=== PATIENT | female | born 1985 | race Caucasian/White ===

== ENCOUNTER 2020-05-22 12:26 | Emergency (ER) | payer OTHER, SELFPAY ==
--- NOTE | 2020-05-22 12:38 | ED.URI ---
HPI - URI/Sore Throat General Chief Complaint: Upper Respiratory Infection Stated Complaint: cough Time Seen by Provider: 05/22/20 12:38 Source: patient Mode of arrival: ambulatory Limitations: no limitations History of Present Illness HPI Narrative: Rose Jara is a 34 yo female with a PMH of GERD, to express care with a cough and pain in ribs. Cough been present for the last 2-week and is getting worse. Tested yesterday for covid and it was negative. Patient states is having hard time eating and feelings fatigued Related Data Home Medications Medication Instructions Recorded Confirmed buspirone 10 mg PO BID 05/22/20 05/22/20 gabapentin [Neurontin] 400 mg PO BID 05/22/20 05/22/20 norethindrone-e.estradiol-iron [Lo 1 tablet PO DAILY 05/22/20 05/22/20 Loestrin Fe] Allergies Allergy/AdvReac Type Severity Reaction Status Date / Time codeine Allergy Unknown Hives Verified 05/22/20 12:46 Review of Systems Review of Systems: Narrative: CONSTITUTIONAL: Denies fever, chills, sweats. EYES: Denies visual changes, redness, discharge. ENT: Denies rhinorrhea, congestion, sore throat, otalgia. CARDIOVASCULAR: Has chest wall pain, palpitations, edema. RESPIRATORY: Denies dyspnea, mild wheezing, has dry cough GASTROINTESTINAL: Denies abdominal pain, nausea, vomiting, diarrhea. GENITOURINARY: Denies dysuria, hematuria, abnormal discharge SKIN: Denies rash or itching. NEUROLOGIC: Denies numbness, or focal weakness. PSYCHIATRIC: Denies anxiety or depression. [facility] Past Medical History Medical History GERD (gastroesophageal reflux disease) Pancreatitis Surgical History Surgical History History of oral surgery Family History Family History Other Diabetes mellitus Family history of lung cancer Family history of malignant neoplasm of cervix Social History Social History Smoking packs per day: 0.75 Smoking cigarettes per day: 15.0 Smoking status: Current every day smoker Tobacco type: cigarettes Second hand tobacco smoke exposure: Yes Alcohol intake: current Substance use: current Substance use type: heroin and painkillers Other substance usage details: former heroin user, current non-prescription fentanyl user Gender identity (if verbalized by the patient): Female Spiritual care concerns: No Agree to blood products: Yes Comments At time of signature, I agree with nursing past medical, surgical, social and family history. There is no relevant family history pertinent to the presenting complaint. Exam Narrative: Exam Narrative: GENERAL: This is a well-nourished, well-developed patient, in mild distress. HEAD: normocephalic, atraumatic. EYES Sclera clear/white. Vision is grossly intact. EARS: External ears normal, Hearing grossly intact. NOSE: External nose normal without nasal discharge, nares without redness, no rhinorrhea. THROAT: Mucous membranes moist, posterior pharynx NECK: Neck supple, CARDIOVASCULAR: Regular rate and rhythm without murmurs, gallops, or rubs. RESPIRATORY: Clear to auscultation. Breath sounds equal bilaterally. Left lower lobe diminished breath sounds mild wheezing GASTROINTESTINAL: Abdomen soft, , SKIN: warm, intact with no suspicious lesions or rash, good texture and turgor. NEURO: awake, alert, and oriented to person, place and time. There were no obvious focal neurologic abnormalities. Steady gait EXTREMITIES: Normal range of motion. BACK: Nontender without deformity Course Course Emergency Course: Chest x-ray was unable to be done because machine is down Discussed treatment with patient and decided to start on Zithromax as well as cough medicine and prednisone Patient will hydrate and take medications as prescribed if worsens shirley
[2020-05-22 12:39] VITALS: BP 134/84; PULSE 108; RESP 20; TEMP 36.5; O2SAT 97
--- NOTE | 2020-06-01 12:21 | ED.URI ---
HPI - URI/Sore Throat General Chief Complaint: Upper Respiratory Infection Stated Complaint: cough Time Seen by Provider: 05/22/20 12:38 Source: patient Mode of arrival: ambulatory Limitations: no limitations History of Present Illness HPI Narrative: Rose Jara is a 34 yo female with a PMH of heroin abuse, depression, who comes back to [facility] care with similar complaints as last time. Patient has a cough does not feel well presents has tachycardic I saw her last time 10 days ago, discussed whether she improved on Zithromax and prednisone initially and she did but when she completed the prescription she said she went back to feeling as she does now. She was culture tested prior to the last visit; we will give patient order for cover testing this week. Discussed reasons that she will go to the emergency room as directed; states that she is here for treatment and does not want to go to the emergency room Hands are swollen appears to have recent track lisa on her hands patient has long sleeves so I was on able to visualize arms but patient does have history of heroin abuse Related Data Home Medications Medication Instructions Recorded Confirmed buspirone 10 mg PO BID 05/22/20 05/22/20 gabapentin [Neurontin] 400 mg PO BID 05/22/20 05/22/20 norethindrone-e.estradiol-iron [Lo 1 tablet PO DAILY 05/22/20 05/22/20 Loestrin Fe] Allergies Allergy/AdvReac Type Severity Reaction Status Date / Time codeine Allergy Unknown Hives Verified 05/22/20 12:46 Review of Systems Review of Systems: Narrative: CONSTITUTIONAL: Denies fever, chills, sweats. EYES: Denies visual changes, redness, discharge. ENT: Denies rhinorrhea, congestion, sore throat, otalgia. CARDIOVASCULAR: Denies chest pain, palpitations, edema. Tachycardia RESPIRATORY: Denies dyspnea, wheezing, dry cough GASTROINTESTINAL: Denies abdominal pain, nausea, vomiting, diarrhea. GENITOURINARY: Denies dysuria, hematuria, abnormal discharge SKIN: Denies rash or itching. track lisa on both hands, edema fingers NEUROLOGIC: Denies numbness, or focal weakness. PSYCHIATRIC: Denies anxiety or depression. COUNT INCLUDES THE [facility] Family History Family History Other Diabetes mellitus Family history of lung cancer Family history of malignant neoplasm of cervix Social History Social History Smoking packs per day: 0.75 Smoking cigarettes per day: 15.0 Smoking status: Current every day smoker Tobacco type: cigarettes Second hand tobacco smoke exposure: Yes Alcohol intake: current Substance use: current Substance use type: heroin and painkillers Other substance usage details: former heroin user, current non-prescription fentanyl user Gender identity (if verbalized by the patient): Female Spiritual care concerns: No Agree to blood products: Yes Comments At time of signature, I agree with nursing past medical, surgical, social and family history. There is no relevant family history pertinent to the presenting complaint. Exam Narrative: Exam Narrative: GENERAL: This is a well-nourished, well-developed patient, in mild distress. HEAD: normocephalic, atraumatic. EYES: Sclera clear/white. Vision is grossly intact. EARS: External ears normal, Hearing grossly intact. NOSE: External nose normal without nasal discharge, nares without redness, no rhinorrhea. THROAT: Mucous membranes moist, posterior pharynx NECK: Neck supple, non-tender CARDIOVASCULAR: Tachycardic rate and rhythm without murmurs, gallops, or rubs. RESPIRATORY: Clear to auscultation. Breath sounds equal bilaterally. No wheezes, rales, or rhonchi. GASTROINTESTINAL: Abdomen soft, non-tender, SKIN: warm, intact with old and what appears to be new track lisa on hands, fingers are swollen, patient is diaphoretic NEURO: awake, alert, and oriented to person, place and time. There were no obvious focal
== END 2020-05-22 13:25 | disposition home or self-care (01) ==
PROVIDERS: Emergency Provider Nurse Practitioner
DX: R05 Cough (principal); J06.9 Acute upper respiratory infection, unspecified; R53.83 Other fatigue; F17.210 Nicotine dependence, cigarettes, uncomplicated; K21.9 Gastro-esophageal reflux disease without esophagitis
CPT/HCPCS: 99213; G0463

== ENCOUNTER 2020-06-01 11:59 | Emergency (ER) | payer OTHER, SELFPAY ==
[2020-06-01 12:08] VITALS: BP 141/68; PULSE 83; RESP 18; TEMP 36.2; O2SAT 97
--- NOTE | 2020-06-01 12:38 | PC.NURSE ---
1220-- arrangements made with [facility] and r[facility] and provider there in agreement with us to continue care, and complete cxr and discharge pt from there with our provider and their provider collaborating discharge plan.
== END 2020-06-01 12:49 | disposition left against medical advice (07) ==
LOC: EXPCOLL 12:02
PROVIDERS: Emergency Provider Nurse Practitioner
DX: Z53.21 Procedure and treatment not carried out due to patient leaving prior to being seen by health care provider (principal)
CPT/HCPCS: 99199

== ENCOUNTER 2020-06-01 13:26 | Emergency (ER) | payer OTHER, SELFPAY ==
--- NOTE | ~2020-06-01 | XR_ITS ---
EXAMINATION: XR chest 2V EXAM DATE: 06/01/2020 13:41 INDICATION: Cough for 3 weeks. TECHNIQUE: Frontal and lateral projections of the chest obtained and reviewed. Comparison is made to prior examination from 06/15/2015. FINDINGS: There is a large left-sided pleural-based opacity or loculated pleural effusion. No evidenc e of underlying rib erosion. Appearance most consistent with a loculated pleural effusion with adjace nt multisegmental atelectasis/infiltrate. Underlying pneumonia or other chronic process not excludabl e. Findings are new compared to 2015. Please clinically correlate, could consider treating for pneumonia if patient has pneumonia clinicall y and obtaining a 2 week follow-up x-ray with additional recommendation based on that exam. If patien t does not have pneumonia clinically then recommend chest CT with contrast at this time. Right lung is clear. Cardiomediastinal silhouette is normal. There is no pneumothorax suspected. Ther e are no osseous abnormalities identified. IMPRESSION: Large left pleural-based opacity most likely loculated effusion with adjacent atelectasis /infiltrate. Clinical correlation, additional evaluation with follow-up chest x-ray or chest CT with contrast is indicated. Reviewed, dictated and finalized at location A. IMPRESSION: Large left pleural-based opacity most likely loculated effusion wit h adjacent atelectasis/infiltrate. Clinical correlation, additional evaluation with follow-up chest x-ray or chest CT with contrast is indicated.
[2020-06-01 13:36] VITALS: BP 138/73; PULSE 87; RESP 20; TEMP 36.6; O2SAT 98
--- NOTE | 2020-06-01 13:36 | ED.URI ---
HPI - URI/Sore Throat General Chief Complaint: Upper Respiratory Infection Stated Complaint: upper respiratory infection Time Seen by Provider: 06/01/20 13:36 Source: patient Mode of arrival: ambulatory Limitations: no limitations History of Present Illness HPI Narrative: Patient is a 34-year-old female who was just seen at [facility] and sent here for x-rays. She has a history of heroin abuse and depression. She was seen in [facility] previously on 05/22 with complaints of cough and general malaise. She returned to [facility] today with same complaints. Patient was treated with Zithromax and prednisone initially and reported symptoms returned after finishing prescription. Patient is a current everyday smoker. Patient has current order for COVID testing that has not been completed at this time, patient has previously been tested for Covid x 2 with negative results. Swelling the hands noted, appears to be recent track lisa, patient reports she has not been using heroin x1 year. MD elicited complaint: cough Related Data Home Medications Medication Instructions Recorded Confirmed buspirone 10 mg PO BID 05/22/20 05/22/20 gabapentin [Neurontin] 400 mg PO BID 05/22/20 05/22/20 norethindrone-e.estradiol-iron [Lo 1 tablet PO DAILY 05/22/20 05/22/20 Loestrin Fe] Allergies Allergy/AdvReac Type Severity Reaction Status Date / Time codeine Allergy Unknown Hives Verified 05/22/20 12:46 Review of Systems Review of Systems: Narrative: CONSTITUTIONAL: Denies fever, chills, or sweats. EYES: Denies visual changes, redness, or discharge. ENT: Denies rhinorrhea, congestion, sore throat, or otalgia. CARDIOVASCULAR: Denies chest pain, palpitations, or edema. RESPIRATORY: Reports cough, denies dyspnea. GASTROINTESTINAL: Denies abdominal pain, nausea, vomiting, or diarrhea. GENITOURINARY: Denies dysuria or hematuria. SKIN: Denies rash or itching. MUSCULOSKELETAL: Denies back pain, joint pain, or myalgia. NEUROLOGIC: Denies headache, numbness, dizziness, or weakness. PSYCHIATRIC: Denies anxiety or depression. [facility] Past Medical History Medical History GERD (gastroesophageal reflux disease) Heroin abuse Pancreatitis Surgical History Surgical History History of oral surgery Family History Family History Other Diabetes mellitus Family history of lung cancer Family history of malignant neoplasm of cervix Social History Social History Smoking packs per day: 0.75 Smoking cigarettes per day: 15.0 Smoking status: Current every day smoker Tobacco type: cigarettes Second hand tobacco smoke exposure: Yes Alcohol intake: current Substance use: current Substance use type: heroin and painkillers Other substance usage details: former heroin user, current non-prescription fentanyl user Gender identity (if verbalized by the patient): Female Spiritual care concerns: No Agree to blood products: Yes Exam Narrative: Exam Narrative: GENERAL: well-nourished, and in no acute distress. HEAD: Normocephalic, atraumatic. EYES: No redness or drainage. Conjunctiva are normal. ENT: Mucous membranes pink and moist. Nares clear. No rhinorrhea. TMs normal bilaterally. Throat normal. Uvula midline. NECK: AROM. Supple. No lymphadenopathy. CHEST: No respiratory distress. Clear to auscultation. HEART: Regular rate and rhythm. No murmur appreciated. Normal peripheral pulses. EXTREMITIES: Normal range of motion. No edema. SKIN: Warm, dry, no rash. Needle lisa to bilateral hands. NEURO: No focal deficits. Alert and oriented x3. Gait steady. PSYCH: Normal affect. No signs of depression or anxiety. Course Vital Signs Vital signs: Vital Signs Temperature 36.6 C
--- NOTE | 2020-06-01 13:57 | PC.NURSE ---
Issac POLANCO speaking with patient in regards to needing to go the ER for additional testing
--- NOTE | 2020-06-01 14:03 | PC.NURSE ---
Issac POLANCO called report to Dr Funez
--- NOTE | 2020-06-01 14:06 | PC.NURSE ---
Report to Dulce OVALLES
--- NOTE | 2020-06-01 14:08 | PC.NURSE ---
Issac POLANCO talking with patient about potential transfer to [facility]
--- NOTE | 2020-06-01 14:18 | PC.NURSE ---
Patient stated she wants to go home and it will be a few days before she goes to any hospital. States that she last used heroin yesterday and cannot go to the hospital when she is going to be sick from not using. Spoke with patients mother and she agreed to take her to [place] after they accept. Patient refuses to go for a few days Explained the improtance of going and potential for worsening of condition up to and including
--- NOTE | 2020-06-01 14:23 | PC.NURSE ---
signed AMA paperwork and lef the facility
== END 2020-06-01 14:25 | disposition left against medical advice (07) ==
LOC: EXPTROY 13:29
PROVIDERS: Emergency Provider Nurse Practitioner
DX: R91.8 Other nonspecific abnormal finding of lung field (principal); F17.210 Nicotine dependence, cigarettes, uncomplicated; K21.9 Gastro-esophageal reflux disease without esophagitis
CPT/HCPCS: 71046; 99213; G0463

== ENCOUNTER 2021-04-28 19:19 | Emergency (ER) | payer OTHER, SELFPAY ==
--- NOTE | ~2021-04-28 | XR_ITS ---
EXAMINATION: XR knee LT 3V DATE: 04/28/2021 20:16 INDICATION: Left knee pain. TECHNIQUE: 3 views of left knee were obtained. COMPARISON: Left knee radiographs 03/07/2018 FINDINGS: Bone alignment is normal. No fracture. There is mild osteoarthritis of medial and lateral c ompartments characterized by tiny marginal osteophytes. No joint space narrowing. No knee joint effus ion. There is subcutaneous gas in distal medial thigh with soft tissue swelling. IMPRESSION: 1. Subcutaneous gas in distal medial thigh with soft tissue swelling suspicious for infection or pene trating injury. Correlate clinically for necrotizing fasciitis. 2. Mild left knee osteoarthritis. Reviewed, dictated and finalized at location A. IMPRESSION: 1. Subcutaneous gas in distal medial thigh with soft tissue swelling suspicious for infection or penetrating injury. Correlate clinically for necrotizing fasc iitis. 2. Mild left knee osteoarthritis.
[2021-04-28 19:41] VITALS: BP 90/70; PULSE 135; RESP 20; TEMP 38.6; O2SAT 97
[2021-04-28 20:19] LABS: Basophils Percent Auto 0.3 % (0.2-1.2); Eosinophils Percent Auto 0.1 % (0-4.4); Hematocrit 36.2 % (37.0-47.0); Hemoglobin 10.9 g/dL (12.0-15.0); Immature Granulocyte Absolute 0.09 K/mm3 (0.00-0.031); Immature Granulocyte Percent A 0.7 % (0-0.5); Lymphocytes Absolute Auto 0.68 K/mm3 (0.9-3.2); Mean Corpuscular HGB Conc 30.1 g/dl (32-36); Mean Corpuscular Hemoglobin 24.1 pg (26-34); Mean Corpuscular Volume 79.9 fl (80-100); Mean Platelet Volume 10.4 fl (7.4-10.4); Monocytes Absolute Auto 0.7 K/mm3 (0.1-0.6); Monocytes Percent Auto 5.1 % (2.6-8.5); Neutrophils Absolute Auto 12.1 K/mm3 (1.3-6.7); Neutrophils Percent Auto 88.8 % (45.5-73.1); Platelet Count Result 391 k/mm3 (150-375); Red Blood Count 4.53 M/mm3 (4.2-5.4); White Blood Count 13.6 K/mm3 (4.5-10.0)
[2021-04-28 20:46] LABS: Alanine Aminotransferase 12 U/L (4-35); Albumin Level 4.5 g/dL (3.5-5.1); Alkaline Phosphatase 108 U/L (38-126); Anion Gap 12 mmol/L (8-16); Aspartate Amino Transferase 19 U/L (14-36); Bilirubin,Total 0.3 mg/dL (0.2-1.3); Blood Urea Nitrogen 14 mg/dL (7-17); CRP 19.5 mg/dL (<1.0); Calcium 9.5 mg/dL (8.4-10.2); Carbon Dioxide 27 mmol/L (22-30); Chloride 97 mmol/L (98-107); Estimated CRCL calculation 64 ml/min; Estimated Glomerular Filt Rate > 60; Glucose 114 mg/dL (65-110); Potassium 3.5 mmol/L (3.4-5.0); Sodium 136 mmol/L (137-145)
--- NOTE | 2021-04-28 21:13 | PC.NURSE ---
Pt ambulated to intake nurse to say her ride is leaving and she cannot stay, she will come back in the morning. This RN discussed labs and treatment and need to stay for eval by doctor. Discussed ways of getting home at a later time. Pt states No, Im leaving, I didnt think it would be this busy on a Tuesday. I will come back another time. Pt ambulated out w/ steady gait.
== END 2021-04-28 21:13 | disposition left against medical advice (07) ==
PROVIDERS: Emergency Provider Emergency Medicine
DX: L02.415 Cutaneous abscess of right lower limb (principal); Z53.21 Procedure and treatment not carried out due to patient leaving prior to being seen by health care provider
CPT/HCPCS: 36415; 73562; 80053; 85025; 86140; 99199

== ENCOUNTER 2021-04-29 10:15 | Emergency (ER) | payer OTHER, SELFPAY ==
--- NOTE | ~2021-04-29 | CT_ITS ---
EXAMINATION: CT LE LT w con DATE: 04/29/2021 14:17 INDICATION: Abscess to the left knee. TECHNIQUE: High resolution computed tomography (CT) of the left lower limb above the hip through the foot was performed with 100 mL Omnipaque-350 intravenous contrast. Additional sagittal and coronal re constructions were performed. The dose-length product was 917.97 mGy-cm. COMPARISON: None FINDINGS: There is an approximately 2.8 x 2.0 x 2.7 cm nonorganized fluid collection centered in the subcutaneo us fat at the anteromedial aspect of the distal left thigh located approximately 8 cm cephalad to the tibiotalar joint line. No evident peripherally enhancing wall. There is surrounding subcutaneous jeovanny ma with skin thickening and a few foci of gas in the subcutaneous fat consistent with cellulitis. Of more concern there is extensive gas deep to the superficial fascia of the anterior compartment of the thigh which extends anteriorly to the medial side of the vastus medialis and its complex with the di stal quadriceps tendon and extends posteriorly and proximally along the posterior medial margin of th e vastus medialis 30 cm proximal to the tibiotalar joint line and 13 cm inferior to the apex of the f emoral head. Findings are concerning for necrotizing fasciitis. The gas extends to within a couple mi llimeter of the superficial femoral neurovascular bundle but does not appear to cross the medial inte rmuscular septum into the fat of the adductor canal. There is however some stranding in the abductor canal and extending around the sartorius muscle which along with the inflammatory stranding in the fa t of the anterior compartment extends cephalad to the level of the hip joint. No intramuscular gas wi thin the vastus medialis however there is subtle decreased attenuation/enhancement in the superficial aspect of the vastus medialis and could not exclude underlying myositis/necrosis. There is a small f ocus of gas along side the left greater saphenous vein at the level of the tibial plateau. The greate r saphenous vein at this level appears relatively thickened compared with the more proximal distal ve in and with lower attenuation which suggests possibility of thrombosis/thrombophlebitis. Bones are un remarkable in normal alignment with no fracture. No cortical erosions or periosteal reaction to sugge st osteomyelitis. Joint spaces are unremarkable with no left hip, knee or ankle joint effusions. Like ly reactive mildly prominent left inguinal lymph node. No gas inflammatory stranding within the visua lized base of the pelvis. IMPRESSION: 1. Extensive gas peripheral to the vastus medialis but deep to the superficial fascia of the anterior compartment which extends along the distal to mid thigh concerning for necrotizing fasciitis. 2. Subtle decreased attenuation/enhancement along the superficial aspect of the vastus medialis which raises concern for myositis and/or myonecrosis. 3. Cellulitis with 2-3 cm nonorganized fluid collection in the subcutaneous fat at the anteromedial d istal thigh consistent with phlegmonous change without organized peripheral wall to suggest abscess. 4. Dr. Rowe discussed these findings with Dr. Stewart at 2:27 PM. 5. Small focus of gas along the left greater saphenous vein at the level of the tibial plateau where it appears mildly dilated with decreased intraluminal attenuation suspicious for thrombosis/thromboph lebitis. Reviewed, dictated and finalized at location A.
[2021-04-29 10:30] VITALS: BP 104/63; PULSE 120; RESP 16; TEMP 36.8; O2SAT 100
--- NOTE | 2021-04-29 10:46 | ED.GENADULT ---
HPI - General Adult General Chief complaint: Skin/Abscess/Foreign Body <ISHA Lutz Last Filed: 04/29/21 15:54> Stated complaint: Abscess L knee <ISHA Lutz Last Filed: 04/29/21 15:54> Time Seen by Provider: 04/29/21 10:45 <ISHA Lutz Last Filed: 04/29/21 15:54> History of Present Illness HPI narrative: Patient is a 35-year-old female with history of IV drug use who comes to the ED today with concerns for a skin infection to her left leg. Patient reports that about 4 days ago she noticed some redness and tenderness just to the medial aspect of her left knee. Over the last 4 days this area is gotten larger and more painful. Over the last 2 days she has developed fevers and nausea. Reports a fever of 102 at home. Denies any possibility of . She did inject into the areas just prior to onset of symptoms. Came here for the symptoms last night but had to leave prior to receiving treatment. <ISHA Lutz Last Filed: 04/29/21 15:54> Related Data Home medications: Home Medications Medication Instructions Recorded Confirmed buspirone mg 04/29/21 clonidine HCl 04/29/21 gabapentin 04/29/21 <ISHA Lutz Last Filed: 04/29/21 15:54> Allergies/adverse reactions: Allergies Allergy/AdvReac Type Severity Reaction Status Date / Time codeine Allergy Unknown Hives Verified 05/22/20 12:46 <ISHA Lutz Last Filed: 04/29/21 15:54> Review of Systems Constitutional: Constitutional: Reports as per HPI, Denies fever(s), Denies night sweats and Denies weakness <ISHA Lutz Last Filed: 04/29/21 15:54> Cardiovascular: Cardiovascular: Denies chest pain, Denies edema, Denies leg edema, Denies dyspnea and Denies orthopnea <ISHA Lutz Last Filed: 04/29/21 15:54> Respiratory: Respiratory: Denies cough and Denies dyspnea <Chidi Kelly PA-C - Last Filed: 04/29/21 15:54> Gastrointestinal: Gastrointestinal: Denies abdominal pain, Denies constipation, Denies diarrhea, Reports nausea and Denies vomiting <Chidi Kelly PA-C - Last Filed: 04/29/21 15:54> Musculoskeletal: Musculoskeletal: Denies abnormal gait, Denies back pain, Denies numbness and Denies tingling <Chidi Kelly PA-C - Last Filed: 04/29/21 15:54> Integumentary/Breasts: Comments: See HPI <Chidi Kelly PA-C - Last Filed: 04/29/21 15:54> Neurologic: Denies Abnormal speech present, Denies abnormal gait, Denies numbness, Denies tingling and Denies weakness <Chidi Kelly PA-C - Last Filed: 04/29/21 15:54> Psychiatric: Psychiatric: Denies homicidal ideation and Denies suicidal ideation <Chidi Kelly PA-C - Last Filed: 04/29/21 15:54> [facility] Past Medical History Medical History: Medical History (Updated 04/29/21 @ 15:52 by Chidi Kelly PA-C) GERD (gastroesophageal reflux disease) Heroin abuse Pancreatitis <Chidi Kelly PA-C - Last Filed: 04/29/21 15:54> Surgical History Surgical History: Surgical History History of oral surgery <Chidi Kelly PA-C - Last Filed: 04/29/21 15:54> Family History Family History: Family History Other Diabetes mellitus Family history of lung cancer Family history of malignant neoplasm of cervix <Chidi Kelly PA-C - Last Filed: 04/29/21 15:54> Social History Social History: Social History Smoking packs per day: 0.75 Smoking cigarettes per day: 15.0 Smoking status: Current every day smoker Tobacco type: cigarettes Second hand tobacco smoke exposure: Yes Alcohol intake: current Substance use: current Substance use type: heroin and painkillers Other substance usage details: former heroin us
[2021-04-29] MEDS: ONDANSETRON INJ 4 MG/2 ML VIAL IV PUSH ×2 (12:32→15:15)
[2021-04-29 12:46] LABS: Hematocrit 34.2 % (37.0-47.0); Hemoglobin 10.5 g/dL (12.0-15.0); Mean Corpuscular HGB Conc 30.7 g/dl (32-36); Mean Corpuscular Hemoglobin 23.8 pg (26-34); Mean Corpuscular Volume 77.6 fl (80-100); Mean Platelet Volume 10.8 fl (7.4-10.4); Platelet Count Result 372 k/mm3 (150-375); Red Blood Count 4.41 M/mm3 (4.2-5.4); White Blood Count 20.2 K/mm3 (4.5-10.0)
[2021-04-29] MEDS: LACTATED RINGERS 1,000 ML 999 ML IV CONT ×2 (12:56)
[2021-04-29] MEDS: KETOROLAC 15 MG/ML VIAL (*BKC) IV PUSH (13:03)
[2021-04-29 13:07] LABS: Lactic Acid Reflex 2.4 mmol/L (0.7-2.1)
[2021-04-29 13:11] LABS: INR 1.2; Prothrombin Time 15.2 Seconds (11.1-14.7)
[2021-04-29 13:12] LABS: Partial Thromboplastin Time 36.7 SECONDS (22.3-36.8)
[2021-04-29] MEDS: CLINDAMYCIN 600 MG/D5W 50 ML 600 MG/50 ML PIGGYBACK 100 MG IVPB (13:22)
[2021-04-29 13:42] LABS: Alanine Aminotransferase 10 U/L (4-35); Alkaline Phosphatase 109 U/L (38-126); Anion Gap 12 mmol/L (8-16); Aspartate Amino Transferase 19 U/L (14-36); Bilirubin,Total 0.4 mg/dL (0.2-1.3); Blood Urea Nitrogen 18 mg/dL (7-17); Calcium 9.3 mg/dL (8.4-10.2); Carbon Dioxide 21 mmol/L (22-30); Chloride 99 mmol/L (98-107); Estimated CRCL calculation 58 ml/min; Estimated Glomerular Filt Rate 46; Glucose 122 mg/dL (65-110); Sodium 132 mmol/L (137-145)
[2021-04-29 13:49] LABS: Add Urine Microscopic? YES; Appearance Urine Cloudy (Clear); Bacteria Urine Trace /hpf; Bilirubin Urine 1+ (Negative); Blood Urine Negative (Negative); Color Urine Amber (Yellow); Glucose Urine UA Negative (Negative); Ketones Urine Negative (Negative); Leukocyte Esterase Ur Negative LEU/UL (Negative); Mucus Urine Rare /lpf; Nitrate Urine Negative (Negative); Protein Urine 2+ mg/dL (Negative); Squamous Epithelial Cell Urine Occasional /hpf (Few); WBC Urine 51-75 /hpf
[2021-04-29 14:04] LABS: Specific Grav Ur 1.032 (1.001-1.035)
[2021-04-29 14:04] LABS: CRP 28.4 mg/dL (<1.0)
[2021-04-29 14:30] VITALS: BP 125/64; PULSE 100; RESP 20; TEMP 37.2; O2SAT 100
[2021-04-29 14:31] LABS: Band Neutrophils Percent 17 % (0-6); Lymphocytes Absolute Manual 1.01 K/mm3 (1.1-4.5); Monocytes Percent Manual 2 % (3-9); Neutrophils Absolute Manual 18.78 K/mm3 (1.7-7.2); Neutrophils Percent Manual 76 % (46-73); Platelet Estimate Adequate (Adequate); Total Cells Counted 100
[2021-04-29 15:12] LABS: Creatine Kinase 122 U/L (30-135)
[2021-04-29] MEDS: MORPHINE SULFATE (*CRX) 4 MG/ML INJ IV PUSH (15:18)
[2021-04-29] MEDS: SODIUM CHLORIDE 0.9% IV 1,000 ML 100 ML (15:29)
[2021-04-29 15:35] VITALS: BP 111/61; PULSE 110; RESP 20; O2SAT 100
[2021-04-29 15:44] LABS: Reflex Lactic Acid Yes or No Add Lactic
[2021-04-29] MEDS: METOCLOPRAMIDE HCL INJ 10 MG/2 ML VIAL IV PUSH (16:24)
== END 2021-04-29 17:15 | disposition short-term general hospital (02) ==
PROVIDERS: Physician Assistant Medical; Emergency Provider Emergency Medicine; PCP Family Medicine Adolescent Medicine
DX: M72.6 Necrotizing fasciitis (principal); M60.062 Infective myositis, left lower leg; A41.9 Sepsis, unspecified organism; F17.210 Nicotine dependence, cigarettes, uncomplicated; K21.9 Gastro-esophageal reflux disease without esophagitis
CPT/HCPCS: 36415; 73701; 80053; 81001; 81025; 82550; 83605; 85025; 85610; 85730; 86140; 87040; 87086; 96361; 96365; 96366; 96367; 96375; 96376; 99285; J1885; J2270; J2405; J2543; J2765; J3370; J3480; J7030; J7120; Q9967

== ENCOUNTER 2023-09-05 00:23 | Emergency (ER) | payer OTHER, SELFPAY ==
[2023-09-05 00:27] VITALS: BP 146/105; PULSE 77; RESP 16; TEMP 36.5; O2SAT 100
--- NOTE | 2023-09-05 05:54 | ED.GENADULT ---
HPI - General Adult General Chief complaint: Skin/Abscess/Foreign Body Stated complaint: multiple c/o, teeth issue, skin issues Time Seen by Provider: 09/05/23 04:59 History of Present Illness HPI narrative: Patient is a 38-year-old female who presents emerged from with chief complaint of multiple lesions on her skin the patient states that time she feels as though there has parasites crawling in the wounds reports that she did use use meth but now just occasionally insufflate Rikki fentanyl. 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 Nursing and ancillary documentation was reviewed. [facility] Past Medical History Medical History GERD (gastroesophageal reflux disease) Heroin abuse Hx of drug overdose Ativan, Gabepentin, Fentanyl, Heroin Necrotizing fasciitis (04/2021) Pancreatitis Surgical History Surgical History History of cholecystectomy (2019) History of oral surgery Hx of tonsillectomy Family History Family History Other Diabetes mellitus Family history of lung cancer Family history of malignant neoplasm of cervix Social History Social History Smoking packs per day: 0.75 Smoking cigarettes per day: 15.0 Smoking status: Current every day smoker Tobacco type: cigarettes Second hand tobacco smoke exposure: Yes Alcohol intake: current Substance use: current Substance use type: heroin and painkillers Other substance usage details: former heroin user, current non-prescription fentanyl user Gender identity (if verbalized by the patient): Female Spiritual care concerns: No Agree to blood products: Yes Exam Narrative: GENERAL: Well-appearing, well-nourished, and in no acute distress. HEAD: Normocephalic, atraumatic. EYES: PERRLA and EOMI. ENT: Nares clear, no rhinorrhea or epistaxis. Mucous membranes moist. NECK: Supple. CHEST: Clear to auscultation. No respiratory distress. HEART: Regular rate and rhythm. No murmur heard. Normal peripheral pulses. ABDOMEN: Soft, nontender, nondistended, normal active bowel sounds. EXTREMITIES: Normal range of motion. No edema. SKIN: Warm, dry, no rash. Multiple circular lesions on the hand with ulcerations. No necrotic tissue no crepitance NEURO: No focal deficits. Alert and oriented x3. PSYCH: Normal mood and affect. Course Vital Signs Vital signs: Vital Signs Temperature 36.5 C 09/05/23 00:27 Pulse Rate 77 09/05/23 00:27 Respiratory Rate 16 09/05/23 00:27 Blood Pressure 146/105 H 09/05/23 00:27 Pulse Oximetry 100 09/05/23 00:27 Oxygen Delivery Room Air 09/05/23 00:27 Temperature 36.5 C 09/05/23 00:27 Pulse Rate 77 09/05/23 00:27 Respiratory Rate 16 09/05/23 00:27 Blood Pressure 146/105 H 09/05/23 00:27 Pulse Oximetry 100 09/05/23 00:27 Oxygen Delivery Room Air 09/05/23 00:27 Medical Decision Making Vital Signs Vital Signs: Vital Signs Temperature 36.5 C 09/05/23 00:27 Pulse Rate 77 09/05/23 00:27 Respiratory Rate 16 09/05/23 00:27 Blood Pressure 146/105 H 09/05/23 00:27 Pulse Oximetry 100 09/05/23 00:27 Oxygen Delivery Room Air 09/05/23 00:27 Temperature 36.5 C 09/05/23 00:27 Pulse Rate 77 09/05/23 00:27 Respiratory Rate 16 09/05/23 00:27 Blood Pressure 146/105 H 09/05/23 00:27 Pulse Oximetry 100 09/05/23 00:27 Oxygen [place]
[2023-09-05 06:12] VITALS: BP 138/89; PULSE 70; RESP 17; O2SAT 100
== END 2023-09-05 06:12 | disposition home or self-care (01) ==
PROVIDERS: Emergency Provider Emergency Medicine; PCP Family Medicine Adolescent Medicine
DX: L73.9 Follicular disorder, unspecified (principal); K21.9 Gastro-esophageal reflux disease without esophagitis; Z90.49 Acquired absence of other specified parts of digestive tract; F17.210 Nicotine dependence, cigarettes, uncomplicated
CPT/HCPCS: 99283

== ENCOUNTER 2023-11-15 11:01 | Outpatient (CLI) | payer OTHER, SELFPAY ==
--- NOTE | ~2023-11-15 | XR_ITS ---
XR finger 2nd RT min 2V DATE: 11/15/2023 11:19 INDICATION: Deformity TECHNIQUE: 4 views COMPARISON: None FINDINGS: There is joint space narrowing at the proximal interphalangeal joint and flexion at the PIP joint, presumably chronic; clinical correlation advised. There is soft tissue swelling centered at the PIP joint. No fracture or dislocation, periosteal reaction or bone destruction. IMPRESSION: Joint space narrowing and flexion deformity, soft tissue swelling at proximal interphalan geal joint Reviewed, dictated and finalized at location L. IMPRESSION: Joint space narrowing and flexion deformity, soft tissue swelling a t proximal interphalangeal joint
== END 2023-11-15 11:02 | disposition home or self-care (01) ==
PROVIDERS: PCP Family Medicine Adolescent Medicine; Visit Provider Nurse Practitioner Family
DX: M21.241 Flexion deformity, right finger joints (principal)
CPT/HCPCS: 73140

== ENCOUNTER 2024-12-28 10:40 | Outpatient (CLI) | payer OTHER, SELFPAY ==
[2024-12-28 13:09] LABS: Basophils Percent Auto 0.5 % (0.2-1.2); Eosinophils Absolute Auto 0.1 K/mm3 (0-0.3); Hematocrit 36.6 % (37.0-47.0); Hemoglobin 11.2 g/dL (12.0-15.0); Immature Granulocyte Absolute 0.01 K/mm3 (0.00-0.031); Immature Granulocyte Percent A 0.2 % (0-0.5); Lymphocytes Absolute Auto 2.12 K/mm3 (0.9-3.2); Lymphocytes Percent Auto 35.6 % (18.3-44.2); Mean Corpuscular HGB Conc 30.6 g/dl (32-36); Mean Corpuscular Hemoglobin 25.7 pg (26-34); Mean Corpuscular Volume 83.9 fl (80-100); Mean Platelet Volume 9.9 fl (7.4-10.4); Monocytes Absolute Auto 0.3 K/mm3 (0.1-0.6); Monocytes Percent Auto 4.9 % (2.6-8.5); Neutrophils Absolute Auto 3.4 K/mm3 (1.3-6.7); Neutrophils Percent Auto 56.8 % (45.5-73.1); Platelet Count Result 271 k/mm3 (150-375); Red Blood Count 4.36 M/mm3 (4.2-5.4); Red Cell Distribution Width 14.6 % (11.5-14.5)
[2024-12-28 13:32] LABS: Alanine Aminotransferase 17 U/L (6-35); Albumin Level 4.7 g/dL (3.5-5.1); Alkaline Phosphatase 61 U/L (38-126); Anion Gap 13 mmol/L (4-12); Aspartate Amino Transferase 19 U/L (14-36); Bilirubin,Total 0.2 mg/dL (0.2-1.3); Blood Urea Nitrogen 23 mg/dL (7-17); Calcium 9.3 mg/dL (8.4-10.2); Carbon Dioxide 23 mmol/L (22-30); Chloride 100 mmol/L (98-107); Cholesterol 183 mg/dL (0-200); Estimated Glomerular Filt Rate > 60; Glucose 113 mg/dL (65-110); HDL Direct 46 mg/dL; Potassium 4.3 mmol/L (3.4-5.0); Sodium 136 mmol/L (137-145); Triglycerides 316 mg/dL (<150)
[2024-12-28 13:42] LABS: Iron 60 ug/dL (37-170)
[2024-12-28 13:43] LABS: LDL Cholesterol Direct 74 mg/dL
[2024-12-28 13:46] LABS: Beta HCG Quantitative < 2.39 mIU/ML
[2024-12-28 13:51] LABS: Hemoglobin A1C 5.3 % (<5.7); Percent Iron Saturation 19 % (20-50)
[2024-12-28 14:09] LABS: HIV 1/2 Ab P24 Ag Result Negative (Negative); Syphilis IgG/IgM Antibody Negative (Negative)
[2024-12-28 14:14] LABS: Hepatitis B Surface Antigen Negative (Negative)
[2024-12-28 14:19] LABS: Hepatitis B Core IgM Result Negative (Negative)
[2024-12-28 14:32] LABS: Hepatitis C Virus Antibody Negative (Negative)
--- OUTSIDE RECORDS SUMMARY | 2024-12-29 12:01 | XMS_ITS | Clinical Summary ---
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 Role Phone Unavailable Primary Care Provider Unavailabl e Social History Tobacco Use Types Packs/Day Years Used Date Smoking Tobacco: Never Assessed Comments Unknown Sex and Gender Information Value Date Recorded Sex Assigned at Not on file Legal Sex Female 4:38 PM CDT Gender Identity Not on file Sexual Orientation Not on file Plan of Treatment Health Maintenance Due Date Last Done Comments Cervical Cancer Screening Pa p Smear (Age 30 to 64) Every 3 Years 1984 Annual Physical 1987 Hepatitis C 2002 DTaP, Tdap and Td Vaccines ( 1 - Tdap) 2003 Hepatitis B Vaccines (1 of 3 - 19+ 3-dose series) 2003 Cervical Cancer Screening Pa p with HPV Testing (Age 30 to 64) Every 5 Years 2014 Cervical Cancer Screening with HPV 2014 COVID-19 Vaccine (2023-2 5 season) 2024 Mammogram Screening 2024 HPV Vaccines Aged Out No longer eligi ble based on patient's age to complete this topic Meningococcal B Vaccine Aged Out No l onger eligible based on patient's age to complete this topic Meningococcal Vaccine Aged Out No janes elisa eligible based on patient's age to complete this topic Pneumococcal Vaccine: Pediat rics (0 to 5 Years) and At-Risk Patients (6 to 49 Years) Aged Out No longer eligible b ased on patient's age to complete this topic RSV Immunizations Under 20 Months Aged Out No longer eligible based on patient's age to complete this topic Advance Directives Documents on File Type Date Recorded Patient Digital Retoucher Expl anation Advance Directives and Living Will 05/22/2018 12:00 AM ADVANCED DIRECTIVES
--- OUTSIDE RECORDS SUMMARY | 2024-12-29 12:02 | XMS_ITS | Clinical Summary ---
Author Organization [facility] Address [address] [place] [address] Care Team Providers Care Supervisor M[employer] [facility] Name Role Phone Anand Richard MD Primary Care Provider + Source Comments [facility],non-owned Affiliates and Associated Physician Practices is amultiple site organization consisting of ambulatory clinics and hospital sitesin [place], [place], [place] and [place]. This disclosure is being madepursuant to the Care Everywhere program and may not contain all information available regarding this patient. Last updated 18.[facility] Allergies Active Allergy Reactions Criticality Noted Date Comments Codeine Urticaria Medium 04/29/2021 Medications * Be aware that medications may not be up to date on this document. Alwaysverify current medications with the patient. gabapentin (NEURONTIN) 400 MG capsule Take 400 mg by mouth 2 times daily 1 Active busPIRone (BUSPAR) 10 MG tablet Take 10 mg by mouth 2 times daily 1 Active cloNIDine (CATAPRES) 0.1 MG tablet Take 0.1 mg by mouth 2 times daily 1 Active albuterol HFA (PROVENTIL;THIAGO TOLIN;PROAIR) 108 (90 Base) MCG/ACT inhaler Inhale 2 puffs by mouth every 4 hours as needed 0 Active acetaminophen (TYLENOL) 500 MG tablet Take 2 (two) tablets by mouth every 8 hours Maximum allowable Acetaminophen amount = 4 Grams (4000 mg) / 24 hours. 60 tablet 1 Active ferrous sulfate 325 (65 FE) MG tablet Take 1 (one) tablet by mouth daily with breakfast 30 tablet 1 Active docusate sodium (COLACE) 100 MG capsule Take 1 (one) capsule by mouth once daily 30 capsule 1 Active Additional Information Patient not taking.Reported on 06/10/2021 senna (SENOKOT) 8.6 MG tablet Take 1 (one) tablet by mouth once daily 30 tablet 1 Active nicotine (NICODERM CQ) 7 MG/24HR patch Apply 1 (one) patch to skin once daily 14 patch 1 Active Additional Information Patient not taking.Reported on 06/10/2021 oxyCODONE, immediate release, (ROXICODONE) 5 MG tablet Take 1 (one) tablet by mouth every 4 hours as needed for Pain (for breakthrough pain and dressing changes) 40 tablet 1 Active Additional Information Patient not taking.Reported on 06/10/2021 prochlorperazi ne (COMPAZINE) 10 MG tablet Take 1 (one) tablet by mouth every 8 hours as needed for Nausea/Vomiting 25 tablet 1 Active Active Problems Problem Noted Date Diagnosed Date Encounter for management of vacuum-assisted closure (VAC) of wound 05/06/2021 Wound of left leg, initial encounter 05/06/2021 Resolved Problems Problem Noted Date Diagnosed Date Resolved Date Necrotizing fasciitis 04/29/20212020 Difficult intravenous access 04/29/2021 05/06/2021 Sepsis 05/06/2021 Acute respiratory failure Immunizations Immunization Administration Dates Next Due TDAP (7yrs+) 04/29/2021 Social History Tobacco Use Types Packs/Day Years Used Date Smoking Tobacco: Every Day Cigarettes Smokeless Tobacco: Never Tobacco Cessation:Ready to Q uit: No; Counseling Given: Yes Alcohol Use Standard Drinks/Week Comments Not Currently 0 (1 standard drink = 0.6 oz pur e alcohol) AUDIT-C Answer Date Recorded Q1: How often do you have a drink containing alc ohol? Monthly or less 05/01/2021 Q2: How many drinks containi ng alcohol do you have on a typical day when you are drinking? 1 or 2 05/01/2021 Q3: How often do you have si x or more drinks on one occasion? Less than monthly 05/01/2021 Comments No Sex and Gender Information Value Date Recorded Sex Assigned at Not on file Legal Sex Female 10:28 AM CDT Gender Identity Not on file Sexual Orientation Not on file Last Filed Vital Signs Vital Sign Reading Time Taken Comments Blood Pressure 138/87 06/10/2021 1:40 PM CDT Pulse 91 06/10/2021 1:40 PM CDT Temperature 35 C (95 F) 06/10/2021 1:40 PM CDT Respiratory Rate 18 05/07/2021 7:55 AM CDT Oxygen Saturation 98% 05/20/2021 1:34 PM CDT Inhaled Oxygen Concentration 32% 05/01/2021 2 :45 PM CDT Weight 86.2 kg (190 lb) 06/10/2021 1:40 PM CDT Height 167.6 cm (5' 6 ) 06/10/2021 1:40 PM CDT Body Mass Index 30.67 06/10/2021 1:40 PM CDT Plan of Treatment Health Maintenance Due Date Last Done Comments LIPID TESTING 1984 MAMMOGRAM 1984 HIV SCREENING 1999 HEPATITIS C SCREENING 07/13/2002 HEPATITIS B VACCINE (1 of 3 - 19+ 3-dose series) 2003 PNEUMOCOCCAL VACCINE (1 of 2 - PCV) 2003 COVID-19 VACCINE (1 - 2023-2 5 season) 2024 DEPRESSION SCREENING 08/29/2024 INFLUENZA VACCINE (Season Ended) 2025 DTAP/TDAP/TD VACCINES (2 - T d or Tdap) 04/29/2031 04/29/2021 ZOSTER VACCINE (1 of 2) 2034 HIB VACCINE Aged Out No longer eligi ble based on patient's age to complete this topic HPV VACCINE Aged Out No longer eligi ble based on patient's age to complete this topic MENINGOCOCCAL (Group B) VACC INE SHARED DECISION-MAKING Aged Out No longer eligibl e based on patient's age to complete this topic MENINGOCOCCAL GROUPS A/C/Y/W VACCINE Aged Out No longer eligible b ased on patient's age to complete this topic Insurance [facility] [place] [address] [place] [address] Advance Directives * Full Code (Latest Code Status on File) Date Activated Date Inactivated Comments 04/29/2021 10:41 PM 05/07/2021 1:00 PM Care Teams Supervisor [facility] [facility] Relationship Specialty Start Date End Date Anand Richard MD [address] [facility] [address] [place] [address] PCP - General 04/03/19
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
--- OUTSIDE RECORDS SUMMARY | 2024-12-29 12:02 | XMS_ITS | Referral Summary ---
Author Organization [facility] Address [address] [place] [id number] Care Team Providers [employer] Principal Name Role Phone Anand Richard MD Primary Care Prov ider Encounters Date Type Department Care Team Description 11/08/2024 Results Follow-Up Radiology 1 [place] [address] Brenden Valencia MD 11/07/2024 Telephone [facility] [address] [place] [address] Medicine 8th [place] [address] [place] [address] Brenden Valencia MD 11/06/2024 Telephone [facility] [address] [place] [address] 8th [place] [address] [place] [address] Brenden Valencia MD 10/31/2024 12:11 PM [employer] - 10/31/2024 11:59 PM [employer] Hospital Encounter [facility] [address] [place] [phone] Mitral valve insufficiency, unspecified etiology; Hypervolemia, unspecified hypervolemia type Discharge Disposition: Discharge to home or self care 10/24/2024 11:30 AM [employer] Office Visit [facility] [place] [address] [place] [address] Brenden Valencia MD Hypervolemia, unspecified hypervolemia type (Primary Dx); Mitral valve insufficiency, unspecified etiology 10/16/2024 [facility] 1 [place], [place] [phone] Ingrid Arce 10/12/2024 Telephone [facility] [address] [facility] 8th [place] [address] [place] [address] Lilibeth Thapa 10/03/2024 11:17 PM [employer] - 10/10/2024 2:18 PM [employer] Hospital Encounter [facility] 1 [place] [address] Nunu Black MD Heath, MD Pete Garcia Bryce Edward, MD Anemia, unspecified type (Primary Dx); Opioid withdrawal (HCC); IVDU (intravenous drug user); Chronic wound; DVT (deep venous thrombosis) (HCC); Mitral valve insufficiency, unspecified etiology Discharge Disposition: Discharge to not defined facility 10/08/2024 9:50 AM [employer] Ancillary Procedure [facility] IP [address] [facility] [address] [place] [address] 10/08/2024 9:45 AM [employer] Ancillary Procedure [facility] [address] [facility] [address] [place] [address] from Last 3 Months Allergies Active Allergy Reactions Criticality Noted Date Comments Codeine Other (See comments) Medium Reaction: EXTREMITY SWELLING Medications cloNIDine (CATAPRES) 0.2 mg tablet Take 1 tablet (0.2 mg total) by mouth 3 (three) times a day 90 tablet 5 Active buprenorphine-n aloxone (SUBOXONE) 8-2 mg per SL tablet Place 1 tablet under the tongue 2 (two) times a day 60 tablet [address] (CYMBALTA) 30 mg capsule Take 1 capsule (30 mg total) by mouth daily 30 capsule [address] (PROTONIX) 40 mg EC tabletIndicatio ns:Treatment of Non-Bleeding Gastric Disorder Take 1 tablet (40 mg total) by mouth daily 30 tablet 5 Active naloxone (NARCAN) 4 mg/actuation spray,non-aeros ol Administer 1 spray into affected nostril(s) as needed for opioid reversal Call 911. Administer a single spray in one nostril. Repeat every 3 minutes as needed if no or minimal response. 2 each 1 5 10/10/19 Active Additional Information Patient not taking.Reported on 10/24/2024 celecoxib (CeleBREX) 200 mg capsule Take 1 capsule (200 mg total) by mouth daily as needed for pain 30 capsule 5 Active apixaban (ELIQUIS) 5 mg tabletIndicatio ns:Venous Thrombosis Take 1 tablet (5 mg total) by mouth 2 (two) times a day 60 tablet 3 5 Active hydrOXYzine (ATARAX) 25 mg tablet Take 1 tablet (25 mg total) by mouth 4 (four) times a day 60 tablet 3 5 Active busPIRone (BUSPAR) 10 mg tablet Take 1 tablet (10 mg total) by mouth 2 (two) times a day 60 tablet 3 5 Active gabapentin (NEURONTIN) 400 mg capsule Take 1 capsule (400 mg total) by mouth 2 (two) times a day 60 capsule 3 5 Active ramelteon (ROZEREM) 8 mg tabletIndicatio ns:Sleep-Onset Insomnia Take 1 tablet (8 mg total) by mouth nightly 30 tablet 3 5 Active prochlorperazin e (COMPAZINE) 5 mg tablet Take 1 tablet (5 mg total) by mouth every 8 (eight) hours as needed Active furosemide (LASIX) 20 mg tablet Take 1 tablet (20 mg total) by mouth daily 90 tablet 1 5 Active Active Problems Problem Noted Date Diagnosed Date Anemia, unspecified type 10/04/2024 Social History Tobacco Use Types Packs/Day Years Used Date Smoking Tobacco: Every Day Cigarettes 1 15 Smokeless Tobacco: Never Personal Safety Answer Date Recorded Have you ever been in or are you currently in a harmful physical or emotional relationship or is someone making you feel afraid or unsafe? Denies 10/04/2024 Comments No Sex and Gender Information Value Date Recorded Sex Assigned at Not on file Legal Sex Female 8:49 PM [employer] Gender Identity Not on file Sexual Orientation Not on file Last Filed Vital Signs Vital Sign Reading Time Taken Comments Blood Pressure 110/75 10/24/2024 12:02 PM [employer] Pulse 110 10/24/2024 12:02 PM [employer] Temperature 36.8 C (98.2 F) 10/10/2024 7:20 AM [employer] Respiratory Rate 18 10/10/2024 7:20 AM [employer] Oxygen Saturation 98% 10/24/2024 12:02 PM [employer] Inhaled Oxygen Concentration - - Weight 69.4 kg (153 lb) 10/24/2024 12:02 PM [employer] Height 170.2 cm (5' 7 ) 10/24/2024 12:02 PM [employer] Body Mass Index 23.96 10/24/2024 12:02 PM [employer] Plan of Treatment Not on file Procedures Procedure Name Priority Date/Time Associated Diagnosis Comments TRANSTHORACIC ECHO (TTE) COMPLETE W DOPPLER/CF WO CONTRAST Routine 10/31/2024 1:30 PM [employer] Mitral valve insufficiency, unspecified etiology Hypervolemia, unspecified hypervolemia type EGFR Routine 10/09/2024 8:33 PM [employer] DIFFERENTIAL AUTO Routine 10/09/2024 8:3 3 PM [employer] MAGNESIUM Routine 10/09/2024 8:33 PM [employer] CBC WITH AUTO DIFFERENTIAL Routine 10/09/2024 8:33 PM [employer] BASIC METABOLIC PANEL Routine 10/09/2024 8:33 PM [employer] EGFR Routine 10/09/2024 1:41 PM [employer]GER APTT STAT 10/09/2024 1:41 PM [employer] PROTIME-INR STAT 10/09/2024 1:41 PM [employer] MANA[employer] MAGNESIUM Routine 10/09/2024 1:41 PM [employer]GER BASIC METABOLIC PANEL Routine 10/09/2024 1:41 PM [employer] EGFR Routine 10/08/2024 9:58 PM [employer]GER DIFFERENTIAL AUTO Routine 10/08/2024 9:5 8 PM [employer] MAGNESIUM Routine 10/08/2024 9:58 PM [employer] CBC WITH AUTO DIFFERENTIAL Routine 10/08/2024 9:58 PM [employer] BASIC METABOLIC PANEL Routine 10/08/2024 9:58 PM [employer] US VEIN DUPLEX UPPER EXTREMITY BILATERAL COMPLETE IP Routine 10/08/2024 11:19 AM [employer] US VEIN DUPLEX LOWER EXTREMITY BILATERAL COMPLETE IP Routine 10/08/2024 11:14 AM [employer] CREATININE, URINE, RANDOM Routine 10/08/2024 5:51 AM [employer] OSMOLALITY, URINE Routine 10/08/2024 5:5 1 AM [employer] MA[employer] SODIUM, URINE, RANDOM Routine 10/08/2024 5:51 AM [employer] MANAGER OSMOLALITY, BLOOD Timed 10/08/2024 4:2 6 AM [employer] EGFR Timed 10/08/2024 4:26 AM [employer] BASIC METABOLIC PANEL Timed 10/08/2024 4:26 AM [employer] MANA[employer] EGFR Routine 10/07/2024 9:44 PM [employer]NAGER DIFFERENTIAL AUTO Routine 10/07/2024 9:4 4 PM [employer]NA[employer] MAGNESIUM Routine 10/07/2024 9:44 PM [employer] MANAGER CBC WITH AUTO DIFFERENTIAL Routine 10/07/2024 9:44 PM [employer] MANAGER TYPE AND SCREEN Timed 10/07/2024 9:44 PM [employer]NAGER BASIC METABOLIC PANEL Routine 10/07/2024 9:44 PM [employer] MANAGER BLOOD CULTURE Routine 10/07/2024 4:53 PM [employer]GER BLOOD CULTURE Routine 10/07/2024 4:53 PM [employer] EGFR Routine 10/06/2024 12:29 AM [employer] MANAGER DIFFERENTIAL AUTO Timed 10/06/2024 12:29 AM [employer]GER VITAMIN D 25 HYDROXY Timed 10/06/2024 12:29 AM [employer] APTT Timed 10/06/2024 12:29 AM [employer] MANAGER PROTIME-INR Timed 10/06/2024 12:29 AM [employer] MANAGER BASIC METABOLIC PANEL Routine 10/06/2024 12:29 AM [employer] MANAGER MAGNESIUM Timed 10/06/2024 12:29 AM [employer] MANAGER CBC WITH AUTO DIFFERENTIAL Timed 10/06/2024 12:29 AM [employer] MANAGER HEPATITIS A ANTIBODY, IGM Routine 10/06/2024 12:29 AM [employer]GER HEPATITIS A ANTIBODY, TOTAL Routine 10/06/2024 12:29 AM [employer] MANAGER HEPATIC FUNCTION PANEL Timed 10/05/2024 4:44 AM [employer]NA[employer] EGFR Routine 10/05/2024 4:44 AM [employer] MANAGER DIFFERENTIAL AUTO Timed 10/05/2024 4:4 4 AM [employer] MANAGER TYPE AND SCREEN Timed 10/05/2024 4:44 AM [employer] MANAGER CBC WITH AUTO DIFFERENTIAL Timed 10/05/2024 4:44 AM [employer] MANAGER BASIC METABOLIC PANEL Routine 10/05/2024 4:44 AM [employer] MANAGER MAGNESIUM Timed 10/05/2024 4:44 AM [employer] MANAGER TRANSTHORACIC ECHO (TTE) COMPLETE W DOPPLER/CF W CONTRAST Pending Discharge 10/04/2024 4:52 PM [employer] TRANSFUSE RED BLOOD CELLS Timed 10/04/2024 10:22 AM [employer]GER PROTEIN / CREATININE RATIO, URINE, RANDOM Routine 10/04/2024 9:34 AM [employer] MANAGER N. GONORRHOEAE/C. TRACHOMATIS AMPLIFICATION Routine 10/04/2024 9:34 AM [employer] MANAGER TRANSFUSE RED BLOOD CELLS Timed 10/04/2024 5:54 AM [employer] MANAGER B CHECK SAMPLE STAT 10/04/2024 3:44 AM [employer] MANAGER URINALYSIS AND REFLEX TO MICROSCOPIC AND CULTURE STAT 10/04/2024 3:44 AM [employer] CT CHEST PE ABDOMEN PELVIS W CONTRAST ED 10/04/2024 3:34 AM [employer] MANAGER THYROID FUNCTION CASCADE Routine 10/04/2024 2:25 AM [employer]NAGER LACTATE DEHYDROGENASE Routine 10/04/2024 2:25 AM [employer] MANAGER HCG, BLOOD, QUANTITATIVE Routine 10/04/2024 2:25 AM [employer]GER FERRITIN Routine 10/04/2024 2:25 AM [employer]GER HAPTOGLOBIN Routine 10/04/2024 2:25 AM [employer] MANAGER IRON PROFILE W/ IBC Routine 10/04/2024 2 :25 AM [employer] MANAGER TYPE AND SCREEN STAT 10/04/2024 2:25 AM [employer] MANAGER TROPONIN I HIGH-SENSITIVITY 2-HOUR Timed 10/04/2024 2:25 AM [employer] MANAGER PREPARE RBC Timed 10/04/2024 2:22 AM [employer] MANAGER AR CRITICAL CARE ILL/INJURED PATIENT INIT 30-74 MIN Routine 10/04/2024 2:17 AM [employer] MANAGER ECG 12-LEAD STAT 10/04/2024 1:57 AM [employer] MANAGER RETICULOCYTES STAT 10/04/2024 12:41 AM [employer] MANAGER COMPREHENSIVE METABOLIC PANEL STAT 10/04/2024 12:41 AM [employer] MANAGER EGFR STAT 10/04/2024 12:41 AM [employer] MANAGER DIFFERENTIAL AUTO STAT 10/04/2024 12:41 AM [employer] MANAGER SEPSIS LACTATE WITH REFLEX STAT 10/04/2024 12:41 AM [employer] MANAGER LIPASE STAT 10/04/2024 12:41 AM [employer] MANAGER PRO B-TYPE NATRIURETIC PEPTIDE STAT 10/04/2024 12:41 AM [employer] MANAGER TROPONIN I HIGH-SENSITIVITY SERIES (BASELINE, 2HR, 4HR, 6HR) STAT 10/04/2024 12:41 AM [employer] MANAGER CBC WITH AUTO DIFFERENTIAL STAT 10/04/2024 12:41 AM [employer] MANAGER HEPATITIS B CORE ANTIBODY, TOTAL Routine 10/04/2024 12:41 AM [employer] MANAGER RPR Routine 10/04/2024 12:41 AM [employer] MANAGER RESPIRATORY PATHOGEN PANEL STAT 10/04/2024 12:41 AM [employer] MANAGER BLOOD CULTURE Routine 10/04/2024 12:41 AM [employer] MANAGER BLOOD CULTURE Routine 10/04/2024 12:41 AM [employer] MANAGER HEPATITIS PANEL, ACUTE Routine 10/04/2024 12:41 AM [employer] MANAGER HIV 1/2 ANTIBODY PLUS P24 ANTIGEN Routine 10/04/2024 12:41 AM [employer] MANAGER from Last 3 Months Results * TRANSTHORACIC ECHO (TTE) COMPLETE W DOPPLER/CF WO CONTRAST (10/31/2024 1:30 PM [employer]NA[employer]) Anatomical Region Laterality Modality Ultrasound 10/31/2024 12:2 2 PM [employer] Narrative 10/31/2024 3:58 PM [employer] MANAGER [facility] [place] [address] Transthoracic Echocardiographic Report Patient Name: MADONNA JARA N : 1985 (39y 3m) Gender: F Study Date: 10/31/2024 12:22:35 PM Ht(Inch): 67 Wt(Lb): 153 BSA: 1.81 Pressure Supervisor: Mariah Burden RDCS Location: [facility] Order Provider: BRENDEN VALENCIA Heart Rate: 89 BMI: 23.96 BP: 110 / 75 Quality: The study images were of technically good quality. Ref Provider: BRENDEN VALENCIA PROCEDURES: Echocardiographic Report: ([id number], [id number]) Transthoracic complete echo with strain imaging, 2D, spectral and tissue Doppler, color flow Doppler, M-mode. INDICATIONS: I34.0 Nonrheumatic mitral (valve) insufficiency and E87.70 Fluid overload, unspecified. FINDINGS: Left Ventricle: Normal left ventricular size based on volume index. Normal LV wall thickness. Normal left ventricular systolic function. The Ejection Fraction (Rasmussen's) is measured at 58 %. The LV global strain is: -18.3 %. Right Ventricle: Normal right ventricular size. Normal right ventricular systolic function. Left Atrium: The left atrium is normal in size. Right Atrium: The right atrium is normal in size. Mitral Valve: Normal mitral valve leaflet structure. There is mild mitral valve regurgitation. The mitral regurgitation jet is eccentric and directed posteriorly. No stenosis present. The mitral valve area by pressure half-time is 3.7 cm2. The mean transmitral gradient is: 1.6 mmHg. Aortic Valve: Trileaflet aortic valve. No aortic regurgitation seen. No aortic valve stenosis. The mean transaortic gradient is 3.97 mmHg. The aortic valve area by the continuity equation (using VTI) is 2.51 cm2. Aortic valve dimensionless index 0.78. Tricuspid Valve: The tricuspid valve demonstrates normal leaflet structure. No tricuspid regurgitation seen. PASP cannot be evaluated due to lack of adequate TR jet. No tricuspid valve stenosis. Pulmonic Valve: The pulmonic valve demonstrates normal leaflet structure. No evidence of pulmonic regurgitation. No pulmonic valve stenosis present. Pericardium: Normal pericardium without evidence of pericardial effusion. Aorta: The aortic root is normal in size. The aortic root is normal in size when indexed. IVC: IVC is normal in size. The IVC (inferior vena cava) was <2.1 cm and collapsibility >50%. The estimated RA pressure is 3 mmHg. Rhythm: The rhythm during the study was normal sinus rhythm. CONCLUSIONS: 1. Normal LV wall thickness. Normal left ventricular systolic function. The Ejection Fraction (Rasmussen's) is measured at 58 %. 2. Normal right ventricular size. Normal right ventricular systolic function. 3. There is no significant valvular heart disease. 4. No vegetations seen. MEASUREMENTS: 2D/MM Value Range Doppler Value Range LVIDd 2D 4.84 cm [ 3.80 - 5.20 ] AV Peak Matthew 1.33 m/s [ 1.00 - 1.70 ] LVIDs 2D 3.26 cm [ 2.20 - 3.50 ] AV Peak PG 7.08 IVSd 2D 0.83 cm [ 0.60 - 0.90 ] AV Mean PG 3.97 mmHg LVPWd 2D 0.92 cm [ 0.60 - 0.90 ] AV VTI 25.30 cm LV Thickness Ratio 0.90 LVOT Peak Matthew 1.11 m/s [ 0.70 - 1.10 ] LV FS 2D 32.61 % [ 27.00 - 45.00 ] LVOT Peak PG 4.93 LV Mass 2D 148.01 g LVOT Mean PG 3.23 mmHg LV Mass Index 2D 81.77 g/m2 LVOT VTI 19.82 cm RWT 0.38 LVOT Diam 2.02 cm EDV Mod BP 100.01 ml [ 46.00 - 106.00 ] BOLIVAR VTI 2.51 cm2 LV EDV Index 55.25 ml/m2 LVOT/AV VTI 0.78 - Dimensionless index (DVI) ESV Mod BP 42.44 ml [ 14.00 - 42.00 ] MV E Peak Matthew 0.76 m/s [ 0.60 - 1.30 ] EF Mod BP 58 % [ 54 - 74 ] MV A Peak Matthew 0.41 m/s [ 1.00 - 1.20 ] LV GLS -18.3 % [ -18.0 - -16.0 ] MV E/A 1.85 ratio [ 0.80 - 1.50 ] LA Length 2C 4.69 cm MV Peak Matthew 0.94 m/s LA Length 4C 5.09 cm MV Peak PG 3.53 LA Volume BP 44.99 ml MV Mean PG 1.60 mmHg LA Volume Index 24.86 ml/m2 [ 16.00 - 34.00 ] MV VTI 21.47 cm RV Base Dimen 2D 3.3 cm [ 2.5 - 4.2 ] MV PHT 59.06 msec [ 20.00 - 100.00 ] TAPSE 2.14 cm [ 1.71 - 5.00 ] MVA PHT 3.73 cm2 RA Volume 23.35 ml MV Decel Time 115.39 msec [ 104.00 - 258.00 ] RA Volume Index 12.90 ml/m2 Med E` Matthew 12.85 cm/sec [ 8.00 - 15.00 ] AoR Diam 2D 3.15 cm [ 2.70 - 3.70 ] Lat E` Matthew 18.48 cm/sec [ 10.00 - 15.00 ] Ao Root Index 1.74 cm/m2 [ 1.00 - 2.00 ] Average E/E` 4.85 RV S` 17.55 cm/sec RA Pressure 3.00 mmHg PV Peak Matthew 1.03 m/s [ 0.40 - 0.80 ] PV Peak PG 4.24 - COMPARISONS: Compared to prior study completed on 10/04/2024. As compared with prior study, the following changes are now seen The left ventricle is now normal size and function. LA is normal, MR is trivial and no significant TR jet is detectable. ATTESTATION: I have reviewed and interpreted the pertinent images and measurements of this study. I attest to the conclusions in the final report that is provided above. DISCLAIMER: The study images and the final report will be retained in the patient chart by the Echo Laboratory for the legally required time period. This chart constitutes the legal record of any testing performed. Electronically Signed By: Brenden Valencia MD 10/31/2024 3:58:18 PM [employer] Electronically Signed By: Brenden Valencia MD 10/31/2024 3:58:18 PM [employer] Procedure Note Brenden Valencia MD - 10/31/2024 [facility] Card[facility] [place] [address] Transthoracic Echocardiographic Report Patient Name: MADONNA JARA N : 1985 (39y 3m) Gender: F Study Date: 10/31/2024 12:22:35 PM Ht(Inch): 67 Wt(Lb): 153 BSA: 1.81 Pressure Supervisor: Mariah Burden RDCS Location: [facility] Order Provider:BRENDEN VALENCIA Heart Rate: 89 BMI: 23.96 BP: 110 / 75 Quality: The study images were oftechnically good quality. Ref Provider: BRENDEN VALENCIA PROCEDURES: Echocardiographic Report: ([id number], [id number]) Transthoracic complete echo withstrain imaging, 2D, spectral and tissue Doppler, color flow Doppler, M-mode. INDICATIONS: I34.0 Nonrheumatic mitral (valve) insufficiency and E87.70 Fluid overload,unspecified. FINDINGS: Left Ventricle: Normal left ventricular size based on volume index. NormalLV wall thickness. Normal left ventricular systolic function. The EjectionFraction (Rasmussen's) is measured at 58 %. The LV global strain is: -18.3 %. Right Ventricle: Normal right ventricular size. Normal right ventricularsystolic function. Left Atrium: The left atrium is normal in size. Right Atrium: The right atrium is normal in size. Mitral Valve: Normal mitral valve leaflet structure. There is mild mitralvalve regurgitation. The mitral regurgitation jet is eccentric and directedposteriorly. No stenosis present. The mitral valve area by pressure half-time is 3.7 cm2.The mean transmitral gradient is: 1.6 mmHg. Aortic Valve: Trileaflet aortic valve. No aortic regurgitation seen. Noaortic valve stenosis. The mean transaortic gradient is 3.97 mmHg. The aortic valvearea by the continuity equation (using VTI) is 2.51 cm2. Aortic valve dimensionlessindex 0.78. Tricuspid Valve: The tricuspid valve demonstrates normal leafletstructure. No tricuspid regurgitation seen. PASP cannot be evaluated due to lack of adequate TRjet. No tricuspid valve stenosis. Pulmonic Valve: The pulmonic valve demonstrates normal leaflet structure.No evidence of pulmonic regurgitation. No pulmonic valve stenosis present. Pericardium: Normal pericardium without evidence of pericardialeffusion. Aorta: The aortic root is normal in size. The aortic root is normal insize when indexed. IVC: IVC is normal in size. The IVC (inferior vena cava) was <2.1 cm andcollapsibility >50%. The estimated RA pressure is 3 mmHg. Rhythm: The rhythm during the study was normal sinus rhythm. CONCLUSIONS: 1. Normal LV wall thickness. Normal left ventricular systolic function.The Ejection Fraction (Rasmussen's) is measured at 58 %. 2. Normal right ventricular size. Normal right ventricular systolicfunction. 3. There is no significant valvular heart disease. 4. No vegetations seen. MEASUREMENTS: 2D/MM Value Range DopplerValue Range LVIDd 2D 4.84 cm [ 3.80 - 5.20 ] AV Peak Vel1.33 m/s [ 1.00 - 1.70 ] LVIDs 2D 3.26 cm [ 2.20 - 3.50 ] AV Peak PG7.08 IVSd 2D 0.83 cm [ 0.60 - 0.90 ] AV Mean PG3.97 mmHg LVPWd 2D 0.92 cm [ 0.60 - 0.90 ] AV VTI25.30 cm LV Thickness Ratio 0.90 LVOT Peak Vel1.11 m/s [ 0.70 - 1.10 ] LV FS 2D 32.61 % [ 27.00 - 45.00 ] LVOT Peak PG4.93 LV Mass 2D 148.01 g LVOT Mean PG3.23 mmHg LV Mass Index 2D 81.77 g/m2 LVOT VTI19.82 cm RWT 0.38 LVOT Diam2.02 cm EDV Mod BP 100.01 ml [ 46.00 - 106.00 ] BOLIVAR VTI2.51 cm2 LV EDV Index 55.25 ml/m2 LVOT/AV VTI0.78 - Dimensionless index (DVI) ESV Mod BP 42.44 ml [ 14.00 - 42.00 ] MV E Peak Vel0.76 m/s [ 0.60 - 1.30 ] EF Mod BP 58 % [ 54 - 74 ] MV A Peak Vel0.41 m/s [ 1.00 - 1.20 ] LV GLS -18.3 % [ -18.0 - -16.0 ] MV E/A1.85 ratio [ 0.80 - 1.50 ] LA Length 2C 4.69 cm MV Peak Vel0.94 m/s LA Length 4C 5.09 cm MV Peak PG3.53 LA Volume BP 44.99 ml MV Mean PG1.60 mmHg LA Volume Index 24.86 ml/m2 [ 16.00 - 34.00 ] MV VTI21.47 cm RV Base Dimen 2D 3.3 cm [ 2.5 - 4.2 ] MV PHT59.06 msec [ 20.00 - 100.00 ] TAPSE 2.14 cm [ 1.71 - 5.00 ] MVA PHT3.73 cm2 RA Volume 23.35 ml MV Decel Ighi466.39 msec [ 104.00 - 258.00 ] RA Volume Index 12.90 ml/m2 Med E` Vel12.85 cm/sec [ 8.00 - 15.00 ] AoR Diam 2D 3.15 cm [ 2.70 - 3.70 ] Lat E` Vel18.48 cm/sec [ 10.00 - 15.00 ] Ao Root Index 1.74 cm/m2 [ 1.00 - 2.00 ] Average E/E`4.85 RV S` 17.55 cm/sec RA Pressure 3.00 mmHg PV Peak Matthew 1.03 m/s [ 0.40 - 0.80 ] PV Peak PG 4.24 - COMPARISONS: Compared to prior study completed on 10/04/2024. As compared with priorstudy, the following changes are now seen The left ventricle is now normal size andfunction. LA is normal, MR is trivial and no significant TR jet is detectable. ATTESTATION: I have reviewed and interpreted the pertinent images and measurements ofthis study. I attest to the conclusions in the final report that is provided above. DISCLAIMER: The study images and the final report will be retained in the patientchart by the Echo Laboratory for the legally required time period. This chart constitutesthe legal record of any testing performed. Electronically Signed By: Brenden Valencia MD 10/31/2024 3:58:18 PM [employer] Electronically Signed By: Brenden Valencia MD 10/31/2024 3:58:18 PM [employer] us Brenden Valencia MD CV ECHO PROCEDURES Final Res ult * eGFR (10/09/2024 8:33 PM [employer]GER) eGFR >90 >=60 mL/min/1. 73 m2 Comment: Interpretive Data Reference Interval Normal >/= 90 mL/min/1.73m2 Mildly decreased* 60 - 89 mL/min/1.73m2 Mildly to moderately decreased 45 - 59 mL/min/1.73m2 Moderately to severely decreased 30 - 44 mL/min/1.73m2 Severely decreased 15 - 29 mL/min/1.73m2 Kidney Failure < 15 mL/min/1.73m2 *Relative to young adult level Estimated glomerular filtration rate is determined by the 2020 CKD-EPI equation recommended by the National Kid[employer] (A Unifying Approach to GFR Estimation: Recommendations of the NKF-ASK Task Force on Reassessing the Inclusion of Race in Diagnosing Kidney Disease, JASN 2020). The CKD-EPI equation should not be used for patients with unstable renal function and has not been validated in children and those over 70. Current interpretive data was last reviewed 2021. Blood 10/09/2024 8:33 PM [employer] 10/09/2024 8:50 PM [employer] us Kris Mckeon MD LAB BLOOD ORDERABLES Final Result [facility] Department [place] [address] * Differential, auto (10/09/2024 8:33 PM [employer]) Neutrophil abs 4.0 1.5 - 6.5 K/cumm Imm gran abs 0.0 0.0 - 0.1 K/cumm [facility] Lymphocyte abs 2.0 0.8 - 3.3 K/cumm [facility] Monocyte abs 0.4 0.2 - 0.8 K/cumm [facility] Eosinophil abs 0.1 0.0 - 0.5 K/cumm [facility] Basophil abs 0.0 0.0 - 0.1 K/cumm [facility] Neutrophil pct 60.1 % [facility] Comment: Interpretive Data Percent cell count reference ranges are not reported, since discordance with absolute values may lead to misinterpretation of CBC data. Current Interpretive Data was last revised on 2017. Imm gran pct 0.5 % [facility] Comment: Interpretive Data Percent cell count reference ranges are not reported, since discordance with absolute values may lead to misinterpretation of CBC data. Current Interpretive Data was last revised on 2017. Lymphocyte pct 31.0 % [facility] Comment: Interpretive Data Percent cell count reference ranges are not reported, since discordance with absolute values may lead to misinterpretation of CBC data. Current Interpretive Data was last revised on 2017. Monocyte pct 6.7 % [facility] Comment: Interpretive Data Percent cell count reference ranges are not reported, since discordance with absolute values may lead to misinterpretation of CBC data. Current Interpretive Data was last revised on 2017. Eosinophil pct 1.1 % [facility] Comment: Interpretive Data Percent cell count reference ranges are not reported, since discordance with absolute values may lead to misinterpretation of CBC data. Current Interpretive Data was last revised on 2017. Basophil pct 0.6 % [facility] Comment: Interpretive Data Percent cell count reference ranges are not reported, since discordance with absolute values may lead to misinterpretation of CBC data. Current Interpretive Data was last revised on 2017. Blood 10/09/2024 8:33 PM [employer] 10/09/2024 8:51 PM [employer] Ganesh Freeman MD LAB BLOOD ORDERABLES Fin al Result [facility] Department [place] [address] * (ABNORMAL) CBC with auto differential (10/09/2024 8:33 PM [employer]) WBC 6.6 3.8 - 9.9 K/cumm Hgb 8.7(L) 11.9 - 15.5 g/dL [facility] Hct 28.8(L) 35.6 - 45.5 % [facility] Plt 482(H) 150 - 400 K/cumm [facility] MPV 10.8 9.1 - 12.3 fL [facility] RBC 3.59(L) 3.90 - 5.20 M/cumm [facility] MCV 80.2(L) 81.3 - 96.4 fL [facility] MCH 24.2(L) 27.1 - 33.3 pg [facility] MCHC 30.2(L) 32.3 - 35.7 g/dL [facility] RDW CV 16.5(H) 11.1 - 14.9 % [facility] RDW SD 48.7(H) 35.7 - 48.1 fL [facility] NRBC abs 0.00 0.00 - 0.01 K/cumm [facility] Blood 10/09/2024 8:33 PM [employer] 10/09/2024 8:51 PM [employer] Ganesh Freeman MD LAB BLOOD ORDERABLES Fin al Result Performing Organization Address City/[facility]/ZIP Co de Phone Number [facility] Department [place] [address] * Magnesium (10/09/2024 8:33 PM [employer]GER) [facility] Magnesium 2.1 1.4 - 2.5 mg/dL Blood 10/09/2024 8:33 PM [employer] 10/09/2024 8:50 PM [employer] Ganesh Freeman MD LAB BLOOD ORDERABLES Fin al Result Performing Organization Address [facility] de Phone Number [facility] Department [place] [address] * (ABNORMAL) Basic metabolic panel (10/09/2024 8:33 PM [employer]GER) [facility] Sodium 134(L) 135 - 145 mmol/L Potassium, pl 4.9 3.3 - 4.9 mmol/L [facility] Chloride 100 97 - 110 mmol/L [facility] CO2 26 22 - 32 mmol/L [facility] Anion gap 8 2 - 15 mmol/L [facility] BUN 24 6 - 25 mg/dL [facility] Creatinine 0.75 0.60 - 1.10 mg/dL [facility] Glucose 109 70 - 199 mg/dL [facility] Comment: Interpretive Data Fasting glucose >/= 126 mg/dl is diagnostic for diabetes. Fasting is defined as no caloric intake for at least 8 hours. Fasting glucose between 100 mg/dl to 125 mg/dl is diagnostic of prediabetes. In a patient with classic symptoms of hyperglycemia or hyperglycemic crisis, a random glucose >/= 200 mg/dl is diagnostic for diabetes. In the absence of unequivocal hyperglycemia, results should be confirmed by repeat testing. The classification and Diagnosis of Diabetes Diabetes Care 202; 46: S19-S40. Current interpretive data was last revised 2022. Calcium 8.3(L) 8.5 - 10.3 mg/dL RONNI CORRIGAN Blood 10/09/2024 8:33 PM [employer] 10/09/2024 8:50 PM [employer] Kris Mckeon MD LAB BLOOD ORDERABLES Final Result RONNI WRIGHT [facility] Department [place] [address] * eGFR (10/09/2024 1:41 PM [employer]) eGFR >90 >=60 mL/min/1. 73 m2 Comment: Interpretive Data Reference Interval Normal >/= 90 mL/min/1.73m2 Mildly decreased* 60 - 89 mL/min/1.73m2 Mildly to moderately decreased 45 - 59 mL/min/1.73m2 Moderately to severely decreased 30 - 44 mL/min/1.73m2 Severely decreased 15 - 29 mL/min/1.73m2 Kidney Failure < 15 mL/min/1.73m2 *Relative to young adult level Estimated glomerular filtration rate is determined by the 2020 CKD-EPI equation recommended by the National Kidney Foundation (A Unifying Approach to GFR Estimation: Recommendations of the NKF-ASK Task Force on Reassessing the Inclusion of Race in Diagnosing Kidney Disease, JASN 2020). The CKD-EPI equation should not be used for patients with unstable renal function and has not been validated in children and those over 70. Current interpretive data was last reviewed 2021. Blood 10/09/2024 1:41 PM [employer] 10/09/2024 3:15 PM [employer] MANAGER us Kris Mckeon MD LAB BLOOD ORDERABLES Final Result Performing Organization Address City/[facility] [place] [address] * aPTT (10/09/2024 1:41 PM [employer] MANAGER) aPTT 36 28 - 38 sec Comment: Interpretive Data Heparin therapeutic range: 66.0 - 100.0 seconds. Range based on correlation with therapeutic heparin activity range of 0.3 - 0.7 Units/mL. Current interpretive data was last revised on 2023. Blood 10/09/2024 1:41 PM [employer] 10/09/2024 2:27 PM [employer] MANAGER Narrative [facility] - 10/09/2024 2:53 PM [employer] Baseline prior to enoxaparin initiation. Ganesh Fereman MD LAB BLOOD ORDERABLES Fin al Result Performing Organization Address [facility] [place] [address] * Protime-INR (10/09/2024 1:41 PM [employer] MANAGER) PT 11.9 9.7 - 13.0 sec INR 1.10 0.90 - 1.20 [facility] Comment: Interpretive data Oral anticoagulant therapeutic ranges: Venous thromboembolism prophylaxis or treatment: 2.0-3.0 CARDIOLOGY Standard range: 2.0-3.0 High-intensity range: 2.5-3.5 Refer to indication-specific guidelines for appropriate target ranges for prosthetic heart valve replacement. Current interpretive data was last revised on 2019. Blood 10/09/2024 1:41 PM [employer] MANAGER 10/09/2024 2:27 PM [employer] MANAGER Narrative [facility] - 10/09/2024 2:53 PM [employer] Baseline prior to enoxaparin initiation. Ganesh Freeman MD LAB BLOOD ORDERABLES Fin al Result Performing Organization Address [facility] de Phone Number [facility] [place] [address] * Magnesium (10/09/2024 1:41 PM [employer]NAGER) Pathologist [facility] Magnesium 2.1 1.4 - 2.5 mg/dL Blood 10/09/2024 1:41 PM [employer] 10/09/2024 3:15 PM [employer] MANAGER us Ganesh Freeman MD LAB BLOOD ORDERABLES Fin al Result [facility] Department [place] [address] * (ABNORMAL) Basic metabolic panel (10/09/2024 1:41 PM [employer]GER) [facility] Sodium 132(L) 135 - 145 mmol/L Potassium, pl 5.0(H) 3.3 - 4.9 mmol/L [facility] Chloride 95(L) 97 - 110 mmol/L [facility] CO2 26 22 - 32 mmol/L [facility] Anion gap 11 2 - 15 mmol/L [facility] BUN 15 6 - 25 mg/dL [facility] Creatinine 0.77 0.60 - 1.10 mg/dL [facility] Glucose 102 70 - 199 mg/dL [facility] Comment: Interpretive Data Fasting glucose >/= 126 mg/dl is diagnostic for diabetes. Fasting is defined as no caloric intake for at least 8 hours. Fasting glucose between 100 mg/dl to 125 mg/dl is diagnostic of prediabetes. In a patient with classic symptoms of hyperglycemia or hyperglycemic crisis, a random glucose >/= 200 mg/dl is diagnostic for diabetes. In the absence of unequivocal hyperglycemia, results should be confirmed by repeat testing. The classification and Diagnosis of Diabetes Diabetes Care 202; 46: S19-S40. Current interpretive data was last revised 2022. Calcium 8.5 8.5 - 10.3 mg/dL [facility] Blood 10/09/2024 1:41 PM [employer] 10/09/2024 3:15 PM [employer] MANAGER us Kris Mckeon MD LAB BLOOD ORDERABLES Final Result [facility] [place] [address] * eGFR (10/08/2024 9:58 PM [employer]) eGFR >90 >=60 mL/min/1. 73 m2 Comment: Interpretive Data Reference Interval Normal >/= 90 mL/min/1.73m2 Mildly decreased* 60 - 89 mL/min/1.73m2 Mildly to moderately decreased 45 - 59 mL/min/1.73m2 Moderately to severely decreased 30 - 44 mL/min/1.73m2 Severely decreased 15 - 29 mL/min/1.73m2 Kidney Failure < 15 mL/min/1.73m2 *Relative to young adult level Estimated glomerular filtration rate is determined by the 2020 CKD-EPI equation recommended by the National Kidney Foundation (A Unifying Approach to GFR Estimation: Recommendations of the NKF-ASK Task Force on Reassessing the Inclusion of Race in Diagnosing Kidney Disease, JASN 2020). The CKD-EPI equation should not be used for patients with unstable renal function and has not been validated in children and those over 70. Current interpretive data was last reviewed 2021. Blood 10/08/2024 9:58 PM [employer] 10/08/2024 10:15 PM [employer] MANAGER Kris Mckeon MD LAB BLOOD ORDERABLES Final Result [facility] [place] [address] * Differential, auto (10/08/2024 9:58 PM [employer]) Neutrophil abs 3.7 1.5 - 6.5 K/cumm Imm gran abs 0.1 0.0 - 0.1 K/cumm [facility] Lymphocyte abs 1.8 0.8 - 3.3 K/cumm [facility] Monocyte abs 0.5 0.2 - 0.8 K/cumm [facility] Eosinophil abs 0.1 0.0 - 0.5 K/cumm [facility] Basophil abs 0.0 0.0 - 0.1 K/cumm [facility] Neutrophil pct 60.1 % [facility] Comment: Interpretive Data Percent cell count reference ranges are not reported, since discordance with absolute values may lead to misinterpretation of CBC data. Current Interpretive Data was last revised on 2017. Imm gran pct 0.8 % [facility] Comment: Interpretive Data Percent cell count reference ranges are not reported, since discordance with absolute values may lead to misinterpretation of CBC data. Current Interpretive Data was last revised on 2017. Lymphocyte pct 29.3 % [facility] Comment: Interpretive Data Percent cell count reference ranges are not reported, since discordance with absolute values may lead to misinterpretation of CBC data. Current Interpretive Data was last revised on 2017. Monocyte pct 8.2 % [facility] Comment: Interpretive Data Percent cell count reference ranges are not reported, since discordance with absolute values may lead to misinterpretation of CBC data. Current Interpretive Data was last revised on 2017. Eosinophil pct 1.1 % [facility] Comment: Interpretive Data Percent cell count reference ranges are not reported, since discordance with absolute values may lead to misinterpretation of CBC data. Current Interpretive Data was last revised on 2017. Basophil pct 0.5 % [facility] Comment: Interpretive Data Percent cell count reference ranges are not reported, since discordance with absolute values may lead to misinterpretation of CBC data. Current Interpretive Data was last revised on 2017. Blood 10/08/2024 9:58 PM [employer]NA[employer] 10/08/2024 10:13 PM [employer] MANAGER us Ganesh Freeman MD LAB BLOOD ORDERABLES Fin al Result [facility] Department [place] [address] * (ABNORMAL) CBC with auto differential (10/08/2024 9:58 PM [employer]NAGER) WBC 6.1 3.8 - 9.9 K/cumm Hgb 9.0(L) 11.9 - 15.5 g/dL [facility] Hct 30.0(L) 35.6 - 45.5 % [facility] Plt 429(H) 150 - 400 K/cumm [facility] MPV 10.9 9.1 - 12.3 fL [facility] RBC 3.68(L) 3.90 - 5.20 M/cumm [facility] MCV 81.5 81.3 - 96.4 fL [facility] MCH 24.5(L) 27.1 - 33.3 pg [facility] MCHC 30.0(L) 32.3 - 35.7 g/dL [facility] RDW CV 17.0(H) 11.1 - 14.9 % [facility] RDW SD 50.6(H) 35.7 - 48.1 fL [facility] NRBC abs 0.00 0.00 - 0.01 K/cumm [facility] Blood 10/08/2024 9:58 PM [employer]NAGER 10/08/2024 10:13 PM [employer] MANAGER Ganesh Freeman MD LAB BLOOD ORDERABLES Fin al Result [facility] Department [place] [address] * Magnesium (10/08/2024 9:58 PM [employer] MANAGER) [facility] Magnesium 2.0 1.4 - 2.5 mg/dL Blood 10/08/2024 9:58 PM [employer] MANAGER 10/08/2024 10:10 PM [employer] MANAGER Ganesh Freeman MD LAB BLOOD ORDERABLES Fin al Result Performing Organization Address City/[facility] Co de Phone Number [facility] Department [place] [address] * (ABNORMAL) Basic metabolic panel (10/08/2024 9:58 PM [employer] MANAGER) [facility] Sodium 131(L) 135 - 145 mmol/L Potassium, pl 5.0(H) 3.3 - 4.9 mmol/L [facility] Chloride 97 97 - 110 mmol/L [facility] CO2 25 22 - 32 mmol/L [facility] Anion gap 9 2 - 15 mmol/L [facility] BUN 18 6 - 25 mg/dL [facility] Creatinine 0.56(L) 0.60 - 1.10 mg/dL [facility] Glucose 110 70 - 199 mg/dL [facility] Comment: Interpretive Data Fasting glucose >/= 126 mg/dl is diagnostic for diabetes. Fasting is defined as no caloric intake for at least 8 hours. Fasting glucose between 100 mg/dl to 125 mg/dl is diagnostic of prediabetes. In a patient with classic symptoms of hyperglycemia or hyperglycemic crisis, a random glucose >/= 200 mg/dl is diagnostic for diabetes. In the absence of unequivocal hyperglycemia, results should be confirmed by repeat testing. The classification and Diagnosis of Diabetes Diabetes Care 202; 46: S19-S40. Current interpretive data was last revised 2022. Calcium 8.1(L) 8.5 - 10.3 mg/dL [facility] Blood 10/08/2024 9:58 PM [employer] MANAGER 10/08/2024 10:10 PM [employer] MANAGER us Kris Mckeon MD LAB BLOOD ORDERABLES Final Result [facility] Department [place] [address] * US Vein Duplex Upper Extremity Bilateral Complete (10/08/2024 11:19 AM [employer] MANAGER) Anatomical Region Laterality Modality Vascular Bilateral Ultrasound 10/08/2024 10:0 0 AM [employer] MANAGER Narrative 10/08/2024 2:46 PM [employer]EL [employer] MANAGER [facility] - Department of Vascular Surgery, Vascular Laboratory [address] [place] [id number] Upper Extremity Venous Ultrasound Report Patient Name: MADONNA JARA N : 1985 (39y 2m) Study Date: 10/08/2024 10:00:38 AM Gender: F Tech: Location: [id number] Ref Provider: GANESH FREEMAN Quality: Adequate Order Provider: GANESH FREEMAN PROCEDURES: Vascular Report: Venous Duplex imaging was performed bilaterally in the upper extremities. The internal jugular, subclavian and axillary veins were evaluated for patency, spontaneity and phasicity with Doppler, compression and augmentation maneuvers. The brachial, basilic and cephalic veins were also evaluated with compression maneuvers. INDICATIONS: Localized edema. FINDINGS: Performing Pressure Supervisor: Stella Moe RVT. Right: Venous Doppler signals in the right upper extremity are within normal limits for spontaneity and phasicity; normal response to compression maneuvers. No evidence of superficial vein thrombus in the right upper extremity. Thickened parmar noted in the cephalic vein at the mid arm level. Left: Duplex scan reveals dilated vein with echogenic, intraluminal, non-compressible material consistent with acute deep vein thrombosis on the left. Deep veins involved include the 1 of the 2 radial veins at the mid to distal arm. The brachial artery and vein bifurcation is at the mid arm level. All other evaluated veins are patent. Comments: Unable to assess the distal arm veins on the right due to dressing. Provider Notification: Results called on the above date to Jourdan Trevino MD, at 1115. CONCLUSIONS: 1. No evidence of acute deep vein thrombosis in the right upper extremity. 2. Acute deep vein thrombosis in the left upper extremity, one of two radial veins in the mid to distal arm. HISTORY: 39 y.o. female w/ a PMH of IVDU () and L leg necrotizing fasciitis (2020), presenting with bilateral arm wounds and leg swelling Right PICC line placement. PREVIOUS STUDIES: No previous studies for comparison. DISCLAIMER: The study images and the final report will be retained in the patient chart by the Vascular Laboratory for the legally required time period. This chart constitutes the legal record of any testing performed. ATTESTATION: I have reviewed and interpreted the pertinent images and measurements of this study. I attest to the conclusions in the final report that is provided above. Electronically Signed By: Lee David MD FACS 10/08/2024 2:42:15 PM [employer] MANAGER Procedure Note Lee David MD - 10/08/2024 [facility] - Department of Vascular Surgery,Vascular Laboratory [address] [place] [address] Upper Extremity Venous Ultrasound Report Patient Name: MADONNA JARA N : 1985 (39y 2m) Study Date: 10/08/2024 10:00:38 AM Gender: F Tech: Location: [id number] Ref Provider: GANESH FREEMAN Quality: Adequate Order Provider: GANESH FREEMAN PROCEDURES: Vascular Report: Venous Duplex imaging was performed bilaterally in the upper extremities.The internal jugular, subclavian and axillary veins were evaluated for patency,spontaneity and phasicity with Doppler, compression and augmentation maneuvers. Thebrachial, basilic and cephalic veins were also evaluated with compression maneuvers. INDICATIONS: Localized edema. FINDINGS: Performing Pressure Supervisor: Stella Loechl, RVT. Right: Venous Doppler signals in the right upper extremity are within normallimits for spontaneity and phasicity; normal response to compression maneuvers. Noevidence of superficial vein thrombus in the right upper extremity. Thickened wallsnoted in the cephalic vein at the mid arm level. Left: Duplex scan reveals dilated vein with echogenic, intraluminal,non-compressible material consistent with acute deep vein thrombosis on the left. Deep veinsinvolved include the 1 of the 2 radial veins at the mid to distal arm. The brachial artery andvein bifurcation is at the mid arm level. All other evaluated veins are patent. Comments: Unable to assess the distal arm veins on the right due to dressing. Provider Notification: Results called on the above date to Jourdan Trevino MD, at 1115. CONCLUSIONS: 1. No evidence of acute deep vein thrombosis in the right upperextremity. 2. Acute deep vein thrombosis in the left upper extremity, one of tworadial veins in the mid to distal arm. HISTORY: 39 y.o. female w/ a PMH of IVDU (opioids) and L leg necrotizing fasciitis(2020), presenting with bilateral arm wounds and leg swelling Right PICC line placement. PREVIOUS STUDIES: No previous studies for comparison. DISCLAIMER: The study images and the final report will be retained in the patientchart by the Vascular Laboratory for the legally required time period. This chartconstitutes the legal record of any testing performed. ATTESTATION: I have reviewed and interpreted the pertinent images and measurements ofthis study. I attest to the conclusions in the final report that is provided above. Electronically Signed By: Lee David MD, FACS 10/08/2024 2:42:15 PM [employer] MANAGER Ganesh Freeman MD IM US PROCEDURES Final Result * US Vein Duplex Lower Extremity Bilateral Complete (10/08/2024 11:14 AM [employer] MANAGER) Anatomical Region Laterality Modality Vascular Bilateral Ultrasound 10/08/2024 10:2 8 AM [employer] MANAGER Narrative 10/08/2024 2:46 PM BI[employer]EL PLANT MANAGER [facility] - Department of Vascular Surgery, Vascular Laboratory [address] [place] [address] Lower Extremity Venous Ultrasound Report Patient Name: MADONNA JARA N : 1985 (39y 2m) Study Date: 10/08/2024 10:28:39 AM Gender: F Tech: Location: [id number] Ref Provider: GANESH FREEMAN Quality: Adequate Order Provider: GANESH FREEMAN PROCEDURES: Vascular Report: Venous Duplex imaging was performed bilaterally in the lower extremities. The common femoral, femoral, popliteal, posterior tibial, peroneal veins were evaluated for patency, spontaneity and phasicity with Doppler, compression and augmentation maneuvers. Great saphenous vein proximal at the junction was evaluated with compression maneuvers. INDICATIONS: Localized edema. FINDINGS: Performing Pressure Supervisor: Stella Moe RVT. Bilateral: Venous Doppler signals in the bilateral lower extremity are within normal limits for spontaneity and phasicity and respond normally to augmentation maneuvers. No evidence of deep vein thrombus by duplex, proximal to the calf. Comments: Limited visualization of the deep calf veins due to edema and multiple superficial scars. CONCLUSIONS: 1. There is no evidence of acute deep vein thrombosis in the lower extremities bilaterally. Noninvasive venous studies cannot rule out isolated calf vein obstruction. 2. Limited visualization of the deep calf veins due to edema and multiple superficial scars. HISTORY: 39 y.o. female w/ a PMH of IVDU () and L leg necrotizing fasciitis (2020), presenting with bilateral arm wounds and leg swelling - PREVIOUS STUDIES: No previous studies for comparison. DISCLAIMER: The study images and the final report will be retained in the patient chart by the Vascular Laboratory for the legally required time period. This chart constitutes the legal record of any testing performed. ATTESTATION: I have reviewed and interpreted the pertinent images and measurements of this study. I attest to the conclusions in the final report that is provided above. Electronically Signed By: Lee David MD FACS 10/08/2024 2:42:37 PM [employer] MANAGER Procedure Note Lee David MD - 10/08/2024 [facility] - Department of Vascular Surgery,Vascular Laboratory [address] [place] [address] Lower Extremity Venous Ultrasound Report Patient Name: MADONNA JARA N : 1985 (39y 2m) Study Date: 10/08/2024 10:28:39 AM Gender: F Tech: Location: [id number] Ref Provider: GANESH FREEMAN Quality: Adequate Order Provider: GANESH FREEMAN PROCEDURES: Vascular Report: Venous Duplex imaging was performed bilaterally in the lower extremities.The common femoral, femoral, popliteal, posterior tibial, peroneal veins wereevaluated for patency, spontaneity and phasicity with Doppler, compression and augmentationmaneuvers. Great saphenous vein proximal at the junction was evaluated with compressionmaneuvers. INDICATIONS: Localized edema. FINDINGS: Performing Pressure Supervisor: Stella Moe RVT. Bilateral: Venous Doppler signals in the bilateral lower extremity are within normallimits for spontaneity and phasicity and respond normally to augmentation maneuvers.No evidence of deep vein thrombus by duplex, proximal to the calf. Comments: Limited visualization of the deep calf veins due to edema and multiplesuperficial scars. CONCLUSIONS: 1. There is no evidence of acute deep vein thrombosis in the lowerextremities bilaterally. Noninvasive venous studies cannot rule out isolated calf veinobstruction. 2. Limited visualization of the deep calf veins due to edema and multiplesuperficial scars. HISTORY: 39 y.o. female w/ a PMH of IVDU () and L leg necrotizing fasciitis(2020), presenting with bilateral arm wounds and leg swelling - PREVIOUS STUDIES: No previous studies for comparison. DISCLAIMER: The study images and the final report will be retained in the patientchart by the Vascular Laboratory for the legally required time period. This chartconstitutes the legal record of any testing performed. ATTESTATION: I have reviewed and interpreted the pertinent images and measurements ofthis study. I attest to the conclusions in the final report that is provided above. Electronically Signed By: Lee David MD [facility] 10/08/2024 2:42:37 PM [employer] Ganesh Freeman MD [facility] US PROCEDURES Final Result * Sodium, urine, random (10/08/2024 5:51 AM [employer] MANAGER) Sodium, ur 197 mmol/L Comment: Interpretive Data No reference range established. Current interpretive data was last revised 2019. Urine 10/08/2024 5:51 AM [employer] MANAGER 10/08/2024 7:15 AM [employer] MANAGER Ganesh Freeman MD LAB URINE ORDERABLES Fin al Result Performing Organization Address [facility] de Phone Number [facility] [place] [address] * Osmolality, urine (10/08/2024 5:51 AM [employer] MANAGER) Osmo, ur 578 mOsm/kg Urine 10/08/2024 5:51 AM [employer] 10/08/2024 7:15 AM [employer] MANAGER Ganesh Freeman MD LAB URINE ORDERABLES Fin al Result Performing Organization Address [facility] Phone Number [facility] [place] [address] * Creatinine, urine, random (10/08/2024 5:51 AM [employer] MANAGER) Creatinine Ur 36.8 mg/dL Comment: Interpretive Data No reference range established. Current interpretive data was last revised 2019. Urine 10/08/2024 5:51 AM [employer] MANAGER 10/08/2024 7:15 AM [employer] MANAGER Ganesh Freeman MD LAB URINE ORDERABLES Fin al Result Performing Organization Address [facility] de Phone Number [facility] [place] [employer] [address] * eGFR (10/08/2024 4:26 AM [employer] MANAGER) eGFR >90 >=60 mL/min/1. 73 m2 Comment: Interpretive Data Reference Interval Normal >/= 90 mL/min/1.73m2 Mildly decreased* 60 - 89 mL/min/1.73m2 Mildly to moderately decreased 45 - 59 mL/min/1.73m2 Moderately to severely decreased 30 - 44 mL/min/1.73m2 Severely decreased 15 - 29 mL/min/1.73m2 Kidney Failure < 15 mL/min/1.73m2 *Relative to young adult level Estimated glomerular filtration rate is determined by the 2020 CKD-EPI equation recommended by the National Kidney Foundation (A Unifying Approach to GFR Estimation: Recommendations of the NKF-ASK Task Force on Reassessing the Inclusion of Race in Diagnosing Kidney Disease, JASN 2020). The CKD-EPI equation should not be used for patients with unstable renal function and has not been validated in children and those over 70. Current interpretive data was last reviewed 2021. Blood 10/08/2024 4:26 AM [employer] MANAGER 10/08/2024 5:19 AM [employer] MANAGER Devyn Worrell MD LAB BLOOD ORDERABLES Viv l Result Performing Organization Address City/[facility]/ZIP Co de Phone Number [facility] Department [place] [address] * (ABNORMAL) Osmolality, blood (10/08/2024 4:26 AM [employer] MANAGER) Pathologist [facility] Osmo 274(L) 275 - 300 mOsm/kg Blood 10/08/2024 4:26 AM [employer] MANAGER 10/08/2024 5:10 AM [employer] MANAGER Ganesh Freeman MD LAB BLOOD ORDERABLES Fin al Result Performing Organization Address City/[facility]/ZIP Co de Phone Number [facility] Department [place] [address] * (ABNORMAL) Basic metabolic panel (10/08/2024 4:26 AM [employer] MANAGER) Sodium 135 135 - 145 mmol/L Potassium, pl 4.6 3.3 - 4.9 mmol/L [facility] Chloride 102 97 - 110 mmol/L [facility] CO2 26 22 - 32 mmol/L [facility] Anion gap 7 2 - 15 mmol/L [facility] BUN 12 6 - 25 mg/dL [facility] Creatinine 0.52(L) 0.60 - 1.10 mg/dL [facility] Glucose 88 70 - 199 mg/dL [facility] Comment: Interpretive Data Fasting glucose >/= 126 mg/dl is diagnostic for diabetes. Fasting is defined as no caloric intake for at least 8 hours. Fasting glucose between 100 mg/dl to 125 mg/dl is diagnostic of prediabetes. In a patient with classic symptoms of hyperglycemia or hyperglycemic crisis, a random glucose >/= 200 mg/dl is diagnostic for diabetes. In the absence of unequivocal hyperglycemia, results should be confirmed by repeat testing. The classification and Diagnosis of Diabetes Diabetes Care 2021; 46: S19-S40. Current interpretive data was last revised 2022. Calcium 8.1(L) 8.5 - 10.3 mg/dL [facility] Blood 10/08/2024 4:26 AM [employer] MANAGER 10/08/2024 5:10 AM [employer] MANAGER Devyn Worrell MD LAB BLOOD ORDERABLES Viv l Result [facility] Department [place] [address] * eGFR (10/07/2024 9:44 PM [employer] MANAGER) eGFR >90 >=60 mL/min/1. 73 m2 Comment: Interpretive Data Reference Interval Normal >/= 90 mL/min/1.73m2 Mildly decreased* 60 - 89 mL/min/1.73m2 Mildly to moderately decreased 45 - 59 mL/min/1.73m2 Moderately to severely decreased 30 - 44 mL/min/1.73m2 Severely decreased 15 - 29 mL/min/1.73m2 Kidney Failure < 15 mL/min/1.73m2 *Relative to young adult level Estimated glomerular filtration rate is determined by the 2020 CKD-EPI equation recommended by the National Kidney Foundation (A Unifying Approach to GFR Estimation: Recommendations of the NKF-ASK Task Force on Reassessing the Inclusion of Race in Diagnosing Kidney Disease, JASN 2021). The CKD-EPI equation should not be used for patients with unstable renal function and has not been validated in children and those over 70. Current interpretive data was last reviewed 2021. Blood 10/07/2024 9:44 PM [employer] MANAGER 10/07/2024 10:03 PM [employer] MANAGER us Kris Mckeon MD LAB BLOOD ORDERABLES Final Result [facility] Department [place] [address] * Differential, auto (10/07/2024 9:44 PM [employer] MANAGER) Neutrophil abs 2.3 1.5 - 6.5 K/cumm Imm gran abs 0.1 0.0 - 0.1 K/cumm [facility] Lymphocyte abs 1.8 0.8 - 3.3 K/cumm [facility] Monocyte abs 0.5 0.2 - 0.8 K/cumm [facility] Eosinophil abs 0.1 0.0 - 0.5 K/cumm [facility] Basophil abs 0.0 0.0 - 0.1 K/cumm [facility] Neutrophil pct 47.7 % [facility] Comment: Interpretive Data Percent cell count reference ranges are not reported, since discordance with absolute values may lead to misinterpretation of CBC data. Current Interpretive Data was last revised on 2017. Imm gran pct 1.3 % [facility] Comment: Interpretive Data Percent cell count reference ranges are not reported, since discordance with absolute values may lead to misinterpretation of CBC data. Current Interpretive Data was last revised on 2017. Lymphocyte pct 38.3 % [facility] Comment: Interpretive Data Percent cell count reference ranges are not reported, since discordance with absolute values may lead to misinterpretation of CBC data. Current Interpretive Data was last revised on 2017. Monocyte pct 10.8 % [facility] Comment: Interpretive Data Percent cell count reference ranges are not reported, since discordance with absolute values may lead to misinterpretation of CBC data. Current Interpretive Data was last revised on 2017. Eosinophil pct 1.5 % [facility] Comment: Interpretive Data Percent cell count reference ranges are not reported, since discordance with absolute values may lead to misinterpretation of CBC data. Current Interpretive Data was last revised on 2017. Basophil pct 0.4 % [facility] Comment: Interpretive Data Percent cell count reference ranges are not reported, since discordance with absolute values may lead to misinterpretation of CBC data. Current Interpretive Data was last revised on 2017. Blood 10/07/2024 9:44 PM [employer] MANAGER 10/07/2024 10:03 PM [employer] MANAGER us Ganesh Freeman MD LAB BLOOD ORDERABLES Fin al Result [facility] Department [place] [address] * (ABNORMAL) CBC with auto differential (10/07/2024 9:44 PM [employer] MANAGER) Pathologist [facility] WBC 4.7 3.8 - 9.9 K/cumm Hgb 8.6(L) 11.9 - 15.5 g/dL [facility] Hct 28.9(L) 35.6 - 45.5 % [facility] Plt 367 150 - 400 K/cumm [facility] MPV 11.6 9.1 - 12.3 fL [facility] RBC 3.55(L) 3.90 - 5.20 M/cumm [facility] MCV 81.4 81.3 - 96.4 fL [facility] MCH 24.2(L) 27.1 - 33.3 pg [facility] MCHC 29.8(L) 32.3 - 35.7 g/dL [facility] RDW CV 17.0(H) 11.1 - 14.9 % [facility] RDW SD 50.3(H) 35.7 - 48.1 fL [facility] NRBC abs 0.00 0.00 - 0.01 K/cumm [facility] Blood 10/07/2024 9:44 PM [employer] MANAGER 10/07/2024 10:03 PM [employer] MANAGER Ganesh Freeman MD LAB BLOOD ORDERABLES Fin al Result Performing Organization Address [facility] de Phone Number [facility] [place] [address] * Type and screen (10/07/2024 9:44 PM [employer] MANAGER) [facility] ABO Rh O Positive King, indirect Negative [facility] Blood 10/07/2024 9:44 PM [employer] MANAGER 10/07/2024 9:59 PM [employer]EL PL[employer] MANAGER Narrative [facility] - 10/08/2024 1:00 AM [employer]EL PLANT MANAGER Has the patient had Daratumumab or Isatuximab in the past 6 months?->Unknown Kris Mckeon MD LAB BLOOD BANK TEST ORDERAB LES Final Result Performing Organization Address [facility] de Phone Number [facility] Department [place] [address] * Magnesium (10/07/2024 9:44 PM [employer] MANAGER) [facility] Magnesium 2.0 1.4 - 2.5 mg/dL Blood 10/07/2024 9:44 PM [employer] MANAGER 10/07/2024 10:03 PM [employer] MANAGER Ganesh Freeman MD LAB BLOOD ORDERABLES Fin al Result Performing Organization Address [facility] de Phone Number [facility] [place] [address] * (ABNORMAL) Basic metabolic panel (10/07/2024 9:44 PM [employer] MANAGER) [facility] Sodium 129(L) 135 - 145 mmol/L Potassium, pl 4.8 3.3 - 4.9 mmol/L [facility] Chloride 99 97 - 110 mmol/L [facility] CO2 24 22 - 32 mmol/L [facility] Anion gap 6 2 - 15 mmol/L [facility] BUN 13 6 - 25 mg/dL [facility] Creatinine 0.58(L) 0.60 - 1.10 mg/dL [facility] Glucose 99 70 - 199 mg/dL [facility] Comment: Interpretive Data Fasting glucose >/= 126 mg/dl is diagnostic for diabetes. Fasting is defined as no caloric intake for at least 8 hours. Fasting glucose between 100 mg/dl to 125 mg/dl is diagnostic of prediabetes. In a patient with classic symptoms of hyperglycemia or hyperglycemic crisis, a random glucose >/= 200 mg/dl is diagnostic for diabetes. In the absence of unequivocal hyperglycemia, results should be confirmed by repeat testing. The classification and Diagnosis of Diabetes Diabetes Care 2021; 46: S19-S40. Current interpretive data was last revised 2022. Calcium 8.1(L) 8.5 - 10.3 mg/dL [facility] Blood 10/07/2024 9:44 PM [employer] MANAGER 10/07/2024 10:03 PM [employer] MANAGER Kris Mckeon MD LAB BLOOD ORDERABLES Final Result [facility] Department [place] [address] * Blood culture Blood (10/07/2024 4:53 PM [employer] MANAGER) Report Final Report: No growth Blood 10/07/2024 4:53 PM [employer] MANAGER 10/07/2024 5:04 PM [employer]EL PLANT MANAGER Narrative [facility] - 10/12/2024 7:00 AM BI[employer]EL PLANT MANAGER From a different site than #1. Collection->Peripheral 1. Blood cultures are incubated for 4 days on a continuously monitored blood culture system. The first report of a negative culture is issued within 24 hours of receipt of the specimen in the laboratory. 2. Positive culture results are reported as soon as they are detected. 3. The most important factor for detection of microbes in the setting of bloodstream infection is the volume of blood submitted for culture. Failure to collect an optimal blood volume can result in false negative blood cultures. 4. For pediatric patients, the recommended blood volume to collect follows a weight based strategy. See the electronic test catalog for collection instructions. 5. For positive blood cultures, a rapid molecular test may be performed for organism identification using the allen ePlex blood culture identification panel for gram positive (BCID-GP) and gram negative (BCID-GN) organisms. This nucleic acid amplification test detects microbial DNA in positive blood culture broth. This assay has been cleared by the [place] Food and Drug Administration and its performance characteristics have been verified by the [facility] Microbiology Laboratory. For questions about this culture, contact the Microbiology Laboratory at [phone]. Interpretive data was last revised on 24. us Ganesh Freeman MD LAB MICROBIOLOGY - GENER AL ORDERABLES Final Result [facility]IG[facility] Department [place] [address] * Blood culture Blood (10/07/2024 4:53 PM BI[employer] MANAGER) Report Final Report: No growth Blood 10/07/2024 4:53 PM [employer]EL PL[employer] MANAGER 10/07/2024 5:04 PM BI[employer]EL PLANT MANAGER Narrative [facility] - 10/12/2024 7:00 AM [employer]EL PLANT MANAGER Collection->Peripheral 1. Blood cultures are incubated for 4 days on a continuously monitored blood culture system. The first report of a negative culture is issued within 24 hours of receipt of the specimen in the laboratory. 2. Positive culture results are reported as soon as they are detected. 3. The most important factor for detection of microbes in the setting of bloodstream infection is the volume of blood submitted for culture. Failure to collect an optimal blood volume can result in false negative blood cultures. 4. For pediatric patients, the recommended blood volume to collect follows a weight based strategy. See the electronic test catalog for collection instructions. 5. For positive blood cultures, a rapid molecular test may be performed for organism identification using the allen ePlex blood culture identification panel for gram positive (BCID-GP) and gram negative (BCID-GN) organisms. This nucleic acid amplification test detects microbial DNA in positive blood culture broth. This assay has been cleared by the [place] Food and Drug Administration and its performance characteristics have been verified by the [facility] Microbiology Laboratory. For questions about this culture, contact the Microbiology Laboratory at [phone]. Interpretive data was last revised on 24. us Ganesh Freeman MD LAB MICROBIOLOGY - GENER AL ORDERABLES Final Result Performing Organization Address City/[facility]/ZIP Co de Phone Number R[facility] Department [place] [address] * eGFR (10/06/2024 12:29 AM [employer] MANAGER) eGFR >90 >=60 mL/min/1. 73 m2 Comment: Interpretive Data Reference Interval Normal >/= 90 mL/min/1.73m2 Mildly decreased* 60 - 89 mL/min/1.73m2 Mildly to moderately decreased 45 - 59 mL/min/1.73m2 Moderately to severely decreased 30 - 44 mL/min/1.73m2 Severely decreased 15 - 29 mL/min/1.73m2 Kidney Failure < 15 mL/min/1.73m2 *Relative to young adult level Estimated glomerular filtration rate is determined by the 2020 CKD-EPI equation recommended by the National Kidney Foundation (A Unifying Approach to GFR Estimation: Recommendations of the NKF-ASK Task Force on Reassessing the Inclusion of Race in Diagnosing Kidney Disease, JASN 2020). The CKD-EPI equation should not be used for patients with unstable renal function and has not been validated in children and those over 70. Current interpretive data was last reviewed 2021. Blood 10/06/2024 12:2 9 AM [employer] PLANT MANAGER 10/06/2024 12:42 AM [employer]EL PLANT MANAGER us Kris Mckeon MD LAB BLOOD ORDERABLES Final Result Performing Organization Address City/[facility]/ZIP Co de Phone Number [facility] Department [place] [address] * (ABNORMAL) Differential, auto (10/06/2024 12:29 AM [employer] MANAGER) Neutrophil abs 4.1 1.5 - 6.5 K/cumm Imm gran abs 0.1 0.0 - 0.1 K/cumm [facility] Lymphocyte abs 0.7(L) 0.8 - 3.3 K/cumm [facility] Monocyte abs 0.4 0.2 - 0.8 K/cumm [facility] Eosinophil abs 0.0 0.0 - 0.5 K/cumm [facility] Basophil abs 0.0 0.0 - 0.1 K/cumm [facility] Neutrophil pct 77.6 % [facility] Comment: Interpretive Data Percent cell count reference ranges are not reported, since discordance with absolute values may lead to misinterpretation of CBC data. Current Interpretive Data was last revised on 2017. Imm gran pct 1.1 % [facility] Comment: Interpretive Data Percent cell count reference ranges are not reported, since discordance with absolute values may lead to misinterpretation of CBC data. Current Interpretive Data was last revised on 2017. Lymphocyte pct 12.8 % [facility] Comment: Interpretive Data Percent cell count reference ranges are not reported, since discordance with absolute values may lead to misinterpretation of CBC data. Current Interpretive Data was last revised on 2017. Monocyte pct 7.5 % [facility] Comment: Interpretive Data Percent cell count reference ranges are not reported, since discordance with absolute values may lead to misinterpretation of CBC data. Current Interpretive Data was last revised on 2017. Eosinophil pct 0.6 % [facility] Comment: Interpretive Data Percent cell count reference ranges are not reported, since discordance with absolute values may lead to misinterpretation of CBC data. Current Interpretive Data was last revised on 2017. Basophil pct 0.4 % [facility] Comment: Interpretive Data Percent cell count reference ranges are not reported, since discordance with absolute values may lead to misinterpretation of CBC data. Current Interpretive Data was last revised on 2017. Blood 10/06/2024 12:2 9 AM [employer] PLANT MANAGER 10/06/2024 12:43 AM [employer]EL PLANT MANAGER us Kris Mckeon MD LAB BLOOD ORDERABLES Final Result [facility] Department [place] [address] * (ABNORMAL) CBC with auto differential (10/06/2024 12:29 AM [employer] PLANT MANAGER) Pathologist [facility] WBC 5.3 3.8 - 9.9 K/cumm Hgb 8.2(L) 11.9 - 15.5 g/dL [facility] Hct 27.1(L) 35.6 - 45.5 % [facility] Plt 288 150 - 400 K/cumm [facility] MPV 9.8 9.1 - 12.3 fL [facility] RBC 3.34(L) 3.90 - 5.20 M/cumm [facility] MCV 81.1(L) 81.3 - 96.4 fL [facility] MCH 24.6(L) 27.1 - 33.3 pg [facility] MCHC 30.3(L) 32.3 - 35.7 g/dL [facility] RDW CV 17.2(H) 11.1 - 14.9 % [facility] RDW SD 50.7(H) 35.7 - 48.1 fL [facility] NRBC abs 0.00 0.00 - 0.01 K/cumm [facility] Blood 10/06/2024 12:2 9 AM [employer] MANAGER 10/06/2024 12:43 AM [employer] PLANT MANAGER us Kris Mckeon MD LAB BLOOD ORDERABLES Final Result [facility] Department [place] [address] * Hepatitis A antibody, IgM Blood (10/06/2024 12:29 AM [employer] PLANT MANAGER) [facility] Hep A IgM Nonreactive Nonreactive Blood 10/06/2024 12:2 9 AM [employer] MANAGER 10/06/2024 12:42 AM [employer] PLANT MANAGER Ganesh Freeman MD LAB MICROBIOLOGY - GENER AL ORDERABLES Final Result [facility] [place] [address] * (ABNORMAL) Hepatitis A antibody, total Blood (10/06/2024 12:29 AM [employer] PLANT MANAGER) Pathologist [facility] Hep A total Reactive(A ) Nonreactive Blood 10/06/2024 12:2 9 AM [employer] PLANT MANAGER 10/06/2024 12:42 AM BI[employer] PLANT MANAGER Ganesh Freeman MD LAB MICROBIOLOGY - GENER AL ORDERABLES Final Result Performing Organization Address [facility] de Phone Number [facility] Department [place] [address] * (ABNORMAL) Vitamin D 25 hydroxy (10/06/2024 12:29 AM [employer] PL[employer] MANAGER) Pathologist [facility] Vitamin D 25-OH <6(L) 30 - 80 ng/mL Blood 10/06/2024 12:2 9 AM [employer] PL[employer] MANAGER 10/06/2024 12:42 AM [employer] PLANT MANAGER Ganesh Freeman MD LAB BLOOD ORDERABLES Fin al Result Performing Organization Address [facility] de Phone Number [facility] Department [place] [address] * aPTT (10/06/2024 12:29 AM [employer] PLANT MANAGER) Pathologist [facility] aPTT 31 28 - 38 sec Comment: Interpretive Data Heparin therapeutic range: 66.0 - 100.0 seconds. Range based on correlation with therapeutic heparin activity range of 0.3 - 0.7 Units/mL. Current interpretive data was last revised on 2023. Blood 10/06/2024 12:2 9 AM [employer] PL[employer] MANAGER 10/06/2024 12:54 AM [employer]EL PLANT MANAGER Ganesh Freeman MD LAB BLOOD ORDERABLES Fin al Result Performing Organization Address [facility]/ZIP Co de Phone Number [facility] [place] [employer] [place] [address] * (ABNORMAL) Protime-INR (10/06/2024 12:29 AM [employer]EL PLANT MANAGER) [facility] PT 14.1(H) 9.7 - 13.0 sec INR 1.30(H) 0.90 - 1.20 [facility] Comment: Interpretive data Oral anticoagulant therapeutic ranges: Venous thromboembolism prophylaxis or treatment: 2.0-3.0 CARDIOLOGY Standard range: 2.0-3.0 High-intensity range: 2.5-3.5 Refer to indication-specific guidelines for appropriate target ranges for prosthetic heart valve replacement. Current interpretive data was last revised on 2019. Blood 10/06/2024 12:2 9 AM [employer] MA[employer] 10/06/2024 12:54 AM [employer] MANAGER Ganesh Freeman MD LAB BLOOD ORDERABLES Fin al Result Performing Organization Address [facility] [place] [address] * Magnesium (10/06/2024 12:29 AM [employer] MANAGER) [facility] Magnesium 1.9 1.4 - 2.5 mg/dL Blood 10/06/2024 12:2 9 AM [employer] MANAGER 10/06/2024 12:42 AM [employer] MANAGER Kris Mckeon MD LAB BLOOD ORDERABLES Final Result Performing Organization Address [facility] [place] [address] * (ABNORMAL) Basic metabolic panel (10/06/2024 12:29 AM [employer] MANAGER) [facility] Sodium 134(L) 135 - 145 mmol/L Potassium, pl 4.7 3.3 - 4.9 mmol/L [facility] Chloride 105 97 - 110 mmol/L [facility] CO2 25 22 - 32 mmol/L [facility] Anion gap 4 2 - 15 mmol/L [facility] BUN 7 6 - 25 mg/dL [facility] Creatinine 0.55(L) 0.60 - 1.10 mg/dL [facility] Glucose 109 70 - 199 mg/dL [facility] Comment: Interpretive Data Fasting glucose >/= 126 mg/dl is diagnostic for diabetes. Fasting is defined as no caloric intake for at least 8 hours. Fasting glucose between 100 mg/dl to 125 mg/dl is diagnostic of prediabetes. In a patient with classic symptoms of hyperglycemia or hyperglycemic crisis, a random glucose >/= 200 mg/dl is diagnostic for diabetes. In the absence of unequivocal hyperglycemia, results should be confirmed by repeat testing. The classification and Diagnosis of Diabetes Diabetes Care 202; 46: S19-S40. Current interpretive data was last revised 2022. Calcium 7.3(L) 8.5 - 10.3 mg/dL [facility] Blood 10/06/2024 12:2 9 AM [employer] MANAGER 10/06/2024 12:42 AM [employer] MANAGER us Kris Mckeon MD LAB BLOOD ORDERABLES Final Result [facility] Department [place] [address] * eGFR (10/05/2024 4:44 AM [employer] MANAGER) eGFR >90 >=60 mL/min/1. 73 m2 Comment: Interpretive Data Reference Interval Normal >/= 90 mL/min/1.73m2 Mildly decreased* 60 - 89 mL/min/1.73m2 Mildly to moderately decreased 45 - 59 mL/min/1.73m2 Moderately to severely decreased 30 - 44 mL/min/1.73m2 Severely decreased 15 - 29 mL/min/1.73m2 Kidney Failure < 15 mL/min/1.73m2 *Relative to young adult level Estimated glomerular filtration rate is determined by the 2020 CKD-EPI equation recommended by the National Kid[employer] (A Unifying Approach to GFR Estimation: Recommendations of the NKF-ASK Task Force on Reassessing the Inclusion of Race in Diagnosing Kidney Disease, JASN 2020). The CKD-EPI equation should not be used for patients with unstable renal function and has not been validated in children and those over 70. Current interpretive data was last reviewed 2021. Blood 10/05/2024 4:44 AM [employer] MANAGER 10/05/2024 5:04 AM [employer] MANAGER Kris Mckeon MD LAB BLOOD ORDERABLES Final Result [facility] Department [place] [address] * Differential, auto (10/05/2024 4:44 AM [employer] MANAGER) Neutrophil abs 1.6 1.5 - 6.5 K/cumm Imm gran abs 0.0 0.0 - 0.1 K/cumm [facility] Lymphocyte abs 0.8 0.8 - 3.3 K/cumm [facility] Monocyte abs 0.2 0.2 - 0.8 K/cumm [facility] Eosinophil abs 0.0 0.0 - 0.5 K/cumm [facility] Basophil abs 0.0 0.0 - 0.1 K/cumm [facility] Neutrophil pct 62.0 % [facility] Comment: Interpretive Data Percent cell count reference ranges are not reported, since discordance with absolute values may lead to misinterpretation of CBC data. Current Interpretive Data was last revised on 2017. Imm gran pct 0.8 % [facility] Comment: Interpretive Data Percent cell count reference ranges are not reported, since discordance with absolute values may lead to misinterpretation of CBC data. Current Interpretive Data was last revised on 2017. Lymphocyte pct 29.5 % [facility] Comment: Interpretive Data Percent cell count reference ranges are not reported, since discordance with absolute values may lead to misinterpretation of CBC data. Current Interpretive Data was last revised on 2017. Monocyte pct 7.3 % [facility] Comment: Interpretive Data Percent cell count reference ranges are not reported, since discordance with absolute values may lead to misinterpretation of CBC data. Current Interpretive Data was last revised on 2017. Eosinophil pct 0.0 % [facility] Comment: Interpretive Data Percent cell count reference ranges are not reported, since discordance with absolute values may lead to misinterpretation of CBC data. Current Interpretive Data was last revised on 2017. Basophil pct 0.4 % [facility] Comment: Interpretive Data Percent cell count reference ranges are not reported, since discordance with absolute values may lead to misinterpretation of CBC data. Current Interpretive Data was last revised on 2017. Blood 10/05/2024 4:44 AM [employer] MANAGER 10/05/2024 5:04 AM [employer] MANAGER us Kris Mckeon MD LAB BLOOD ORDERABLES Final Result [facility] Department [place] [address] * (ABNORMAL) CBC with auto differential (10/05/2024 4:44 AM [employer] MANAGER) WBC 2.6(L) 3.8 - 9.9 K/cumm Hgb 8.6(L) 11.9 - 15.5 g/dL [facility] Hct 27.8(L) 35.6 - 45.5 % [facility] Plt 274 150 - 400 K/cumm [facility] MPV 11.7 9.1 - 12.3 fL [facility] RBC 3.45(L) 3.90 - 5.20 M/cumm [facility] MCV 80.6(L) 81.3 - 96.4 fL [facility] MCH 24.9(L) 27.1 - 33.3 pg [facility] MCHC 30.9(L) 32.3 - 35.7 g/dL [facility] RDW CV 17.0(H) 11.1 - 14.9 % [facility] RDW SD 49.5(H) 35.7 - 48.1 fL [facility] NRBC abs 0.00 0.00 - 0.01 K/cumm [facility] Blood 10/05/2024 4:44 AM [employer] MANAGER 10/05/2024 5:04 AM [employer] MANAGER Kris Mckeon MD LAB BLOOD ORDERABLES Final Result Performing Organization Address [facility] Co de Phone Number [facility] [place] [employer] [place] [address] * Type and screen (10/05/2024 4:44 AM [employer] MANAGER) ABO Rh O Positive King, indirect Negative [facility] Blood 10/05/2024 4:44 AM [employer] MANAGER 10/05/2024 5:16 AM [employer] PL[employer] MANAGER Narrative [facility] - 10/05/2024 6:04 AM [employer] MANAGER Has the patient had Daratumumab or Isatuximab in the past 6 months?->Unknown Kris Mckeon MD LAB BLOOD BANK TEST ORDERAB LES Final Result Performing Organization Address [facility] Co de Phone Number [facility] [place] [employer] [place] [address] * Magnesium (10/05/2024 4:44 AM [employer] MANAGER) Pathologist [facility] Magnesium 1.9 1.4 - 2.5 mg/dL Blood 10/05/2024 4:44 AM [employer] MANAGER 10/05/2024 5:04 AM [employer] MANAGER Kris Mckeon MD LAB BLOOD ORDERABLES Final Result Performing Organization Address [facility] Co de Phone Number [facility] [place] [address] * (ABNORMAL) Hepatic function panel (10/05/2024 4:44 AM [employer] MANAGER) Bilirubin, total <0.2 0.1 - 1.2 mg/dL Bilirubin, direct See Comment 0.1 - 0.3 mg/dL [facility] Comment:Credited; Hemolyzed Specimen Protein, pl 5.4(L) 6.5 - 8.5 g/dL [facility] Albumin 1.9(L) 3.5 - 5.0 g/dL [facility] Alk phos 110 40 - 130 Units/L [facility] ALT 9 7 - 45 Units/L [facility] AST 26 10 - 45 Units/L [facility] Comment:Hemolyzed; result ma y be falsely elevated Blood 10/05/2024 4:44 AM [employer] MANAGER 10/05/2024 5:04 AM [employer] MANAGER us Ganesh Fereman MD LAB BLOOD ORDERABLES Fin al Result [facility] Department [place] [address] * (ABNORMAL) Basic metabolic panel (10/05/2024 4:44 AM [employer] MANAGER) Sodium 137 135 - 145 mmol/L Potassium, pl 4.3 3.3 - 4.9 mmol/L [facility] Comment:Hemolyzed; Potassium value may be falsely elevated by as much as 0.3-0.5 mmol/L. Suggest redraw and reanalysis. Chloride 107 97 - 110 mmol/L [facility] CO2 25 22 - 32 mmol/L [facility] Anion gap 5 2 - 15 mmol/L [facility] BUN 3(L) 6 - 25 mg/dL [facility] Creatinine 0.48(L) 0.60 - 1.10 mg/dL [facility] Glucose 89 70 - 199 mg/dL [facility] Comment: Interpretive Data Fasting glucose >/= 126 mg/dl is diagnostic for diabetes. Fasting is defined as no caloric intake for at least 8 hours. Fasting glucose between 100 mg/dl to 125 mg/dl is diagnostic of prediabetes. In a patient with classic symptoms of hyperglycemia or hyperglycemic crisis, a random glucose >/= 200 mg/dl is diagnostic for diabetes. In the absence of unequivocal hyperglycemia, results should be confirmed by repeat testing. The classification and Diagnosis of Diabetes Diabetes Care 202; 46: S19-S40. Current interpretive data was last revised 2022. Calcium 7.5(L) 8.5 - 10.3 mg/dL [facility] Blood 10/05/2024 4:44 AM [employer] MANAGER 10/05/2024 5:04 AM [employer] PL[employer] MANAGER us Kris Mckeon MD LAB BLOOD ORDERABLES Final Result [facility] Department [place] [address] * TRANSTHORACIC ECHO (TTE) COMPLETE W DOPPLER/CF W CONTRAST (10/04/2024 4:52 PM [employer] MANAGER) LV EF % CONS SCIMAGE Anatomical Region Laterality Modality Ultrasound 10/04/2024 3:39 PM [employer] MANAGER Narrative 10/04/2024 5:33 PM [employer]EL [employer] MANAGER [facility] [place] [address] Transthoracic Echocardiographic Report Patient Name: MADONNA JARA N : 1985 (39y 2m) Gender: F Study Date: 10/04/2024 03:39:40 PM Ht(Inch): 67 Wt(Lb): 160.05 BSA: 1.85 Pressure Supervisor: Nathan Rosenbaum RDCS Location: [id number] Order Provider: KRIS MCKEON Heart Rate: 102 BMI: 25.06 BP: 149 / 83 Quality: The study images were of technically adequate quality. Ref Provider: KRIS MCKEON PROCEDURES: Echocardiographic Report: ([id number]) Transthoracic complete echo with strain imaging and contrast, 2D, spectral and tissue Doppler, color flow Doppler, M-mode. Contrast: Contrast Enhancement was Employed: After initial imaging due to sub- optimal quality related to co-morbidity defined by patient's body habitus. 1.1 ml Optison Administered, (1.9 ml wasted). INDICATIONS: Dyspnea, Lower Extremity Edema, and Endocarditis. MEASUREMENTS: 2D/MM Value Range Doppler Value Range LVIDd 2D 5.70 cm [ 3.80 - 5.20 ] AV Peak Matthew 1.49 m/s [ 1.00 - 1.70 ] LVIDs 2D 4.63 cm [ 2.20 - 3.50 ] AV Mean PG 4.06 mmHg IVSd 2D 0.90 cm [ 0.60 - 0.90 ] AV VTI 26.89 cm LVPWd 2D 0.86 cm [ 0.60 - 0.90 ] LVOT VTI 25.10 cm LV Thickness Ratio 1.05 [ 1.50 - 3.00 ] LVOT Diam 1.97 cm LV Mass Index 2D 106.95 g/m2 LVOT/AV VTI 0.93 - Dimensionless index (DVI) RWT 0.30 MV E Peak Matthew 1.21 m/s [ 0.60 - 1.30 ] EDV Mod BP 171.13 ml [ 46.00 - 106.00 ] MV A Peak Matthew 1.13 m/s [ 1.00 - 1.20 ] LV EDV Index 92.50 ml/m2 MV E/A 1.07 ratio [ 0.80 - 1.50 ] ESV Mod BP 58.64 ml [ 14.00 - 42.00 ] Med E` Matthew 12.86 cm/sec [ 8.00 - 15.00 ] EF Mod BP 66 % [ 54 - 74 ] Lat E` Matthew 12.50 cm/sec [ 10.00 - 15.00 ] LV GLS -18.0 % [ -18.0 - -16.0 ] Average E/E` 9.54 LA Volume BP 78.43 ml MV Regurgitant Volume 25.5 ml LA Volume Index 42.39 ml/m2 [ 16.00 - 34.00 ] MV Regurgitant Fraction 25 % RV Base Dimen 2D 3.6 cm [ 2.5 - 4.2 ] RV S` 15.37 cm/sec TAPSE 2.20 cm [ 1.71 - 5.00 ] RA Pressure 3.00 mmHg RA Volume 36.56 ml RA Volume Index 19.76 ml/m2 IVC Diam 1.88 cm AoR Diam 2D 3.24 cm [ 2.70 - 3.70 ] Ao Root Index 1.75 cm/m2 [ 1.00 - 2.00 ] Asc Ao Diam 2D 3.17 cm Asc Ao Index 1.71 cm/m2 - FINDINGS: Left Ventricle: Severely dilated left ventricle based on volume index. Eccentric LV hypertrophy. Normal left ventricular systolic function. The Ejection Fraction (Rasmussen's) is measured at 66 %. Left ventricular diastolic parameters are consistent with normal diastolic function. The average global longitudinal strain rate is normal. The LV global strain is: -18.0 %. Right Ventricle: Normal right ventricular size. Normal right ventricular systolic function. The right ventricular strain is more negative than -17%. Left Atrium: Moderately dilated left atrium. Right Atrium: The right atrium is normal in size. Mitral Valve: Normal mitral valve leaflet structure. There is moderate mitral valve regurgitation. Aortic Valve: Trileaflet aortic valve. No aortic regurgitation seen. No aortic valve stenosis. Tricuspid Valve: There is mild tricuspid regurgitation. PASP cannot be evaluated due to lack of adequate TR jet. Pulmonic Valve: The pulmonic valve demonstrates normal leaflet structure. Pericardium: Physiologic pericardial effusion. Aorta: The aortic root is normal in size. IVC: IVC is normal in size. The IVC (inferior vena cava) was <2.1 cm and collapsibility >50%. The estimated RA pressure is 3 mmHg. CONCLUSIONS: 1. Eccentric LV hypertrophy. Normal left ventricular systolic function. The Ejection Fraction (Rasmussen's) is measured at 66 %. Left ventricular diastolic parameters are consistent with normal diastolic function. The average global longitudinal strain rate is normal. 2. Normal right ventricular size. Normal right ventricular systolic function. 3. Moderately dilated left atrium. 4. Normal mitral valve leaflet structure. There is moderate mitral valve regurgitation. 5. There is mild tricuspid regurgitation. PASP cannot be evaluated due to lack of adequate TR jet. 6. IVC is normal in size. The IVC (inferior vena cava) was <2.1 cm and collapsibility >50%. The estimated RA pressure is 3 mmHg. 7. No obvious vegetations seen on TTE. COMPARISONS: There was no previous study available for comparison. ATTESTATION: I have reviewed and interpreted the pertinent images and measurements of this study. I attest to the conclusions in the final report that is provided above. DISCLAIMER: The study images and the final report will be retained in the patient chart by the Echo Laboratory for the legally required time period. This chart constitutes the legal record of any testing performed. Electronically Signed By: César Bhardwaj M.D. 10/04/2024 5:32:08 PM [employer] MANAGER Electronically Signed By: César Bhardwaj M.D. 10/04/2024 5:32:08 PM [employer] MANAGER Procedure Note César Bhardwaj MD - 10/04/2024 [facility] [place] [address] Transthoracic Echocardiographic Report Patient Name: MADONNA JARA N : 1985 (39y 2m) Gender: F Study Date: 10/04/2024 03:39:40 PM Ht(Inch): 67 Wt(Lb): 160.05 BSA: 1.85 Pressure Supervisor: Nathan Rosenbaum RDCS Location: [id number] Order Provider:KRIS MCKEON Heart Rate: 102 BMI: 25.06 BP: 149 / 83 Quality: The study images wereof technically adequate quality. Ref Provider: KRIS MCKEON PROCEDURES: Echocardiographic Report: ([id number]) Transthoracic complete echo withstrain imaging and contrast, 2D, spectral and tissue Doppler, color flow Doppler,M-mode. Contrast: Contrast Enhancement was Employed: After initial imaging due tosub- optimal quality related to co-morbidity defined by patient's body habitus. 1.1 mlOptison Administered, (1.9 ml wasted). INDICATIONS: Dyspnea, Lower Extremity Edema, and Endocarditis. MEASUREMENTS: 2D/MM Value Range DopplerValue Range LVIDd 2D 5.70 cm [ 3.80 - 5.20 ] AV Peak Vel1.49 m/s [ 1.00 - 1.70 ] LVIDs 2D 4.63 cm [ 2.20 - 3.50 ] AV Mean PG4.06 mmHg IVSd 2D 0.90 cm [ 0.60 - 0.90 ] AV VTI26.89 cm LVPWd 2D 0.86 cm [ 0.60 - 0.90 ] LVOT VTI25.10 cm LV Thickness Ratio 1.05 [ 1.50 - 3.00 ] LVOT Diam1.97 cm LV Mass Index 2D 106.95 g/m2 LVOT/AV VTI0.93 - Dimensionless index (DVI) RWT 0.30 MV E Peak Vel1.21 m/s [ 0.60 - 1.30 ] EDV Mod BP 171.13 ml [ 46.00 - 106.00 ] MV A Peak Vel1.13 m/s [ 1.00 - 1.20 ] LV EDV Index 92.50 ml/m2 MV E/A1.07 ratio [ 0.80 - 1.50 ] ESV Mod BP 58.64 ml [ 14.00 - 42.00 ] Med E` Vel12.86 cm/sec [ 8.00 - 15.00 ] EF Mod BP 66 % [ 54 - 74 ] Lat E` Vel12.50 cm/sec [ 10.00 - 15.00 ] LV GLS -18.0 % [ -18.0 - -16.0 ] Average E/E`9.54 LA Volume BP 78.43 ml MV RegurgitantVolume 25.5 ml LA Volume Index 42.39 ml/m2 [ 16.00 - 34.00 ] MV RegurgitantFraction 25 % RV Base Dimen 2D 3.6 cm [ 2.5 - 4.2 ] RV S`15.37 cm/sec TAPSE 2.20 cm [ 1.71 - 5.00 ] RA Pressure3.00 mmHg RA Wyibbl90.56 ml RA Volume Index19.76 ml/m2 IVC Diam1.88 cm AoR Diam 2D 3.24 cm [ 2.70 - 3.70 ] Ao Root Index 1.75 cm/m2 [ 1.00 - 2.00 ] Asc Ao Diam 2D3.17 cm Asc Ao Index1.71 cm/m2 - FINDINGS: Left Ventricle: Severely dilated left ventricle based on volume index.Eccentric LV hypertrophy. Normal left ventricular systolic function. The EjectionFraction (Rasmussen's) is measured at 66 %. Left ventricular diastolic parameters are consistentwith normal diastolic function. The average global longitudinal strain rate is normal.The LV global strain is: -18.0 %. Right Ventricle: Normal right ventricular size. Normal right ventricularsystolic function. The right ventricular strain is more negative than -17%. Left Atrium: Moderately dilated left atrium. Right Atrium: The right atrium is normal in size. Mitral Valve: Normal mitral valve leaflet structure. There is moderatemitral valve regurgitation. Aortic Valve: Trileaflet aortic valve. No aortic regurgitation seen. Noaortic valve stenosis. Tricuspid Valve: There is mild tricuspid regurgitation. PASP cannot beevaluated due to lack of adequate TR jet. Pulmonic Valve: The pulmonic valve demonstrates normal leafletstructure. Pericardium: Physiologic pericardial effusion. Aorta: The aortic root is normal in size. IVC: IVC is normal in size. The IVC (inferior vena cava) was <2.1 cm andcollapsibility >50%. The estimated RA pressure is 3 mmHg. CONCLUSIONS: 1. Eccentric LV hypertrophy. Normal left ventricular systolic function.The Ejection Fraction (Rasmussen's) is measured at 66 %. Left ventricular diastolicparameters are consistent with normal diastolic function. The average global longitudinalstrain rate is normal. 2. Normal right ventricular size. Normal right ventricular systolicfunction. 3. Moderately dilated left atrium. 4. Normal mitral valve leaflet structure. There is moderate mitral valveregurgitation. 5. There is mild tricuspid regurgitation. PASP cannot be evaluated due tolack of adequate TR jet. 6. IVC is normal in size. The IVC (inferior vena cava) was <2.1 cm andcollapsibility >50%. The estimated RA pressure is 3 mmHg. 7. No obvious vegetations seen on TTE. COMPARISONS: There was no previous study available for comparison. ATTESTATION: I have reviewed and interpreted the pertinent images and measurements ofthis study. I attest to the conclusions in the final report that is provided above. DISCLAIMER: The study images and the final report will be retained in the patientchart by the Echo Laboratory for the legally required time period. This chart constitutesthe legal record of any testing performed. Electronically Signed By: César Bhardwaj M.D. 10/04/2024 5:32:08 PM [employer] MANAGER Electronically Signed By: César Bhardwaj M.D. 10/04/2024 5:32:08 PM [employer] MANAGER Kris Mckeon MD CV ECHO PROCEDURES Final Re sult * Transfuse RBC (10/04/2024 1:12 PM [employer] MANAGER) Blood Lisette Arevalo MD BLOOD TRANSFUSION ORDER RUPERTO Final Result Performing Organization Address City/[facility]/ZIP Co de Phone Number [facility] Department [place] [employer] [place] [address] * Transfuse RBC (10/04/2024 1:11 PM [employer] MANAGER) Blood Lisette Arevalo MD BLOOD TRANSFUSION ORDER RUPERTO Final Result Performing Organization Address City/[facility]/ZIP Co de Phone Number [facility] Department [place] [address] * N. gonorrhoeae/C. trachomatis Amplification Urine (10/04/2024 9:34 AM [employer] PLANT MANAGER) [facility] C. trachomatis Not Detected Not Detected [facility] N. gonorrhoeae Not Detected Not Detected [facility] Comment: Interpretive Data This assay detects Chlamydia trachomatis and Neisseria gonorrhoeae by nucleic acid amplification testing (NAAT). This assay has been cleared by the [place] Food and Drug administration. The performance characteristics of this test have been verified by the [facility] Molecular Infectious Disease laboratory. The performance characteristics of this test have not been evaluated in individuals less than 14 years of age. Current Interpretive Data last revised 2023. Urine (None) 10/04/2024 9:34 AM [employer] PLANT MANAGER 10/04/2024 11:25 AM [employer]EL PLANT MANAGER Ganesh Freeman MD LAB MICROBIOLOGY - GENER AL ORDERABLES Final Result Performing Organization Address [facility] Phone Number [facility] Department [place] [address] [facility] * (ABNORMAL) Protein / creatinine ratio, urine, random (10/04/2024 9:34 AM [employer] MANAGER) [facility] Protein, ur, quant 5.8 mg/dL Comment: Interpretive Data No reference range established. Current interpretive data was last revised 2019. Creatinine Ur 24.7 mg/dL [facility] Comment: Interpretive Data No reference range established. Current interpretive data was last revised 2019. Protein/creatinin e ratio 234.8(H) 0.0 - 180.0 mg/g CR [facility] Urine 10/04/2024 9:34 AM [employer] PLANT MANAGER 10/04/2024 12:40 PM [employer] MANAGER Ganesh Freeman MD LAB URINE ORDERABLES Fin al Result Performing Organization Address [facility] de Phone Number [facility] Department [place] [address] * Check Sample (10/04/2024 3:44 AM [employer] PL[employer] MANAGER) Pathologist [facility] ABO Rh O Positive [facility] OTHER 10/04/2024 3:44 AM [employer] MANAGER 10/04/2024 4:05 AM BI[employer]EL PLANT MANAGER us Nunu Black MD LAB BLOOD ORDERABLES Viv l Result Performing Organization Address City/[facility]/ZIP Co de Phone Number [facility] Department [place] [address] [facility] * Urinalysis reflex to microscopic and culture Urine (10/04/2024 3:44 AM [employer] PL[employer] MANAGER) Color, ur Straw Yellow Clarity, ur Clear Clear [facility] Specific gravity, ur 1.008 1.003 - 1.030 [facility] pH, urine 7.5 [facility] Comment: Interpretive Data U rine pH is affected by diet, medications, systemic acid-base disturbances, and renal tubular function. pH may affect urinary stone formation. For example, urine pH below 6.0 may help reduce the tendency for calcium phosphate stones and pH greater than 6.0 may reduce the tendency for uric acid stone formation. Source: [facility] Current Interpretive Data was last revised on 2017 Protein, ur ql Negative Negative [facility] [facility] Glucose, ur ql Negative Negative [facility] Ketones, ur Negative Negative [facility] Bilirubin, ur Negative Negative [facility] Blood, ur Negative Negative [facility] Urobilinogen, ur <2.0 <2.0 mg/dL [facility] Nitrite, ur Negative Negative [facility] Leukocyte esterase, ur Negative Negative [facility] UA reflex comment Reflex conditions for microscopic UA and culture not met. [facility] Urine 10/04/2024 3:44 AM [employer] 10/04/2024 3:58 AM [employer]EL PLANT MANAGER Narrative [facility] - 10/04/2024 4:05 AM [employer] MANAGER If patient unable to urinate, straight cath us Nunu Black MD LAB MICROBIOLOGY - GENERA L ORDERABLES Final Result Performing Organization Address [facility]/ZIP Co de Phone Number [facility] [place] [address] * CT Chest PE (CTA) Abdomen Pelvis W Contrast (10/04/2024 3:34 AM [employer] MANAGER) Anatomical Region Laterality Modality Body N/A Computed Tomogra phy 10/04/2024 5:03 AM [employer]EL PLANT MANAGER Impressions 10/04/2024 8:09 AM [employer]EL PLANT MANAGER 1. No evidence of pulmonary embolism or septic emboli. 2. Mild splenomegaly. 3. Diffuse body wall edema. Dictated by: Nazario Segovia M.D. The radiology attending physician has personally reviewed this study, and had reviewed and/or edited this written report and agrees with it. Electronically signed by: Margarito Killian M.D. Narrative 10/04/2024 8:09 AM [employer]EL PLANT MANAGER EXAMINATION: CT CHEST PE (CTA) ABDOMEN PELVIS W CONTRAST HISTORY: Dyspnea and chest pain in the setting of IV drug use, concern for pulmonary embolism/septic emboli TECHNIQUE: Computed tomographic images were acquired using a chest angiographic protocol optimized for pulmonary embolism. Computed tomographic examination of the abdomen and pelvis with intravenous contrast was performed using a standard protocol. Contrast enhanced transaxial images were obtained following the intravenous administration of 92 ml of nonionic contrast. Multiplanar reformatted images and three-dimensional images were obtained on the 3-D workstation and sent to the PACS archival system. COMPARISON: None FINDINGS: No evidence of pulmonary embolism. Heart size is normal. No pericardial effusion. Thoracic aorta and main pulmonary artery are normal caliber. No pathologically enlarged thoracic lymphadenopathy. Mild bibasilar atelectasis. No focal consolidation, pneumothorax, or pleural effusion. No suspicious pulmonary nodules. Liver, pancreas, adrenal glands appear normal. Focal fat deposition in the right hemiliver adjacent to the falciform ligament. Gallbladder surgically absent. No biliary ductal dilatation. Spleen is mildly enlarged measuring up to 14.4 cm craniocaudally. Kidneys enhance symmetrically without hydronephrosis. Urinary bladder appears normal. Uterus is present. No suspicious adnexal lesions. The colon and small bowel are normal in course and caliber. Appendix appears normal. No free intraperitoneal gas or fluid. No evidence of bowel obstruction. There is mild gastric wall thickening involving the fundus, which can be seen with gastritis. Abdominal aorta is normal in course and caliber. No pathologically enlarged abdominal or pelvic lymph nodes. Prominent inguinal lymph nodes are likely reactive. No suspicious osseous lesions. Procedure Note Margarito Killian MD - 10/04/2024 EXAMINATION: CT CHEST PE (CTA) ABDOMEN PELVIS W CONTRAST HISTORY: Dyspnea and chest pain in the setting of IV drug use, concern for pulmonary embolism/septic emboli TECHNIQUE: Computed tomographic images were acquired using a chest angiographic protocol optimized for pulmonary embolism. Computed tomographic examination of the abdomen and pelvis with intravenous contrast was performed using a standard protocol. Contrast enhanced transaxial images were obtained following the intravenous administration of 92 ml of nonionic contrast. Multiplanar reformatted images and three-dimensional images were obtained on the 3-D workstation and sent to the PACS archival system. COMPARISON: None FINDINGS: No evidence of pulmonary embolism. Heart size is normal. No pericardial effusion. Thoracic aorta and main pulmonary artery are normal caliber. No pathologically enlarged thoracic lymphadenopathy. Mild bibasilar atelectasis. No focal consolidation, pneumothorax, or pleural effusion. No suspicious pulmonary nodules. Liver, pancreas, adrenal glands appear normal. Focal fat deposition in the right hemiliver adjacent to the falciform ligament. Gallbladder surgically absent. No biliary ductal dilatation. Spleen is mildly enlarged measuring up to 14.4 cm craniocaudally. Kidneys enhance symmetrically without hydronephrosis. Urinary bladder appears normal. Uterus is present. No suspicious adnexal lesions. The colon and small bowel are normal in course and caliber. Appendix appears normal. No free intraperitoneal gas or fluid. No evidence of bowel obstruction. There is mild gastric wall thickening involving the fundus, which can be seen with gastritis. Abdominal aorta is normal in course and caliber. No pathologically enlarged abdominal or pelvic lymph nodes. Prominent inguinal lymph nodes are likely reactive. No suspicious osseous lesions. IMPRESSION: 1. No evidence of pulmonary embolism or septic emboli. 2. Mild splenomegaly. 3. Diffuse body wall edema. Dictated by: Nazario Segovia M.D. The radiology attending physician has personally reviewed this study, and had reviewed and/or edited this written report and agrees with it. Electronically signed by: Margarito Killian M.D. Lisette Arevalo MD [facility] CT PROCEDURES Final Result * Troponin I high-sensitivity 2-hour (10/04/2024 2:25 AM [employer] MANAGER) Trop I hs <4 <=17 ng/L Comment: Interpretive Data For further hscTnI resources including the diagnostic algorithm and an aid in interpretation, copy and paste this link: https://bjhlab.testcatalog.org/show/[email or web address] Current Interpretive Data last revised 2020. Trop I hs delta 0 ng/L [facility] Trop I hs interp Insignificant [facility] Blood 10/04/2024 2:25 AM [employer]EL PLANT MANAGER 10/04/2024 3:01 AM [employer] PL[employer] MANAGER Lisette Arevalo MD LAB BLOOD ORDERABLES Fi nal Result Performing Organization Address City/[facility]/ZIP Co de Phone Number [facility] Department [place] [address] * Thyroid Function Mckenzie (10/04/2024 2:25 AM [employer] MANAGER) Pathologist [facility] TSH 1.78 0.30 - 4.20 mcIUnit/mL Blood 10/04/2024 2:25 AM [employer] MANAGER 10/04/2024 3:01 AM [employer] MANAGER Ganesh Freeman MD LAB BLOOD ORDERABLES Fin al Result [facility] Department [place] [address] * (ABNORMAL) Iron profile w/ IBC (10/04/2024 2:25 AM [employer] MANAGER) Pathologist [facility] Iron 12(L) 35 - 145 mcg/dL TIBC 93(L) 250 - 400 mcg/dL [facility] Transferrin saturation 13(L) 20 - 50 % [facility] Blood 10/04/2024 2:25 AM [employer] MANAGER 10/04/2024 3:01 AM [employer] MANAGER Lisette Arevalo MD LAB BLOOD ORDERABLES Fi nal Result Performing Organization Address [facility]/ZIP Co de Phone Number [facility] Department [place] [address] * Type and screen (10/04/2024 2:25 AM [employer] PL[employer] MANAGER) Pathologist [facility] ABO Rh O Positive King, indirect Negative [facility] Blood 10/04/2024 2:25 AM [employer] MANAGER 10/04/2024 3:08 AM BI[employer]EL PLANT MANAGER Narrative [facility] - 10/04/2024 3:58 AM [employer]EL PL[employer] MANAGER Has the patient had Daratumumab or Isatuximab in the past 6 months?->Unknown Lisette Arevalo MD LAB BLOOD BANK TEST ORD ERABLES Final Result Performing Organization Address [facility] [place] [address] * hCG, blood, quantitative (10/04/2024 2:25 AM [employer] PLANT MANAGER) [facility] hCG, quant <5.0 0.0 - 5.0 IUnits/L Comment: Interpretive Data Male: < 5 IU/L Non- premenopausal Female: <5 IU/L The Leia hCG Beta Quant assay procedure was used. Results from different manufacturers or methods may not be comparable. Serial testing should be performed using the same method. Interpretive Data was last revised on 2023 Blood 10/04/2024 2:25 AM [employer] MANAGER 10/04/2024 3:01 AM BIODIESEL PLANT MANAGER us Kris Mckeon MD LAB BLOOD ORDERABLES Final Result Performing Organization Address [facility] Co de Phone Number [facility] Department [place] [address] * Lactate dehydrogenase (LD) (10/04/2024 2:25 AM [employer] MANAGER) [facility] Lactate dehydrogenase (LDH) 159 100 - 250 Units/L Blood 10/04/2024 2:25 AM [employer] MANAGER 10/04/2024 3:01 AM [employer]EL PL[employer] MANAGER us Kris Mckeon MD LAB BLOOD ORDERABLES Final Result Performing Organization Address City/[facility]/ZIP Co de Phone Number [facility] [place] [address] * (ABNORMAL) Haptoglobin (10/04/2024 2:25 AM [employer] MANAGER) Haptoglobin 227.0(H) 30.0 - 200.0 mg/dL Blood 10/04/2024 2:25 AM [employer] MANAGER 10/04/2024 3:01 AM [employer] MANAGER Kris Mckeon MD LAB BLOOD ORDERABLES Final Result Performing Organization Address [facility] Co de Phone Number [facility] [place] [address] * Ferritin (10/04/2024 2:25 AM BI[employer] PL[employer] MANAGER) Pathologist [facility] Ferritin 80 13 - 150 ng/mL Blood 10/04/2024 2:25 AM [employer] PL[employer] MANAGER 10/04/2024 3:01 AM [employer] PL[employer] MANAGER Kris Mckeon MD LAB BLOOD ORDERABLES Final Result Performing Organization Address [facility] [place] [address] * Prepare RBC: 2 Units (10/04/2024 2:22 AM [employer]EL [employer] MANAGER) Product code [id number] [facility] Unit Number [id number] [facility] Product Blood Type ONEG [facility] Dispense Status PRESUMED TRANSFUSED [facility] Product code [id number] Unit Number [id number] [facility] Product Blood Type OPOS [facility] Dispense Status PRESUMED TRANSFUSED [facility] Blood 10/04/2024 2:22 AM [employer]EL PLANT MANAGER 10/04/2024 2:21 AM BI[employer]EL PLANT MANAGER Narrative [facility] - 10/05/2024 12:56 AM [employer]EL PLANT MANAGER Are special requirements needed? (All products are leukoreduced and CMV- safe)- >No Date required:-[id number] LRRBC # of [id number] Reasons:-Hgb <7 g/dL} us Lisette Arevalo MD BLOOD BANK PRODUCT ORDE RABLES Final Result [facility] Department [place] [address] * AR CRITICAL CARE ILL/INJURED PATIENT INIT 30-74 MIN (10/04/2024 2:17 AM [employer]EL PLANT MANAGER) Narrative Nunu Black MD - 10/04/2024 2:17 AM [employer] MANAGER Nunu Black MD 10/04/2024 2:18 AM Critical Care Performed by: Nunu Black MD Authorized by: Nunu Black MD Critical care provider statement: As reflected in the history, physical exam, orders, notes, and/or MDM, I was personally present while the patient was critically ill and provided critical care services for 40 minutes, excluding time involved in separately billable procedures. Critical care was necessary to treat or prevent imminent or life-threatening deterioration of the following condition(s): acute congestive heart failure excerbation (CHF) Concern for endocarditis severe undifferentiated anemia bacteremia Critical care was time spent by me providing the following: continuous telemetry, continuous pulse oximetry, interpretation of bedside monitors, imaging, and arterial/venous lab draws and serial bedside patient exams acute diuresis transfusion of blood products review prior cultures/records and obtain appropriate cultures us Nunu Black MD IN CLINIC/BEDSIDE ORDERAB LES Final Result * ECG 12-LEAD (10/04/2024 1:57 AM [employer]EL PLANT MANAGER) Narrative [facility] - 10/04/2024 1:57 AM [employer]EL PLANT MANAGER Nunu Black MD 10/04/2024 1:57 AM ECG 12 lead Date/Time: 10/04/2024 1:57 AM Performed by: Nunu Black MD Authorized by: Lisette Arevalo MD Rate: ECG rate: 95 ECG rate assessment: normal Rhythm: Rhythm: sinus rhythm Ectopy: Ectopy: none QRS: QRS axis: Normal QRS intervals: Normal Conduction: Conduction: normal ST segments: ST segments: Normal T waves: T waves: normal Other findings: Other findings: low voltage Previous ECG: Previous ECG: Unavailable Interpretation: Interpretation: non-specific Recommended Follow-up: Recommended follow up: further workup in the ED Procedure Note Nunu Black MD - 10/04/2024 1:57 AM CST Procedure ECG 12 lead Date/Time: 10/04/2024 1:57 AM Performed by: Nunu Black MD Authorized by: Lisette Arevalo MD Rate: ECG rate: 95 ECG rate assessment: normal Rhythm: Rhythm: sinus rhythm Ectopy: Ectopy: none QRS: QRS axis: Normal QRS intervals: Normal Conduction: Conduction: normal ST segments: ST segments: Normal T waves: T waves: normal Other findings: Other findings: low voltage Previous ECG: Previous ECG: Unavailable Interpretation: Interpretation: non-specific Recommended Follow-up: Recommended follow up: further workup in the ED Nunu Black MD 10/04/24 0157 Lisette Arevalo MD ECG ORDERABLES Final R esult [facility] * Troponin I high-sensitivity series (baseline, 2hr, 4hr, 6hr) (10/04/2024 12:41 AM [employer]EL PLANT MANAGER) Trop I hs <4 <=17 ng/L Comment: Interpretive Data For further hscTnI resources including the diagnostic algorithm and an aid in interpretation, copy and paste this link: [email or web address].[email or web address]/[email or web address] Current Interpretive Data last revised 2020. Blood 10/04/2024 12:4 1 AM [employer]EL PLANT MANAGER 10/04/2024 1:01 AM [employer]EL PLANT MANAGER Lisette Arevalo MD LAB BLOOD ORDERABLES Fi nal Result [facility] [place] [address] * Sepsis Lactate w/ Reflex (10/04/2024 12:41 AM BI[employer]EL PLANT MANAGER) Sepsis Lactate 1.3 0.7 - 2.0 mmol/L Blood 10/04/2024 12:4 1 AM [employer]EL PLANT MANAGER 10/04/2024 1:01 AM BIOD[employer]EL PLANT MANAGER Result [facility] Lisette Arevalo MD LAB BLOOD ORDERABLES Fi nal Result Performing Organization Address City/[facility] Co de Phone Number [facility] [place] [address] * eGFR (10/04/2024 12:41 AM [employer]EL PLANT MANAGER) eGFR >90 >=60 mL/min/1. 73 m2 Comment: Interpretive Data Reference Interval Normal >/= 90 mL/min/1.73m2 Mildly decreased* 60 - 89 mL/min/1.73m2 Mildly to moderately decreased 45 - 59 mL/min/1.73m2 Moderately to severely decreased 30 - 44 mL/min/1.73m2 Severely decreased 15 - 29 mL/min/1.73m2 Kidney Failure < 15 mL/min/1.73m2 *Relative to young adult level Estimated glomerular filtration rate is determined by the 2020 CKD-EPI equation recommended by the National Kidney Foundation (A Unifying Approach to GFR Estimation: Recommendations of the NKF-ASK Task Force on Reassessing the Inclusion of Race in Diagnosing Kidney Disease, JASN 202). The CKD-EPI equation should not be used for patients with unstable renal function and has not been validated in children and those over 70. Current interpretive data was last reviewed 2021. Blood 10/04/2024 12:4 1 AM [employer]EL PLANT MANAGER 10/04/2024 1:13 AM BI[employer]IESEL PLANT MANAGER Nunu Black MD LAB BLOOD ORDERABLES Viv arellano Result [facility] Department [place] [address] * Differential, auto (10/04/2024 12:41 AM BI[employer]EL PLANT MANAGER) Neutrophil abs 2.6 1.5 - 6.5 K/cumm Imm gran abs 0.1 0.0 - 0.1 K/cumm [facility] Lymphocyte abs 1.0 0.8 - 3.3 K/cumm [facility] Monocyte abs 0.4 0.2 - 0.8 K/cumm [facility] Eosinophil abs 0.0 0.0 - 0.5 K/cumm [facility] Basophil abs 0.0 0.0 - 0.1 K/cumm [facility] Neutrophil pct 64.2 % [facility] Comment: Interpretive Data Percent cell count reference ranges are not reported, since discordance with absolute values may lead to misinterpretation of CBC data. Current Interpretive Data was last revised on 2017. Imm gran pct 1.2 % [facility] Comment: Interpretive Data Percent cell count reference ranges are not reported, since discordance with absolute values may lead to misinterpretation of CBC data. Current Interpretive Data was last revised on 2017. Lymphocyte pct 23.7 % [facility] Comment: Interpretive Data Percent cell count reference ranges are not reported, since discordance with absolute values may lead to misinterpretation of CBC data. Current Interpretive Data was last revised on 2017. Monocyte pct 10.2 % [facility] Comment: Interpretive Data Percent cell count reference ranges are not reported, since discordance with absolute values may lead to misinterpretation of CBC data. Current Interpretive Data was last revised on 2017. Eosinophil pct 0.5 % [facility] Comment: Interpretive Data Percent cell count reference ranges are not reported, since discordance with absolute values may lead to misinterpretation of CBC data. Current Interpretive Data was last revised on 2017. Basophil pct 0.2 % [facility] Comment: Interpretive Data Percent cell count reference ranges are not reported, since discordance with absolute values may lead to misinterpretation of CBC data. Current Interpretive Data was last revised on 2017. Blood 10/04/2024 12:4 1 AM [employer]EL PLANT MANAGER 10/04/2024 1:01 AM [employer]EL PLANT MANAGER us Khurram Purdy MD LAB BLOOD ORDERABLES F inal Result [facility] Department [place] [address] * (ABNORMAL) Pro B-type natriuretic peptide (10/04/2024 12:41 AM BI[employer]EL PLANT MANAGER) NT-proBNP 1,863(H) <=300 pg/mL Comment: Interpretive Comments: A. Dyspnea in Acute Care Setting All Ages: < 300 pg/ml, acute heart failure unlikely. < 50 yrs: 300 - 450 pg/ml, further investigation warranted. > 450 pg/ml, acute heart failure likely. 50 - 74 yrs: 300 - 900 pg/ml, further investigation warranted. > 900 pg/ml, acute heart failure likely . > or = 75 yrs: 450 - 1800 pg/ml, further investigation warranted. > 1800 pg/ml, acute heart failure likely. B. Non-acute Setting < 75 yrs < 125 pg/ml, rules out heart failure. > or = 125 pg/ml, further investigation warranted. > or = 75 yrs < 450 pg/ml, rules out heart failure. > or = 450 pg/ml, further investigation warranted. - Knowledge of each individual patient's NT-proBNP range may be more useful than using similar cut-points for every patient. Please note that marked elevations in NT-proBNP levels may be observed in state other than Left Ventricular Congestive Failure, including: acute coronary syndromes, right heart strain/failure (including pulmonary embolism and cor pulmonale), critical illness, renal failure, as well as advanced age. - References: 1. Salud MYERS et.al. Eur Heart J. 2006:27:330-337. 2. Anika RW, Crista AM. J. AM Kyle Cardiol: Cardiovasc Imag. 2009;2: 216- 225. Interpretive Data Last Revised Date: 2018. Blood 10/04/2024 12:4 1 AM BI[employer]EL PLANT MANAGER 10/04/2024 1:01 AM BIODIESEL PLANT MANAGER Lisette Arevalo MD LAB BLOOD ORDERABLES Fi nal Result [facility] [place] [address] * HIV 1/2 Antibody plus p24 Antigen Blood (10/04/2024 12:41 AM BI[employer]IESEL PLANT MANAGER) [facility] HIV 1/2 ab + p24 ag Nonreactive Nonreactive Comment:Nonreactive for HIV- 1 antigen and HIV-1/HIV-2 antibodies. No laboratory evidence of HIV infection. If acute HIV infection is suspected, consider testing for HIV-1 RNA. Current interpretive data was last revised on 22. Blood 10/04/2024 12:4 1 AM BI[employer]IESEL PLANT MANAGER 10/04/2024 1:01 AM BIODIESEL PLANT MANAGER Lisette Arevalo MD LAB MICROBIOLOGY - GENE RAL ORDERABLES Final Result Performing Organization Address [facility] Co de Phone Number [facility] [place] [address] * Respiratory pathogen panel Nasopharyngeal (10/04/2024 12:41 AM BIODIESEL PLANT MANAGER) [facility] Influenza A RNA Not Detected Not Detected Influenza B RNA Not Detected Not Detected [facility] RSV RNA Not Detected Not Detected [facility] COVID-19 RNA Not Detected Not Detected [facility] Coronavirus 229E RNA Not Detected Not Detected [facility] Coronavirus HKU1 RNA Not Detected Not Detected [facility] Coronavirus NL63 RNA Not Detected Not Detected [facility] Coronavirus OC43 RNA Not Detected Not Detected [facility] Adenovirus DNA Not Detected Not Detected [facility] Metapneumovirus RNA Not Detected Not Detected [facility] Rhinovirus/Enterov irus RNA Not Detected Not Detected [facility] Parainfluenza 1 RNA Not Detected Not Detected [facility] Parainfluenza 2 RNA Not Detected Not Detected [facility] Parainfluenza 3 RNA Not Detected Not Detected [facility] Parainfluenza 4 RNA Not Detected Not Detected [facility] B. pertussis DNA Not Detected Not Detected [facility] B. parapertussis DNA Not Detected Not Detected [facility] C. pneumoniae DNA Not Detected Not Detected [facility] M. pneumoniae DNA Not Detected Not Detected [facility] Nasopharyngeal 10/04/2024 12 :41 AM BIODIESEL PLANT MANAGER 10/04/2024 1:17 AM BIODIESEL PLANT MANAGER Narrative [facility] - 10/04/2024 2:22 AM BIODIESEL PLANT MANAGER Is the Patient experiencing symptoms consistent with COVID?->Yes Surveillance testing for transplant patient?->No Interpretive Data The [employer] FilmArray Respiratory Panel (RP2.1) assay is a multiplexed real-time PCR based nucleic acid test capable of simultaneous qualitative detection and identification of multiple respiratory viral and bacterial nucleic acids, including SARS Coronavirus 2 (the causative agent of COVID-19). The following bacteria, viruses and virus subtypes can be identified using the FilmArray RP2.1 assay: Bordetella pertussis, Bordetella parapertussis, Chlamydia pneumoniae, Mycoplasma pneumoniae, Adenovirus, SARS Coronavirus 2, seasonal coronaviruses (Coronavirus HKU1, Coronavirus NL63, Coronavirus 229E, and Coronavirus OC43), Influenza A, Influenza A subtype H1, Influenza A subtype H3, Influenza A subtype 2009 H1, Influenza B, Metapneumovirus, Parainfluenza 1, Parainfluenza 2, Parainfluenza 3, Parainfluenza 4, RSV, Rhinovirus/Enterovirus. Due to the genetic similarity between human Rhinovirus and Enterovirus, the FilmArray RP2.1 assay cannot reliably differentiate them. Coronavirus OC43 may cross-react with some isolates of Coronavirus HKU1. A dual positive result may be due to cross-reactivity or may indicate a co- infection. The detection and identification of specific viral and bacterial nucleic acids from individuals exhibiting signs and symptoms of a respiratory infection aids in the diagnosis of respiratory infection if used in conjunction with other clinical and epidemiological information. The results of this test should not be used as the sole basis for diagnosis, treatment, or other management decisions. Negative results in the setting of a respiratory illness may be due to infection with pathogens that are not detected by this test. Positive results do not rule out infection/co-infection with other organisms. The agent(s) detected by the FilmArray RP2.1 may not be the definite cause of disease. Additional testing (lab, imaging, etc.) may be necessary when evaluating a patient with possible respiratory tract infection. The FilmArray RP2.1 assay has FDA clearance for testing of PC ANALYST swabs. The performance of additional specimen types has been assessed by the performing laboratory. The performance characteristics of this assay have been determined by [facility] Molecular Infectious Disease Laboratory. Current interpretive data was last revised on 22. us Lisette Arevalo MD LAB MICROBIOLOGY - GENE [facility] ORDERABLES Final Result [facility] Department [place] [address] * (ABNORMAL) CBC with auto differential (10/04/2024 12:41 AM [employer]) WBC 4.0 3.8 - 9.9 K/cumm Hgb 5.8(C) 11.9 - 15.5 g/dL [facility] Comment:Critical result call ed to and read back by YUMIKO BENJAMIN RN on 10 04 2024 at 0113 to Marlin Morales. Hct 20.7(L) 35.6 - 45.5 % [facility] Plt 248 150 - 400 K/cumm [facility] MPV 10.7 9.1 - 12.3 fL [facility] RBC 2.41(L) 3.90 - 5.20 M/cumm [facility] MCV 85.9 81.3 - 96.4 fL [facility] MCH 24.1(L) 27.1 - 33.3 pg [facility] MCHC 28.0(L) 32.3 - 35.7 g/dL [facility] RDW CV 16.6(H) 11.1 - 14.9 % [facility] RDW SD 52.0(H) 35.7 - 48.1 fL [facility] NRBC abs 0.00 0.00 - 0.01 K/cumm [facility] Blood 10/04/2024 12:4 1 AM [employer] 10/04/2024 1:01 AM [employer] MANAGER us Nunu Black MD LAB BLOOD ORDERABLES Viv l Result Performing Organization Address City/[facility]/ZIP Co de Phone Number [facility] [place] [address] * Hepatitis panel, acute Blood (10/04/2024 12:41 AM [employer] MA[employer]GER) Hep A IgM Nonreactive Nonreactive Hep B core IgM Nonreactive Nonreactive [facility] Hep C Ab Nonreactive Nonreactive [facility] Comment:Antibodies to HCV no t detected. Does NOT exclude the possibility of recent exposure to HCV. Current interpretive data was last revised on 22 HepBsAg Nonreactive Nonreactive [facility] Blood 10/04/2024 12:4 1 AM [employer] MANAGER 10/04/2024 1:01 AM [employer]EL [employer] MANAGER us Lisette Arevalo MD LAB MICROBIOLOGY - GENE RAL ORDERABLES Final Result Performing Organization Address City/[facility]/ZIP Co de Phone Number [facility] [place] [address] * Hepatitis B core antibody, total Blood (10/04/2024 12:41 AM [employer]GER) Hep B core IgG/IgM Nonreactive Nonreactive Blood 10/04/2024 12:4 1 AM [employer] 10/04/2024 1:01 AM [employer] MANAGER us Ganesh Freeman MD LAB MICROBIOLOGY - GENER [place] [address] * RPR Blood (10/04/2024 12:41 AM [employer] MANAGER) RPR Nonreactive Nonreactive Blood 10/04/2024 12:4 1 AM [employer]NAGER 10/04/2024 1:01 AM [employer] MANAGER us Ganesh Freeman MD LAB MICROBIOLOGY - GENER AL ORDERABLES Final Result [facility] Department [place] [address] * Blood culture Blood (10/04/2024 12:41 AM [employer] MANAGER) Report Final Report: No growth Blood 10/04/2024 12:4 1 AM [employer] MANAGER 10/04/2024 1:10 AM [employer]EL PLANT MANAGER Narrative [facility] - 10/08/2024 7:00 AM [employer]EL PLANT MANAGER From a different site than #1. Collection->Peripheral 1. Blood cultures are incubated for 4 days on a continuously monitored blood culture system. The first report of a negative culture is issued within 24 hours of receipt of the specimen in the laboratory. 2. Positive culture results are reported as soon as they are detected. 3. The most important factor for detection of microbes in the setting of bloodstream infection is the volume of blood submitted for culture. Failure to collect an optimal blood volume can result in false negative blood cultures. 4. For pediatric patients, the recommended blood volume to collect follows a weight based strategy. See the electronic test catalog for collection instructions. 5. For positive blood cultures, a rapid molecular test may be performed for organism identification using the allen ePlex blood culture identification panel for gram positive (BCID-GP) and gram negative (BCID-GN) organisms. This nucleic acid amplification test detects microbial DNA in positive blood culture broth. This assay has been cleared by the [place] Food and Drug Administration and its performance characteristics have been verified by the [facility] Microbiology Laboratory. For questions about this culture, contact the Microbiology Laboratory at [phone]. Interpretive data was last revised on 24. us Lisette Arevalo MD LAB MICROBIOLOGY - GENE RAL ORDERABLES Final Result Performing Organization Address City/[facility]/ZIP Co de Phone Number [facility] [place] [address] * (ABNORMAL) Blood culture Blood (10/04/2024 12:41 AM [employer] MANAGER) [facility] Direct Specimen Exam Molecular Analysis: Corynebacterium detected by allen ePlex BCID-GP panel. Single positive culture may represent contamination. This test does not exclude the possibility of a mixed bacterial infection. Notification of: Corynebacterium called to and read back by: Sharron Pham MD [phone] on 10/05/2024 23:49:11 by: Kacy Rm MT Direct Specimen Exam Stain: Gram Positive Coccobacillus Time to culture positivity (anaerobic media): 43.9 hours Notification of: Gram Positive Coccobacillus called to and read back by: Sharron Pham MD [phone] on 10/05/2024 21:59:40 by: Kacy Rm MT [facility] Report Final Report: Corynebacterium striatum Single blood culture positive for this microorganism. Isolate is a possible contaminant. If a similar isolate is recovered from a second blood culture collected within 3 days of this culture, both will be evaluated and, if determined to be the same species, antimicrobial susceptibility testing will be performed. (.) [facility] Organism CORYNEBACTERIUM STRIATUM [facility] Blood 10/04/2024 12:4 1 AM [employer] MANAGER 10/04/2024 1:10 AM BI[employer]IESEL PLANT MANAGER Narrative [facility] - 10/09/2024 2:45 PM [employer]EL [employer] MANAGER Collection->Peripheral 1. Blood cultures are incubated for 4 days on a continuously monitored blood culture system. The first report of a negative culture is issued within 24 hours of receipt of the specimen in the laboratory. 2. Positive culture results are reported as soon as they are detected. 3. The most important factor for detection of microbes in the setting of bloodstream infection is the volume of blood submitted for culture. Failure to collect an optimal blood volume can result in false negative blood cultures. 4. For pediatric patients, the recommended blood volume to collect follows a weight based strategy. See the electronic test catalog for collection instructions. 5. For positive blood cultures, a rapid molecular test may be performed for organism identification using the allen ePlex blood culture identification panel for gram positive (BCID-GP) and gram negative (BCID-GN) organisms. This nucleic acid amplification test detects microbial DNA in positive blood culture broth. This assay has been cleared by the [place] Food and Drug Administration and its performance characteristics have been verified by the [facility] Microbiology Laboratory. For questions about this culture, contact the Microbiology Laboratory at [phone]. Interpretive data was last revised on 24. Lisette Arevalo MD LAB MICROBIOLOGY - GENE RAL ORDERABLES Final Result Performing Organization Address [facility] [place] [address] * (ABNORMAL) Reticulocyte Count (10/04/2024 12:41 AM [employer] MANAGER) Retics, absolute 0.023 0.020 - 0.087 M/cumm Retics 0.9 0.4 - 2.9 % [facility] Reticulocyte Hgb 19.9(L) 30.5 - 38.0 pg [facility] Blood 10/04/2024 12:4 1 AM [employer] MANAGER 10/04/2024 1:05 AM [employer]EL PL[employer] MANAGER Result [facility] Kris Mckeon MD LAB BLOOD ORDERABLES Final Result Performing Organization Address [facility] de Phone Number [facility] [place] [address] * Lipase (10/04/2024 12:41 AM [employer]EL [employer] MANAGER) Lipase 29 10 - 99 Units/L Blood 10/04/2024 12:4 1 AM [employer] MANAGER 10/04/2024 1:04 AM [employer] MANAGER Result [facility] Lisette Arevalo MD LAB BLOOD ORDERABLES Fi nal Result Performing Organization Address [facility] Co de Phone Number [facility] [place] [address] * (ABNORMAL) Comprehensive metabolic panel (10/04/2024 12:41 AM [employer] MANAGER) Sodium 137 135 - 145 mmol/L Potassium, pl 3.3 3.3 - 4.9 mmol/L [facility] Chloride 105 97 - 110 mmol/L [facility] CO2 26 22 - 32 mmol/L [facility] Anion gap 6 2 - 15 mmol/L [facility] BUN 5(L) 6 - 25 mg/dL [facility] Creatinine 0.51(L) 0.60 - 1.10 mg/dL [facility] Glucose 98 70 - 199 mg/dL [facility] Comment: Interpretive Data Fasting glucose >/= 126 mg/dl is diagnostic for diabetes. Fasting is defined as no caloric intake for at least 8 hours. Fasting glucose between 100 mg/dl to 125 mg/dl is diagnostic of prediabetes. In a patient with classic symptoms of hyperglycemia or hyperglycemic crisis, a random glucose >/= 200 mg/dl is diagnostic for diabetes. In the absence of unequivocal hyperglycemia, results should be confirmed by repeat testing. The classification and Diagnosis of Diabetes Diabetes Care 2021; 46: S19-S40. Current interpretive data was last revised 2022. Calcium 7.4(L) 8.5 - 10.3 mg/dL [facility] Bilirubin, total <0.2 0.1 - 1.2 mg/dL [facility] Protein, pl 4.8(L) 6.5 - 8.5 g/dL [facility] Albumin 1.8(L) 3.5 - 5.0 g/dL [facility] Alk phos 111 40 - 130 Units/L [facility] ALT 5(L) 7 - 45 Units/L [facility] AST 15 10 - 45 Units/L [facility] Blood 10/04/2024 12:4 1 AM [employer] MANAGER 10/04/2024 1:04 AM [employer]EL [employer] MANAGER us Nunu Black MD LAB BLOOD ORDERABLES Viv l Result [facility] Department of Laboratories [place], [place] [id number] from Last 3 Months Insurance [facility] Advance Directives For more information, please contact: [phone] * Full Code (Latest Code Status on File) Date Activated Date Inactivated Comments 10/04/2024 4:01 AM 10/10/2024 6:18 PM Care Teams [employer] Principal Relationship Specialty Start Date End Date Anand Richard MD [address] [place] [address] PCP - General Family Medicine 10/10/24
--- OUTSIDE RECORDS SUMMARY | 2024-12-29 12:02 | XMS_ITS | Clinical Summary ---
Author Organization [facility] Address [address] [place] [id number] Care Team Providers Care Warehouse Person Name Role Phone Anand Richard MD Primary Care Prov ider Allergies Active Allergy Reactions Criticality Noted Date [...] Date Diagnosed Date Anemia, unspecified type 10/04/2024 Encounters Date Type Department Care Team Description 11/08/2024 Results Follow-Up Radiology 1 [place] [address] Brenden Valencia MD 11/07/2024 Telephone [facility] Cardiology [address] [place] [address] Medicine 8th [place] [address] [place] [address] Brenden Valencia MD 11/06/2024 Telephone [facility] Cardiology [address] [place] [address] 8th [place] [address] [place] [address] Brenden Valencia MD 10/31/2024 12:11 PM TUTORING ASSISTANT - 10/31/2024 11:59 PM TUTORING ASSISTANT Hospital Encounter [facility] Cardiac Diagnostic Lab [address] [place] [phone] Mitral valve insufficiency, unspecified etiology; Hypervolemia, unspecified hypervolemia type Discharge Disposition: Discharge to home or self care 10/24/2024 11:30 AM TUTORING ASSISTANT Office Visit [facility] Cardiology [address] [facility] 8th [place] [address] [place] [address] Brenden Valencia MD Hypervolemia, unspecified hypervolemia type (Primary Dx); Mitral valve insufficiency, unspecified etiology 10/16/2024 [facility] Hand Off Program 1 [place], [place] [phone] Ingrid Arce 10/12/2024 Telephone [facility] Cardiology [address] [facility] Medicine 8th [place] [address] [place] [address] Lilibeth Thapa 10/08/2024 9:50 AM TUTORING ASSISTANT Ancillary Procedure [facility] Vascular Lab IP [address] [facility] [address] [place] [address] 10/08/2024 9:45 AM TUTORING ASSISTANT Ancillary Procedure [facility] Vascular Lab IP [address] [facility] [address] [place] [address] 10/03/2024 11:17 PM TUTORING ASSISTANT - 10/10/2024 2:18 PM TUTORING ASSISTANT Hospital Encounter [facility] 1 [place] [address] Nunu Black MD Heath, MD Pete Garcia, Ganesh Sapp MD Anemia, unspecified type (Primary Dx); Opioid withdrawal (HCC); IVDU (intravenous drug user); Chronic wound; DVT (deep venous thrombosis) (HCC); Mitral valve insufficiency, unspecified etiology Discharge Disposition: Discharge to not defined facility from Last 3 Months Medical History Medical History Date Comments Anxiety Necrotizing fasciitis (HCC) L asaf garcia Social History Tobacco Use Types Packs/Day Years [...] on file Legal Sex Female 8:49 PM TUTORING ASSISTANT Gender Identity Not on file Sexual Orientation Not on file Obstetrics History Last Filed Vital Signs Vital Sign Reading Time Taken Comments Blood Pressure 110/75 10/24/2024 12:02 PM TUTORING ASSISTANT Pulse 110 10/24/2024 12:02 PM TUTORING ASSISTANT Temperature 36.8 C (98.2 F) 10/10/2024 7:20 AM TUTORING ASSISTANT Respiratory Rate 18 10/10/2024 7:20 AM TUTORING ASSISTANT Oxygen Saturation 98% 10/24/2024 12:02 PM TUTORING ASSISTANT Inhaled Oxygen Concentration - - Weight 69.4 kg (153 lb) 10/24/2024 12:02 PM TUTORING ASSISTANT Height 170.2 cm (5' 7 ) 10/24/2024 12:02 PM TUTORING ASSISTANT Body Mass Index 23.96 10/24/2024 12:02 PM TUTORING ASSISTANT Plan of Treatment Health Maintenance Due Date Last Done Comments Breast Cancer Screening-Mammogram 1984 Cervical Cancer Screening 1984 Depression Screening 1984 Varicella Vaccines (1 of 2 - 13+ 2-dose series) 1997 Hepatitis B Screening 2002 Regular Well Visit/Exam 18-64 2002 Pneumococcal vaccine <65 (1 of 2 - PCV) 2003 Covid-19 Vaccine ( - 2023-2 5 season) 2024 08/18/2021, 01/29/2021, 01/08/2021 Influenza Vaccine (Season Ended) 2025 05/23/2018, 06/19/2013 DTaP/Tdap/Td Vaccine (2 - Td or Tdap) 04/29/2031 04/29/2021 Hepatitis C Screening Completed 10/04/2024 HPV Vaccines Aged Out No longer eligi ble based on patient's age to complete this topic Procedures Procedure Name Priority Date/Time Associated Diagnosis Comments TRANSTHORACIC ECHO (TTE) COMPLETE W DOPPLER/CF WO CONTRAST Routine 10/31/2024 1:30 PM TUTORING ASSISTANT Mitral valve insufficiency, unspecified etiology Hypervolemia, unspecified hypervolemia type EGFR Routine 10/09/2024 8:33 PM TUTORING ASSISTANT DIFFERENTIAL AUTO Routine 10/09/2024 8:3 3 PM TUTORING ASSISTANT MAGNESIUM Routine 10/09/2024 8:33 PM TUTORING ASSISTANT CBC WITH AUTO DIFFERENTIAL Routine 10/09/2024 8:33 PM TUTORING ASSISTANT BASIC METABOLIC PANEL Routine 10/09/2024 8:33 PM TUTORING ASSISTANT EGFR Routine 10/09/2024 1:41 PM TUTORING ASSISTANT APTT STAT 10/09/2024 1:41 PM TUTORING ASSISTANT PROTIME-INR STAT 10/09/2024 1:41 PM TUTORING ASSISTANT MAGNESIUM Routine 10/09/2024 1:41 PM TUTORING ASSISTANT BASIC METABOLIC PANEL Routine 10/09/2024 1:41 PM TUTORING ASSISTANT EGFR Routine 10/08/2024 9:58 PM TUTORING ASSISTANT DIFFERENTIAL AUTO Routine 10/08/2024 9:5 8 PM TUTORING ASSISTANT MAGNESIUM Routine 10/08/2024 9:58 PM TUTORING ASSISTANT CBC WITH AUTO DIFFERENTIAL Routine 10/08/2024 9:58 PM TUTORING ASSISTANT BASIC METABOLIC PANEL Routine 10/08/2024 9:58 PM TUTORING ASSISTANT US VEIN DUPLEX UPPER EXTREMITY BILATERAL COMPLETE IP Routine 10/08/2024 11:19 AM TUTORING ASSISTANT US VEIN DUPLEX LOWER EXTREMITY BILATERAL COMPLETE IP Routine 10/08/2024 11:14 AM TUTORING ASSISTANT CREATININE, URINE, RANDOM Routine 10/08/2024 5:51 AM TUTORING ASSISTANT OSMOLALITY, URINE Routine 10/08/2024 5:5 1 AM TUTORING ASSISTANT SODIUM, URINE, RANDOM Routine 10/08/2024 5:51 AM TUTORING ASSISTANT OSMOLALITY, BLOOD Timed 10/08/2024 4:2 6 AM TUTORING ASSISTANT EGFR Timed 10/08/2024 4:26 AM TUTORING ASSISTANT BASIC METABOLIC PANEL Timed 10/08/2024 4:26 AM TUTORING ASSISTANT EGFR Routine 10/07/2024 9:44 PM TUTORING ASSISTANT DIFFERENTIAL AUTO Routine 10/07/2024 9:4 4 PM TUTORING ASSISTANT MAGNESIUM Routine 10/07/2024 9:44 PM TUTORING ASSISTANT CBC WITH AUTO DIFFERENTIAL Routine 10/07/2024 9:44 PM TUTORING ASSISTANT TYPE AND SCREEN Timed 10/07/2024 9:44 PM TUTORING ASSISTANT BASIC METABOLIC PANEL Routine 10/07/2024 9:44 PM TUTORING ASSISTANT BLOOD CULTURE Routine 10/07/2024 4:53 PM TUTORING ASSISTANT BLOOD CULTURE Routine 10/07/2024 4:53 PM TUTORING ASSISTANT EGFR Routine 10/06/2024 12:29 AM TUTORING ASSISTANT DIFFERENTIAL AUTO Timed 10/06/2024 12:29 AM TUTORING ASSISTANT VITAMIN D 25 HYDROXY Timed 10/06/2024 12:29 AM TUTORING ASSISTANT APTT Timed 10/06/2024 12:29 AM TUTORING ASSISTANT PROTIME-INR Timed 10/06/2024 12:29 AM TUTORING ASSISTANT BASIC METABOLIC PANEL Routine 10/06/2024 12:29 AM TUTORING ASSISTANT MAGNESIUM Timed 10/06/2024 12:29 AM TUTORING ASSISTANT CBC WITH AUTO DIFFERENTIAL Timed 10/06/2024 12:29 AM TUTORING ASSISTANT HEPATITIS A ANTIBODY, IGM Routine 10/06/2024 12:29 AM TUTORING ASSISTANT HEPATITIS A ANTIBODY, TOTAL Routine 10/06/2024 12:29 AM TUTORING ASSISTANT HEPATIC FUNCTION PANEL Timed 10/05/2024 4:44 AM TUTORING ASSISTANT EGFR Routine 10/05/2024 4:44 AM TUTORING ASSISTANT DIFFERENTIAL AUTO Timed 10/05/2024 4:4 4 AM TUTORING ASSISTANT TYPE AND SCREEN Timed 10/05/2024 4:44 AM TUTORING ASSISTANT CBC WITH AUTO DIFFERENTIAL Timed 10/05/2024 4:44 AM TUTORING ASSISTANT BASIC METABOLIC PANEL Routine 10/05/2024 4:44 AM TUTORING ASSISTANT MAGNESIUM Timed 10/05/2024 4:44 AM TUTORING ASSISTANT TRANSTHORACIC ECHO (TTE) COMPLETE W DOPPLER/CF W CONTRAST Pending Discharge 10/04/2024 4:52 PM TUTORING ASSISTANT TRANSFUSE RED BLOOD CELLS Timed 10/04/2024 10:22 AM TUTORING ASSISTANT PROTEIN / CREATININE RATIO, URINE, RANDOM Routine 10/04/2024 9:34 AM TUTORING ASSISTANT N. GONORRHOEAE/C. TRACHOMATIS AMPLIFICATION Routine 10/04/2024 9:34 AM TUTORING ASSISTANT TRANSFUSE RED BLOOD CELLS Timed 10/04/2024 5:54 AM TUTORING ASSISTANT B CHECK SAMPLE STAT 10/04/2024 3:44 AM TUTORING ASSISTANT URINALYSIS AND REFLEX TO MICROSCOPIC AND CULTURE STAT 10/04/2024 3:[address] CHEST PE ABDOMEN PELVIS W CONTRAST ED 10/04/2024 3:34 AM TUTORING ASSISTANT THYROID FUNCTION CASCADE Routine 10/04/2024 2:25 AM TUTORING ASSISTANT LACTATE DEHYDROGENASE Routine 10/04/2024 2:25 AM TUTORING ASSISTANT HCG, BLOOD, QUANTITATIVE Routine 10/04/2024 2:25 AM TUTORING ASSISTANT FERRITIN Routine 10/04/2024 2:25 AM TUTORING ASSISTANT HAPTOGLOBIN Routine 10/04/2024 2:25 AM TUTORING ASSISTANT IRON PROFILE W/ IBC Routine 10/04/2024 2 :25 AM TUTORING ASSISTANT TYPE AND SCREEN STAT 10/04/2024 2:25 AM TUTORING ASSISTANT TROPONIN I HIGH-SENSITIVITY 2-HOUR Timed 10/04/2024 2:25 AM TUTORING ASSISTANT PREPARE RBC Timed 10/04/2024 2:22 AM TUTORING ASSISTANT IA CRITICAL CARE ILL/INJURED PATIENT INIT 30-74 MIN Routine 10/04/2024 2:17 AM TUTORING ASSISTANT ECG 12-LEAD STAT 10/04/2024 1:57 AM TUTORING ASSISTANT RETICULOCYTES STAT 10/04/2024 12:41 AM TUTORING ASSISTANT COMPREHENSIVE METABOLIC PANEL STAT 10/04/2024 12:41 AM TUTORING ASSISTANT EGFR STAT 10/04/2024 12:41 AM TUTORING ASSISTANT DIFFERENTIAL AUTO STAT 10/04/2024 12:41 AM TUTORING ASSISTANT SEPSIS LACTATE WITH REFLEX STAT 10/04/2024 12:41 AM TUTORING ASSISTANT LIPASE STAT 10/04/2024 12:41 AM TUTORING ASSISTANT PRO B-TYPE NATRIURETIC PEPTIDE STAT 10/04/2024 12:41 AM TUTORING ASSISTANT TROPONIN I HIGH-SENSITIVITY SERIES (BASELINE, 2HR, 4HR, 6HR) STAT 10/04/2024 12:41 AM TUTORING ASSISTANT CBC WITH AUTO DIFFERENTIAL STAT 10/04/2024 12:41 AM TUTORING ASSISTANT HEPATITIS B CORE ANTIBODY, TOTAL Routine 10/04/2024 12:41 AM TUTORING ASSISTANT RPR Routine 10/04/2024 12:41 AM TUTORING ASSISTANT RESPIRATORY PATHOGEN PANEL STAT 10/04/2024 12:41 AM TUTORING ASSISTANT BLOOD CULTURE Routine 10/04/2024 12:41 AM TUTORING ASSISTANT BLOOD CULTURE Routine 10/04/2024 12:41 AM TUTORING ASSISTANT HEPATITIS PANEL, ACUTE Routine 10/04/2024 12:41 AM TUTORING ASSISTANT HIV 1/2 ANTIBODY PLUS P24 ANTIGEN Routine 10/04/2024 12:41 AM TUTORING ASSISTANT from Last 3 Months Results * TRANSTHORACIC ECHO (TTE) COMPLETE W DOPPLER/CF WO CONTRAST (10/31/2024 1:30 PM TUTORING ASSISTANT) Anatomical Region Laterality Modality Ultrasound 10/31/2024 12:2 2 PM TUTORING ASSISTANT Narrative 10/31/2024 3:58 PM TUTORING ASSISTANT [facility] [place] [address] Transthoracic Echocardiographic Report Patient Name: MADONNA JARA N : 1985 (39y 3m) Gender: F Study Date: 10/31/2024 12:22:35 PM Ht(Inch): 67 Wt(Lb): 153 BSA: 1.81 Commissary Assistant: Mariah Burden RDCS Location: [facility] Order Provider: BRENDEN VALENCIA Heart Rate: 89 BMI: 23.96 BP: 110 / 75 Quality: The study images were of technically good quality. Ref Provider: BRENDEN VALENCIA PROCEDURES: Echocardiographic Report: [id number]) Transthoracic complete echo with strain imaging, 2D, [...] By: Brenden Valencia MD 10/31/2024 3:58:18 PM TUTORING ASSISTANT Electronically Signed By: Brenden Valencia MD 10/31/2024 3:58:18 PM TUTORING ASSISTANT Procedure Note Brenden Valencia MD - 10/31/2024 [facility] [place] [place] [address] [place] [address] Transthoracic Echocardiographic Report Patient Name: MADONNA JARA N : 1985 (39y 3m) Gender: F Study Date: 10/31/2024 12:22:35 PM Ht(Inch): 67 Wt(Lb): 153 BSA: 1.81 Commissary Assistant: Mariah Burden RDCS Location: [facility] Order Provider:BRENDEN VALENCIA Heart Rate: 89 BMI: 23.96 BP: 110 / 75 Quality: The study images were oftechnically good quality. Ref Provider: BRENDEN VALENCIA PROCEDURES: Echocardiographic Report: [id number]) Transthoracic complete echo withstrain imaging, 2D, spectral [...] cm2 RA Volume 23.35 ml MV Decel [id number] msec [ 104.00 - 258.00 ] RA [...] By: Brenden Valencia MD 10/31/2024 3:58:18 PM TUTORING ASSISTANT Electronically Signed By: Brenden Valencia MD 10/31/2024 3:58:18 PM TUTORING ASSISTANT Brenden Valencia MD CV ECHO PROCEDURES Final Res ult * eGFR (10/09/2024 8:33 PM TUTORING ASSISTANT) eGFR >90 >=60 mL/min/1. 73 m2 Comment: [...] last reviewed 2021. Blood 10/09/2024 8:33 PM TUTORING ASSISTANT 10/09/2024 8:50 PM TUTORING ASSISTANT us Kris Mckeon MD LAB BLOOD ORDERABLES Final Result [facility] Department [place] [address] * Differential, auto (10/09/2024 8:33 PM TUTORING ASSISTANT) Neutrophil abs 4.0 1.5 - 6.5 K/cumm Imm gran abs 0.0 0.0 - 0.1 K/cumm [facility] Lymphocyte abs 2.0 0.8 - 3.3 K/cumm [facility] Monocyte abs 0.4 0.2 - 0.8 K/cumm [facility] Eosinophil abs 0.1 0.0 - 0.5 K/cumm [facility] Basophil abs 0.0 0.0 - 0.1 K/cumm [facility] Neutrophil pct 60.1 % [facility] Comment: Interpretive Data Percent cell count reference ranges are not reported, since discordance with absolute values may lead to misinterpretation of CBC data. Current Interpretive Data was last revised on 2017. Imm gran pct 0.5 % [facility] Comment: Interpretive Data Percent cell count reference ranges are not reported, since discordance with absolute values may lead to misinterpretation of CBC data. Current Interpretive Data was last revised on 2017. Lymphocyte pct 31.0 % [facility] Comment: Interpretive Data Percent cell count reference ranges are not reported, since discordance with absolute values may lead to misinterpretation of CBC data. Current Interpretive Data was last revised on 2017. Monocyte pct 6.7 % [facility] Comment: Interpretive Data Percent cell count reference ranges are not reported, since discordance with absolute values may lead to misinterpretation of CBC data. Current Interpretive Data was last revised on 2017. Eosinophil pct 1.1 % [facility] Comment: Interpretive Data Percent cell count reference ranges are not reported, since discordance with absolute values may lead to misinterpretation of CBC data. Current Interpretive Data was last revised on 2017. Basophil pct 0.6 % [facility] Comment: Interpretive Data Percent cell count reference ranges are not reported, since discordance with absolute values may lead to misinterpretation of CBC data. Current Interpretive Data was last revised on 2017. Blood 10/09/2024 8:33 PM TUTORING ASSISTANT 10/09/2024 8:51 PM TUTORING ASSISTANT us Ganesh Freeman MD LAB BLOOD ORDERABLES Fin al Result [facility] [place] [address] * (ABNORMAL) CBC with auto differential (10/09/2024 8:33 PM TUTORING ASSISTANT) Pathologist [facility] WBC 6.6 3.8 - 9.9 K/cumm Hgb 8.7(L) 11.9 - 15.5 g/dL [facility] Hct 28.8(L) 35.6 - 45.5 % [facility] Plt 482(H) 150 - 400 K/cumm [facility] MPV 10.8 9.1 - 12.3 fL [facility] RBC 3.59(L) 3.90 - 5.20 M/cumm [facility] MCV 80.2(L) 81.3 - 96.4 fL [facility] MCH 24.2(L) 27.1 - 33.3 pg [facility] MCHC 30.2(L) 32.3 - 35.7 g/dL [facility] RDW CV 16.5(H) 11.1 - 14.9 % [facility] RDW SD 48.7(H) 35.7 - 48.1 fL [facility] NRBC abs 0.00 0.00 - 0.01 K/cumm [facility] Blood 10/09/2024 8:33 PM TUTORING ASSISTANT 10/09/2024 8:51 PM TUTORING ASSISTANT Ganesh Freeman MD LAB BLOOD ORDERABLES Fin al Result Performing Organization Address [facility] Co de Phone Number [facility] [place] [address] * Magnesium (10/09/2024 8:33 PM TUTORING ASSISTANT) [facility] Magnesium 2.1 1.4 - 2.5 mg/dL Blood 10/09/2024 8:33 PM TUTORING ASSISTANT 10/09/2024 8:50 PM TUTORING ASSISTANT Ganesh Freeman MD LAB BLOOD ORDERABLES Fin al Result [facility] Department [place] [address] * (ABNORMAL) Basic metabolic panel (10/09/2024 8:33 PM TUTORING ASSISTANT) Pathologist [facility] Sodium 134(L) 135 - 145 mmol/L Potassium, pl 4.9 3.3 - 4.9 mmol/L [facility] Chloride 100 97 - 110 mmol/L [facility] CO2 26 22 - 32 mmol/L [facility] Anion gap 8 2 - 15 mmol/L [facility] BUN 24 6 - 25 mg/dL [facility] Creatinine 0.75 0.60 - 1.10 mg/dL [facility] Glucose 109 70 - 199 mg/dL [facility] Comment: Interpretive Data Fasting glucose >/= [...] 2022. Calcium 8.3(L) 8.5 - 10.3 mg/dL [facility] Blood 10/09/2024 8:33 PM TUTORING ASSISTANT 10/09/2024 8:50 PM TUTORING ASSISTANT us Kris Mckeon MD LAB BLOOD ORDERABLES Final Result Performing Organization Address City/[facility]/ZIP Co de Phone Number [facility] Department [place] [address] * eGFR (10/09/2024 1:41 PM TUTORING ASSISTANT) [facility] eGFR >90 >=60 mL/min/1. 73 m2 Comment: [...] last reviewed 2021. Blood 10/09/2024 1:41 PM TUTORING ASSISTANT 10/09/2024 3:15 PM TUTORING ASSISTANT us Kris Mckeon MD LAB BLOOD ORDERABLES Final Result Performing Organization Address City/[facility]/ZIP Co de Phone Number [facility] [place] [address] * aPTT (10/09/2024 1:41 PM TUTORING ASSISTANT) aPTT 36 28 - 38 sec Comment: Interpretive Data Heparin therapeutic range: 66.0 - 100.0 seconds. Range based on correlation with therapeutic heparin activity range of 0.3 - 0.7 Units/mL. Current interpretive data was last revised on 2023. Blood 10/09/2024 1:41 PM TUTORING ASSISTANT 10/09/2024 2:27 PM TUTORING ASSISTANT Narrative [facility] - 10/09/2024 2:53 PM TUTORING ASSISTANT Baseline prior to enoxaparin initiation. us Ganesh Freeman MD LAB BLOOD ORDERABLES Fin al Result [facility] [place] [address] * Protime-INR (10/09/2024 1:41 PM TUTORING ASSISTANT) [facility] PT 11.9 9.7 - 13.0 sec INR 1.10 0.90 - 1.20 [facility] Comment: Interpretive data Oral anticoagulant therapeutic ranges: Venous thromboembolism prophylaxis or treatment: 2.0-3.0 CARDIOLOGY Standard range: 2.0-3.0 High-intensity range: 2.5-3.5 Refer to indication-specific guidelines for appropriate target ranges for prosthetic heart valve replacement. Current interpretive data was last revised on 2019. Blood 10/09/2024 1:41 PM TUTORING ASSISTANT 10/09/2024 2:27 PM TUTORING ASSISTANT Narrative [facility] - 10/09/2024 2:53 PM TUTORING ASSISTANT Baseline prior to enoxaparin initiation. Ganesh Freeman MD LAB BLOOD ORDERABLES Fin al Result Performing Organization Address [facility] Co de Phone Number [facility] [place] [address] * Magnesium (10/09/2024 1:41 PM TUTORING ASSISTANT) [facility] Magnesium 2.1 1.4 - 2.5 mg/dL Blood 10/09/2024 1:41 PM TUTORING ASSISTANT 10/09/2024 3:15 PM TUTORING ASSISTANT Ganesh Freeman MD LAB BLOOD ORDERABLES Fin al Result Performing Organization Address City/[facility] Co de Phone Number [facility] [place] [address] * (ABNORMAL) Basic metabolic panel (10/09/2024 1:41 PM TUTORING ASSISTANT) [facility] Sodium 132(L) 135 - 145 mmol/L Potassium, pl 5.0(H) 3.3 - 4.9 mmol/L [facility] Chloride 95(L) 97 - 110 mmol/L [facility] CO2 26 22 - 32 mmol/L [facility] Anion gap 11 2 - 15 mmol/L [facility] BUN 15 6 - 25 mg/dL [facility] Creatinine 0.77 0.60 - 1.10 mg/dL [facility] Glucose 102 70 - 199 mg/dL [facility] Comment: Interpretive Data Fasting glucose >/= [...] Calcium 8.5 8.5 - 10.3 mg/dL [facility] Blood 10/09/2024 1:41 PM TUTORING ASSISTANT 10/09/2024 3:15 PM TUTORING ASSISTANT Kris Mckeon MD LAB BLOOD ORDERABLES Final Result [facility] [place] [address] * eGFR (10/08/2024 9:58 PM TUTORING ASSISTANT) eGFR >90 >=60 mL/min/1. 73 m2 Comment: [...] last reviewed 2021. Blood 10/08/2024 9:58 PM TUTORING ASSISTANT 10/08/2024 10:15 PM TUTORING ASSISTANT us Kris Mckeon MD LAB BLOOD ORDERABLES Final Result [facility] [place] [address] * Differential, auto (10/08/2024 9:58 PM TUTORING ASSISTANT) Neutrophil abs 3.7 1.5 - 6.5 K/cumm Imm gran abs 0.1 0.0 - 0.1 K/cumm [facility] Lymphocyte abs 1.8 0.8 - 3.3 K/cumm [facility] Monocyte abs 0.5 0.2 - 0.8 K/cumm [facility] Eosinophil abs 0.1 0.0 - 0.5 K/cumm [facility] Basophil abs 0.0 0.0 - 0.1 K/cumm [facility] Neutrophil pct 60.1 % [facility] Comment: Interpretive Data Percent cell count reference ranges are not reported, since discordance with absolute values may lead to misinterpretation of CBC data. Current Interpretive Data was last revised on 2017. Imm gran pct 0.8 % [facility] Comment: Interpretive Data Percent cell count reference ranges are not reported, since discordance with absolute values may lead to misinterpretation of CBC data. Current Interpretive Data was last revised on 2017. Lymphocyte pct 29.3 % [facility] Comment: Interpretive Data Percent cell count reference ranges are not reported, since discordance with absolute values may lead to misinterpretation of CBC data. Current Interpretive Data was last revised on 2017. Monocyte pct 8.2 % [facility] Comment: Interpretive Data Percent cell count reference ranges are not reported, since discordance with absolute values may lead to misinterpretation of CBC data. Current Interpretive Data was last revised on 2017. Eosinophil pct 1.1 % [facility] Comment: Interpretive Data Percent cell count reference ranges are not reported, since discordance with absolute values may lead to misinterpretation of CBC data. Current Interpretive Data was last revised on 2017. Basophil pct 0.5 % [facility] Comment: Interpretive Data Percent cell count reference ranges are not reported, since discordance with absolute values may lead to misinterpretation of CBC data. Current Interpretive Data was last revised on 2017. Blood 10/08/2024 9:58 PM TUTORING ASSISTANT 10/08/2024 10:13 PM TUTORING ASSISTANT us Ganesh Freeman MD LAB BLOOD ORDERABLES Fin al Result [facility] [place] [address] * (ABNORMAL) CBC with auto differential (10/08/2024 9:58 PM TUTORING ASSISTANT) WBC 6.1 3.8 - 9.9 K/cumm Hgb 9.0(L) 11.9 - 15.5 g/dL [facility] Hct 30.0(L) 35.6 - 45.5 % [facility] Plt 429(H) 150 - 400 K/cumm [facility] MPV 10.9 9.1 - 12.3 fL [facility] RBC 3.68(L) 3.90 - 5.20 M/cumm [facility] MCV 81.5 81.3 - 96.4 fL [facility] MCH 24.5(L) 27.1 - 33.3 pg [facility] MCHC 30.0(L) 32.3 - 35.7 g/dL [facility] RDW CV 17.0(H) 11.1 - 14.9 % [facility] RDW SD 50.6(H) 35.7 - 48.1 fL [facility] NRBC abs 0.00 0.00 - 0.01 K/cumm [facility] Blood 10/08/2024 9:58 PM TUTORING ASSISTANT 10/08/2024 10:13 PM TUTORING ASSISTANT us Ganesh Freeman MD LAB BLOOD ORDERABLES Fin al Result Performing Organization Address City/[facility]/ZIP Co de Phone Number [facility] [address] [facility] [place] [address] * Magnesium (10/08/2024 9:58 PM TUTORING ASSISTANT) [facility] Magnesium 2.0 1.4 - 2.5 mg/dL Blood 10/08/2024 9:58 PM TUTORING ASSISTANT 10/08/2024 10:10 PM TUTORING ASSISTANT Ganesh Freeman MD LAB BLOOD ORDERABLES Fin al Result Performing Organization Address [facility] de Phone Number [facility] [place] [address] * (ABNORMAL) Basic metabolic panel (10/08/2024 9:58 PM TUTORING ASSISTANT) [facility] Sodium 131(L) 135 - 145 mmol/L Potassium, pl 5.0(H) 3.3 - 4.9 mmol/L [facility] Chloride 97 97 - 110 mmol/L [facility] CO2 25 22 - 32 mmol/L [facility] Anion gap 9 2 - 15 mmol/L [facility] BUN 18 6 - 25 mg/dL [facility] Creatinine 0.56(L) 0.60 - 1.10 mg/dL [facility] Glucose 110 70 - 199 mg/dL [facility] Comment: Interpretive Data Fasting glucose >/= [...] Calcium 8.1(L) 8.5 - 10.3 mg/dL [facility] Blood 10/08/2024 9:58 PM TUTORING ASSISTANT 10/08/2024 10:10 PM TUTORING ASSISTANT us Kris Mckeon MD LAB BLOOD ORDERABLES Final Result [facility] [place] [address] * US Vein Duplex Upper Extremity Bilateral Complete (10/08/2024 11:19 AM TUTORING ASSISTANT) Anatomical Region Laterality Modality Vascular Bilateral Ultrasound 10/08/2024 10:0 0 AM TUTORING ASSISTANT Narrative 10/08/2024 2:46 PM TUTORING ASSISTANT [facility] - Department of Vascular Surgery, Vascular Laboratory [address] [place] [id number] Upper Extremity Venous Ultrasound Report Patient Name: MADONNA JARA N : 1985 (39y 2m) Study Date: 10/08/2024 10:00:38 AM Gender: F Tech: Location: [id number] Ref Provider: GANESH FREEMAN Quality: Adequate Order Provider: GANESH FREEMAN PROCEDURES: Vascular Report: Venous Duplex imaging was performed bilaterally in the upper extremities. The internal jugular, subclavian and axillary veins were evaluated for patency, spontaneity and phasicity with Doppler, compression and augmentation maneuvers. The brachial, basilic and cephalic veins were also evaluated with compression maneuvers. INDICATIONS: Localized edema. FINDINGS: Performing Commissary Assistant: Stella Moe RVT. Right: Venous Doppler signals [...] Lee David MD FACS 10/08/2024 2:42:15 PM TUTORING ASSISTANT Procedure Note Lee David MD - 10/08/2024 [employer] [facility] [employer] - Department of Vascular Surgery,Vascular Laboratory [address] [place] [id number] Upper Extremity Venous Ultrasound Report Patient Name: MADONNA JARAPaula : 1985 (39y 2m) Study Date: 10/08/2024 10:00:38 AM Gender: F Tech: Location: [id number] Ref Provider: GANESH FREEMAN Quality: Adequate Order Provider: GANESH FREEMAN PROCEDURES: Vascular Report: Venous Duplex imaging was performed bilaterally in the upper extremities.The internal jugular, subclavian and axillary veins were evaluated for patency,spontaneity and phasicity with Doppler, compression and augmentation maneuvers. Thebrachial, basilic and cephalic veins were also evaluated with compression maneuvers. INDICATIONS: Localized edema. FINDINGS: Performing Commissary Assistant: Stella Moe RVT. Right: Venous Doppler signals [...] above. Electronically Signed By: Lee David MD [facility] 10/08/2024 2:42:15 PM TUTORING ASSISTANT Ganesh Freeman MD [facility] US PROCEDURES Final Result * US Vein Duplex Lower Extremity Bilateral Complete (10/08/2024 11:14 AM TUTORING ASSISTANT) Anatomical Region Laterality Modality Vascular Bilateral Ultrasound 10/08/2024 10:2 8 AM TUTORING ASSISTANT Narrative 10/08/2024 2:46 PM TUTORING ASSISTANT [facility] - Department of Vascular Surgery, Vascular Laboratory [address] [place] [address] Lower Extremity Venous Ultrasound Report Patient Name: MADONNA JARA N : 1985 (39y 2m) Study Date: 10/08/2024 10:28:39 AM Gender: F Tech: Location: [id number] Ref Provider: GANESH FREEMAN Quality: Adequate Order Provider: GANESH FREEMAN PROCEDURES: Vascular Report: Venous Duplex imaging was performed bilaterally in the lower extremities. The common femoral, femoral, popliteal, posterior tibial, peroneal veins were evaluated for patency, spontaneity and phasicity with Doppler, compression and augmentation maneuvers. Great saphenous vein proximal at the junction was evaluated with compression maneuvers. INDICATIONS: Localized edema. FINDINGS: Performing Commissary Assistant: Stella Moe RVT. Bilateral: Venous Doppler signals [...] Lee David MD FACS 10/08/2024 2:42:37 PM TUTORING ASSISTANT Procedure Note Lee David MD - 10/08/2024 [facility] - Department of Vascular Surgery,Vascular Laboratory [address] [place] [id number] Lower Extremity Venous Ultrasound Report Patient Name: MADONNA JARA N : 1985 (39y 2m) Study Date: 10/08/2024 10:28:39 AM Gender: F Tech: Location: [id number] Ref Provider: GANESH FREEMAN Quality: Adequate Order Provider: GANESH FREEMAN PROCEDURES: Vascular Report: Venous Duplex imaging was performed bilaterally in the lower extremities.The common femoral, femoral, popliteal, posterior tibial, peroneal veins wereevaluated for patency, spontaneity and phasicity with Doppler, compression and augmentationmaneuvers. Great saphenous vein proximal at the junction was evaluated with compressionmaneuvers. INDICATIONS: Localized edema. FINDINGS: Performing Commissary Assistant: Stella Moe RVT. Bilateral: Venous Doppler signals [...] Lee David MD FACS 10/08/2024 2:42:37 PM TUTORING ASSISTANT Ganesh Freeman MD IM US PROCEDURES Final Result * Sodium, urine, random (10/08/2024 5:51 AM TUTORING ASSISTANT) Sodium, ur 197 mmol/L Comment: Interpretive Data No reference range established. Current interpretive data was last revised 2019. Urine 10/08/2024 5:51 AM TUTORING ASSISTANT 10/08/2024 7:15 AM TUTORING ASSISTANT Ganesh Freeman MD LAB URINE ORDERABLES Fin al Result Performing Organization Address [facility] Phone Number [facility] [place] [address] * Osmolality, urine (10/08/2024 5:51 AM TUTORING ASSISTANT) Osmo, ur 578 mOsm/kg Urine 10/08/2024 5:51 AM TUTORING ASSISTANT 10/08/2024 7:15 AM TUTORING ASSISTANT Ganesh Freeman MD LAB URINE ORDERABLES Fin al Result Performing Organization Address [facility] de Phone Number [facility] [place] [address] * Creatinine, urine, random (10/08/2024 5:51 AM TUTORING ASSISTANT) Creatinine Ur 36.8 mg/dL Comment: Interpretive Data No reference range established. Current interpretive data was last revised 2019. Urine 10/08/2024 5:51 AM TUTORING ASSISTANT 10/08/2024 7:15 AM TUTORING ASSISTANT us Ganesh Freeman MD LAB URINE ORDERABLES Fin al Result Performing Organization Address [facility] Co de Phone Number [facility] [place] [address] * eGFR (10/08/2024 4:26 AM TUTORING ASSISTANT) eGFR >90 >=60 mL/min/1. 73 m2 Comment: [...] last reviewed 2021. Blood 10/08/2024 4:26 AM TUTORING ASSISTANT 10/08/2024 5:19 AM TUTORING ASSISTANT us Devyn Worrell MD LAB BLOOD ORDERABLES Viv l Result Performing Organization Address [facility] Co de Phone Number [facility] [place] [address] * (ABNORMAL) Osmolality, blood (10/08/2024 4:26 AM TUTORING ASSISTANT) Osmo 274(L) 275 - 300 mOsm/kg Blood 10/08/2024 4:26 AM TUTORING ASSISTANT 10/08/2024 5:10 AM TUTORING ASSISTANT us Ganesh Freeman MD LAB BLOOD ORDERABLES Fin al Result Performing Organization Address [facility]/ZIP Co de Phone Number [facility] Department [place] [address] * (ABNORMAL) Basic metabolic panel (10/08/2024 4:26 AM TUTORING ASSISTANT) Pathologist [facility] Sodium 135 135 - 145 mmol/L Potassium, pl 4.6 3.3 - 4.9 mmol/L [facility] Chloride 102 97 - 110 mmol/L [facility] CO2 26 22 - 32 mmol/L [facility] Anion gap 7 2 - 15 mmol/L [facility] BUN 12 6 - 25 mg/dL [facility] Creatinine 0.52(L) 0.60 - 1.10 mg/dL [facility] Glucose 88 70 - 199 mg/dL [facility] Comment: Interpretive Data Fasting glucose >/= [...] Calcium 8.1(L) 8.5 - 10.3 mg/dL [facility] Blood 10/08/2024 4:26 AM TUTORING ASSISTANT 10/08/2024 5:10 AM TUTORING ASSISTANT us Devyn Worrell MD LAB BLOOD ORDERABLES Viv l Result Performing Organization Address [facility] Co de Phone Number [facility] Department [place] [address] * eGFR (10/07/2024 9:44 PM TUTORING ASSISTANT) Pathologist [facility] eGFR >90 >=60 mL/min/1. 73 m2 Comment: [...] last reviewed 2021. Blood 10/07/2024 9:44 PM TUTORING ASSISTANT 10/07/2024 10:03 PM TUTORING ASSISTANT us Kris Mckeon MD LAB BLOOD ORDERABLES Final Result [facility] Department [place] [address] * Differential, auto (10/07/2024 9:44 PM TUTORING ASSISTANT) Pathologist [facility] Neutrophil abs 2.3 1.5 - 6.5 K/cumm Imm gran abs 0.1 0.0 - 0.1 K/cumm [facility] Lymphocyte abs 1.8 0.8 - 3.3 K/cumm [facility] Monocyte abs 0.5 0.2 - 0.8 K/cumm [facility] Eosinophil abs 0.1 0.0 - 0.5 K/cumm [facility] Basophil abs 0.0 0.0 - 0.1 K/cumm [facility] Neutrophil pct 47.7 % [facility] Comment: Interpretive Data Percent cell count reference ranges are not reported, since discordance with absolute values may lead to misinterpretation of CBC data. Current Interpretive Data was last revised on 2017. Imm gran pct 1.3 % [facility] Comment: Interpretive Data Percent cell count reference ranges are not reported, since discordance with absolute values may lead to misinterpretation of CBC data. Current Interpretive Data was last revised on 2017. Lymphocyte pct 38.3 % [facility] Comment: Interpretive Data Percent cell count reference ranges are not reported, since discordance with absolute values may lead to misinterpretation of CBC data. Current Interpretive Data was last revised on 2017. Monocyte pct 10.8 % [facility] Comment: Interpretive Data Percent cell count reference ranges are not reported, since discordance with absolute values may lead to misinterpretation of CBC data. Current Interpretive Data was last revised on 2017. Eosinophil pct 1.5 % [facility] Comment: Interpretive Data Percent cell count reference ranges are not reported, since discordance with absolute values may lead to misinterpretation of CBC data. Current Interpretive Data was last revised on 2017. Basophil pct 0.4 % [facility] Comment: Interpretive Data Percent cell count reference ranges are not reported, since discordance with absolute values may lead to misinterpretation of CBC data. Current Interpretive Data was last revised on 2017. Blood 10/07/2024 9:44 PM TUTORING ASSISTANT 10/07/2024 10:03 PM TUTORING ASSISTANT us Ganesh Freeman MD LAB BLOOD ORDERABLES Fin al Result [facility] [place] [address] * (ABNORMAL) CBC with auto differential (10/07/2024 9:44 PM TUTORING ASSISTANT) WBC 4.7 3.8 - 9.9 K/cumm Hgb 8.6(L) 11.9 - 15.5 g/dL [facility] Hct 28.9(L) 35.6 - 45.5 % [facility] Plt 367 150 - 400 K/cumm [facility] MPV 11.6 9.1 - 12.3 fL [facility] RBC 3.55(L) 3.90 - 5.20 M/cumm [facility] MCV 81.4 81.3 - 96.4 fL [facility] MCH 24.2(L) 27.1 - 33.3 pg [facility] MCHC 29.8(L) 32.3 - 35.7 g/dL [facility] RDW CV 17.0(H) 11.1 - 14.9 % [facility] RDW SD 50.3(H) 35.7 - 48.1 fL [facility] NRBC abs 0.00 0.00 - 0.01 K/cumm [facility] Blood 10/07/2024 9:44 PM TUTORING ASSISTANT 10/07/2024 10:03 PM TUTORING ASSISTANT Ganesh Freeman MD LAB BLOOD ORDERABLES Fin al Result Performing Organization Address City/[facility] Co de Phone Number [facility] [place] [employer] [place] [address] * Type and screen (10/07/2024 9:44 PM TUTORING ASSISTANT) ABO Rh O Positive King, indirect Negative [facility] Blood 10/07/2024 9:44 PM TUTORING ASSISTANT 10/07/2024 9:59 PM TUTORING ASSISTANT Narrative [facility] - 10/08/2024 1:00 AM TUTORING ASSISTANT Has the patient had Daratumumab or Isatuximab in the past 6 months?->Unknown Kris Mckeon MD LAB BLOOD BANK TEST ORDERAB LES Final Result [facility] [place] [address] * Magnesium (10/07/2024 9:44 PM TUTORING ASSISTANT) Pathologist [facility] Magnesium 2.0 1.4 - 2.5 mg/dL Blood 10/07/2024 9:44 PM TUTORING ASSISTANT 10/07/2024 10:03 PM TUTORING ASSISTANT us Ganesh Freeman MD LAB BLOOD ORDERABLES Fin al Result Performing Organization Address City/[facility]/ZIP Co de Phone Number [facility] [place] [address] * (ABNORMAL) Basic metabolic panel (10/07/2024 9:44 PM TUTORING ASSISTANT) [facility] Sodium 129(L) 135 - 145 mmol/L Potassium, pl 4.8 3.3 - 4.9 mmol/L [facility] Chloride 99 97 - 110 mmol/L [facility] CO2 24 22 - 32 mmol/L [facility] Anion gap 6 2 - 15 mmol/L [facility] BUN 13 6 - 25 mg/dL [facility] Creatinine 0.58(L) 0.60 - 1.10 mg/dL [facility] Glucose 99 70 - 199 mg/dL [facility] Comment: Interpretive Data Fasting glucose >/= [...] Calcium 8.1(L) 8.5 - 10.3 mg/dL [facility] Blood 10/07/2024 9:44 PM TUTORING ASSISTANT 10/07/2024 10:03 PM TUTORING ASSISTANT Kris Mckeon MD LAB BLOOD ORDERABLES Final Result Performing Organization Address City/[facility]/ZIP Co de Phone Number [facility] [place] [address] * Blood culture Blood (10/07/2024 4:53 PM TUTORING ASSISTANT) Report Final Report: No growth Blood 10/07/2024 4:53 PM TUTORING ASSISTANT 10/07/2024 5:04 PM TUTORING ASSISTANT Narrative [facility] - 10/12/2024 7:00 AM TUTORING ASSISTANT From a different site than #1. Collection->Peripheral [...] performance characteristics have been verified by the [facility] Microbiology Laboratory. For questions about this culture, contact the Microbiology Laboratory at [phone]. Interpretive data was last revised on 24. us Ganesh Freeman MD LAB MICROBIOLOGY - [facility] AL ORDERABLES Final Result [facility] [place] [address] * Blood culture Blood (10/07/2024 4:53 PM TUTORING ASSISTANT) Report Final Report: No growth Blood 10/07/2024 4:53 PM TUTORING ASSISTANT 10/07/2024 5:04 PM TUTORING ASSISTANT Narrative [facility] - 10/12/2024 7:00 AM TUTORING ASSISTANT Collection->Peripheral 1. Blood cultures are incubated for [...] performance characteristics have been verified by the [facility] Microbiology Laboratory. For questions about this culture, contact the Microbiology Laboratory at [phone]. Interpretive data was last revised on 24. us Ganesh Freeman MD LAB MICROBIOLOGY - GENER AL ORDERABLES Final Result [facility] [place] [address] * eGFR (10/06/2024 12:29 AM TUTORING ASSISTANT) eGFR >90 >=60 mL/min/1. 73 m2 Comment: [...] reviewed 2021. Blood 10/06/2024 12:2 9 AM TUTORING ASSISTANT 10/06/2024 12:42 AM TUTORING ASSISTANT us Kris Mckeon MD LAB BLOOD ORDERABLES Final Result [facility] [place] [address] * (ABNORMAL) Differential, auto (10/06/2024 12:29 AM TUTORING ASSISTANT) Neutrophil abs 4.1 1.5 - 6.5 K/cumm Imm gran abs 0.1 0.0 - 0.1 K/cumm [facility] Lymphocyte abs 0.7(L) 0.8 - 3.3 K/cumm [facility] Monocyte abs 0.4 0.2 - 0.8 K/cumm [facility] Eosinophil abs 0.0 0.0 - 0.5 K/cumm [facility] Basophil abs 0.0 0.0 - 0.1 K/cumm [facility] Neutrophil pct 77.6 % [facility] Comment: Interpretive Data Percent cell count reference ranges are not reported, since discordance with absolute values may lead to misinterpretation of CBC data. Current Interpretive Data was last revised on 2017. Imm gran pct 1.1 % [facility] Comment: Interpretive Data Percent cell count reference ranges are not reported, since discordance with absolute values may lead to misinterpretation of CBC data. Current Interpretive Data was last revised on 2017. Lymphocyte pct 12.8 % [facility] Comment: Interpretive Data Percent cell count reference ranges are not reported, since discordance with absolute values may lead to misinterpretation of CBC data. Current Interpretive Data was last revised on 2017. Monocyte pct 7.5 % [facility] Comment: Interpretive Data Percent cell count reference ranges are not reported, since discordance with absolute values may lead to misinterpretation of CBC data. Current Interpretive Data was last revised on 2017. Eosinophil pct 0.6 % [facility] Comment: Interpretive Data Percent cell count reference ranges are not reported, since discordance with absolute values may lead to misinterpretation of CBC data. Current Interpretive Data was last revised on 2017. Basophil pct 0.4 % [facility] Comment: Interpretive Data Percent cell count reference ranges are not reported, since discordance with absolute values may lead to misinterpretation of CBC data. Current Interpretive Data was last revised on 2017. Blood 10/06/2024 12:2 9 AM TUTORING ASSISTANT 10/06/2024 12:43 AM TUTORING ASSISTANT us Kris Mckeon MD LAB BLOOD ORDERABLES Final Result [facility] [place] [address] * (ABNORMAL) CBC with auto differential (10/06/2024 12:29 AM TUTORING ASSISTANT) WBC 5.3 3.8 - 9.9 K/cumm Hgb 8.2(L) 11.9 - 15.5 g/dL [facility] Hct 27.1(L) 35.6 - 45.5 % [facility] Plt 288 150 - 400 K/cumm [facility] MPV 9.8 9.1 - 12.3 fL [facility] RBC 3.34(L) 3.90 - 5.20 M/cumm [facility] MCV 81.1(L) 81.3 - 96.4 fL [facility] MCH 24.6(L) 27.1 - 33.3 pg [facility] MCHC 30.3(L) 32.3 - 35.7 g/dL [facility] RDW CV 17.2(H) 11.1 - 14.9 % [facility] RDW SD 50.7(H) 35.7 - 48.1 fL [facility] NRBC abs 0.00 0.00 - 0.01 K/cumm [facility] Blood 10/06/2024 12:2 9 AM TUTORING ASSISTANT 10/06/2024 12:43 AM TUTORING ASSISTANT Kris Mckeon MD LAB BLOOD ORDERABLES Final Result Performing Organization Address [facility] de Phone Number [facility] [place] [address] * Hepatitis A antibody, IgM Blood (10/06/2024 12:29 AM TUTORING ASSISTANT) Hep A IgM Nonreactive Nonreactive Blood 10/06/2024 12:2 9 AM TUTORING ASSISTANT 10/06/2024 12:42 AM TUTORING ASSISTANT Ganesh Freeman MD LAB MICROBIOLOGY - GENER AL ORDERABLES Final Result Performing Organization Address [facility] de Phone Number [facility] [place] [address] * (ABNORMAL) Hepatitis A antibody, total Blood (10/06/2024 12:29 AM TUTORING ASSISTANT) Pathologist [facility] Hep A total Reactive(A ) Nonreactive Blood 10/06/2024 12:2 9 AM TUTORING ASSISTANT 10/06/2024 12:42 AM TUTORING ASSISTANT Ganesh Freeman MD LAB MICROBIOLOGY - GENER AL ORDERABLES Final Result Performing Organization Address [facility] de Phone Number [facility] [place] [address] * (ABNORMAL) Vitamin D 25 hydroxy (10/06/2024 12:29 AM TUTORING ASSISTANT) Vitamin D 25-OH <6(L) 30 - 80 ng/mL Blood 10/06/2024 12:2 9 AM TUTORING ASSISTANT 10/06/2024 12:42 AM TUTORING ASSISTANT Ganesh Freeman MD LAB BLOOD ORDERABLES Fin al Result Performing Organization Address [facility] de Phone Number [facility] [place] [address] * aPTT (10/06/2024 12:29 AM TUTORING ASSISTANT) aPTT 31 28 - 38 sec Comment: Interpretive Data Heparin therapeutic range: 66.0 - 100.0 seconds. Range based on correlation with therapeutic heparin activity range of 0.3 - 0.7 Units/mL. Current interpretive data was last revised on 2023. Blood 10/06/2024 12:2 9 AM TUTORING ASSISTANT 10/06/2024 12:54 AM TUTORING ASSISTANT Ganesh Freeman MD LAB BLOOD ORDERABLES Fin al Result Performing Organization Address [facility] de Phone Number [facility] [place] [address] * (ABNORMAL) Protime-INR (10/06/2024 12:29 AM TUTORING ASSISTANT) PT 14.1(H) 9.7 - 13.0 sec INR 1.30(H) 0.90 - 1.20 [facility] Comment: Interpretive data Oral anticoagulant therapeutic ranges: Venous thromboembolism prophylaxis or treatment: 2.0-3.0 CARDIOLOGY Standard range: 2.0-3.0 High-intensity range: 2.5-3.5 Refer to indication-specific guidelines for appropriate target ranges for prosthetic heart valve replacement. Current interpretive data was last revised on 2019. Blood 10/06/2024 12:2 9 AM TUTORING ASSISTANT 10/06/2024 12:54 AM TUTORING ASSISTANT Ganesh Freeman MD LAB BLOOD ORDERABLES Fin al Result Performing Organization Address [facility] de Phone Number [facility] [place] [address] * Magnesium (10/06/2024 12:29 AM TUTORING ASSISTANT) Pathologist [facility] Magnesium 1.9 1.4 - 2.5 mg/dL Blood 10/06/2024 12:2 9 AM TUTORING ASSISTANT 10/06/2024 12:42 AM TUTORING ASSISTANT Kris Mckeon MD LAB BLOOD ORDERABLES Final Result [facility] Department of [place] [address] * (ABNORMAL) Basic metabolic panel (10/06/2024 12:29 AM TUTORING ASSISTANT) Pathologist [facility] Sodium 134(L) 135 - 145 mmol/L Potassium, pl 4.7 3.3 - 4.9 mmol/L [facility] Chloride 105 97 - 110 mmol/L [facility] CO2 25 22 - 32 mmol/L [facility] Anion gap 4 2 - 15 mmol/L [facility] BUN 7 6 - 25 mg/dL [facility] Creatinine 0.55(L) 0.60 - 1.10 mg/dL [facility] Glucose 109 70 - 199 mg/dL [facility] Comment: Interpretive Data Fasting glucose >/= [...] Calcium 7.3(L) 8.5 - 10.3 mg/dL [facility] Blood 10/06/2024 12:2 9 AM TUTORING ASSISTANT 10/06/2024 12:42 AM TUTORING ASSISTANT Kris Mckeon MD LAB BLOOD ORDERABLES Final Result Performing Organization Address City/[facility] Co de Phone Number [facility] [place] [address] * eGFR (10/05/2024 4:44 AM TUTORING ASSISTANT) eGFR >90 >=60 mL/min/1. 73 m2 Comment: [...] last reviewed 2021. Blood 10/05/2024 4:44 AM TUTORING ASSISTANT 10/05/2024 5:04 AM TUTORING ASSISTANT Kris Mckeon MD LAB BLOOD ORDERABLES Final Result Performing Organization Address [facility] Co de Phone Number [facility] [place] [address] * Differential, auto (10/05/2024 4:44 AM TUTORING ASSISTANT) Neutrophil abs 1.6 1.5 - 6.5 K/cumm Imm gran abs 0.0 0.0 - 0.1 K/cumm [facility] Lymphocyte abs 0.8 0.8 - 3.3 K/cumm [facility] Monocyte abs 0.2 0.2 - 0.8 K/cumm [facility] Eosinophil abs 0.0 0.0 - 0.5 K/cumm [facility] Basophil abs 0.0 0.0 - 0.1 K/cumm [facility] Neutrophil pct 62.0 % [facility] Comment: Interpretive Data Percent cell count reference ranges are not reported, since discordance with absolute values may lead to misinterpretation of CBC data. Current Interpretive Data was last revised on 2017. Imm gran pct 0.8 % RONNI [facility] Comment: Interpretive Data Percent cell count reference ranges are not reported, since discordance with absolute values may lead to misinterpretation of CBC data. Current Interpretive Data was last revised on 2017. Lymphocyte pct 29.5 % RONNI [facility] Comment: Interpretive Data Percent cell count reference ranges are not reported, since discordance with absolute values may lead to misinterpretation of CBC data. Current Interpretive Data was last revised on 2017. Monocyte pct 7.3 % [facility] Comment: Interpretive Data Percent cell count reference ranges are not reported, since discordance with absolute values may lead to misinterpretation of CBC data. Current Interpretive Data was last revised on 2017. Eosinophil pct 0.0 % [facility] Comment: Interpretive Data Percent cell count reference ranges are not reported, since discordance with absolute values may lead to misinterpretation of CBC data. Current Interpretive Data was last revised on 2017. Basophil pct 0.4 % [facility] Comment: Interpretive Data Percent cell count reference ranges are not reported, since discordance with absolute values may lead to misinterpretation of CBC data. Current Interpretive Data was last revised on 2017. Blood 10/05/2024 4:44 AM TUTORING ASSISTANT 10/05/2024 5:04 AM TUTORING ASSISTANT us Kris Mckeon MD LAB BLOOD ORDERABLES Final Result RONNI WRIGHT [facility] [place] [address] * (ABNORMAL) CBC with auto differential (10/05/2024 4:44 AM TUTORING ASSISTANT) WBC 2.6(L) 3.8 - 9.9 K/cumm Hgb 8.6(L) 11.9 - 15.5 g/dL [facility] Hct 27.8(L) 35.6 - 45.5 % [facility] Plt 274 150 - 400 K/cumm [facility] MPV 11.7 9.1 - 12.3 fL [facility] RBC 3.45(L) 3.90 - 5.20 M/cumm [facility] MCV 80.6(L) 81.3 - 96.4 fL [facility] MCH 24.9(L) 27.1 - 33.3 pg [facility] MCHC 30.9(L) 32.3 - 35.7 g/dL [facility] RDW CV 17.0(H) 11.1 - 14.9 % [facility] RDW SD 49.5(H) 35.7 - 48.1 fL [facility] NRBC abs 0.00 0.00 - 0.01 K/cumm [facility] Blood 10/05/2024 4:44 AM TUTORING ASSISTANT 10/05/2024 5:04 AM TUTORING ASSISTANT Kris Mckeon MD LAB BLOOD ORDERABLES Final Result Performing Organization Address City/[facility]/ZIP Co de Phone Number [facility] [place] [employer] [place] [address] * Type and screen (10/05/2024 4:44 AM TUTORING ASSISTANT) ABO Rh O Positive King, indirect Negative [facility] Blood 10/05/2024 4:44 AM TUTORING ASSISTANT 10/05/2024 5:16 AM TUTORING ASSISTANT Narrative [facility] - 10/05/2024 6:04 AM TUTORING ASSISTANT Has the patient had Daratumumab or Isatuximab in the past 6 months?->Unknown Kris Mckeon MD LAB BLOOD BANK TEST ORDERAB LES Final Result [facility] [place] [address] * Magnesium (10/05/2024 4:44 AM TUTORING ASSISTANT) [facility] Magnesium 1.9 1.4 - 2.5 mg/dL Blood 10/05/2024 4:44 AM TUTORING ASSISTANT 10/05/2024 5:04 AM TUTORING ASSISTANT Kris Mckeon MD LAB BLOOD ORDERABLES Final Result Performing Organization Address [facility] Co de Phone Number [facility] [place] [address] * (ABNORMAL) Hepatic function panel (10/05/2024 4:44 AM TUTORING ASSISTANT) [facility] Bilirubin, total <0.2 0.1 - 1.2 mg/dL Bilirubin, direct See Comment 0.1 - 0.3 mg/dL [facility] Comment:Credited; Hemolyzed Specimen Protein, pl 5.4(L) 6.5 - 8.5 g/dL [facility] Albumin 1.9(L) 3.5 - 5.0 g/dL [facility] Alk phos 110 40 - 130 Units/L [facility] ALT 9 7 - 45 Units/L [facility] AST 26 10 - 45 Units/L [facility] Comment:Hemolyzed; result ma y be falsely elevated Blood 10/05/2024 4:44 AM TUTORING ASSISTANT 10/05/2024 5:04 AM TUTORING ASSISTANT Ganesh Freeman MD LAB BLOOD ORDERABLES Fin al Result Performing Organization Address [facility] Co de Phone Number [facility] [place] [address] * (ABNORMAL) Basic metabolic panel (10/05/2024 4:44 AM TUTORING ASSISTANT) [facility] Sodium 137 135 - 145 mmol/L Potassium, pl 4.3 3.3 - 4.9 mmol/L [facility] Comment:Hemolyzed; Potassium value may be falsely elevated by as much as 0.3-0.5 mmol/L. Suggest redraw and reanalysis. Chloride 107 97 - 110 mmol/L [facility] CO2 25 22 - 32 mmol/L [facility] Anion gap 5 2 - 15 mmol/L [facility] BUN 3(L) 6 - 25 mg/dL [facility] Creatinine 0.48(L) 0.60 - 1.10 mg/dL [facility] Glucose 89 70 - 199 mg/dL [facility] Comment: Interpretive Data Fasting glucose >/= [...] 2022. Calcium 7.5(L) 8.5 - 10.3 mg/dL [facility] Blood 10/05/2024 4:44 AM TUTORING ASSISTANT 10/05/2024 5:04 AM TUTORING ASSISTANT us Kris Mckeon MD LAB BLOOD ORDERABLES Final Result [facility] [place] [address] * TRANSTHORACIC ECHO (TTE) COMPLETE W DOPPLER/CF W CONTRAST (10/04/2024 4:52 PM TUTORING ASSISTANT) LV EF % CONS SCIMAGE Anatomical Region Laterality Modality Ultrasound 10/04/2024 3:39 PM TUTORING ASSISTANT Narrative 10/04/2024 5:33 PM TUTORING ASSISTANT [facility] [place] [address] Transthoracic Echocardiographic Report Patient Name: MADONNA JARAPaula : 1985 (39y 2m) Gender: F Study Date: 10/04/2024 03:39:40 PM Ht(Inch): 67 Wt(Lb): 160.05 BSA: 1.85 Commissary Assistant: Nathan Rosenbaum SAUD Location: [id number] Order Provider: KRIS MCKEON Heart Rate: 102 BMI: 25.06 BP: 149 / 83 Quality: The study images were of technically adequate quality. Ref Provider: KRIS MCKEON PROCEDURES: Echocardiographic Report: ([id number], [id number]) Transthoracic complete echo with strain imaging and [...] By: César Bhardwaj M.D. 10/04/2024 5:32:08 PM TUTORING ASSISTANT Electronically Signed By: César Bhardwaj M.D. 10/04/2024 5:32:08 PM TUTORING ASSISTANT Procedure Note César Bhardwaj MD - 10/04/2024 [facility] [place] [address] Transthoracic Echocardiographic Report Patient Name: MADONNA JARA N : 1985 (39y 2m) Gender: F Study Date: 10/04/2024 03:39:40 PM Ht(Inch): 67 Wt(Lb): 160.05 BSA: 1.85 Commissary Assistant: Nathan Rosenbaum RDCS Location: [id number] Order Provider:KRIS MCKEON Heart Rate: 102 BMI: 25.06 BP: 149 / 83 Quality: The study images wereof technically adequate quality. Ref Provider: KRIS MCKEON PROCEDURES: Echocardiographic Report: ([id number], [id number]) Transthoracic complete echo withstrain imaging and contrast, [...] - 5.00 ] RA Pressure3.00 mmHg RA Hvcoji77.56 ml RA Volume Index19.76 ml/m2 IVC Diam1.88 [...] By: César Bhardwaj M.D. 10/04/2024 5:32:08 PM TUTORING ASSISTANT Electronically Signed By: César Bhardwaj M.D. 10/04/2024 5:32:08 PM TUTORING ASSISTANT Kris Mckeon MD CV ECHO PROCEDURES Final Re sult * Transfuse RBC (10/04/2024 1:12 PM TUTORING ASSISTANT) Blood Result [facility] Lisette Arevalo MD BLOOD TRANSFUSION ORDER RUPERTO Final Result Performing Organization Address City/[facility] Co de Phone Number [facility] [place] [address] * Transfuse RBC (10/04/2024 1:11 PM TUTORING ASSISTANT) Blood Lisette Arevalo MD BLOOD TRANSFUSION ORDER RUPERTO Final Result Performing Organization Address [facility] [place] [address] * N. gonorrhoeae/C. trachomatis Amplification Urine (10/04/2024 9:34 AM TUTORING ASSISTANT) [facility] C. trachomatis Not Detected Not Detected [facility] N. gonorrhoeae Not Detected Not Detected [facility] Comment: Interpretive Data This assay detects Chlamydia trachomatis and Neisseria gonorrhoeae by nucleic acid amplification testing (NAAT). This assay has been cleared by the [place] Food and Drug administration. The performance characteristics of this test have been verified by the [facility] Molecular Infectious Disease laboratory. The performance characteristics of this test have not been evaluated in individuals less than 14 years of age. Current Interpretive Data last revised 2023. Urine (None) 10/04/2024 9:34 AM TUTORING ASSISTANT 10/04/2024 11:25 AM TUTORING ASSISTANT Ganesh Freeman MD LAB MICROBIOLOGY - GENER AL ORDERABLES Final Result Performing Organization Address [facility] [place] [place] [address] [facility] * (ABNORMAL) Protein / creatinine ratio, urine, random (10/04/2024 9:34 AM TUTORING ASSISTANT) Protein, ur, quant 5.8 mg/dL Comment: Interpretive Data No reference range established. Current interpretive data was last revised 2019. Creatinine Ur 24.7 mg/dL [facility] Comment: Interpretive Data No reference range established. Current interpretive data was last revised 2019. Protein/creatinin e ratio 234.8(H) 0.0 - 180.0 mg/g CR [facility] Urine 10/04/2024 9:34 AM TUTORING ASSISTANT 10/04/2024 12:40 PM TUTORING ASSISTANT Ganesh Freeman MD LAB URINE ORDERABLES Fin al Result Performing Organization Address [facility] Co de Phone Number [facility] [place] [address] * Check Sample (10/04/2024 3:44 AM TUTORING ASSISTANT) Pathologist [facility] ABO Rh O Positive [facility] HCLL OTHER 10/04/2024 3:44 AM TUTORING ASSISTANT 10/04/2024 4:05 AM TUTORING ASSISTANT Nunu Black MD LAB BLOOD ORDERABLES Viv l Result Performing Organization Address [facility] de Phone Number [facility] [place] [address] [facility] * Urinalysis reflex to microscopic and culture Urine (10/04/2024 3:44 AM TUTORING ASSISTANT) Color, ur Straw Yellow Clarity, ur Clear Clear [facility] Specific gravity, ur 1.008 1.003 - 1.030 [facility] pH, urine 7.5 [facility] Comment: Interpretive Data U rine pH is affected by diet, medications, systemic acid-base disturbances, and renal tubular function. pH may affect urinary stone formation. For example, urine pH below 6.0 may help reduce the tendency for calcium phosphate stones and pH greater than 6.0 may reduce the tendency for uric acid stone formation. Source: [facility] [employer] Current Interpretive Data was last revised on 2017 Protein, ur ql Negative Negative [facility] Glucose, ur ql Negative Negative [facility] Ketones, ur Negative Negative [facility] Bilirubin, ur Negative Negative [facility] Blood, ur Negative Negative [facility] Urobilinogen, ur <2.0 <2.0 mg/dL [facility] Nitrite, ur Negative Negative [facility] Leukocyte esterase, ur Negative Negative [facility] UA reflex comment Reflex conditions for microscopic UA and culture not met. [facility] Urine 10/04/2024 3:44 AM TUTORING ASSISTANT 10/04/2024 3:58 AM TUTORING ASSISTANT Narrative [facility] - 10/04/2024 4:05 AM TUTORING ASSISTANT If patient unable to urinate, straight cath us Nunu Black MD LAB MICROBIOLOGY - GENERA L ORDERABLES Final Result [facility] [place] [address] * CT Chest PE (CTA) Abdomen Pelvis W Contrast (10/04/2024 3:34 AM TUTORING ASSISTANT) Anatomical Region Laterality Modality Body N/A Computed Tomogra phy 10/04/2024 5:03 AM TUTORING ASSISTANT Impressions 10/04/2024 8:09 AM TUTORING ASSISTANT 1. No evidence of pulmonary embolism or septic emboli. 2. Mild splenomegaly. 3. Diffuse body wall edema. Dictated by: Nazario Segovia M.D. The radiology attending physician has personally reviewed this study, and had reviewed and/or edited this written report and agrees with it. Electronically signed by: Margarito Killian M.D. Narrative 10/04/2024 8:09 AM TUTORING ASSISTANT EXAMINATION: CT CHEST PE (CTA) ABDOMEN PELVIS [...] by: Margarito Killian M.D. Lisette Arevalo MD IMG CT PROCEDURES Final Result * Troponin I high-sensitivity 2-hour (10/04/2024 2:25 AM TUTORING ASSISTANT) Pathologist [facility] Trop I hs <4 <=17 ng/L Comment: Interpretive Data For further hscTnI resources including the diagnostic algorithm and an aid in interpretation, copy and paste this link: https://bjhlab.testcatalog.org/show/[email or web address] Current Interpretive Data last revised 2020. Trop I hs delta 0 ng/L RONNI WRIGHT Trop I hs interp Insignificant RONNI [facility] Blood 10/04/2024 2:25 AM TUTORING ASSISTANT 10/04/2024 3:01 AM TUTORING ASSISTANT Lisette Arevalo MD LAB BLOOD ORDERABLES Fi nal Result RONNI WRIGHT [facility] [place] [address] * Thyroid Function Rupert (10/04/2024 2:25 AM TUTORING ASSISTANT) Pathologist [facility] TSH 1.78 0.30 - 4.20 mcIUnit/mL Blood 10/04/2024 2:25 AM TUTORING ASSISTANT 10/04/2024 3:01 AM TUTORING ASSISTANT Ganesh Freeman MD LAB BLOOD ORDERABLES Fin al Result Performing Organization Address [facility] Co de Phone Number [facility] [place] [address] * (ABNORMAL) Iron profile w/ IBC (10/04/2024 2:25 AM TUTORING ASSISTANT) Pathologist [facility] Iron 12(L) 35 - 145 mcg/dL TIBC 93(L) 250 - 400 mcg/dL [facility] Transferrin saturation 13(L) 20 - 50 % [facility] Blood 10/04/2024 2:25 AM TUTORING ASSISTANT 10/04/2024 3:01 AM TUTORING ASSISTANT Lisette Arevalo MD LAB BLOOD ORDERABLES Fi nal Result Performing Organization Address [facility] Co de Phone Number [facility] [place] [address] * Type and screen (10/04/2024 2:25 AM TUTORING ASSISTANT) Pathologist [facility] ABO Rh O Positive King, indirect Negative [facility] Blood 10/04/2024 2:25 AM TUTORING ASSISTANT 10/04/2024 3:08 AM TUTORING ASSISTANT Narrative [facility] - 10/04/2024 3:58 AM TUTORING ASSISTANT Has the patient had Daratumumab or Isatuximab in the past 6 months?->Unknown Lisette Arevalo MD LAB BLOOD BANK TEST ORD ERABLES Final Result Performing Organization Address [facility] Co de Phone Number [facility] [place] [address] * hCG, blood, quantitative (10/04/2024 2:25 AM TUTORING ASSISTANT) Pathologist [facility] hCG, quant <5.0 0.0 - 5.0 IUnits/L Comment: Interpretive Data Male: < 5 IU/L Non- premenopausal Female: <5 IU/L The Leia hCG Beta Quant assay procedure was used. Results from different manufacturers or methods may not be comparable. Serial testing should be performed using the same method. Interpretive Data was last revised on 2023 Blood 10/04/2024 2:25 AM TUTORING ASSISTANT 10/04/2024 3:01 AM TUTORING ASSISTANT Kris Mckeon MD LAB BLOOD ORDERABLES Final Result Performing Organization Address City/[facility] [place] [address] * Lactate dehydrogenase (LD) (10/04/2024 2:25 AM TUTORING ASSISTANT) Lactate dehydrogenase (LDH) 159 100 - 250 Units/L Blood 10/04/2024 2:25 AM TUTORING ASSISTANT 10/04/2024 3:01 AM TUTORING ASSISTANT Kris Mckeon MD LAB BLOOD ORDERABLES Final Result Performing Organization Address [facility] de Phone Number [facility] [place] [address] * (ABNORMAL) Haptoglobin (10/04/2024 2:25 AM TUTORING ASSISTANT) Haptoglobin 227.0(H) 30.0 - 200.0 mg/dL Blood 10/04/2024 2:25 AM TUTORING ASSISTANT 10/04/2024 3:01 AM TUTORING ASSISTANT Kris Mckeon MD LAB BLOOD ORDERABLES Final Result Performing Organization Address [facility] Co de Phone Number [facility] [place] [address] * Ferritin (10/04/2024 2:25 AM TUTORING ASSISTANT) Ferritin 80 13 - 150 ng/mL Blood 10/04/2024 2:25 AM TUTORING ASSISTANT 10/04/2024 3:01 AM TUTORING ASSISTANT us Kris Mckeon MD LAB BLOOD ORDERABLES Final Result Performing Organization Address [facility] [place] [address] * Prepare RBC: 2 Units (10/04/2024 2:22 AM TUTORING ASSISTANT) Product code [id number] [facility] Unit Number [id number] [facility] Product Blood Type ONEG [facility] Dispense Status PRESUMED TRANSFUSED [facility] Product code [id number] Unit Number [id number] [facility] Product Blood Type OPOS [facility] Dispense Status PRESUMED TRANSFUSED [facility] Blood 10/04/2024 2:22 AM TUTORING ASSISTANT 10/04/2024 2:21 AM TUTORING ASSISTANT Narrative [facility] - 10/05/2024 12:56 AM TUTORING ASSISTANT Are special requirements needed? (All products are leukoreduced and CMV- safe)- >No Date required:-[id number] LRRBC # of [id number] Reasons:-Hgb <7 g/dL} us Lisette Arevalo MD BLOOD BANK PRODUCT ORDE RABLES Final Result Performing Organization Address [facility] de Phone Number [facility] [place] [address] * IA CRITICAL CARE ILL/INJURED PATIENT INIT 30-74 MIN (10/04/2024 2:17 AM TUTORING ASSISTANT) Narrative Nunu Black MD - 10/04/2024 2:17 AM TUTORING ASSISTANT Nunu Black MD 10/04/2024 2:18 AM Critical [...] review prior cultures/records and obtain appropriate cultures Nunu Black MD IN CLINIC/BEDSIDE ORDERAB LES Final Result * ECG 12-LEAD (10/04/2024 1:57 AM TUTORING ASSISTANT) Narrative [facility] - 10/04/2024 1:57 AM TUTORING ASSISTANT Nunu Black MD 10/04/2024 1:57 AM ECG [...] Arevalo MD ECG ORDERABLES Final R esult [facility] * Troponin I high-sensitivity series (baseline, 2hr, 4hr, 6hr) (10/04/2024 12:41 AM TUTORING ASSISTANT) Pathologist [facility] Trop I hs <4 <=17 ng/L Comment: Interpretive Data For further hscTnI resources including the diagnostic algorithm and an aid in interpretation, copy and paste this link: https://bjhlab.testcatalog.org/show/[email or web address] Current Interpretive Data last revised 2020. Blood 10/04/2024 12:4 1 AM TUTORING ASSISTANT 10/04/2024 1:01 AM TUTORING ASSISTANT Lisette Arevalo MD LAB BLOOD ORDERABLES Fi nal Result Performing Organization Address [facility] Co de Phone Number RONNI [facility] [place] [address] * Sepsis Lactate w/ Reflex (10/04/2024 12:41 AM TUTORING ASSISTANT) [facility] Sepsis Lactate 1.3 0.7 - 2.0 mmol/L Blood 10/04/2024 12:4 1 AM TUTORING ASSISTANT 10/04/2024 1:01 AM TUTORING ASSISTANT Lisette Arevalo MD LAB BLOOD ORDERABLES Fi nal Result Performing Organization Address [facility] de Phone Number RONNI [facility] [place] [address] * eGFR (10/04/2024 12:41 AM TUTORING ASSISTANT) Pathologist [facility] eGFR >90 >=60 mL/min/1. 73 m2 Comment: [...] reviewed 2021. Blood 10/04/2024 12:4 1 AM TUTORING ASSISTANT 10/04/2024 1:13 AM TUTORING ASSISTANT us Nunu Black MD LAB BLOOD ORDERABLES Viv arelalno Result [facility] [place] [address] * Differential, auto (10/04/2024 12:41 AM TUTORING ASSISTANT) Neutrophil abs 2.6 1.5 - 6.5 K/cumm Imm gran abs 0.1 0.0 - 0.1 K/cumm [facility] Lymphocyte abs 1.0 0.8 - 3.3 K/cumm [facility] Monocyte abs 0.4 0.2 - 0.8 K/cumm [facility] Eosinophil abs 0.0 0.0 - 0.5 K/cumm [facility] Basophil abs 0.0 0.0 - 0.1 K/cumm [facility] Neutrophil pct 64.2 % [facility] Comment: Interpretive Data Percent cell count reference ranges are not reported, since discordance with absolute values may lead to misinterpretation of CBC data. Current Interpretive Data was last revised on 2017. Imm gran pct 1.2 % [facility] Comment: Interpretive Data Percent cell count reference ranges are not reported, since discordance with absolute values may lead to misinterpretation of CBC data. Current Interpretive Data was last revised on 2017. Lymphocyte pct 23.7 % [facility] Comment: Interpretive Data Percent cell count reference ranges are not reported, since discordance with absolute values may lead to misinterpretation of CBC data. Current Interpretive Data was last revised on 2017. Monocyte pct 10.2 % [facility] Comment: Interpretive Data Percent cell count reference ranges are not reported, since discordance with absolute values may lead to misinterpretation of CBC data. Current Interpretive Data was last revised on 2017. Eosinophil pct 0.5 % [facility] Comment: Interpretive Data Percent cell count reference ranges are not reported, since discordance with absolute values may lead to misinterpretation of CBC data. Current Interpretive Data was last revised on 2017. Basophil pct 0.2 % [facility] Comment: Interpretive Data Percent cell count reference ranges are not reported, since discordance with absolute values may lead to misinterpretation of CBC data. Current Interpretive Data was last revised on 2017. Blood 10/04/2024 12:4 1 AM TUTORING ASSISTANT 10/04/2024 1:01 AM TUTORING ASSISTANT us Khurram Purdy MD LAB BLOOD ORDERABLES F inal Result [facility] [place] [address] * (ABNORMAL) Pro B-type natriuretic peptide (10/04/2024 12:41 AM TUTORING ASSISTANT) NT-proBNP 1,863(H) <=300 pg/mL Comment: Interpretive Comments: [...] Heart J. 2006:27:330-337. 2. Anika RW, Crista HUANG. J. AM Kyle Cardiol: Cardiovasc Imag. 2009;2: 216- 225. Interpretive Data Last Revised Date: 2018. Blood 10/04/2024 12:4 1 AM TUTORING ASSISTANT 10/04/2024 1:01 AM TUTORING ASSISTANT Lisette Arevalo MD LAB BLOOD ORDERABLES Fi nal Result Performing Organization Address City/[facility]/ZIP Co de Phone Number [facility] [place] [address] * HIV 1/2 Antibody plus p24 Antigen Blood (10/04/2024 12:41 AM TUTORING ASSISTANT) HIV 1/2 ab + p24 ag Nonreactive Nonreactive Comment:Nonreactive for HIV- 1 antigen and HIV-1/HIV-2 antibodies. No laboratory evidence of HIV infection. If acute HIV infection is suspected, consider testing for HIV-1 RNA. Current interpretive data was last revised on 22. Blood 10/04/2024 12:4 1 AM TUTORING ASSISTANT 10/04/2024 1:01 AM TUTORING ASSISTANT Lisette Arevalo MD LAB MICROBIOLOGY - GENE RAL ORDERABLES Final Result [facility] [place] [address] * Respiratory pathogen panel Nasopharyngeal (10/04/2024 12:41 AM TUTORING ASSISTANT) Pathologist [facility] Influenza A RNA Not Detected Not Detected Influenza B RNA Not Detected Not Detected [facility] RSV RNA Not Detected Not Detected [facility] COVID-19 RNA Not Detected Not Detected [facility] Coronavirus 229E RNA Not Detected Not Detected [facility] Coronavirus HKU1 RNA Not Detected Not Detected [facility] Coronavirus NL63 RNA Not Detected Not Detected [facility] Coronavirus OC43 RNA Not Detected Not Detected [facility] Adenovirus DNA Not Detected Not Detected [facility] Metapneumovirus RNA Not Detected Not Detected [facility] Rhinovirus/Enterov irus RNA Not Detected Not Detected [facility] Parainfluenza 1 RNA Not Detected Not Detected [facility] Parainfluenza 2 RNA Not Detected Not Detected [facility] Parainfluenza 3 RNA Not Detected Not Detected [facility] Parainfluenza 4 RNA Not Detected Not Detected [facility] B. pertussis DNA Not Detected Not Detected [facility] B. parapertussis DNA Not Detected Not Detected [facility] C. pneumoniae DNA Not Detected Not Detected [facility] M. pneumoniae DNA Not Detected Not Detected [facility] Nasopharyngeal 10/04/2024 12 :41 AM TUTORING ASSISTANT 10/04/2024 1:17 AM TUTORING ASSISTANT Narrative [facility] - 10/04/2024 2:22 AM TUTORING ASSISTANT Is the Patient experiencing symptoms consistent with COVID?->Yes Surveillance testing for transplant patient?->No Interpretive Data The [employer] FilmArray Respiratory Panel (RP2.1) assay is a [...] assay has FDA clearance for testing of VACATION GUIDE swabs. The performance of additional specimen types has been assessed by the performing laboratory. The performance characteristics of this assay have been determined by [facility] Molecular Infectious Disease Laboratory. Current interpretive data was last revised on 22. Lisette Arevalo MD LAB MICROBIOLOGY - [facility] ORDERABLES Final Result [facility] [place] [address] * (ABNORMAL) CBC with auto differential (10/04/2024 12:41 AM TUTORING ASSISTANT) WBC 4.0 3.8 - 9.9 K/cumm Hgb 5.8(C) 11.9 - 15.5 g/dL RONNI WRIGHT Comment:Critical result call ed to and read back by YUMIKO BENJAMIN RN on 10 04 2024 at 0113 to Marlin Morales. Hct 20.7(L) 35.6 - 45.5 % [facility] Plt 248 150 - 400 K/cumm [facility] MPV 10.7 9.1 - 12.3 fL [facility] RBC 2.41(L) 3.90 - 5.20 M/cumm [facility] MCV 85.9 81.3 - 96.4 fL [facility] MCH 24.1(L) 27.1 - 33.3 pg [facility] MCHC 28.0(L) 32.3 - 35.7 g/dL [facility] RDW CV 16.6(H) 11.1 - 14.9 % [facility] RDW SD 52.0(H) 35.7 - 48.1 fL [facility] NRBC abs 0.00 0.00 - 0.01 K/cumm [facility] Blood 10/04/2024 12:4 1 AM TUTORING ASSISTANT 10/04/2024 1:01 AM TUTORING ASSISTANT us Nunu Black MD LAB BLOOD ORDERABLES Viv l Result [facility] [place] [address] * Hepatitis panel, acute Blood (10/04/2024 12:41 AM TUTORING ASSISTANT) Hep A IgM Nonreactive Nonreactive Hep B core IgM Nonreactive Nonreactive [facility] Hep C Ab Nonreactive Nonreactive [facility] Comment:Antibodies to HCV no t detected. Does NOT exclude the possibility of recent exposure to HCV. Current interpretive data was last revised on 22 HepBsAg Nonreactive Nonreactive [facility] Blood 10/04/2024 12:4 1 AM TUTORING ASSISTANT 10/04/2024 1:01 AM TUTORING ASSISTANT us Lisette Arevalo MD LAB MICROBIOLOGY - GENE RAL ORDERABLES Final Result [facility] [place] [address] * Hepatitis B core antibody, total Blood (10/04/2024 12:41 AM TUTORING ASSISTANT) Pathologist [facility] Hep B core IgG/IgM Nonreactive Nonreactive Blood 10/04/2024 12:4 1 AM TUTORING ASSISTANT 10/04/2024 1:01 AM TUTORING ASSISTANT Ganesh Freeman MD LAB MICROBIOLOGY - GENER AL ORDERABLES Final Result Performing Organization Address [facility] [place] [address] * RPR Blood (10/04/2024 12:41 AM TUTORING ASSISTANT) Pathologist [facility] RPR Nonreactive Nonreactive Blood 10/04/2024 12:4 1 AM TUTORING ASSISTANT 10/04/2024 1:01 AM TUTORING ASSISTANT Ganesh Freeman MD LAB MICROBIOLOGY - GENER AL ORDERABLES Final Result Performing Organization Address [facility] de Phone Number [facility] [place] [address] * Blood culture Blood (10/04/2024 12:41 AM TUTORING ASSISTANT) Pathologist [facility] Report Final Report: No growth Blood 10/04/2024 12:4 1 AM TUTORING ASSISTANT 10/04/2024 1:10 AM TUTORING ASSISTANT Narrative [facility] - 10/08/2024 7:00 AM TUTORING ASSISTANT From a different site than #1. Collection->Peripheral [...] performance characteristics have been verified by the [facility] Microbiology Laboratory. For questions about this culture, contact the Microbiology Laboratory at [phone]. Interpretive data was last revised on 24. us Lisette Arevalo MD LAB MICROBIOLOGY - GENE RAL ORDERABLES Final Result [facility] [place] [address] * (ABNORMAL) Blood culture Blood (10/04/2024 12:41 AM TUTORING ASSISTANT) Pathologist [facility] Direct Specimen Exam Molecular Analysis: Corynebacterium detected by [facility] BCID-GP panel. Single positive culture may represent contamination. This test does not exclude the possibility of a mixed bacterial infection. Notification of: Corynebacterium called to and read back by: Sharron Pham MD [phone] on 10/05/2024 23:49:11 by: Kacy Rm MT Direct Specimen Exam Stain: Gram Positive Coccobacillus Time to culture positivity (anaerobic media): 43.9 hours Notification of: Gram Positive Coccobacillus called to and read back by: Sharron Pham MD [phone] on 10/05/2024 21:59:40 by: Kacy Rm MT [facility] Report Final Report: Corynebacterium striatum Single blood culture positive for this microorganism. Isolate is a possible contaminant. If a similar isolate is recovered from a second blood culture collected within 3 days of this culture, both will be evaluated and, if determined to be the same species, antimicrobial susceptibility testing will be performed. (.) [facility] Organism CORYNEBACTERIUM STRIATUM [facility] Blood 10/04/2024 12:4 1 AM TUTORING ASSISTANT 10/04/2024 1:10 AM TUTORING ASSISTANT Narrative RONNI CORRIGAN - 10/09/2024 2:45 PM TUTORING ASSISTANT Collection->Peripheral 1. Blood cultures are incubated for [...] performance characteristics have been verified by the [facility] Microbiology Laboratory. For questions about this culture, contact the Microbiology Laboratory at [phone]. Interpretive data was last revised on 24. Lisette Arevalo MD LAB MICROBIOLOGY - [facility] ORDERABLES Final Result [facility] [place] [address] * (ABNORMAL) Reticulocyte Count (10/04/2024 12:41 AM TUTORING ASSISTANT) Retics, absolute 0.023 0.020 - 0.087 M/cumm Retics 0.9 0.4 - 2.9 % [facility] Reticulocyte Hgb 19.9(L) 30.5 - 38.0 pg [facility] Blood 10/04/2024 12:4 1 AM TUTORING ASSISTANT 10/04/2024 1:05 AM TUTORING ASSISTANT Kris Mckeon MD LAB BLOOD ORDERABLES Final Result Performing Organization Address City/[facility]/ZIP Co de Phone Number [facility] [place] [address] * Lipase (10/04/2024 12:41 AM TUTORING ASSISTANT) [facility] Lipase 29 10 - 99 Units/L Blood 10/04/2024 12:4 1 AM TUTORING ASSISTANT 10/04/2024 1:04 AM TUTORING ASSISTANT Lisette Arevalo MD LAB BLOOD ORDERABLES Fi nal Result Performing Organization Address [facility] Co de Phone Number [facility] [place] [address] * (ABNORMAL) Comprehensive metabolic panel (10/04/2024 12:41 AM TUTORING ASSISTANT) [facility] Sodium 137 135 - 145 mmol/L Potassium, pl 3.3 3.3 - 4.9 mmol/L [facility] Chloride 105 97 - 110 mmol/L [facility] CO2 26 22 - 32 mmol/L [facility] Anion gap 6 2 - 15 mmol/L [facility] BUN 5(L) 6 - 25 mg/dL [facility] Creatinine 0.51(L) 0.60 - 1.10 mg/dL [facility] Glucose 98 70 - 199 mg/dL [facility] Comment: Interpretive Data Fasting glucose >/= [...] 2022. Calcium 7.4(L) 8.5 - 10.3 mg/dL [facility] Bilirubin, total <0.2 0.1 - 1.2 mg/dL [facility] Protein, pl 4.8(L) 6.5 - 8.5 g/dL [facility] Albumin 1.8(L) 3.5 - 5.0 g/dL [facility] Alk phos 111 40 - 130 Units/L [facility] ALT 5(L) 7 - 45 Units/L [facility] AST 15 10 - 45 Units/L [facility] Blood 10/04/2024 12:4 1 AM TUTORING ASSISTANT 10/04/2024 1:04 AM TUTORING ASSISTANT us Nunu Black MD LAB BLOOD ORDERABLES Viv arellano Result [facility] [place] [address] from Last 3 Months Insurance [facility] Advance Directives For more information, please contact: [phone] * Full Code (Latest Code Status on File) Date Activated Date Inactivated Comments 10/04/2024 4:01 AM 10/10/2024 6:18 PM Care Teams Warehouse Person Relationship Specialty Start Date End Date Anand Richard MD [address] [place] [address] PCP - General Family Medicine 10/10/24
--- OUTSIDE RECORDS SUMMARY | 2024-12-29 12:02 | XMS_ITS | Patient Health Record ---
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 Sawyer Name Role Phone Joseluanne Lizaheidi Primary Care Provider Kay VILLATORO Unavailable Unavailable Dominga Mercedes Unavailable [phone] Felicita Jansen Unavailable [phone] Allergies Allergen (clinical drug ingredient) Drug/Non Drug Allergy documented on EMR Reaction Allergy Type Onset Date Status codeine Codeine Unknown Drug Allergy Active Results Component Value Reference Range Notes Test, Urine Reviewed date:10/16/2024 03:06:20 PM Interpretation:Negative Performing Lab: Notes/Report: Negative Test, Urine negative Negative - Negative 12 Panel Urine Drug Screen Reviewed date:10/16/2024 03:05:24 PM Interpretation: Performing Lab: Notes/Report: THC neg AMADOR neg MOP (OPI) neg AMP neg MET neg BAR neg BZO neg MDMA neg MTD neg OXY neg PCP neg BUP POS 12 Panel Urine Drug Screen Reviewed date:10/31/2024 02:51:48 PM Interpretation: Performing Lab: Notes/Report: THC neg AMADOR neg MOP (OPI) neg AMP neg MET neg BAR neg BZO neg MDMA neg MTD neg OXY neg PCP neg BUP POS 12 Panel Urine Drug Screen Reviewed date:12/18/2024 01:40:26 PM Interpretation: Performing Lab: Notes/Report: THC neg AMADOR neg MOP (OPI) neg AMP neg MET neg BAR neg BZO neg MDMA neg MTD neg OXY neg PCP neg BUP POS 12 Panel Urine Drug Screen Reviewed date:11/14/2024 02:00:14 PM Interpretation: Performing Lab: Notes/Report: THC neg AMADOR neg MOP (OPI) neg AMP neg MET neg BAR neg BZO neg MDMA neg MTD neg OXY neg PCP neg BUP POS Medication Assisted Treatmen t (MAT) Buprenorphine, Norbuprenorphine, and Naloxone MS Confirmation, Urine Reviewed date:11/19/2024 08:15:36 AM Interpretation: Performing Lab:[employer] [facility] [employer], [address] [facility], Phone - [phone], Director - Renzo Notes/Report: Creatinine 66 REFERENCE RANGE : Ref Range>=20 BUPRENORPHINE ++POSITIVE++ Buprenorphine 159 Norbuprenorphine >1515 N/B Ratio >9.52 >=0.3 OPIATE ANTAGONIST ++POSITIVE++ Naloxone 395 Testing Threshold: buprenorphine, 1.0 ng/mL norbuprenorphine, 5.0 ng/mL naloxone, 10 ng/mL This test was developed and its performance characteristics determined by [employer]. It has not been cleared or approved by the Food and Drug Administration. Reason For Referral No Information Medications Medication SIG (Take, Route, Frequency, Duration) Notes Start Date End Date Status Lasix 20 MG 1 tablet Orally Once a day Active Iron 325 (65 Fe) MG 1 tablet Orally ever y other day Active Buprenorphine HCl-Naloxone HCl 8-2 MG 1 tablet under the tongue and allow to dissolve Sublingual three times day for 30 days 12/18/2024 Active Cymbalta 30 MG 1 capsule Orally Onc e a day Active Eliquis 5 MG as directed Orally T wice a day Active CeleBREX 200 MG 1 capsule with food Orally Once a day Active Pantoprazole Sodium 40 MG 1 tablet 1/2 t o 1 hour before morning meal Orally Once a day Active busPIRone HCl 10 MG 1 tablet Orally Twic e a day Active Gabapentin 400 MG as directed Orally t wice a day Active cloNIDine HCl 0.2 MG 1 tablet Orally thr ee times a day Active hydrOXYzine HCl 25 MG 1 tablet as needed Orally four times a day Active Social History Tobacco Use: Social History Observation Description Date Details (start date - stop date) Never Smoker NA - NA Sex Assigned At : Social History Observation Description Sex Assigned At Female Tobacco Control (Standard) Question Answer Notes Tobacco use: Nonsmoker Problems Problem Type SNOMED Code ICD Code Onset Dates Problem Status W/U Status Risk Notes Problem Opioid use disorder (7694681582) Opioid use disorder (F11.99) Active confirmed Vital Signs Heart Rate 90 /min 12/18/2024 Temperature 98.6 degrees Fahrenheit 12/18/2024 Respiratory Rate 16 /min 12/18/2024 Oximetry 97 % 12/18/2024 Blood pressure diastolic 70 mm Hg 12/18/2024 Height 67 in 12/18/2024 Blood pressure systolic 118 mm Hg 12/18/2024 Weight 175.6 lbs 12/18/2024 BMI 27.5 kg/m2 12/18/2024 Encounters Encounter Location Date Provider Diagnosis [address] [place] [address] 10/16/2024 Felicita Mofikay Opioid use disorder F11.[address] [place] [address] 10/31/2024 Felicita Chepefik Opioid use disorder F11.[address] [place] [address] 11/14/2024 Felicita Mofikay Opioid use disorder F11.99 and Nutritional counseling Z71.[address] [address] 12/18/2024 Dominga Santiagotiburcio Opioid use disorder F11.99 Assessments Encounter Date Diagnosis (ICD Code) Assessment Notes Treatment Notes Treatment Clinical Notes Section Notes 10/16/2024 Opioid use disorder (ICD-10 - F11.99) Still has films available. Will return for follow-up when due for refill. 10/31/2024 Opioid use disorder (ICD-10 - F11.99) 12/18/2024 Opioid use disorder (ICD-10 - F11.99) 11/14/2024 Nutritional counseling (ICD-10 - Z71.3) 11/14/2024 Opioid use disorder (ICD-10 - F11.99) 10/16/2024 Other Patient agrees to take medication as prescribed. Discussed medication side effects, adverse effects, risks, benefits, as well as interactions. Encouraged non-use of opioids and other illicit substances. Has naloxone. Discontinuing buprenorphine increases the risk of overdose upon return to illicit opioid use. Use of alcohol or benzodiazepines with buprenorphine increases the risk of overdose and . Education provided about safe storage of medications. Encouraged participation in recovery groups/counseling services. Contact office with questions or concerns. Patient may self-administe r their own medications or may self-administe r their own oral medications per Reva Protocol. 10/31/2024 Other Patient agrees to take medication as prescribed. Discussed medication side effects, adverse effects, risks, benefits, as well as interactions. Encouraged non-use of opioids and other illicit substances. Has naloxone. Discontinuing buprenorphine increases the risk of overdose upon return to illicit opioid use. Use of alcohol or benzodiazepines with buprenorphine increases the risk of overdose and . Education provided about safe storage of medications. Encouraged participation in recovery groups/counseling services. Contact office with questions or concerns. Patient may self-administe r their own medications or may self-administe r their own oral medications per [facility] Protocol. 11/14/2024 Other Patient agrees to take medication as prescribed. Discussed medication side effects, adverse effects, risks, benefits, as well as interactions. Encouraged non-use of opioids and other illicit substances. Has naloxone. Discontinuing buprenorphine increases the risk of overdose upon return to illicit opioid use. Use of alcohol or benzodiazepines with buprenorphine increases the risk of overdose and . Education provided about safe storage of medications. Encouraged participation in recovery groups/counseling services. Contact office with questions or concerns. Patient may self-administe r their own medications or may self-administe r their own oral medications per [facility] Protocol. 12/18/2024 Other Patient agrees to take medication as prescribed. Discussed medication side effects, adverse effects, risks, benefits, as well as interactions. Encouraged non-use of opioids. Encouraged participation in recovery groups. Patient may contact office with questions or concerns. 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
[2024-12-29 12:09] LABS: Progesterone <0.5 ng/mL
[2024-12-30 02:14] LABS: DHEA-Sulfate 100 mcg/dL (19-237); LH 2.1 mIU/mL; Prolactin 12.1 ng/mL; Sex Hormone Binding Globulin 23 nmol/L (17-124)
[2025-01-02 09:47] LABS: Testosterone Free 0.8 pg/mL (0.1-6.4); Testosterone Total 5 ng/dL (2-45)
== END 2024-12-28 10:41 | disposition home or self-care (01) ==
PROVIDERS: PCP Family Medicine Adolescent Medicine; Referring Provider Nurse Practitioner; Visit Provider Nurse Practitioner Family
DX: F41.1 Generalized anxiety disorder (principal); K21.9 Gastro-esophageal reflux disease without esophagitis; R11.0 Nausea; R10.11 Right upper quadrant pain; G47.00 Insomnia, unspecified; Z13.220 Encounter for screening for lipoid disorders; G25.81 Restless legs syndrome; D64.9 Anemia, unspecified; Z68.26 Body mass index [BMI] 26.0-26.9, adult; N91.2 Amenorrhea, unspecified
CPT/HCPCS: 36415; 80053; 80061; 82607; 82627; 82670; 83001; 83002; 83036; 83498; 83540; 83550; 84144; 84146; 84270; 84402; 84403; 84443; 84702; 85025; 86593; 86703; 86705; 86803; 87340; 99202; G0432; G0463

== ENCOUNTER 2025-01-04 08:14 | Outpatient (CLI) | payer OTHER, SELFPAY ==
--- NOTE | ~2025-01-04 | US_ITS ---
US abdomen limited INDICATION: Right upper quadrant pain PROCEDURE: Realtime right upper abdominal ultrasound. COMPARISON: No prior studies for comparison. FINDINGS: There is a small 1 cm hypoechoic mass of the pancreatic body. Liver echotexture is normal without focal mass or intrahepatic biliary dilatation. There is normal directional flow in the juaquin l vein. Gallbladder is surgically absent. Common bile duct measures 2.5 mm. No sonographic Sanderson's sign. IMPRESSION: 1: Hypoechoic 1 cm pancreatic mass. The differential diagnosis includes complex pseudocyst, intraduct al papillary mucinous neoplasm (IPMN), mucinous cystic neoplasm (MCN), and the less common serous cys tadenoma and neuroendocrine tumor. Recommend further evaluation with MRI of the abdomen without and w ith contrast. Reviewed, dictated and finalized at location A. IMPRESSION: 1: Hypoechoic 1 cm pancreatic mass. The differential diagnosis includes complex pseudocyst, intraductal papillary mucinous neoplasm (IPMN), mucinous cystic ne oplasm (MCN), and the less common serous cystadenoma and neuroendocrine tumor. Recommend further evaluation with MRI of the abdomen without and with contrast.
--- OUTSIDE RECORDS SUMMARY | 2025-01-04 08:18 | XMS_ITS | Clinical Summary ---
Author Organization [facility] Address [address] [place] [address] Care Team Providers Care Swimming Pool Maintenance Supervisor Name Role Phone Unavailable Primary Care Provider [...] Documents on File Type Date Recorded Patient [employer] Expl anation Advance Directives and Living Will 05/22/2018 12:00 AM [employer] DIRECTIVES
--- OUTSIDE RECORDS SUMMARY | 2025-01-04 08:19 | XMS_ITS | Clinical Summary ---
Author Organization [facility] Address [address] [place] [id number] Care Team Providers Care Senior Civil Engineer Name Role Phone Anand Richard MD Primary [...] Team Description 11/08/2024 Results Follow-Up Radiology 1 [place] [address] Brenden Valencia MD 11/07/2024 Telephone [facility] Cardiology [address] [place] [address] Medicine 8th [place] [address] [place] [address] Brenden Valencia MD 11/06/2024 Telephone [facility] Cardiology [address] [place] [address] 8th [place] [address] [place] [address] Brenden Valencia MD 10/31/2024 12:11 PM LUGGAGE LINER - 10/31/2024 11:59 PM LUGGAGE LINER Hospital Encounter [facility] Cardiac Diagnostic Lab [address] [place] [phone] Mitral valve insufficiency, unspecified etiology; Hypervolemia, unspecified hypervolemia type Discharge Disposition: Discharge to home or self care 10/24/2024 11:30 AM LUGGAGE LINER Office Visit [facility] Cardiology [address] [facility] Advanced Medicine 8th [place] [address] [place] [address] Brenden Valencia MD Hypervolemia, unspecified hypervolemia type (Primary Dx); Mitral valve insufficiency, unspecified etiology 10/16/2024 [facility] 1 [place], [place] [phone] Ingrid Arce 10/12/2024 Telephone [facility] Cardiology [address] [facility] Medicine 8th [place] [address] [place] [address] Lilibeth Thapa 10/08/2024 9:50 AM LUGGAGE LINER Ancillary Procedure [facility] Vascular Lab IP [address] [facility] [address] [place] [address] 10/08/2024 9:45 AM LUGGAGE LINER Ancillary Procedure [facility] Vascular Lab IP [address] [facility] [address] [place] [address] 10/03/2024 11:17 PM LUGGAGE LINER - 10/10/2024 2:18 PM LUGGAGE LINER Hospital Encounter [facility] 1 [place] [address] Nunu Black MD Heath, MD Pete Garcia, [...] on file Legal Sex Female 8:49 PM LUGGAGE LINER Gender Identity Not on file Sexual Orientation Not on file Obstetrics History Last Filed Vital Signs Vital Sign Reading Time Taken Comments Blood Pressure 110/75 10/24/2024 12:02 PM LUGGAGE LINER Pulse 110 10/24/2024 12:02 PM LUGGAGE LINER Temperature 36.8 C (98.2 F) 10/10/2024 7:20 AM LUGGAGE LINER Respiratory Rate 18 10/10/2024 7:20 AM LUGGAGE LINER Oxygen Saturation 98% 10/24/2024 12:02 PM LUGGAGE LINER Inhaled Oxygen Concentration - - Weight 69.4 kg (153 lb) 10/24/2024 12:02 PM LUGGAGE LINER Height 170.2 cm (5' 7 ) 10/24/2024 12:02 PM LUGGAGE LINER Body Mass Index 23.96 10/24/2024 12:02 PM LUGGAGE LINER Plan of Treatment Health Maintenance Due Date [...] DOPPLER/CF WO CONTRAST Routine 10/31/2024 1:30 PM LUGGAGE LINER Mitral valve insufficiency, unspecified etiology Hypervolemia, unspecified hypervolemia type EGFR Routine 10/09/2024 8:33 PM LUGGAGE LINER DIFFERENTIAL AUTO Routine 10/09/2024 8:3 3 PM LUGGAGE LINER MAGNESIUM Routine 10/09/2024 8:33 PM LUGGAGE LINER CBC WITH AUTO DIFFERENTIAL Routine 10/09/2024 8:33 PM LUGGAGE LINER BASIC METABOLIC PANEL Routine 10/09/2024 8:33 PM LUGGAGE LINER EGFR Routine 10/09/2024 1:41 PM LUGGAGE LINER APTT STAT 10/09/2024 1:41 PM LUGGAGE LINER PROTIME-INR STAT 10/09/2024 1:41 PM LUGGAGE LINER MAGNESIUM Routine 10/09/2024 1:41 PM LUGGAGE LINER BASIC METABOLIC PANEL Routine 10/09/2024 1:41 PM LUGGAGE LINER EGFR Routine 10/08/2024 9:58 PM LUGGAGE LINER DIFFERENTIAL AUTO Routine 10/08/2024 9:5 8 PM LUGGAGE LINER MAGNESIUM Routine 10/08/2024 9:58 PM LUGGAGE LINER CBC WITH AUTO DIFFERENTIAL Routine 10/08/2024 9:58 PM LUGGAGE LINER BASIC METABOLIC PANEL Routine 10/08/2024 9:58 PM LUGGAGE LINER US VEIN DUPLEX UPPER EXTREMITY BILATERAL COMPLETE IP Routine 10/08/2024 11:19 AM LUGGAGE LINER US VEIN DUPLEX LOWER EXTREMITY BILATERAL COMPLETE IP Routine 10/08/2024 11:14 AM LUGGAGE LINER CREATININE, URINE, RANDOM Routine 10/08/2024 5:51 AM LUGGAGE LINER OSMOLALITY, URINE Routine 10/08/2024 5:5 1 AM LUGGAGE LINER SODIUM, URINE, RANDOM Routine 10/08/2024 5:51 AM LUGGAGE LINER OSMOLALITY, BLOOD Timed 10/08/2024 4:2 6 AM LUGGAGE LINER EGFR Timed 10/08/2024 4:26 AM LUGGAGE LINER BASIC METABOLIC PANEL Timed 10/08/2024 4:26 AM LUGGAGE LINER EGFR Routine 10/07/2024 9:44 PM LUGGAGE LINER DIFFERENTIAL AUTO Routine 10/07/2024 9:4 4 PM LUGGAGE LINER MAGNESIUM Routine 10/07/2024 9:44 PM LUGGAGE LINER CBC WITH AUTO DIFFERENTIAL Routine 10/07/2024 9:44 PM LUGGAGE LINER TYPE AND SCREEN Timed 10/07/2024 9:44 PM LUGGAGE LINER BASIC METABOLIC PANEL Routine 10/07/2024 9:44 PM LUGGAGE LINER BLOOD CULTURE Routine 10/07/2024 4:53 PM LUGGAGE LINER BLOOD CULTURE Routine 10/07/2024 4:53 PM LUGGAGE LINER HEPATITIS PANEL, ACUTE Routine 10/04/2024 12:41 AM LUGGAGE LINER from Last 3 Months or Most Recently Relevant to Health Maintenance Results * TRANSTHORACIC ECHO (TTE) COMPLETE W DOPPLER/CF WO CONTRAST (10/31/2024 1:30 PM LUGGAGE LINER) Anatomical Region Laterality Modality Ultrasound 10/31/2024 12:2 2 PM LUGGAGE LINER Narrative 10/31/2024 3:58 PM LUGGAGE LINER [facility] [place] [address] Transthoracic Echocardiographic Report Patient Name: MADONNA JARA N : 1985 (39y 3m) Gender: F Study Date: 10/31/2024 12:22:35 PM Ht(Inch): 67 Wt(Lb): 153 BSA: 1.81 Plastics Fabricator: Mariah Burden RDCS Location: [facility] Order Provider: BRENDEN VALENCIA Heart Rate: 89 BMI: 23.96 BP: 110 / 75 Quality: The study images were of technically good quality. Ref Provider: BRENDEN VALENCIA PROCEDURES: Echocardiographic Report: [id number], [id number]) Transthoracic complete echo with strain imaging, 2D, [...] By: Brenden Valencia MD 10/31/2024 3:58:18 PM LUGGAGE LINER Electronically Signed By: Brenden Valencia MD 10/31/2024 3:58:18 PM LUGGAGE LINER Procedure Note Brenden Valencia MD - 10/31/2024 [facility] [place] [address] Transthoracic Echocardiographic Report Patient Name: MADONNA JARA N : 1985 (39y 3m) Gender: F Study Date: 10/31/2024 12:22:35 PM Ht(Inch): 67 Wt(Lb): 153 BSA: 1.81 Plastics Fabricator: Mariah Burden RDCS Location: [facility] Order Provider:BRENDEN VALENCIA Heart Rate: 89 BMI: 23.96 BP: 110 / 75 Quality: The study images were oftechnically good quality. Ref Provider: BRENDEN VALENCIA PROCEDURES: Echocardiographic Report: ([id number], [id number]) Transthoracic complete echo withstrain imaging, 2D, spectral [...] cm2 RA Volume 23.35 ml MV Decel Ftze956.39 msec [ 104.00 - 258.00 ] RA [...] By: Brenden Valencia MD 10/31/2024 3:58:18 PM LUGGAGE LINER Electronically Signed By: Brenden Valencia MD 10/31/2024 3:58:18 PM LUGGAGE LINER us Brenden Valencia MD CV ECHO PROCEDURES Final Res ult * eGFR (10/09/2024 8:33 PM LUGGAGE LINER) eGFR >90 >=60 mL/min/1. 73 m2 Comment: [...] last reviewed 2021. Blood 10/09/2024 8:33 PM LUGGAGE LINER 10/09/2024 8:50 PM LUGGAGE LINER us Fay Mckeon MD LAB BLOOD ORDERABLES Final Result [facility] One [facility] [place] [address] * Differential, auto (10/09/2024 8:33 PM LUGGAGE LINER) Neutrophil abs 4.0 1.5 - 6.5 K/cumm Imm gran abs 0.0 0.0 - 0.1 K/cumm [facility] Lymphocyte abs 2.0 0.8 - 3.3 K/cumm [facility] Monocyte abs 0.4 0.2 - 0.8 K/cumm [facility] Eosinophil abs 0.1 0.0 - 0.5 K/cumm [facility] Basophil abs 0.0 0.0 - 0.1 K/cumm [facility] Neutrophil pct 60.1 % [facility] Comment: Interpretive Data Percent cell count reference ranges are not reported, since discordance with absolute values may lead to misinterpretation of CBC data. Current Interpretive Data was last revised on 2017. Imm gran pct 0.5 % [facility] Comment: Interpretive Data Percent cell count reference ranges are not reported, since discordance with absolute values may lead to misinterpretation of CBC data. Current Interpretive Data was last revised on 2017. Lymphocyte pct 31.0 % [facility] Comment: Interpretive Data Percent cell count reference ranges are not reported, since discordance with absolute values may lead to misinterpretation of CBC data. Current Interpretive Data was last revised on 2017. Monocyte pct 6.7 % [facility] Comment: Interpretive Data Percent cell count reference ranges are not reported, since discordance with absolute values may lead to misinterpretation of CBC data. Current Interpretive Data was last revised on 2017. Eosinophil pct 1.1 % [facility] Comment: Interpretive Data Percent cell count reference ranges are not reported, since discordance with absolute values may lead to misinterpretation of CBC data. Current Interpretive Data was last revised on 2017. Basophil pct 0.6 % [facility] Comment: Interpretive Data Percent cell count reference ranges are not reported, since discordance with absolute values may lead to misinterpretation of CBC data. Current Interpretive Data was last revised on 2017. Blood 10/09/2024 8:33 PM LUGGAGE LINER 10/09/2024 8:51 PM LUGGAGE LINER Ganesh Freeman MD LAB BLOOD ORDERABLES Fin al Result Performing Organization Address [facility] Co de Phone Number [facility] [place] [address] * (ABNORMAL) CBC with auto differential (10/09/2024 8:33 PM LUGGAGE LINER) Pathologist [facility] WBC 6.6 3.8 - 9.9 K/cumm Hgb 8.7(L) 11.9 - 15.5 g/dL [facility] Hct 28.8(L) 35.6 - 45.5 % [facility] Plt 482(H) 150 - 400 K/cumm [facility] MPV 10.8 9.1 - 12.3 fL [facility] RBC 3.59(L) 3.90 - 5.20 M/cumm [facility] MCV 80.2(L) 81.3 - 96.4 fL [facility] MCH 24.2(L) 27.1 - 33.3 pg [facility] MCHC 30.2(L) 32.3 - 35.7 g/dL [facility] RDW CV 16.5(H) 11.1 - 14.9 % [facility] RDW SD 48.7(H) 35.7 - 48.1 fL [facility] NRBC abs 0.00 0.00 - 0.01 K/cumm [facility] Blood 10/09/2024 8:33 PM LUGGAGE LINER 10/09/2024 8:51 PM LUGGAGE LINER Ganesh Freeman MD LAB BLOOD ORDERABLES Fin al Result Performing Organization Address [facility] Co de Phone Number [facility] [place] [address] * Magnesium (10/09/2024 8:33 PM LUGGAGE LINER) Pathologist [facility] Magnesium 2.1 1.4 - 2.5 mg/dL Blood 10/09/2024 8:33 PM LUGGAGE LINER 10/09/2024 8:50 PM LUGGAGE LINER Ganesh Freeman MD LAB BLOOD ORDERABLES Fin al Result Performing Organization Address City/[facility]/ZIP Co de Phone Number [facility] [place] [address] * (ABNORMAL) Basic metabolic panel (10/09/2024 8:33 PM LUGGAGE LINER) [facility] Sodium 134(L) 135 - 145 mmol/L Potassium, pl 4.9 3.3 - 4.9 mmol/L [facility] Chloride 100 97 - 110 mmol/L [facility] CO2 26 22 - 32 mmol/L [facility] Anion gap 8 2 - 15 mmol/L [facility] BUN 24 6 - 25 mg/dL [facility] Creatinine 0.75 0.60 - 1.10 mg/dL [facility] Glucose 109 70 - 199 mg/dL [facility] Comment: Interpretive Data Fasting glucose [...] 2022. Calcium 8.3(L) 8.5 - 10.3 mg/dL [facility] Blood 10/09/2024 8:33 PM LUGGAGE LINER 10/09/2024 8:50 PM LUGGAGE LINER Fay Mckeon MD LAB BLOOD ORDERABLES Final Result Performing Organization Address City/[facility]/ZIP Co de Phone Number [facility] [place] [address] * eGFR (10/09/2024 1:41 PM LUGGAGE LINER) eGFR >90 >=60 mL/min/1. 73 m2 Comment: [...] last reviewed 2021. Blood 10/09/2024 1:41 PM LUGGAGE LINER 10/09/2024 3:15 PM LUGGAGE LINER Fay Mckeon MD LAB BLOOD ORDERABLES Final Result [facility] WRIGHT One [facility] [place] [address] * aPTT (10/09/2024 1:41 PM LUGGAGE LINER) aPTT 36 28 - 38 sec Comment: Interpretive Data Heparin therapeutic range: 66.0 - 100.0 seconds. Range based on correlation with therapeutic heparin activity range of 0.3 - 0.7 Units/mL. Current interpretive data was last revised on 2023. Blood 10/09/2024 1:41 PM LUGGAGE LINER 10/09/2024 2:27 PM LUGGAGE LINER Narrative RONNI WRIGHT - 10/09/2024 2:53 PM LUGGAGE LINER Baseline prior to enoxaparin initiation. Ganesh Freeman MD LAB BLOOD ORDERABLES Fin al Result Performing Organization Address City/[facility] Co de Phone Number [facility] [place] [address] * Protime-INR (10/09/2024 1:41 PM LUGGAGE LINER) PT 11.9 9.7 - 13.0 sec INR 1.10 0.90 - 1.20 [facility] Comment: Interpretive data Oral anticoagulant therapeutic ranges: Venous thromboembolism prophylaxis or treatment: 2.0-3.0 CARDIOLOGY Standard range: 2.0-3.0 High-intensity range: 2.5-3.5 Refer to indication-specific guidelines for appropriate target ranges for prosthetic heart valve replacement. Current interpretive data was last revised on 2019. Blood 10/09/2024 1:41 PM LUGGAGE LINER 10/09/2024 2:27 PM LUGGAGE LINER Narrative [facility] - 10/09/2024 2:53 PM LUGGAGE LINER Baseline prior to enoxaparin initiation. Ganesh Freeman MD LAB BLOOD ORDERABLES Fin al Result Performing Organization Address [facility] Co de Phone Number [facility] [place] [address] * Magnesium (10/09/2024 1:41 PM LUGGAGE LINER) Pathologist [facility] Magnesium 2.1 1.4 - 2.5 mg/dL Blood 10/09/2024 1:41 PM LUGGAGE LINER 10/09/2024 3:15 PM LUGGAGE LINER Ganesh Freeman MD LAB BLOOD ORDERABLES Fin al Result Performing Organization Address [facility] Co de Phone Number [facility] [place] [address] * (ABNORMAL) Basic metabolic panel (10/09/2024 1:41 PM LUGGAGE LINER) Pathologist [facility] Sodium 132(L) 135 - 145 mmol/L Potassium, pl 5.0(H) 3.3 - 4.9 mmol/L [facility] Chloride 95(L) 97 - 110 mmol/L [facility] CO2 26 22 - 32 mmol/L [facility] Anion gap 11 2 - 15 mmol/L [facility] BUN 15 6 - 25 mg/dL [facility] Creatinine 0.77 0.60 - 1.10 mg/dL [facility] Glucose 102 70 - 199 mg/dL [facility] Comment: Interpretive Data Fasting glucose [...] 2022. Calcium 8.5 8.5 - 10.3 mg/dL [facility] Blood 10/09/2024 1:41 PM LUGGAGE LINER 10/09/2024 3:15 PM LUGGAGE LINER us Fay Mckeon MD LAB BLOOD ORDERABLES Final Result [facility] One [facility] [place] [address] * eGFR (10/08/2024 9:58 PM LUGGAGE LINER) [facility] eGFR >90 >=60 mL/min/1. 73 m2 [...] last reviewed 2021. Blood 10/08/2024 9:58 PM LUGGAGE LINER 10/08/2024 10:15 PM LUGGAGE LINER us Fay Mckeon MD LAB BLOOD ORDERABLES Final Result [facility] One [facility] [place] [address] * Differential, auto (10/08/2024 9:58 PM LUGGAGE LINER) Neutrophil abs 3.7 1.5 - 6.5 K/cumm Imm gran abs 0.1 0.0 - 0.1 K/cumm [facility] Lymphocyte abs 1.8 0.8 - 3.3 K/cumm [facility] Monocyte abs 0.5 0.2 - 0.8 K/cumm [facility] Eosinophil abs 0.1 0.0 - 0.5 K/cumm [facility] Basophil abs 0.0 0.0 - 0.1 K/cumm [facility] Neutrophil pct 60.1 % [facility] Comment: Interpretive Data Percent cell count reference ranges are not reported, since discordance with absolute values may lead to misinterpretation of CBC data. Current Interpretive Data was last revised on 2017. Imm gran pct 0.8 % [facility] Comment: Interpretive Data Percent cell count reference ranges are not reported, since discordance with absolute values may lead to misinterpretation of CBC data. Current Interpretive Data was last revised on 2017. Lymphocyte pct 29.3 % [facility] Comment: Interpretive Data Percent cell count reference ranges are not reported, since discordance with absolute values may lead to misinterpretation of CBC data. Current Interpretive Data was last revised on 2017. Monocyte pct 8.2 % [facility] Comment: Interpretive Data Percent cell count reference ranges are not reported, since discordance with absolute values may lead to misinterpretation of CBC data. Current Interpretive Data was last revised on 2017. Eosinophil pct 1.1 % [facility] Comment: Interpretive Data Percent cell count reference ranges are not reported, since discordance with absolute values may lead to misinterpretation of CBC data. Current Interpretive Data was last revised on 2017. Basophil pct 0.5 % [facility] Comment: Interpretive Data Percent cell count reference ranges are not reported, since discordance with absolute values may lead to misinterpretation of CBC data. Current Interpretive Data was last revised on 2017. Blood 10/08/2024 9:58 PM LUGGAGE LINER 10/08/2024 10:13 PM LUGGAGE LINER us Ganesh Freeman MD LAB BLOOD ORDERABLES Fin al Result [facility] One [facility] [place] [address] * (ABNORMAL) CBC with auto differential (10/08/2024 9:58 PM LUGGAGE LINER) WBC 6.1 3.8 - 9.9 K/cumm Hgb 9.0(L) 11.9 - 15.5 g/dL [facility] Hct 30.0(L) 35.6 - 45.5 % [facility] Plt 429(H) 150 - 400 K/cumm [facility] MPV 10.9 9.1 - 12.3 fL [facility] RBC 3.68(L) 3.90 - 5.20 M/cumm [facility] MCV 81.5 81.3 - 96.4 fL [facility] MCH 24.5(L) 27.1 - 33.3 pg [facility] MCHC 30.0(L) 32.3 - 35.7 g/dL [facility] RDW CV 17.0(H) 11.1 - 14.9 % [facility] RDW SD 50.6(H) 35.7 - 48.1 fL [facility] NRBC abs 0.00 0.00 - 0.01 K/cumm [facility] Blood 10/08/2024 9:58 PM LUGGAGE LINER 10/08/2024 10:13 PM LUGGAGE LINER Ganesh Freeman MD LAB BLOOD ORDERABLES Fin al Result Performing Organization Address City/[facility]/ZIP Co de Phone Number [facility] [place] [address] * Magnesium (10/08/2024 9:58 PM LUGGAGE LINER) [facility] Magnesium 2.0 1.4 - 2.5 mg/dL Blood 10/08/2024 9:58 PM LUGGAGE LINER 10/08/2024 10:10 PM LUGGAGE LINER Ganesh Freeman MD LAB BLOOD ORDERABLES Fin al Result Performing Organization Address [facility] de Phone Number [facility] [place] [address] * (ABNORMAL) Basic metabolic panel (10/08/2024 9:58 PM LUGGAGE LINER) Pathologist [facility] Sodium 131(L) 135 - 145 mmol/L Potassium, pl 5.0(H) 3.3 - 4.9 mmol/L [facility] Chloride 97 97 - 110 mmol/L [facility] CO2 25 22 - 32 mmol/L [facility] Anion gap 9 2 - 15 mmol/L [facility] BUN 18 6 - 25 mg/dL [facility] Creatinine 0.56(L) 0.60 - 1.10 mg/dL [facility] Glucose 110 70 - 199 mg/dL [facility] Comment: Interpretive Data Fasting glucose [...] 2022. Calcium 8.1(L) 8.5 - 10.3 mg/dL [facility]ONNI WRIGHT Blood 10/08/2024 9:58 PM LUGGAGE LINER 10/08/2024 10:10 PM LUGGAGE LINER us Fay Mckeon MD LAB BLOOD ORDERABLES Final Result [facility] One [facility] [place] [address] * US Vein Duplex Upper Extremity Bilateral Complete (10/08/2024 11:19 AM LUGGAGE LINER) Anatomical Region Laterality Modality Vascular Bilateral Ultrasound 10/08/2024 10:0 0 AM LUGGAGE LINER Narrative 10/08/2024 2:46 PM LUGGAGE LINER [facility] - Department of Vascular Surgery, Vascular Laboratory [address] [place] [address] Upper Extremity Venous Ultrasound Report Patient Name: MADONNA JARA N : 1985 (39y 2m) Study Date: 10/08/2024 10:00:38 AM Gender: F Tech: Location: [id number] Ref Provider: GANESH FREEMAN Quality: Adequate Order Provider: GANESH FREEMAN PROCEDURES: Vascular Report: Venous Duplex imaging was performed bilaterally in the upper extremities. The internal jugular, subclavian and axillary veins were evaluated for patency, spontaneity and phasicity with Doppler, compression and augmentation maneuvers. The brachial, basilic and cephalic veins were also evaluated with compression maneuvers. INDICATIONS: Localized edema. FINDINGS: Performing Plastics Fabricator: Stella Moe RVT. Right: Venous Doppler signals [...] Lee David MD FACS 10/08/2024 2:42:15 PM LUGGAGE LINER Procedure Note Lee David MD - 10/08/2024 [facility] - Department of Vascular Surgery,Vascular Laboratory [address] [place] [address] Upper Extremity Venous Ultrasound Report Patient Name: MADONNA JARA N : 1985 (39y 2m) Study Date: 10/08/2024 10:00:38 AM Gender: F Tech: Location: [id number] Ref Provider: GANESH FREEMAN Quality: Adequate Order Provider: GANESH FREEMAN PROCEDURES: Vascular Report: Venous Duplex imaging was performed bilaterally in the upper extremities.The internal jugular, subclavian and axillary veins were evaluated for patency,spontaneity and phasicity with Doppler, compression and augmentation maneuvers. Thebrachial, basilic and cephalic veins were also evaluated with compression maneuvers. INDICATIONS: Localized edema. FINDINGS: Performing Plastics Fabricator: Stella Moe RVT. Right: Venous Doppler signals [...] above. Electronically Signed By: Lee David MD [facility] 10/08/2024 2:42:15 PM LUGGAGE LINER Ganesh Freeman MD IMG US PROCEDURES Final Result * US Vein Duplex Lower Extremity Bilateral Complete (10/08/2024 11:14 AM LUGGAGE LINER) Anatomical Region Laterality Modality Vascular Bilateral Ultrasound 10/08/2024 10:2 8 AM LUGGAGE LINER Narrative 10/08/2024 2:46 PM LUGGAGE LINER [employer] [facility] [employer] - Department of Vascular Surgery, Vascular Laboratory [address] [place] [id number] Lower Extremity Venous Ultrasound Report Patient Name: MADONNA JARA N : 1985 (39y 2m) Study Date: 10/08/2024 10:28:39 AM Gender: F Tech: Location: [id number] Ref Provider: GANESH FREEMAN Quality: Adequate Order Provider: PETE, GANESH PROCEDURES: Vascular Report: Venous Duplex imaging was performed bilaterally in the lower extremities. The common femoral, femoral, popliteal, posterior tibial, peroneal veins were evaluated for patency, spontaneity and phasicity with Doppler, compression and augmentation maneuvers. Great saphenous vein proximal at the junction was evaluated with compression maneuvers. INDICATIONS: Localized edema. FINDINGS: Performing Plastics Fabricator: Stella Moe RVT. Bilateral: Venous Doppler signals [...] of IVDU (opioids) and L leg necrotizing fasciitis (2020), presenting [...] Lee David MD FACS 10/08/2024 2:42:37 PM LUGGAGE LINER Procedure Note Lee David MD - 10/08/2024 [facility] - Department of Vascular Surgery,Vascular Laboratory [address] [place] [id number] Lower Extremity Venous Ultrasound Report Patient Name: MADONNA JARA N : 1985 (39y 2m) Study Date: 10/08/2024 10:28:39 AM Gender: F Tech: Location: [id number] Ref Provider: GANESH FREEMAN Quality: Adequate Order Provider: GANESH FREEMAN PROCEDURES: Vascular Report: Venous Duplex imaging was performed bilaterally in the lower extremities.The common femoral, femoral, popliteal, posterior tibial, peroneal veins wereevaluated for patency, spontaneity and phasicity with Doppler, compression and augmentationmaneuvers. Great saphenous vein proximal at the junction was evaluated with compressionmaneuvers. INDICATIONS: Localized edema. FINDINGS: Performing Plastics Fabricator: Stella Moe RVT. Bilateral: Venous Doppler signals [...] above. Electronically Signed By: Lee David MD [facility] 10/08/2024 2:42:37 PM LUGGAGE [employer]ER us Ganesh Freeman MD IM US PROCEDURES Final Result * Sodium, urine, random (10/08/2024 5:51 AM LUGGAGE LINER) Sodium, ur 197 mmol/L Comment: Interpretive Data No reference range established. Current interpretive data was last revised 2019. Urine 10/08/2024 5:51 AM [employer]ER 10/08/2024 7:15 AM [employer]AGE LINER us Ganesh Freeman MD LAB URINE ORDERABLES Fin al Result [facility]NI MERGED WITH [facility] One [facility] [place] [address] * Osmolality, urine (10/08/2024 5:51 AM LUGGAGE LINER) Osmo, ur 578 mOsm/kg Urine 10/08/2024 5:51 AM [employer]AGE [employer]ER 10/08/2024 7:15 AM [employer]AGE [employer]ER Ganesh Freeman MD LAB URINE ORDERABLES Fin al Result Performing Organization Address City/[facility] Co de Phone Number RONNI [facility] [place] [address] * Creatinine, urine, random (10/08/2024 5:51 AM LUGGAGE LINER) Creatinine Ur 36.8 mg/dL Comment: Interpretive Data No reference range established. Current interpretive data was last revised 2019. Urine 10/08/2024 5:51 AM [employer]ER 10/08/2024 7:15 AM [employer]AGE [employer]ER Ganesh Freeman MD LAB URINE ORDERABLES Fin al Result Performing Organization Address [facility] de Phone Number [facility] [place] [address] * eGFR (10/08/2024 4:26 AM LUGGAGE LINER) eGFR >90 >=60 mL/min/1. 73 m2 Comment: [...] last reviewed 2021. Blood 10/08/2024 4:26 AM [employer]AGE [employer]ER 10/08/2024 5:19 AM [employer]ER Devyn Worrell MD LAB BLOOD ORDERABLES Viv l Result Performing Organization Address City/[facility]/ZIP Co de Phone Number [facility] [place] [address] * (ABNORMAL) Osmolality, blood (10/08/2024 4:26 AM LUGGAGE LINER) Pathologist [facility] Osmo 274(L) 275 - 300 mOsm/kg Blood 10/08/2024 4:26 AM [employer]AGE [employer]ER 10/08/2024 5:10 AM [employer]ER Ganesh Freeman MD LAB BLOOD ORDERABLES Fin al Result Performing Organization Address [facility] de Phone Number [facility] [place] [address] * (ABNORMAL) Basic metabolic panel (10/08/2024 4:26 AM LUGGAGE LINER) [facility] Sodium 135 135 - 145 mmol/L Potassium, pl 4.6 3.3 - 4.9 mmol/L [facility] Chloride 102 97 - 110 mmol/L [facility] CO2 26 22 - 32 mmol/L [facility] Anion gap 7 2 - 15 mmol/L [facility] BUN 12 6 - 25 mg/dL [facility] Creatinine 0.52(L) 0.60 - 1.10 mg/dL [facility] Glucose 88 70 - 199 mg/dL [facility] Comment: Interpretive Data Fasting glucose [...] 2022. Calcium 8.1(L) 8.5 - 10.3 mg/dL [facility] Blood 10/08/2024 4:26 AM [employer]ER 10/08/2024 5:10 AM [employer]ER Devyn Worrell MD LAB BLOOD ORDERABLES Viv l Result Performing Organization Address [facility] Co de Phone Number [facility] [place] [address] * eGFR (10/07/2024 9:44 PM [employer]GGAGE LINER) eGFR >90 >=60 mL/min/1. 73 m2 Comment: [...] last reviewed 2021. Blood 10/07/2024 9:44 PM [employer]AGE [employer]ER 10/07/2024 10:03 PM [employer]AGE [employer]ER Fay Mckeon MD LAB BLOOD ORDERABLES Final Result Performing Organization Address [facility]/ZIP Co de Phone Number [facility] [place] [address] * Differential, auto (10/07/2024 9:44 PM LUGGAGE LINER) Neutrophil abs 2.3 1.5 - 6.5 K/cumm Imm gran abs 0.1 0.0 - 0.1 K/cumm [facility] Lymphocyte abs 1.8 0.8 - 3.3 K/cumm [facility] Monocyte abs 0.5 0.2 - 0.8 K/cumm [facility] Eosinophil abs 0.1 0.0 - 0.5 K/cumm [facility] Basophil abs 0.0 0.0 - 0.1 K/cumm [facility] Neutrophil pct 47.7 % [facility] Comment: Interpretive Data Percent cell count reference ranges are not reported, since discordance with absolute values may lead to misinterpretation of CBC data. Current Interpretive Data was last revised on 2017. Imm gran pct 1.3 % [facility] Comment: Interpretive Data Percent cell count reference ranges are not reported, since discordance with absolute values may lead to misinterpretation of CBC data. Current Interpretive Data was last revised on 2017. Lymphocyte pct 38.3 % [facility] Comment: Interpretive Data Percent cell count reference ranges are not reported, since discordance with absolute values may lead to misinterpretation of CBC data. Current Interpretive Data was last revised on 2017. Monocyte pct 10.8 % [facility] Comment: Interpretive Data Percent cell count reference ranges are not reported, since discordance with absolute values may lead to misinterpretation of CBC data. Current Interpretive Data was last revised on 2017. Eosinophil pct 1.5 % [facility] Comment: Interpretive Data Percent cell count reference ranges are not reported, since discordance with absolute values may lead to misinterpretation of CBC data. Current Interpretive Data was last revised on 2017. Basophil pct 0.4 % [facility] Comment: Interpretive Data Percent cell count reference ranges are not reported, since discordance with absolute values may lead to misinterpretation of CBC data. Current Interpretive Data was last revised on 2017. Blood 10/07/2024 9:44 PM [employer]ER 10/07/2024 10:03 PM [employer]ER us Ganesh Freeman MD LAB BLOOD ORDERABLES Fin al Result [facility] One [facility] [place] [address] * (ABNORMAL) CBC with auto differential (10/07/2024 9:44 PM LUGGAGE LINER) Pathologist [facility] WBC 4.7 3.8 - 9.9 K/cumm Hgb 8.6(L) 11.9 - 15.5 g/dL [facility] Hct 28.9(L) 35.6 - 45.5 % [facility] Plt 367 150 - 400 K/cumm [facility] MPV 11.6 9.1 - 12.3 fL [facility] RBC 3.55(L) 3.90 - 5.20 M/cumm [facility] MCV 81.4 81.3 - 96.4 fL [facility] MCH 24.2(L) 27.1 - 33.3 pg [facility] MCHC 29.8(L) 32.3 - 35.7 g/dL [facility] RDW CV 17.0(H) 11.1 - 14.9 % [facility] RDW SD 50.3(H) 35.7 - 48.1 fL [facility] NRBC abs 0.00 0.00 - 0.01 K/cumm [facility] Blood 10/07/2024 9:44 PM [employer]ER 10/07/2024 10:03 PM [employer]ER Ganesh Freeman MD LAB BLOOD ORDERABLES Fin al Result [facility] One [facility] [place] [address] * Type and screen (10/07/2024 9:44 PM LUGGAGE LINER) Pathologist [facility] ABO Rh O Positive King, indirect Negative [facility] Blood 10/07/2024 9:44 PM [employer]ER 10/07/2024 9:59 PM [employer]AGE [employer]ER Narrative [facility] - 10/08/2024 1:00 AM [employer]ER Has the patient had Daratumumab or Isatuximab in the past 6 months?->Unknown us Fay Mckeon MD LAB BLOOD BANK TEST ORDERAB LES Final Result [facility] [place] [address] * Magnesium (10/07/2024 9:44 PM LUGGAGE LINER) [facility] Magnesium 2.0 1.4 - 2.5 mg/dL Blood 10/07/2024 9:44 PM [employer]ER 10/07/2024 10:03 PM [employer]ER Ganesh Freeman MD LAB BLOOD ORDERABLES Fin al Result Performing Organization Address [facility] Co de Phone Number [facility] [place] [address] * (ABNORMAL) Basic metabolic panel (10/07/2024 9:44 PM [employer]GGAGE LINER) [facility] Sodium 129(L) 135 - 145 mmol/L Potassium, pl 4.8 3.3 - 4.9 mmol/L [facility] Chloride 99 97 - 110 mmol/L [facility] CO2 24 22 - 32 mmol/L [facility] Anion gap 6 2 - 15 mmol/L [facility] BUN 13 6 - 25 mg/dL [facility] Creatinine 0.58(L) 0.60 - 1.10 mg/dL [facility] Glucose 99 70 - 199 mg/dL [facility] Comment: Interpretive Data Fasting glucose [...] 2022. Calcium 8.1(L) 8.5 - 10.3 mg/dL [facility] Blood 10/07/2024 9:44 PM [employer]AGE [employer]ER 10/07/2024 10:03 PM [employer]AGE [employer]ER us Fay Mckeon MD LAB BLOOD ORDERABLES Final Result Performing Organization Address City/[facility]/ZIP Co de Phone Number [facility] [place] [address] * Blood culture Blood (10/07/2024 4:53 PM LUGGAGE LINER) Report Final Report: No growth Blood 10/07/2024 4:53 PM [employer]AGE [employer]ER 10/07/2024 5:04 PM [employer]AGE LINER Narrative [facility] - 10/12/2024 7:00 AM [employer]GGAGE LINER From a different site than #1. Collection->Peripheral [...] performance characteristics have been verified by the [facility] Microbiology Laboratory. For questions about this culture, contact the Microbiology Laboratory at [phone]. Interpretive data was last revised on 24. us Ganesh Freeman MD LAB MICROBIOLOGY - GENER AL ORDERABLES Final Result Performing Organization Address City/[facility]/ZIP Co de Phone Number [facility] [place] [address] * Blood culture Blood (10/07/2024 4:53 PM LUGGAGE LINER) Report Final Report: No growth Blood 10/07/2024 4:53 PM [employer]AGE LINER 10/07/2024 5:04 PM [employer]AGE LINER Narrative RONNI MERGED WITH [facility] - 10/12/2024 7:00 AM [employer]AGE [employer]ER Collection->Peripheral 1. Blood cultures are incubated for [...] performance characteristics have been verified by the [facility] Microbiology Laboratory. For questions about this culture, contact the Microbiology Laboratory at [phone]. Interpretive data was last revised on 24. Gnaesh Freeman MD LAB MICROBIOLOGY - [facility] ORDERABLES Final Result RONNI WRIGHT [facility] [place] [address] * Hepatitis panel, acute Blood (10/04/2024 12:41 AM [employer]GGAGE LINER) Hep A IgM Nonreactive Nonreactive Hep B core IgM Nonreactive Nonreactive [facility] Hep C Ab Nonreactive Nonreactive [facility] Comment:Antibodies to HCV no t detected. Does NOT exclude the possibility of recent exposure to HCV. Current interpretive data was last revised on 22 HepBsAg Nonreactive Nonreactive [facility] Blood 10/04/2024 12:4 1 AM [employer]ER 10/04/2024 1:01 AM [employer]AGE LINER Lisette Arevalo MD LAB MICROBIOLOGY - [facility] ORDERABLES Final Result RONNI WRIGHT [facility] [place] [address] from Last 3 Months or Most Recently Relevant to Health Maintenance Insurance [facility] Advance Directives For more information, please contact: [phone] * Full Code (Latest Code Status on File) Date Activated Date Inactivated Comments 10/04/2024 4:01 AM 10/10/2024 6:18 PM Care Teams Senior Civil Engineer Relationship Specialty Start Date End Date Anand Richard MD [address] [place] [address] PCP - General Family Medicine 10/10/24
--- OUTSIDE RECORDS SUMMARY | 2025-01-04 08:19 | XMS_ITS | Referral Summary ---
Author Organization [facility] Address [address] [place] [id number] Care Team Providers Care Director Personal Name Role Phone Anand Richard MD Primary Care Prov ider Encounters Date Type Department Care Team Description 11/08/2024 Results Follow-Up Radiology 1 [place] [address] Brenden Valencia MD 11/07/2024 Telephone [facility] Cardiology [address] [place] [address] Medicine 8th [place] [address] [place] [address] Brenden Valencia MD 11/06/2024 Telephone [facility] Cardiology [address] [place] [address] 8th [place] [address] [place] [address] Brenden Valencia MD 10/31/2024 12:11 PM [employer] - 10/31/2024 11:59 PM [employer] Hospital Encounter [facility] Cardiac Diagnostic Lab [address] [place] [phone] Mitral valve insufficiency, unspecified etiology; Hypervolemia, unspecified hypervolemia type Discharge Disposition: Discharge to home or self care 10/24/2024 11:30 AM [employer] Office Visit [facility] Cardiology Critical access hospital1 [facility] [place] [address] [place] [address] Brenden Valencia MD Hypervolemia, unspecified hypervolemia type (Primary Dx); Mitral valve insufficiency, unspecified etiology 10/16/2024 [facility] Warm Hand Off Program 1 [place], [place] [phone] Ingrid Arce 10/12/2024 Telephone [facility] Cardiology [address] [facility] 8th [place] [address] [place] [address] Lilibeth Thapa 10/03/2024 11:17 PM [employer] - 10/10/2024 2:18 PM [employer] Hospital Encounter [facility] 1 [place] [address] Nunu Black MD Heath, MD Pete Garcia Bryce Edward, MD Anemia, unspecified type (Primary Dx); Opioid withdrawal (HCC); IVDU (intravenous drug user); Chronic wound; DVT (deep venous thrombosis) (HCC); Mitral valve insufficiency, unspecified etiology Discharge Disposition: Discharge to not defined facility 10/08/2024 9:50 AM [employer] Ancillary Procedure [facility] Vascular Lab IP [address] [facility] [address] [place] [address] 10/08/2024 9:45 AM [employer] Ancillary Procedure [facility] Vascular Lab IP [address] [facility] [address] [place] [address] from Last 3 Months Allergies Active Allergy [...] on file Legal Sex Female 8:49 PM [employer] Gender Identity Not on file Sexual Orientation Not on file Last Filed Vital Signs Vital Sign Reading Time Taken Comments Blood Pressure 110/75 10/24/2024 12:02 PM [employer] Pulse 110 10/24/2024 12:02 PM [employer] Temperature 36.8 C (98.2 F) 10/10/2024 7:20 AM [employer] Respiratory Rate 18 10/10/2024 7:20 AM [employer] Oxygen Saturation 98% 10/24/2024 12:02 PM [employer] Inhaled Oxygen Concentration - - Weight 69.4 kg (153 lb) 10/24/2024 12:02 PM [employer] Height 170.2 cm (5' 7 ) 10/24/2024 12:02 PM [employer] Body Mass Index 23.96 10/24/2024 12:02 PM [employer] Plan of Treatment Not on file Procedures Procedure Name Priority Date/Time Associated Diagnosis Comments TRANSTHORACIC ECHO (TTE) COMPLETE W DOPPLER/CF WO CONTRAST Routine 10/31/2024 1:30 PM [employer] Mitral valve insufficiency, unspecified etiology Hypervolemia, unspecified hypervolemia type EGFR Routine 10/09/2024 8:33 PM [employer] DIFFERENTIAL AUTO Routine 10/09/2024 8:3 3 PM [employer] MAGNESIUM Routine 10/09/2024 8:33 PM [employer] CBC WITH AUTO DIFFERENTIAL Routine 10/09/2024 8:33 PM [employer] BASIC METABOLIC PANEL Routine 10/09/2024 8:33 PM [employer] EGFR Routine 10/09/2024 1:41 PM [employer] APTT STAT 10/09/2024 1:41 PM [employer] PROTIME-INR STAT 10/09/2024 1:41 PM [employer] MAGNESIUM Routine 10/09/2024 1:41 PM [employer] BASIC METABOLIC PANEL Routine 10/09/2024 1:41 PM [employer] EGFR Routine 10/08/2024 9:58 PM [employer] DIFFERENTIAL AUTO Routine 10/08/2024 9: 58 PM [employer] MAGNESIUM Routine 10/08/2024 9:58 PM [employer] CBC WITH AUTO DIFFERENTIAL Routine 10/08/2024 9:58 PM [employer] BASIC METABOLIC PANEL Routine 10/08/2024 9:58 PM [employer] US VEIN DUPLEX UPPER EXTREMITY BILATERAL COMPLETE IP Routine 10/08/2024 11:19 AM [employer] US VEIN DUPLEX LOWER EXTREMITY BILATERAL COMPLETE IP Routine 10/08/2024 11:14 AM [employer] CREATININE, URINE, RANDOM Routine 10/08/2024 5:51 AM [employer] OSMOLALITY, URINE Routine 10/08/2024 5:5 1 AM [employer] SODIUM, URINE, RANDOM Routine 10/08/2024 5:51 AM [employer] OSMOLALITY, BLOOD Timed 10/08/2024 4:2 6 AM [employer] EGFR Timed 10/08/2024 4:26 AM [employer] BASIC METABOLIC PANEL Timed 10/08/2024 4:26 AM [employer] EGFR Routine 10/07/2024 9:44 PM [employer] DIFFERENTIAL AUTO Routine 10/07/2024 9:4 4 PM [employer] MAGNESIUM Routine 10/07/2024 9:44 PM [employer] CBC WITH AUTO DIFFERENTIAL Routine 10/07/2024 9:44 PM [employer] TYPE AND SCREEN Timed 10/07/2024 9:44 PM [employer] BASIC METABOLIC PANEL Routine 10/07/2024 9:44 PM [employer] BLOOD CULTURE Routine 10/07/2024 4:53 PM [employer] BLOOD CULTURE Routine 10/07/2024 4:53 PM [employer] HEPATITIS PANEL, ACUTE Routine 10/04/2024 12:41 AM [employer] from Last 3 Months or Most Recently Relevant to Health Maintenance Results * TRANSTHORACIC ECHO (TTE) COMPLETE W DOPPLER/CF WO CONTRAST (10/31/2024 1:30 PM [employer]) Anatomical Region Laterality Modality Ultrasound 10/31/2024 12:2 2 PM [employer] Narrative 10/31/2024 3:58 PM [employer] [facility] [place] [address] Transthoracic Echocardiographic Report Patient Name: MADONNA JARA N : 1985 (39y 3m) Gender: F Study Date: 10/31/2024 12:22:35 PM Ht(Inch): 67 Wt(Lb): 153 BSA: 1.81 Supervisor [employer]: Mariah Burden RDCS Location: [facility] Order Provider: BRENDEN VALENCIA Heart Rate: 89 BMI: 23.96 BP: 110 / 75 Quality: The study images were of technically good quality. Ref Provider: BRENDEN VALENCIA PROCEDURES: Echocardiographic Report: ([id number], [id number]) Transthoracic complete echo with strain imaging, 2D, [...] By: Brenden Valencia MD 10/31/2024 3:58:18 PM [employer] Electronically Signed By: Brenden Valencia MD 10/31/2024 3:58:18 PM [employer] Procedure Note Brenden Valencia MD - 10/31/2024 [facility] [place] [address] Transthoracic Echocardiographic Report Patient Name: MADONNA JARA N : 1985 (39y 3m) Gender: F Study Date: 10/31/2024 12:22:35 PM Ht(Inch): 67 Wt(Lb): 153 BSA: 1.81 Supervisor [employer]: Mariah Burden RDCS Location: [facility] Order Provider:BRENDEN VALENCIA Heart Rate: 89 BMI: 23.96 BP: 110 / 75 Quality: The study images were oftechnically good quality. Ref Provider: BRENDEN VALENCIA PROCEDURES: Echocardiographic Report: ([id number], [id number]) Transthoracic complete echo withstrain imaging, 2D, spectral [...] cm2 RA Volume 23.35 ml MV Decel Ipfx574.39 msec [ 104.00 - 258.00 ] RA [...] By: Brenden Valencia MD 10/31/2024 3:58:18 PM [employer] Electronically Signed By: Brenden Valencia MD 10/31/2024 3:58:18 PM [employer] us Brenden Valencia MD CV ECHO PROCEDURES Final Res ult * eGFR (10/09/2024 8:33 PM [employer]) eGFR >90 >=60 mL/min/1. 73 m2 Comment: [...] last reviewed 2021. Blood 10/09/2024 8:33 PM [employer] 10/09/2024 8:50 PM [employer] us Fay Mckeon MD LAB BLOOD ORDERABLES Final Result [facility] One [facility] Department [place] [address] * Differential, auto (10/09/2024 8:33 PM [employer]) Pathologist [facility] Neutrophil abs 4.0 1.5 - 6.5 K/cumm Imm gran abs 0.0 0.0 - 0.1 K/cumm [facility] Lymphocyte abs 2.0 0.8 - 3.3 K/cumm [facility] Monocyte abs 0.4 0.2 - 0.8 K/cumm [facility] Eosinophil abs 0.1 0.0 - 0.5 K/cumm [facility] Basophil abs 0.0 0.0 - 0.1 K/cumm [facility] Neutrophil pct 60.1 % [facility] Comment: Interpretive Data Percent cell count reference ranges are not reported, since discordance with absolute values may lead to misinterpretation of CBC data. Current Interpretive Data was last revised on 2017. Imm gran pct 0.5 % [facility] Comment: Interpretive Data Percent cell count reference ranges are not reported, since discordance with absolute values may lead to misinterpretation of CBC data. Current Interpretive Data was last revised on 2017. Lymphocyte pct 31.0 % [facility] Comment: Interpretive Data Percent cell count reference ranges are not reported, since discordance with absolute values may lead to misinterpretation of CBC data. Current Interpretive Data was last revised on 2017. Monocyte pct 6.7 % [facility] Comment: Interpretive Data Percent cell count reference ranges are not reported, since discordance with absolute values may lead to misinterpretation of CBC data. Current Interpretive Data was last revised on 2017. Eosinophil pct 1.1 % [facility] Comment: Interpretive Data Percent cell count reference ranges are not reported, since discordance with absolute values may lead to misinterpretation of CBC data. Current Interpretive Data was last revised on 2017. Basophil pct 0.6 % [facility] Comment: Interpretive Data Percent cell count reference ranges are not reported, since discordance with absolute values may lead to misinterpretation of CBC data. Current Interpretive Data was last revised on 2017. Blood 10/09/2024 8:33 PM [employer] 10/09/2024 8:51 PM [employer] us Ganesh Freeman MD LAB BLOOD ORDERABLES Fin al Result [facility] One [facility] Department [place] [address] * (ABNORMAL) CBC with auto differential (10/09/2024 8:33 PM [employer]) WBC 6.6 3.8 - 9.9 K/cumm Hgb 8.7(L) 11.9 - 15.5 g/dL [facility] Hct 28.8(L) 35.6 - 45.5 % [facility] Plt 482(H) 150 - 400 K/cumm [facility] MPV 10.8 9.1 - 12.3 fL [facility] RBC 3.59(L) 3.90 - 5.20 M/cumm [facility] MCV 80.2(L) 81.3 - 96.4 fL [facility] MCH 24.2(L) 27.1 - 33.3 pg [facility] MCHC 30.2(L) 32.3 - 35.7 g/dL [facility] RDW CV 16.5(H) 11.1 - 14.9 % [facility] RDW SD 48.7(H) 35.7 - 48.1 fL [facility] NRBC abs 0.00 0.00 - 0.01 K/cumm [facility] Blood 10/09/2024 8:33 PM [employer] 10/09/2024 8:51 PM [employer] Ganesh Freeman MD LAB BLOOD ORDERABLES Fin al Result Performing Organization Address [facility]/ZIP Co de Phone Number [facility] Department [place] [address] * Magnesium (10/09/2024 8:33 PM [employer]) [facility] Magnesium 2.1 1.4 - 2.5 mg/dL Blood 10/09/2024 8:33 PM [employer] 10/09/2024 8:50 PM [employer] Ganesh Freeman MD LAB BLOOD ORDERABLES Fin al Result Performing Organization Address City/[facility] Co de Phone Number [facility] Department [place] [address] * (ABNORMAL) Basic metabolic panel (10/09/2024 8:33 PM [employer]) [facility] Sodium 134(L) 135 - 145 mmol/L Potassium, pl 4.9 3.3 - 4.9 mmol/L [facility] Chloride 100 97 - 110 mmol/L [facility] CO2 26 22 - 32 mmol/L [facility] Anion gap 8 2 - 15 mmol/L [facility] BUN 24 6 - 25 mg/dL [facility] Creatinine 0.75 0.60 - 1.10 mg/dL [facility] Glucose 109 70 - 199 mg/dL [facility] Comment: Interpretive Data Fasting glucose [...] 2022. Calcium 8.3(L) 8.5 - 10.3 mg/dL [facility] Blood 10/09/2024 8:33 PM [employer] 10/09/2024 8:50 PM [employer] Fay Mckeon MD LAB BLOOD ORDERABLES Final Result [facility] One [facility] Department [place] [address] * eGFR (10/09/2024 1:41 PM [employer]) eGFR >90 >=60 mL/min/1. 73 m2 Comment: [...] last reviewed 2021. Blood 10/09/2024 1:41 PM [employer] 10/09/2024 3:15 PM [employer] Fay Mckeon MD LAB BLOOD ORDERABLES Final Result Performing Organization Address [facility] Co de Phone Number [facility] [place] [address] * aPTT (10/09/2024 1:41 PM [employer]) aPTT 36 28 - 38 sec Comment: Interpretive Data Heparin therapeutic range: 66.0 - 100.0 seconds. Range based on correlation with therapeutic heparin activity range of 0.3 - 0.7 Units/mL. Current interpretive data was last revised on 2023. Blood 10/09/2024 1:41 PM [employer] 10/09/2024 2:27 PM [employer] Narrative [facility] - 10/09/2024 2:53 PM [employer] Baseline prior to enoxaparin initiation. Ganesh Freeman MD LAB BLOOD ORDERABLES Fin al Result Performing Organization Address [facility] [place] [address] * Protime-INR (10/09/2024 1:41 PM [employer]) PT 11.9 9.7 - 13.0 sec INR 1.10 0.90 - 1.20 [facility] Comment: Interpretive data Oral anticoagulant therapeutic ranges: Venous thromboembolism prophylaxis or treatment: 2.0-3.0 CARDIOLOGY Standard range: 2.0-3.0 High-intensity range: 2.5-3.5 Refer to indication-specific guidelines for appropriate target ranges for prosthetic heart valve replacement. Current interpretive data was last revised on 2019. Blood 10/09/2024 1:41 PM [employer] 10/09/2024 2:27 PM [employer] Narrative [facility] - 10/09/2024 2:53 PM [employer] Baseline prior to enoxaparin initiation. Ganesh Freeman MD LAB BLOOD ORDERABLES Fin al Result Performing Organization Address City/[facility] Co de Phone Number [facility] [place] [address] * Magnesium (10/09/2024 1:41 PM [employer]) [facility] Magnesium 2.1 1.4 - 2.5 mg/dL Blood 10/09/2024 1:41 PM [employer] 10/09/2024 3:15 PM [employer] Ganesh Freeman MD LAB BLOOD ORDERABLES Fin al Result Performing Organization Address [facility] de Phone Number [facility] [place] [address] * (ABNORMAL) Basic metabolic panel (10/09/2024 1:41 PM [employer]) [facility] Sodium 132(L) 135 - 145 mmol/L Potassium, pl 5.0(H) 3.3 - 4.9 mmol/L [facility] Chloride 95(L) 97 - 110 mmol/L [facility] CO2 26 22 - 32 mmol/L [facility] Anion gap 11 2 - 15 mmol/L [facility] BUN 15 6 - 25 mg/dL [facility] Creatinine 0.77 0.60 - 1.10 mg/dL [facility] Glucose 102 70 - 199 mg/dL [facility] Comment: Interpretive Data Fasting glucose [...] 2022. Calcium 8.5 8.5 - 10.3 mg/dL [facility] WRIGHT Blood 10/09/2024 1:41 PM [employer] 10/09/2024 3:15 PM [employer] Fay Mckeon MD LAB BLOOD ORDERABLES Final Result [facility] [place] [address] * eGFR (10/08/2024 9:58 PM [employer]) eGFR >90 >=60 mL/min/1. 73 m2 Comment: [...] last reviewed 2021. Blood 10/08/2024 9:58 PM [employer] 10/08/2024 10:15 PM [employer] us Fay Mckeon MD LAB BLOOD ORDERABLES Final Result [facility] Department [place] [address] * Differential, auto (10/08/2024 9:58 PM [employer]) Pathologist [facility] Neutrophil abs 3.7 1.5 - 6.5 K/cumm Imm gran abs 0.1 0.0 - 0.1 K/cumm [facility] Lymphocyte abs 1.8 0.8 - 3.3 K/cumm [facility] Monocyte abs 0.5 0.2 - 0.8 K/cumm [facility] Eosinophil abs 0.1 0.0 - 0.5 K/cumm [facility] Basophil abs 0.0 0.0 - 0.1 K/cumm [facility] Neutrophil pct 60.1 % [facility] Comment: Interpretive Data Percent cell count reference ranges are not reported, since discordance with absolute values may lead to misinterpretation of CBC data. Current Interpretive Data was last revised on 2017. Imm gran pct 0.8 % [facility] Comment: Interpretive Data Percent cell count reference ranges are not reported, since discordance with absolute values may lead to misinterpretation of CBC data. Current Interpretive Data was last revised on 2017. Lymphocyte pct 29.3 % [facility] Comment: Interpretive Data Percent cell count reference ranges are not reported, since discordance with absolute values may lead to misinterpretation of CBC data. Current Interpretive Data was last revised on 2017. Monocyte pct 8.2 % [facility] Comment: Interpretive Data Percent cell count reference ranges are not reported, since discordance with absolute values may lead to misinterpretation of CBC data. Current Interpretive Data was last revised on 2017. Eosinophil pct 1.1 % [facility] Comment: Interpretive Data Percent cell count reference ranges are not reported, since discordance with absolute values may lead to misinterpretation of CBC data. Current Interpretive Data was last revised on 2017. Basophil pct 0.5 % [facility] Comment: Interpretive Data Percent cell count reference ranges are not reported, since discordance with absolute values may lead to misinterpretation of CBC data. Current Interpretive Data was last revised on 2017. Blood 10/08/2024 9:58 PM [employer] 10/08/2024 10:13 PM [employer] us Ganesh Freeman MD LAB BLOOD ORDERABLES Fin al Result Performing Organization Address [facility] de Phone Number [facility] Department [place] [address] * (ABNORMAL) CBC with auto differential (10/08/2024 9:58 PM [employer]) WBC 6.1 3.8 - 9.9 K/cumm Hgb 9.0(L) 11.9 - 15.5 g/dL [facility] Hct 30.0(L) 35.6 - 45.5 % [facility] Plt 429(H) 150 - 400 K/cumm [facility] MPV 10.9 9.1 - 12.3 fL [facility] RBC 3.68(L) 3.90 - 5.20 M/cumm [facility] MCV 81.5 81.3 - 96.4 fL [facility] MCH 24.5(L) 27.1 - 33.3 pg [facility] MCHC 30.0(L) 32.3 - 35.7 g/dL [facility] RDW CV 17.0(H) 11.1 - 14.9 % [facility] RDW SD 50.6(H) 35.7 - 48.1 fL [facility] NRBC abs 0.00 0.00 - 0.01 K/cumm [facility] Blood 10/08/2024 9:58 PM [employer] 10/08/2024 10:13 PM [employer] us Ganesh Freeman MD LAB BLOOD ORDERABLES Fin al Result Performing Organization Address [facility] Co de Phone Number [facility] [place] [address] * Magnesium (10/08/2024 9:58 PM [employer]) Pathologist [facility] Magnesium 2.0 1.4 - 2.5 mg/dL Blood 10/08/2024 9:58 PM [employer] 10/08/2024 10:10 PM [employer] us Ganesh Freeman MD LAB BLOOD ORDERABLES Fin al Result [facility] Department [place] [address] * (ABNORMAL) Basic metabolic panel (10/08/2024 9:58 PM [employer]) Sodium 131(L) 135 - 145 mmol/L Potassium, pl 5.0(H) 3.3 - 4.9 mmol/L [facility] Chloride 97 97 - 110 mmol/L [facility] CO2 25 22 - 32 mmol/L [facility] Anion gap 9 2 - 15 mmol/L [facility] BUN 18 6 - 25 mg/dL [facility] Creatinine 0.56(L) 0.60 - 1.10 mg/dL [facility] Glucose 110 70 - 199 mg/dL [facility] Comment: Interpretive Data Fasting glucose [...] 2022. Calcium 8.1(L) 8.5 - 10.3 mg/dL [facility] Blood 10/08/2024 9:58 PM [employer] 10/08/2024 10:10 PM [employer] Fay Mckeon MD LAB BLOOD ORDERABLES Final Result [facility] Department [place] [address] * US Vein Duplex Upper Extremity Bilateral Complete (10/08/2024 11:19 AM [employer]) Anatomical Region Laterality Modality Vascular Bilateral Ultrasound 10/08/2024 10:0 0 AM [employer] Narrative 10/08/2024 2:46 PM [employer] [facility] - Department of Vascular Surgery, Vascular Laboratory [address] [place] [address] Upper Extremity Venous Ultrasound Report Patient Name: MADONNA JARA N : 1985 (39y 2m) Study Date: 10/08/2024 10:00:38 AM Gender: F Tech: Location: [id number] Ref Provider: GANESH FREEMAN Quality: Adequate Order Provider: GANESH FREEMAN PROCEDURES: Vascular Report: Venous Duplex imaging was performed bilaterally in the upper extremities. The internal jugular, subclavian and axillary veins were evaluated for patency, spontaneity and phasicity with Doppler, compression and augmentation maneuvers. The brachial, basilic and cephalic veins were also evaluated with compression maneuvers. INDICATIONS: Localized edema. FINDINGS: Performing Supervisor Scenic Arts: Stella Moe RVT. Right: Venous Doppler signals [...] Lee David MD FACS 10/08/2024 2:42:15 PM [employer] Procedure Note Lee David MD - 10/08/2024 [facility] - Department of Vascular Surgery,Vascular Laboratory [address] [place] [address] Upper Extremity Venous Ultrasound Report Patient Name: MADONNA JARA N : 1985 (39y 2m) Study Date: 10/08/2024 10:00:38 AM Gender: F Tech: Location: [id number] Ref Provider: GANESH FREEMAN Quality: Adequate Order Provider: GANESH FREEMAN PROCEDURES: Vascular Report: Venous Duplex imaging was performed bilaterally in the upper extremities.The internal jugular, subclavian and axillary veins were evaluated for patency,spontaneity and phasicity with Doppler, compression and augmentation maneuvers. Thebrachial, basilic and cephalic veins were also evaluated with compression maneuvers. INDICATIONS: Localized edema. FINDINGS: Performing Supervisor Scenic Arts: Stella Moe RVT. Right: Venous Doppler signals [...] above. Electronically Signed By: Lee David MD [facility] 10/08/2024 2:42:15 PM [employer]PER[employer]ODUCTION Ganesh Freeman MD IMG US PROCEDURES Final Result * US Vein Duplex Lower Extremity Bilateral Complete (10/08/2024 11:14 AM [employer]PER[employer]) Anatomical Region Laterality Modality Vascular Bilateral Ultrasound 10/08/2024 10:2 8 AM [employer] Narrative 10/08/2024 2:46 PM [employer] [facility] - Department of Vascular Surgery, Vascular Laboratory [address] [place] [address] Lower Extremity Venous Ultrasound Report Patient Name: MADONNA JARA N : 1985 (39y 2m) Study Date: 10/08/2024 10:28:39 AM Gender: F Tech: Location: [id number] Ref Provider: GANESH FREEMAN Quality: Adequate Order Provider: GANESH FREEMAN PROCEDURES: Vascular Report: Venous Duplex imaging was performed bilaterally in the lower extremities. The common femoral, femoral, popliteal, posterior tibial, peroneal veins were evaluated for patency, spontaneity and phasicity with Doppler, compression and augmentation maneuvers. Great saphenous vein proximal at the junction was evaluated with compression maneuvers. INDICATIONS: Localized edema. FINDINGS: Performing Supervisor Scenic Arts: Stella Moe RVT. Bilateral: Venous Doppler signals [...] Lee David MD FACS 10/08/2024 2:42:37 PM [employer]PER[employer] Procedure Note Lee David MD - 10/08/2024 [facility] - Department of Vascular Surgery,Vascular Laboratory [address] [place] [address] Lower Extremity Venous Ultrasound Report Patient Name: MADONNA JARA N : 1985 (39y 2m) Study Date: 10/08/2024 10:28:39 AM Gender: F Tech: Location: [id number] Ref Provider: GANESH FREEMAN Quality: Adequate Order Provider: GANESH FREEMAN PROCEDURES: Vascular Report: Venous Duplex imaging was performed bilaterally in the lower extremities.The common femoral, femoral, popliteal, posterior tibial, peroneal veins wereevaluated for patency, spontaneity and phasicity with Doppler, compression and augmentationmaneuvers. Great saphenous vein proximal at the junction was evaluated with compressionmaneuvers. INDICATIONS: Localized edema. FINDINGS: Performing Supervisor Scenic Arts: Stella Moe RVT. Bilateral: Venous Doppler signals [...] Lee David MD FACS 10/08/2024 2:42:37 PM [employer]PER[employer] Ganesh Freeman MD IMG US PROCEDURES Final Result * Sodium, urine, random (10/08/2024 5:51 AM [employer]) Sodium, ur 197 mmol/L Comment: Interpretive Data No reference range established. Current interpretive data was last revised 2019. Urine 10/08/2024 5:51 AM [employer] 10/08/2024 7:15 AM [employer] Ganesh Freeman MD LAB URINE ORDERABLES Fin al Result Performing Organization Address [facility] Co de Phone Number [facility] [place] [address] * Osmolality, urine (10/08/2024 5:51 AM [employer]PER[employer]) Osmo, ur 578 mOsm/kg Urine 10/08/2024 5:51 AM [employer] 10/08/2024 7:15 AM [employer] Ganesh Freeman MD LAB URINE ORDERABLES Fin al Result Performing Organization Address [facility] Phone Number [facility] [place] [address] * Creatinine, urine, random (10/08/2024 5:51 AM [employer]) Creatinine Ur 36.8 mg/dL Comment: Interpretive Data No reference range established. Current interpretive data was last revised 2019. Urine 10/08/2024 5:51 AM [employer] 10/08/2024 7:15 AM [employer] Ganesh Freeman MD LAB URINE ORDERABLES Fin al Result Performing Organization Address [facility] Co de Phone Number [facility] [place] [address] * eGFR (10/08/2024 4:26 AM [employer]PER[employer]) eGFR >90 >=60 mL/min/1. 73 m2 Comment: [...] last reviewed 2021. Blood 10/08/2024 4:26 AM [employer] 10/08/2024 5:19 AM [employer] us Devyn Worrell MD LAB BLOOD ORDERABLES Viv l Result Performing Organization Address City/[facility]/ZIP Co de Phone Number [facility] Department [place] [address] * (ABNORMAL) Osmolality, blood (10/08/2024 4:26 AM [employer]) Osmo 274(L) 275 - 300 mOsm/kg Blood 10/08/2024 4:26 AM [employer] 10/08/2024 5:10 AM [employer] us Ganesh Freeman MD LAB BLOOD ORDERABLES Fin al Result Performing Organization Address City/[facility]/ZIP Co de Phone Number [facility] Department [place] [address] * (ABNORMAL) Basic metabolic panel (10/08/2024 4:26 AM [employer]PER[employer]) Pathologist [facility] Sodium 135 135 - 145 mmol/L Potassium, pl 4.6 3.3 - 4.9 mmol/L [facility] Chloride 102 97 - 110 mmol/L [facility] CO2 26 22 - 32 mmol/L [facility] Anion gap 7 2 - 15 mmol/L [facility] BUN 12 6 - 25 mg/dL [facility] Creatinine 0.52(L) 0.60 - 1.10 mg/dL [facility] Glucose 88 70 - 199 mg/dL [facility] Comment: Interpretive Data Fasting glucose [...] 2022. Calcium 8.1(L) 8.5 - 10.3 mg/dL [facility] Blood 10/08/2024 4:26 AM [employer] 10/08/2024 5:10 AM [employer]ODUCTION Devyn Worrell MD LAB BLOOD ORDERABLES Viv l Result [facility] Department [place] [address] * eGFR (10/07/2024 9:44 PM SUPERINTENDENT D[employer]LLING [employer]ODUCTION) [facility] eGFR >90 >=60 mL/min/1. 73 m2 Comment: [...] last reviewed 2021. Blood 10/07/2024 9:44 PM [employer]ODUCTION 10/07/2024 10:03 PM [employer] us Fay Mckeon MD LAB BLOOD ORDERABLES Final Result [facility] Department [place] [address] * Differential, auto (10/07/2024 9:44 PM SUPERINT[employer]ENT [employer]LLING [employer]ODUCTION) Pathologist [facility] Neutrophil abs 2.3 1.5 - 6.5 K/cumm Imm gran abs 0.1 0.0 - 0.1 K/cumm [facility] Lymphocyte abs 1.8 0.8 - 3.3 K/cumm [facility] Monocyte abs 0.5 0.2 - 0.8 K/cumm [facility] Eosinophil abs 0.1 0.0 - 0.5 K/cumm [facility] Basophil abs 0.0 0.0 - 0.1 K/cumm [facility] Neutrophil pct 47.7 % [facility] Comment: Interpretive Data Percent cell count reference ranges are not reported, since discordance with absolute values may lead to misinterpretation of CBC data. Current Interpretive Data was last revised on 2017. Imm gran pct 1.3 % [facility] Comment: Interpretive Data Percent cell count reference ranges are not reported, since discordance with absolute values may lead to misinterpretation of CBC data. Current Interpretive Data was last revised on 2017. Lymphocyte pct 38.3 % [facility] Comment: Interpretive Data Percent cell count reference ranges are not reported, since discordance with absolute values may lead to misinterpretation of CBC data. Current Interpretive Data was last revised on 2017. Monocyte pct 10.8 % [facility] Comment: Interpretive Data Percent cell count reference ranges are not reported, since discordance with absolute values may lead to misinterpretation of CBC data. Current Interpretive Data was last revised on 2017. Eosinophil pct 1.5 % [facility] Comment: Interpretive Data Percent cell count reference ranges are not reported, since discordance with absolute values may lead to misinterpretation of CBC data. Current Interpretive Data was last revised on 2017. Basophil pct 0.4 % [facility] Comment: Interpretive Data Percent cell count reference ranges are not reported, since discordance with absolute values may lead to misinterpretation of CBC data. Current Interpretive Data was last revised on 2017. Blood 10/07/2024 9:44 PM [employer]ODUCTION 10/07/2024 10:03 PM [employer] us Ganesh Freeman MD LAB BLOOD ORDERABLES Fin al Result [facility] Department [place] [address] * (ABNORMAL) CBC with auto differential (10/07/2024 9:44 PM [employer]PER[employer]ODUCTION) WBC 4.7 3.8 - 9.9 K/cumm Hgb 8.6(L) 11.9 - 15.5 g/dL [facility] Hct 28.9(L) 35.6 - 45.5 % [facility] Plt 367 150 - 400 K/cumm [facility] MPV 11.6 9.1 - 12.3 fL [facility] RBC 3.55(L) 3.90 - 5.20 M/cumm [facility] MCV 81.4 81.3 - 96.4 fL [facility] MCH 24.2(L) 27.1 - 33.3 pg [facility] MCHC 29.8(L) 32.3 - 35.7 g/dL [facility] RDW CV 17.0(H) 11.1 - 14.9 % [facility] RDW SD 50.3(H) 35.7 - 48.1 fL [facility] NRBC abs 0.00 0.00 - 0.01 K/cumm [facility] Blood 10/07/2024 9:44 PM [employer] 10/07/2024 10:03 PM [employer]PER[employer]ENT [employer]LL[employer]ODUCTION Ganesh Freeman MD LAB BLOOD ORDERABLES Fin al Result Performing Organization Address [facility] Co de Phone Number [facility] Department [place] [address] * Type and screen (10/07/2024 9:44 PM SUPERINTENDENT [employer]LLING [employer]ODUCTION) Pathologist [facility] ABO Rh O Positive King, indirect Negative [facility] Blood 10/07/2024 9:44 PM [employer]ODUCTION 10/07/2024 9:59 PM [employer]PER[employer]ENT [employer]LLING [employer]ODUCTION Narrative [facility] - 10/08/2024 1:00 AM [employer]PERINT[employer]ENT [employer]LLING [employer]ODUCTION Has the patient had Daratumumab or Isatuximab in the past 6 months?->Unknown Fay Mckeon MD LAB BLOOD BANK TEST ORDERAB LES Final Result Performing Organization Address [facility] de Phone Number [facility] Department [place] [address] * Magnesium (10/07/2024 9:44 PM SUPERINTENDENT DRILLING [employer] PRODUCTION) Pathologist [facility] Magnesium 2.0 1.4 - 2.5 mg/dL Blood 10/07/2024 9:44 PM [employer]ODUCTION 10/07/2024 10:03 PM [employer]PER[employer]ENT [employer]LL[employer] PRODUCTION Ganesh Freeman MD LAB BLOOD ORDERABLES Fin al Result Performing Organization Address [facility] Co de Phone Number [facility] Department [place] [address] * (ABNORMAL) Basic metabolic panel (10/07/2024 9:44 PM SUPERINT[employer]ENT [employer]ODUCTION) Sodium 129(L) 135 - 145 mmol/L Potassium, pl 4.8 3.3 - 4.9 mmol/L [facility] Chloride 99 97 - 110 mmol/L [facility] CO2 24 22 - 32 mmol/L [facility] Anion gap 6 2 - 15 mmol/L [facility] BUN 13 6 - 25 mg/dL [facility] Creatinine 0.58(L) 0.60 - 1.10 mg/dL [facility] Glucose 99 70 - 199 mg/dL [facility] Comment: Interpretive Data Fasting glucose [...] 2022. Calcium 8.1(L) 8.5 - 10.3 mg/dL [facility] Blood 10/07/2024 9:44 PM [employer]ODUCTION 10/07/2024 10:03 PM [employer]PER[employer] us Fay Mckeon MD LAB BLOOD ORDERABLES Final Result [facility] Department [place] [address] * Blood culture Blood (10/07/2024 4:53 PM SUPERINT[employer]ENT [employer]LL[employer]ODUCTION) Report Final Report: No growth Blood 10/07/2024 4:53 PM [employer]ODUCTION 10/07/2024 5:04 PM [employer]PERINT[employer]ENT [employer]LLING [employer]ODUCTION Narrative [facility] - 10/12/2024 7:00 AM [employer]LL[employer] From a different site than #1. Collection->Peripheral [...] performance characteristics have been verified by the [facility] Microbiology Laboratory. For questions about this culture, contact the Microbiology Laboratory at [phone]. Interpretive data was last revised on 24. Ganesh Freeman MD LAB MICROBIOLOGY - [facility] AL ORDERABLES Final Result [facility] [place] [address] * Blood culture Blood (10/07/2024 4:53 PM SUPERINT[employer]LL[employer]ODUCTION) Report Final Report: No growth Blood 10/07/2024 4:53 PM [employer] 10/07/2024 5:04 PM [employer]PERINT[employer]ENT [employer]LLING [employer]ODUCTION Narrative [facility] - 10/12/2024 7:00 AM [employer]PER[employer]ENT [employer]LL[employer]ODUCTION Collection->Peripheral 1. Blood cultures are incubated for [...] performance characteristics have been verified by the [facility] Microbiology Laboratory. For questions about this culture, contact the Microbiology Laboratory at [phone]. Interpretive data was last revised on 24. us Ganesh Freeman MD LAB MICROBIOLOGY - GENER AL ORDERABLES Final Result Performing Organization Address City/[facility]/ZIP Co de Phone Number [facility] Department [place] [address] * Hepatitis panel, acute Blood (10/04/2024 12:41 AM [employer]PER[employer]ODUCTION) Hep A IgM Nonreactive Nonreactive Hep B core IgM Nonreactive Nonreactive [facility] Hep C Ab Nonreactive Nonreactive [facility] Comment:Antibodies to HCV no t detected. Does NOT exclude the possibility of recent exposure to HCV. Current interpretive data was last revised on 22 HepBsAg Nonreactive Nonreactive [facility] Blood 10/04/2024 12:4 1 AM [employer] 10/04/2024 1:01 AM [employer] us Lisette Arevalo MD LAB MICROBIOLOGY - GENE RAL ORDERABLES Final Result Performing Organization Address City/[facility]/ZIP Co de Phone Number [facility] [place] [address] from Last 3 Months or Most Recently Relevant to Health Maintenance Insurance [facility] Advance Directives For more information, please contact: [phone] * Full Code (Latest Code Status on File) Date Activated Date Inactivated Comments 10/04/2024 4:01 AM 10/10/2024 6:18 PM Care Teams Director Personal Relationship Specialty Start Date End Date Anand Richard MD [address] [place] [address] PCP - General Family Medicine 10/10/24
--- OUTSIDE RECORDS SUMMARY | 2025-01-04 08:19 | XMS_ITS | Patient Health Record ---
Author Organization [facility] Address [address] [place] [address] Care Team Providers Care Senior Production Supervisor Name Role Phone Maurisio Tilley Primary Care Provider Kay VILLATORO Unavailable Unavailable Dominga Mercedes Unavailable Felicita Jansen Unavailable [phone] Allergies Allergen (clinical drug ingredient) Drug/Non Drug Allergy documented on EMR Reaction Allergy Type Onset Date Status codeine Codeine Unknown Drug Allergy Active Results Component Value Reference Range Notes Medication Assisted Treatmen t (MAT) Buprenorphine, Norbuprenorphine, and Naloxone MS Confirmation, Urine Reviewed date:11/19/2024 08:15:36 AM Interpretation: Performing Lab:[facility], [address] [place] [address], Phone - [phone], Director - [facility] Notes/Report: Creatinine 66 REFERENCE RANGE : Ref Range>=20 BUPRENORPHINE ++POSITIVE++ Buprenorphine 159 Norbuprenorphine >1515 N/B Ratio >9.52 >=0.3 OPIATE ANTAGONIST ++POSITIVE++ Naloxone 395 Testing Threshold: buprenorphine, 1.0 ng/mL norbuprenorphine, 5.0 ng/mL naloxone, 10 ng/mL This test was developed and its performance characteristics determined by [facility]. It has not been cleared or approved by the Food and Drug Administration. 12 Panel Urine Drug Screen Reviewed date:12/18/2024 [...] POS 12 Panel Urine Drug Screen Reviewed date:10/16/2024 03:05:24 PM Interpretation: Performing Lab: Notes/Report: THC neg AMADOR neg MOP (OPI) neg AMP neg MET neg BAR neg BZO neg MDMA neg MTD neg OXY neg PCP neg BUP POS Test, Urine Reviewed date:10/16/2024 03:06:20 PM Interpretation:Negative Performing Lab: Notes/Report: Negative Test, Urine negative Negative - Negative Reason For Referral No Information Medications Medication [...] Status Risk Notes Problem Opioid use disorder ([id number]) Opioid use disorder (F11.99) Active confirmed Vital Signs Heart Rate 90 /min 12/18/2024 Temperature 98.6 degrees Fahrenheit 12/18/2024 Respiratory Rate 16 /min 12/18/2024 Blood pressure diastolic 70 mm Hg 12/18/2024 Oximetry 97 % 12/18/2024 Height 67 in 12/18/2024 Blood pressure systolic 118 mm Hg 12/18/2024 Weight 175.6 lbs 12/18/2024 BMI 27.5 kg/m2 12/18/2024 Encounters Encounter Location Date Provider Diagnosis [address] [place] [address] 10/16/2024 Felicita Jansen Opioid use disorder F11.[address] [place] [address] 10/31/2024 Felicita Chepefik Opioid use disorder F11.[address] [place] [address] 11/14/2024 Felicita Szlufikay Opioid use disorder F11.99 and Nutritional counseling Z71.[address] [address] 12/18/2024 Dominga Santiagotiburcio Opioid use disorder F11.99 Assessments Encounter Date Diagnosis (ICD Code) Assessment Notes Treatment Notes Treatment Clinical Notes Section Notes 10/16/2024 Opioid use disorder (ICD-10 - F11.99) Still has films available. Will return for follow-up when due for refill. 10/31/2024 Opioid use disorder (ICD-10 - F11.99) 11/14/2024 Nutritional counseling (ICD-10 - Z71.3) 11/14/2024 Opioid use disorder (ICD-10 - F11.99) 12/18/2024 Opioid use disorder (ICD-10 - F11.99) 10/16/2024 [...] self-administe r their own oral medications per [place] Protocol. 10/31/2024 Other Patient agrees to take [...] self-administe r their own oral medications per [place] Protocol. 11/14/2024 Other Patient agrees to take [...] self-administe r their own oral medications per [place] Protocol. 

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
--- OUTSIDE RECORDS SUMMARY | 2025-01-04 08:19 | XMS_ITS | Clinical Summary ---
Author Organization [facility] Address [address] [place] [address] Care Team Providers Care Bow Maker Custom Name Role Phone Anand Richard MD Primary Care Provider + Source Comments [facility],non-owned Affiliates and Associated Physician Practices is amultiple site organization consisting of ambulatory clinics and hospital sitesin [place], [place], [place] and [place]. This disclosure is being madepursuant to the Care Everywhere program and may not contain all information available regarding this patient. Last updated 18.[facility] Allergies Active Allergy Reactions Criticality Noted Date [...] patient's age to complete this topic Insurance [facility] [address] Advance Directives * Full Code (Latest Code Status on File) Date Activated Date Inactivated Comments 04/29/2021 10:41 PM 05/07/2021 1:00 PM Care Teams Bow Maker Custom Relationship Specialty Start Date End Date Anand Richard MD [address] [facility] [address] [place] [address] PCP - General 04/03/19
== END 2025-01-04 08:15 | disposition home or self-care (01) ==
PROVIDERS: PCP Family Medicine Adolescent Medicine; Visit Provider Nurse Practitioner Family
DX: K86.9 Disease of pancreas, unspecified (principal)
CPT/HCPCS: 76705

== ENCOUNTER 2025-01-08 10:44 | Outpatient (CLI) | payer OTHER, SELFPAY ==
--- OUTSIDE RECORDS SUMMARY | 2025-01-08 11:01 | XMS_ITS | Clinical Summary ---
Author Organization [facility] Address [address] [place] [address] Care Team Providers Care Software Analyst Name Role Phone Anand Richard MD Primary [...] Team Description 11/08/2024 Results Follow-Up Radiology [address] [place] [address] Brenden Valencia MD 11/07/2024 Telephone [facility] [address] [place] [address] Medicine [address]th [place] [address] [place] [address] Brenden Valencia MD 11/06/2024 Telephone [facility] [address] [place] [address] 8th [place] [address] [place] [address] Brenden Valencia MD 10/31/2024 12:11 PM ENTERTAINMENT PRODUCTION PROFESSIONAL - 10/31/2024 11:59 PM ENTERTAINMENT PRODUCTION PROFESSIONAL Hospital Encounter [facility] Cardiac Diagnostic Lab [address] [place] [phone] Mitral valve insufficiency, unspecified etiology; Hypervolemia, unspecified hypervolemia type Discharge Disposition: Discharge to home or self care 10/24/2024 11:30 AM ENTERTAINMENT PRODUCTION PROFESSIONAL Office Visit [facility] [address] [facility] Advanced Medicine 8th [place] [address] [place] [address] Brenden Valencia MD Hypervolemia, unspecified hypervolemia type (Primary Dx); Mitral valve insufficiency, unspecified etiology 10/16/2024 [facility] Enrollment [facility] Warm Hand Off Program [address] [place], [place] [phone] Ingrid Arce 10/12/2024 Telephone [facility] [address] [facility] 8th [place] [address] [place] [address] Lilibeth Thapa from Last 3 Months Medical History Medical [...] on file Legal Sex Female 8:49 PM ENTERTAINMENT PRODUCTION PROFESSIONAL Gender Identity Not on file Sexual Orientation Not on file Obstetrics History Last Filed Vital Signs Vital Sign Reading Time Taken Comments Blood Pressure 110/75 10/24/2024 12:02 PM ENTERTAINMENT PRODUCTION PROFESSIONAL Pulse 110 10/24/2024 12:02 PM ENTERTAINMENT PRODUCTION PROFESSIONAL Temperature 36.8 C (98.2 F) 10/10/2024 7:20 AM ENTERTAINMENT PRODUCTION PROFESSIONAL Respiratory Rate 18 10/10/2024 7:20 AM ENTERTAINMENT PRODUCTION PROFESSIONAL Oxygen Saturation 98% 10/24/2024 12:02 PM ENTERTAINMENT PRODUCTION PROFESSIONAL Inhaled Oxygen Concentration - - Weight 69.4 kg (153 lb) 10/24/2024 12:02 PM ENTERTAINMENT PRODUCTION PROFESSIONAL Height 170.2 cm (5' 7 ) 10/24/2024 12:02 PM ENTERTAINMENT PRODUCTION PROFESSIONAL Body Mass Index 23.96 10/24/2024 12:02 PM ENTERTAINMENT PRODUCTION PROFESSIONAL Plan of Treatment Health Maintenance Due Date Last Done Comments Breast Cancer Screening-Mammogram 1984 Cervical Cancer Screening 1984 Depression Screening 1984 Varicella Vaccines (1 of 2 - 13+ 2-dose series) 1997 Hepatitis B Screening 2002 Regular Well Visit/Exam 18-64 2002 Pneumococcal vaccine <65 (1 of 2 - PCV) 2003 Covid-19 Vaccine (4 - 2023-2 5 season) 2024 08/18/2021, 01/29/2021, [...] DOPPLER/CF WO CONTRAST Routine 10/31/2024 1:30 PM ENTERTAINMENT PRODUCTION PROFESSIONAL Mitral valve insufficiency, unspecified etiology Hypervolemia, unspecified hypervolemia type HEPATITIS PANEL, ACUTE Routine 10/04/2024 12:41 AM ENTERTAINMENT PRODUCTION PROFESSIONAL from Last 3 Months or Most Recently Relevant to Health Maintenance Results * TRANSTHORACIC ECHO (TTE) COMPLETE W DOPPLER/CF WO CONTRAST (10/31/2024 1:30 PM ENTERTAINMENT PRODUCTION PROFESSIONAL) Anatomical Region Laterality Modality Ultrasound 10/31/2024 12:2 2 PM ENTERTAINMENT PRODUCTION PROFESSIONAL Narrative 10/31/2024 3:58 PM ENTERTAINMENT PRODUCTION PROFESSIONAL [facility] Cardiac [place] [address] [place] [address] Transthoracic Echocardiographic Report Patient Name: MADONNA JARA N : 1985 (39y 3m) Gender: F Study Date: 10/31/2024 12:22:35 PM Ht(Inch): 67 Wt(Lb): 153 BSA: 1.81 Vessel Scrapper: Mariah Burden RDCS Location: [facility] Order Provider: BRENDEN VALENCIA Heart Rate: 89 BMI: 23.96 BP: 110 / 75 Quality: The study images were of technically good quality. Ref Provider: BRENDEN VALENCIA PROCEDURES: Echocardiographic Report: ([id number], [id number]) Transthoracic complete echo with strain imaging, 2D, [...] By: Brenden Valencia MD 10/31/2024 3:58:18 PM ENTERTAINMENT PRODUCTION PROFESSIONAL Electronically Signed By: Brenden Valencia MD 10/31/2024 3:58:18 PM ENTERTAINMENT PRODUCTION PROFESSIONAL Procedure Note Brenden Valencia MD - 10/31/2024 [facility] Card[facility] [place] [address] [place] [address] Transthoracic Echocardiographic Report Patient Name: MADONNA JARA N : 1985 (39y 3m) Gender: F Study Date: 10/31/2024 12:22:35 PM Ht(Inch): 67 Wt(Lb): 153 BSA: 1.81 Vessel Scrapper: Mariah Burden RDCS Location: [facility] Order Provider:BRENDEN VALENCIA Heart Rate: 89 BMI: 23.96 BP: 110 / 75 Quality: The study images were oftechnically good quality. Ref Provider: BRENDEN VALENCIA PROCEDURES: Echocardiographic Report: ([id number], [id number]) Transthoracic complete echo withstrain imaging, 2D, spectral [...] cm2 RA Volume 23.35 ml MV Decel Efta904.39 msec [ 104.00 - 258.00 ] RA [...] By: Brenden Valencia MD 10/31/2024 3:58:18 PM ENTERTAINMENT PRODUCTION PROFESSIONAL Electronically Signed By: Brenden Valencia MD 10/31/2024 3:58:18 PM ENTERTAINMENT PRODUCTION PROFESSIONAL us Brenden Valencia MD CV ECHO PROCEDURES Final Res ult * Hepatitis panel, acute Blood (10/04/2024 12:41 AM ENTERTAINMENT PRODUCTION PROFESSIONAL) Hep A IgM Nonreactive Nonreactive Hep B core IgM Nonreactive Nonreactive [facility] Hep C Ab Nonreactive Nonreactive [facility] Comment:Antibodies to HCV no t detected. Does NOT exclude the possibility of recent exposure to HCV. Current interpretive data was last revised on 22 HepBsAg Nonreactive Nonreactive [facility] Blood 10/04/2024 12:4 1 AM ENTERTAINMENT PRODUCTION PROFESSIONAL 10/04/2024 1:01 AM ENTERTAINMENT PRODUCTION PROFESSIONAL us Lisette Arevalo MD LAB MICROBIOLOGY - GENE RAL ORDERABLES Final Result [facility] [address] [facility] [place] [address] from Last 3 Months or Most Recently Relevant to Health Maintenance Insurance [facility] Advance Directives For more information, please contact: [phone] * Full Code (Latest Code Status on File) Date Activated Date Inactivated Comments 10/04/2024 4:01 AM 10/10/2024 6:18 PM Care Teams Software Analyst Relationship Specialty Start Date End Date Anand Richard MD [address] [place] [address] PCP - General Family Medicine 10/10/24
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
--- OUTSIDE RECORDS SUMMARY | 2025-01-08 11:01 | XMS_ITS | Patient Health Record ---
Author Organization [facility] Address [address] [place] [address] Care Team Providers Care Safe And Vault Installer Name Role Phone Maurisio Tilley Primary Care Provider Kay VILLATORO Unavailable Unavailable Dominga Mercedes Unavailable [phone] Felicita Jansen Unavailable [phone] Allergies Allergen (clinical drug ingredient) Drug/Non Drug Allergy documented on EMR Reaction Allergy Type Onset Date Status codeine Codeine Unknown Drug Allergy Active Results Component Value Reference Range Notes Medication Assisted Treatmen t (MAT) Buprenorphine, Norbuprenorphine, and Naloxone MS Confirmation, Urine Reviewed date:11/19/2024 08:15:36 AM Interpretation: Performing Lab:AddressReport, [address] [place] [address], Phone - [phone], [facility] Notes/Report: Creatinine 66 REFERENCE RANGE : [...] Administration. 12 Panel Urine Drug Screen Reviewed date:10/16/2024 03:05:24 PM Interpretation: Performing Lab: Notes/Report: THC neg AMADOR neg MOP (OPI) neg AMP neg MET neg BAR neg BZO neg MDMA neg MTD neg OXY neg PCP neg BUP POS Test, Urine Reviewed date:10/16/2024 03:06:20 PM Interpretation:Negative Performing Lab: Notes/Report: Negative Test, Urine negative Negative - Negative 12 Panel Urine Drug Screen Reviewed date:11/14/2024 [...] neg OXY neg PCP neg BUP POS Reason For Referral No Information Medications Medication [...] Status Risk Notes Problem Opioid use disorder ([id number]) Opioid use disorder (F11.99) Active confirmed Vital Signs Heart Rate 90 /min 12/18/2024 Temperature 98.6 degrees Fahrenheit 12/18/2024 Respiratory Rate 16 /min 12/18/2024 Blood pressure diastolic 70 mm Hg 12/18/2024 Oximetry 97 % 12/18/2024 Height 67 in 12/18/2024 Blood pressure systolic 118 mm Hg 12/18/2024 Weight 175.6 lbs 12/18/2024 BMI 27.5 kg/m2 12/18/2024 Encounters Encounter Location Date Provider Diagnosis [address] [place] [address] 10/16/2024 Felicita Jansen Opioid use disorder F11.[address] [place] [address] 10/31/2024 Felicita Chepefik Opioid use disorder F11.[address] [place] [address] 11/14/2024 Felicita Szlufikay Opioid use disorder F11.99 and Nutritional counseling Z71.[address] [address] 12/18/2024 Dominga Santiagotiburcio Opioid use disorder F11.99 [...] self-administe r their own oral medications per [facility] Protocol. 10/31/2024 Other Patient agrees to take [...] self-administe r their own oral medications per [facility] Protocol. 11/14/2024 Other Patient agrees to take [...] self-administe r their own oral medications per [facility] Protocol. 12/18/2024 Other Patient agrees to take [...] Insured Coverage Start Date Coverage End Date [facility] Att Claims Department [address] [place] [address] [id number] Rose Jara Self - patient is the insured Medical (General) History Medical History History ICD Code anxiety DVT to RUE Opioid use disorder anemia Surgical History Surgery Date(Month/Year) left leg surgery - necrotizing fasciitis 2021 cholecystectomy 2019 Hospitalization History Reason Date(Month/Year) Left leg surgery 2021 Detox [facility]-detox, malnourished, arm wounds
--- OUTSIDE RECORDS SUMMARY | 2025-01-08 11:01 | XMS_ITS | Clinical Summary ---
Author Organization [facility] Address [address] [place] [address] Care Team Providers Care Plumber'S Assistant Name Role Phone Unavailable Primary Care Provider [...] Documents on File Type Date Recorded Patient Field Representatives Director Expl anation Advance Directives and Living Will 05/22/2018 12:00 AM ADVANCED DIRECTIVES
--- OUTSIDE RECORDS SUMMARY | 2025-01-08 11:01 | XMS_ITS | Referral Summary ---
Author Organization [facility] Address [address] [place] [address] Care Team Providers Care Mail Messenger Name Role Phone Anand Richard MD Primary Care Prov ider Encounters Date Type Department Care Team Description 11/08/2024 Results Follow-Up Radiology [address] [place] [address] Brenden Valencia MD 11/07/2024 Telephone [facility] Cardiology [address] [place] [address] Medicine 8th [place] [address] [place] [address] Brenden Valencia MD 11/06/2024 Telephone [facility] Cardiology [address] [place] [address] 8th [place] [address] [place] [address] Brenden Valencia MD 10/31/2024 12:11 PM COAL TRIMMER - 10/31/2024 11:59 PM COAL TRIMMER Hospital Encounter [facility] Cardiac Diagnostic Lab [address] [place] [address] Mitral valve insufficiency, unspecified etiology; Hypervolemia, unspecified hypervolemia type Discharge Disposition: Discharge to home or self care 10/24/2024 11:30 AM COAL TRIMMER Office Visit [facility] Cardiology [facility] Medicine [facility] [place] [address] [place] [address] Brenden Valencia MD Hypervolemia, unspecified hypervolemia type (Primary Dx); Mitral valve insufficiency, unspecified etiology 10/16/2024 [facility] Warm Hand Off Program [address] [place], [place] [phone] Ingrid Arce 10/12/2024 Telephone [facility] Cardiology [address] [facility] 8th [place] [address] [place] [address] Lilibeth Thapa from Last 3 Months Allergies Active Allergy [...] on file Legal Sex Female 8:49 PM COAL TRIMMER Gender Identity Not on file Sexual Orientation Not on file Last Filed Vital Signs Vital Sign Reading Time Taken Comments Blood Pressure 110/75 10/24/2024 12:02 PM COAL TRIMMER Pulse 110 10/24/2024 12:02 PM COAL TRIMMER Temperature 36.8 C (98.2 F) 10/10/2024 7:20 AM COAL TRIMMER Respiratory Rate 18 10/10/2024 7:20 AM COAL TRIMMER Oxygen Saturation 98% 10/24/2024 12:02 PM COAL TRIMMER Inhaled Oxygen Concentration - - Weight 69.4 kg (153 lb) 10/24/2024 12:02 PM COAL TRIMMER Height 170.2 cm (5' 7 ) 10/24/2024 12:02 PM COAL TRIMMER Body Mass Index 23.96 10/24/2024 12:02 PM COAL TRIMMER Plan of Treatment Not on file Procedures Procedure Name Priority Date/Time Associated Diagnosis Comments TRANSTHORACIC ECHO (TTE) COMPLETE W DOPPLER/CF WO CONTRAST Routine 10/31/2024 1:30 PM COAL TRIMMER Mitral valve insufficiency, unspecified etiology Hypervolemia, unspecified hypervolemia type HEPATITIS PANEL, ACUTE Routine 10/04/2024 12:41 AM COAL TRIMMER from Last 3 Months or Most Recently Relevant to Health Maintenance Results * TRANSTHORACIC ECHO (TTE) COMPLETE W DOPPLER/CF WO CONTRAST (10/31/2024 1:30 PM COAL TRIMMER) Anatomical Region Laterality Modality Ultrasound 10/31/2024 12:2 2 PM COAL TRIMMER Narrative 10/31/2024 3:58 PM COAL TRIMMER [facility] Cardiac [place] [address] Transthoracic Echocardiographic Report Patient Name: MADONNA JARA N : 1985 (39y 3m) Gender: F Study Date: 10/31/2024 12:22:35 PM Ht(Inch): 67 Wt(Lb): 153 BSA: 1.81 Exhibition Designer: Mariah Burden RDCS Location: [facility] Order Provider: BRENDEN VALENCIA Heart Rate: 89 BMI: 23.96 BP: 110 / 75 Quality: The study images were of technically good quality. Ref Provider: BRENDEN VALENCIA PROCEDURES: Echocardiographic Report: ([id number], [id number]) Transthoracic complete echo with strain imaging, 2D, [...] By: Brenden Valencia MD 10/31/2024 3:58:18 PM COAL TRIMMER Electronically Signed By: Brenden Valencia MD 10/31/2024 3:58:18 PM COAL TRIMMER Procedure Note Brenden Valencia MD - 10/31/2024 [facility] Cardiac [place] [address] Transthoracic Echocardiographic Report Patient Name: MADONNA JARA N : 1985 (39y 3m) Gender: F Study Date: 10/31/2024 12:22:35 PM Ht(Inch): 67 Wt(Lb): 153 BSA: 1.81 Exhibition Designer: Mariah Burden RDCS Location: [facility] Order Provider:BRENDEN VALENCIA Heart Rate: 89 BMI: 23.96 BP: 110 / 75 Quality: The study images were oftechnically good quality. Ref Provider: BRENDEN VALENCIA PROCEDURES: Echocardiographic Report: ([id number], [id number]) Transthoracic complete echo withstrain imaging, 2D, spectral [...] cm2 RA Volume 23.35 ml MV Decel Xrqu350.39 msec [ 104.00 - 258.00 ] RA [...] By: Brenden Valencia MD 10/31/2024 3:58:18 PM COAL TRIMMER Electronically Signed By: Brenden Valencia MD 10/31/2024 3:58:18 PM COAL TRIMMER us Brenden Valencia MD CV ECHO PROCEDURES Final Res ult * Hepatitis panel, acute Blood (10/04/2024 12:41 AM COAL TRIMMER) Hep A IgM Nonreactive Nonreactive Hep B core IgM Nonreactive Nonreactive [facility] Hep C Ab Nonreactive Nonreactive [facility] Comment:Antibodies to HCV no t detected. Does NOT exclude the possibility of recent exposure to HCV. Current interpretive data was last revised on 22 HepBsAg Nonreactive Nonreactive RONNI [facility] Blood 10/04/2024 12:4 1 AM COAL TRIMMER 10/04/2024 1:01 AM COAL TRIMMER Lisette Arevalo MD LAB MICROBIOLOGY - GENE RAL ORDERABLES Final Result RONNI [facility] Department [place] [address] from Last 3 Months or Most Recently Relevant to Health Maintenance Insurance [facility] Advance Directives For more information, please contact: [phone] * Full Code (Latest Code Status on File) Date Activated Date Inactivated Comments 10/04/2024 4:01 AM 10/10/2024 6:18 PM Care Teams Mail Messenger Relationship Specialty Start Date End Date Anand Richard MD [address] [place] [address] PCP - General Family Medicine 10/10/24
--- OUTSIDE RECORDS SUMMARY | 2025-01-08 11:01 | XMS_ITS | Clinical Summary ---
Author Organization [facility] Address [address] [place] [place] [address] Care Team Providers Care Area Plant Manager Name Role Phone Anand Richard MD Primary Care Provider + Source Comments [facility],non-owned Affiliates and Associated Physician Practices is amultiple site organization consisting of ambulatory clinics and hospital sitesin [place], [place], [place] and [place]. This disclosure is being madepursuant to the Care Everywhere program and may not contain all information available regarding this patient. Last updated 18.[facility] Allergies Active Allergy Reactions Criticality Noted Date [...] patient's age to complete this topic Insurance [facility] [place] [address] [place] [address] Advance Directives * Full Code (Latest Code Status on File) Date Activated Date Inactivated Comments 04/29/2021 10:41 PM 05/07/2021 1:00 PM Care Teams Area Plant Manager Relationship Specialty Start Date End Date Anand Richard MD [address] [facility] [address] [place] [address] PCP - General 04/03/19
== END 2025-01-08 10:45 | disposition home or self-care (01) ==
LOC: ANHAUDIO 10:45
PROVIDERS: PCP Family Medicine Adolescent Medicine; Visit Provider Nurse Practitioner Family
DX: Z01.10 Encounter for examination of ears and hearing without abnormal findings (principal)
CPT/HCPCS: 92557; 92567

== ENCOUNTER 2025-01-18 07:21 | Outpatient (RCR) | payer OTHER, SELFPAY ==
[2024-10-24 15:15] VITALS: BMI 24.0
== END 2025-01-22 23:59 | disposition home or self-care (01) ==
LOC: ANHWOC 07:21
PROVIDERS: PCP Family Medicine Adolescent Medicine; Visit Provider Nurse Practitioner Family
DX: L98.9 Disorder of the skin and subcutaneous tissue, unspecified (principal); Z48.00 Encounter for change or removal of nonsurgical wound dressing
CPT/HCPCS: 99214; A9270; G0463

== ENCOUNTER 2025-02-12 12:33 | Outpatient (CLI) | payer OTHER, SELFPAY ==
--- NOTE | ~2025-02-12 | MR_ITS ---
MRI of the abdomen: Clinical indication: Other specified disease of pancreas. Technique: Coronal SSFSE ARC, WATER:coronal LAVA-FLEX, Coronal 2D FIESTA FatSat, Axial SSFSE BH ARC, Axial 3D DualEcho BH, Axial SSFSE-IR, Axial DWI b=500, Axial 2D FIESTA FatSat, pre and dynamic postco ntrast Axial LAVA ARC, postcontrast Coronal In and Opposed phase LAVA FLEX. Following intravenous adm inistration of 17 cc MultiHance gadolinium, T1-weighted fat-sat imaging was performed in the axial an d coronal planes. Findings: Gallbladder absent. The common bile duct is normal in course and caliber. No filling defect s are seen within the CBD. No evidence of intrahepatic biliary ductal dilatation. The pancreatic duct is normal in size. Liver, spleen, pancreas, adrenals, kidneys appear normal. The aorta and the paraaortic regions appear normal. No abnormal postcontrast enhancement identified. Impression: No significant abnormality seen. No pancreatic mass identified. Reviewed, dictated and finalized at location . Impression: No significant abnormality seen. No pancreatic mass identified.
--- OUTSIDE RECORDS SUMMARY | 2025-02-12 13:04 | XMS_ITS | Patient Health Record ---
Author Organization [facility] Address [address] [place] [address] Care Team Providers Care Research Advisor Name Role Phone Jarek Lizaheidi Primary Care Provider Kay VILLATORO Unavailable Unavailable Dominga Mercedes Unavailable Felicita Jansen Unavailable [phone] Allergies Allergen (clinical drug ingredient) Drug/Non Drug Allergy documented on EMR Reaction Allergy Type Onset Date Status codeine Codeine Unknown Drug Allergy Active Results Component Value Reference Range Notes 12 Panel Urine Drug Screen Reviewed date:10/31/2024 [...] POS 12 Panel Urine Drug Screen Reviewed date:01/15/2025 01:09:27 PM Interpretation: Performing Lab: Notes/Report: THC neg [...] Urine Reviewed date:11/19/2024 08:15:36 AM Interpretation: Performing Lab:[facility], [address] [facility], Phone - [phone], Director - Renzo Notes/Report: Creatinine 66 REFERENCE RANGE : Ref Range>=20 BUPRENORPHINE ++POSITIVE++ Buprenorphine 159 Norbuprenorphine >1515 N/B Ratio >9.52 >=0.3 OPIATE ANTAGONIST ++POSITIVE++ Naloxone 395 Testing Threshold: buprenorphine, 1.0 ng/mL norbuprenorphine, 5.0 ng/mL naloxone, 10 ng/mL This test was developed and its performance characteristics determined by [facility]. It has not been cleared or approved by the Food and Drug Administration. Test, Urine Reviewed date:10/16/2024 03:06:20 PM Interpretation:Negative [...] Duration) Notes Start Date End Date Status busPIRone HCl 10 MG 1 tablet Orally Twic e a day Active Gabapentin 400 MG as directed Orally t wice a day Active Vitamin B 12 500 MCG 1 tablet Orally twi ce a day for 30 day(s) Active Buprenorphine HCl-Naloxone HCl 8-2 MG 1 tablet under the tongue and allow to dissolve Sublingual three times day for 30 days 01/15/2025 Active Lasix 20 MG 1 tablet Orally Once a day Active Iron 325 (65 Fe) MG 1 tablet Orally ever y day Active cloNIDine HCl 0.2 MG 1 tablet Orally thr ee times a day Active hydrOXYzine HCl 25 MG 1 tablet as needed Orally four times a day Active Pantoprazole Sodium 40 MG 1 tablet 1/2 t o 1 hour before morning meal Orally Once a day Active Eliquis 5 MG as directed Orally T wice a day Active CeleBREX 200 MG 1 capsule with food Orally Once a day Active Cymbalta 30 MG 1 capsule Orally Onc e a day Active Social History Tobacco Use: Social History Observation Description Date Details (start date - stop date) Never Smoker NA - NA Sex Assigned At : Social History Observation Description Sex Assigned At Female Tobacco Control (Standard) Question Answer Notes Tobacco use: Nonsmoker Problems Problem Type SNOMED Code ICD Code Onset Dates Problem Status W/U Status Risk Notes Problem Over weight (E66.3) Active confirmed Problem Opioid use disorder (9124969450) Opioid use disorder (F11.99) Active confirmed Vital Signs Heart Rate 74 /min 01/15/2025 Temperature 98.6 degrees Fahrenheit 12/18/2024 Respiratory Rate 16 /min 01/15/2025 Oximetry 98 % 01/15/2025 Blood pressure diastolic 60 mm Hg 01/15/2025 Height 67 in 01/15/2025 Blood pressure systolic 102 mm Hg 01/15/2025 Weight 185 lb 0 oz lbs 01/15/2025 BMI 28.97 kg/m2 01/15/2025 Encounters Encounter Location Date Provider Diagnosis [address] [place] [address] 10/16/2024 Felicita Jansen Opioid use disorder F11.[address] [place] [address] 10/31/2024 Felicita Chepefikay Opioid use disorder F11.[address] [address] 11/14/2024 Felicita Jansen Opioid use disorder F11.99 and Nutritional counseling Z71.[address] [address] 12/18/2024 Dominga Mercedes Opioid use disorder F11.[address] [place] [address] 01/15/2025 Felicita Szlufik Over weight E66.3 and Opioid use disorder F11.99 Assessments Encounter Date Diagnosis (ICD Code) Assessment Notes Treatment Notes Treatment Clinical Notes Section Notes 11/14/2024 Nutritional counseling (ICD-10 - Z71.3) 11/14/2024 Opioid use disorder (ICD-10 - F11.99) 01/15/2025 Over weight (ICD-10 - E66.3) 01/15/2025 Opioid use disorder (ICD-10 - F11.99) 12/18/2024 Opioid use disorder (ICD-10 - F11.99) 10/16/2024 Opioid use disorder (ICD-10 - F11.99) Still has films available. Will return for follow-up when due for refill. 10/31/2024 Opioid use disorder (ICD-10 - F11.99) 10/16/2024 [...] self-administe r their own oral medications per [place] Protocol. 10/31/2024 Other Patient agrees to take [...] self-administe r their own oral medications per [place] Protocol. 11/14/2024 Other Patient agrees to take [...] self-administe r their own oral medications per [place] Protocol. 12/18/2024 Other Patient agrees to take medication as prescribed. Discussed medication side effects, adverse effects, risks, benefits, as well as interactions. Encouraged non-use of opioids. Encouraged participation in recovery groups. Patient may contact office with questions or concerns. 01/15/2025 Other Patient agrees to take medication as [...] self-administe r their own oral medications per [place] Protocol. 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
== END 2025-02-12 12:34 | disposition home or self-care (01) ==
LOC: ANHIMG 12:34
PROVIDERS: PCP Nurse Practitioner Family; Visit Provider Nurse Practitioner Family
DX: K86.89 Other specified diseases of pancreas (principal)
CPT/HCPCS: 74183; A9577

== ENCOUNTER 2025-03-08 08:12 | Outpatient (CLI) | payer OTHER, SELFPAY ==
--- OUTSIDE RECORDS SUMMARY | 2025-03-08 08:20 | XMS_ITS | Clinical Summary ---
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
--- OUTSIDE RECORDS SUMMARY | 2025-03-08 08:20 | XMS_ITS | Patient Health Record ---
Author Organization [facility] Address [address] [place] [address] Care Team Providers Care Photoresist Printer Name Role Phone Joseluanne Lizaheidi Primary Care Provider Edelmira VILLATORO Unavailable Unavailable Dominga Mercedes Unavailable Felicita Jansen Unavailable [phone] Allergies Allergen (clinical drug ingredient) Drug/Non Drug [...] neg OXY neg PCP neg BUP POS 14 Panel Urine Drug Screen Reviewed date:02/13/2025 01:46:03 PM Interpretation: Performing Lab: Notes/Report: THC neg AMADOR neg MOP (OPI) neg AMP neg MET neg BAR neg BZO neg MDMA neg MTD neg OXY neg PCP neg BUP POS TCA neg FTY neg Creatinine NA 12 Panel Urine Drug Screen Reviewed date:11/14/2024 02:00:14 PM Interpretation: Performing Lab: Notes/Report: THC neg AMADOR neg MOP (OPI) neg AMP neg MET neg BAR neg BZO neg MDMA neg MTD neg OXY neg PCP neg BUP POS Medication Assisted Treatmen t (MAT) Buprenorphine, Norbuprenorphine, and Naloxone MS Confirmation, Urine Reviewed date:11/19/2024 08:15:36 AM Interpretation: Performing Lab:[facility], [address] [place] [address], Phone - [phone], Director - Renzo Notes/Report: Creatinine 66 REFERENCE [...] Duration) Notes Start Date End Date Status Gabapentin 400 MG as directed Orally t wice a day Active busPIRone HCl 10 MG 1 tablet Orally Twic e a day Active hydrOXYzine HCl 25 MG 1 tablet as needed Orally four times a day Active cloNIDine HCl 0.2 MG 1 tablet Orally thr ee times a day Active Iron 325 (65 Fe) MG 1 tablet Orally ever y day Active Buprenorphine HCl-Naloxone HCl 8-2 MG 1 tablet under the tongue and allow to dissolve Sublingual three times day; Duration: 30 days 02/13/2025 Active Lasix 20 MG 1 tablet Orally Once a day Active Cymbalta 30 MG 1 capsule Orally Onc e a day Active CeleBREX 200 MG 1 capsule with food Orally Once a day Active Eliquis 5 MG as directed Orally T wice a day Active Pantoprazole Sodium 40 MG 1 tablet 1/2 t o 1 hour before morning meal Orally Once a day Active Vitamin B 12 500 MCG 1 tablet Orally twi ce a day; Duration: 30 day(s) Active Social History Tobacco Use: Social History [...] (E66.3) Active confirmed Problem Opioid use disorder (0999866870) Opioid use disorder (F11.99) Active confirmed Vital Signs Heart Rate 80 /min 02/13/2025 Temperature 98.6 degrees Fahrenheit 12/18/2024 Respiratory Rate 16 /min 02/13/2025 Blood pressure diastolic 70 mm Hg 02/13/2025 Oximetry 98 % 02/13/2025 Height 67 in 02/13/2025 Blood pressure systolic 118 mm Hg 02/13/2025 Weight 198 lb 4 oz lbs 02/13/2025 BMI 31.05 kg/m2 02/13/2025 Encounters Encounter Location Date Provider Diagnosis [address] [place] [address] 10/16/2024 Felicita Jansen Opioid use disorder F11.[address] [place] [address] 10/31/2024 Felicita Jansen Opioid use disorder F11.[address] [place] [address] 11/14/2024 Felicita Jansen Opioid use disorder F11.99 and Nutritional counseling Z71.[address] [address] 12/18/2024 Dominga Mercedes Opioid use disorder F11.[address] [place] [address] 01/15/2025 Felicita Jansen Over weight E66.3 and Opioid use disorder F11.99 [facility] [place] [place] [address] 02/13/2025 Felicita Toriwillie Opioid use disorder F11.99 and Over weight E66.3 Assessments Encounter Date Diagnosis (ICD Code) Assessment Notes Treatment Notes Treatment Clinical Notes Section Notes 10/16/2024 Opioid use disorder (ICD-10 - F11.99) Still has films available. Will return for follow-up when due for refill. 10/31/2024 Opioid use disorder (ICD-10 - F11.99) 11/14/2024 Nutritional counseling (ICD-10 - Z71.3) 11/14/2024 Opioid use disorder (ICD-10 - F11.99) 12/18/2024 Opioid use disorder (ICD-10 - F11.99) 01/15/2025 Over weight (ICD-10 - E66.3) 01/15/2025 Opioid use disorder (ICD-10 - F11.99) 02/13/2025 Over weight (ICD-10 - E66.3) 02/13/2025 Opioid use disorder (ICD-10 - F11.99) 10/16/2024 [...] self-administe r their own oral medications per [place] Protocol. 10/31/2024 Other Patient agrees to take [...] self-administe r their own oral medications per [place] Protocol. 11/14/2024 Other Patient agrees to take [...] self-administe r their own oral medications per [place] Protocol. 12/18/2024 Other Patient agrees to take [...] self-administe r their own oral medications per [place] Protocol. 02/13/2025 Other Patient agrees to take medication as [...] self-administe r their own oral medications per [place] Protocol. 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
[2025-03-09 07:09] LABS: LH 6.9 mIU/mL (.)
[2025-03-11 15:08] LABS: Fats, Neutral Normal (.); Fats, Total Normal (.)
[2025-03-11 16:07] LABS: Pancreatic Elastase, Fecal >800 (>200)
[2025-03-11 19:08] LABS: Anti-MPO Antibodies <0.2 units (0.0-0.9)
[2025-03-12 07:08] LABS: Calprotectin, Fecal 85 ug/g (0-120)
== END 2025-03-08 08:13 | disposition home or self-care (01) ==
PROVIDERS: PCP Nurse Practitioner Family; Visit Provider Nurse Practitioner Family
DX: N92.6 Irregular menstruation, unspecified (principal); N91.1 Secondary amenorrhea
CPT/HCPCS: 82653; 82705; 83002; 83993; 84144; 86364; 99212; G0463

== ENCOUNTER 2025-04-05 11:33 | Outpatient (CLI) | payer OTHER, SELFPAY ==
--- OUTSIDE RECORDS SUMMARY | 2025-04-05 11:38 | XMS_ITS | Clinical Summary ---
Author Organization [facility] Address [address] [place] [address] Care Team Providers Care Bistro Server Name Role Phone Unavailable Primary Care Provider [...] of 3 - 19+ 3-dose series) 2003 HPV Vaccines (1 - 3-dose SCD M series) 2011 Cervical Cancer Screening Pa p with HPV Testing (Age 30 to 64) Every 5 Years 2014 Cervical Cancer Screening with HPV 2014 COVID-19 Vaccine (2023-2 5 season) 2024 Mammogram Screening 2024 Meningococcal B Vaccine Aged Out No l [...] Documents on File Type Date Recorded Patient Tool Polisher Expl anation Advance Directives and Living Will 05/22/2018 12:00 AM ADVANCED DIRECTIVES
--- OUTSIDE RECORDS SUMMARY | 2025-04-05 11:38 | XMS_ITS | Patient Health Record ---
Author Organization [facility] Address [address] [place] [address] Care Team Providers Care Cake Wringer Name Role Phone Jarek Lizaheidi Primary Care Provider Edelmira VILLATORO Unavailable Unavailable Dominga Mercedes Unavailable Felicita Jansen Unavailable [phone] Allergies Allergen (clinical drug ingredient) Drug/Non Drug Allergy documented on EMR Reaction Allergy Type Onset Date Status codeine Codeine Unknown Drug Allergy Active Results Component Value Reference Range Notes 14 Panel Urine Drug Screen Reviewed date:03/15/2025 01:30:48 PM Interpretation: Performing Lab: Notes/Report: THC neg AMADOR neg MOP (OPI) neg AMP neg MET neg BAR neg BZO neg MDMA neg MTD neg OXY neg PCP neg BUP POS TCA neg FTY neg 12 Panel Urine Drug Screen Reviewed date:11/14/2024 02:00:14 PM Interpretation: Performing Lab: Notes/Report: THC neg AMADOR neg MOP (OPI) neg AMP neg MET neg BAR neg BZO neg MDMA neg MTD neg OXY neg PCP neg BUP POS Medication Assisted Treatmen t (MAT) Buprenorphine, Norbuprenorphine, and Naloxone MS Confirmation, Urine Reviewed date:11/19/2024 08:15:36 AM Interpretation: Performing Lab:[facility], [address] [place] [address], Phone - [phone], Director - Renzo Notes/Report: Creatinine 66 REFERENCE [...] POS TCA neg FTY neg Creatinine NA Test, Urine Reviewed date:10/16/2024 03:06:20 PM Interpretation:Negative [...] Duration) Notes Start Date End Date Status Iron 325 (65 Fe) MG 1 tablet Orally ever y day Active cloNIDine HCl 0.2 MG 1 tablet Orally thr ee times a day Active hydrOXYzine HCl 25 MG 1 tablet as needed Orally four times a day Active Eliquis 5 MG as directed Orally T wice a day Active CeleBREX 200 MG 1 capsule with food Orally Once a day Active Cymbalta 30 MG 1 capsule Orally Onc e a day Active Buprenorphine HCl-Naloxone HCl 8-2 MG 1 tablet under the tongue and allow to dissolve Sublingual three times day; Duration: 30 days 03/15/2025 Active Lasix 20 MG 1 tablet Orally Once a day Active busPIRone HCl 10 MG 1 tablet Orally Twic e a day Active Gabapentin 400 MG as directed Orally t wice a day Active Vitamin B 12 500 MCG 1 tablet Orally twi ce a day; Duration: 30 day(s) Active Pantoprazole Sodium 40 MG 1 tablet 1/2 t o 1 hour before morning meal Orally Once a day Active Social History Tobacco Use: [...] (E66.3) Active confirmed Problem Opioid use disorder (8126364391) Opioid use disorder (F11.99) Active confirmed Vital Signs Heart Rate 73 /min 03/15/2025 Temperature 98.6 degrees Fahrenheit 12/18/2024 Respiratory Rate 16 /min 03/15/2025 Blood pressure diastolic 70 mm Hg 03/15/2025 Oximetry 99 % 03/15/2025 Height 67 in 03/15/2025 Blood pressure systolic 110 mm Hg 03/15/2025 Weight 198 lb 4 oz lbs 02/13/2025 BMI 31.05 kg/m2 02/13/2025 Encounters Encounter Location Date Provider Diagnosis [address] [facility] [place] [address] 10/16/2024 Felicita Jansen Opioid use disorder F11.[address] [facility] [place] [address] 10/31/2024 Felicita Jansen Opioid use disorder F11.[address] [place] [address] 11/14/2024 Felicita Jansen Opioid use disorder F11.99 and Nutritional counseling Z71.[address] [address] 12/18/2024 Dominga Mercedes Opioid use disorder F11.[address] [place] [address] 01/15/2025 Felicita Justyna Over weight E66.3 and Opioid use disorder F11.[address] [facility] [place] [address] 02/13/2025 Felicita Justyna Opioid use disorder F11.99 and Over weight E66.3 [facility] [address] [place] [address] 03/15/2025 Domingacandelaria Rileyngtiburcio Opioid use disorder F11.99 and Over weight [...] 02/13/2025 Opioid use disorder (ICD-10 - F11.99) 03/15/2025 Over weight (ICD-10 - E66.3) 03/15/2025 Opioid use disorder (ICD-10 - F11.99) 10/16/2024 [...] self-administe r their own oral medications per [place] Protocol. 10/31/2024 Other Patient agrees to take [...] self-administe r their own oral medications per [place] Protocol. 11/14/2024 Other Patient agrees to take [...] self-administe r their own oral medications per [place] Protocol. 12/18/2024 Other Patient agrees to take [...] self-administe r their own oral medications per [place] Protocol. 02/13/2025 Other Patient agrees to take [...] self-administe r their own oral medications per [place] Protocol. 03/15/2025 Other Patient agrees to take medication as [...] Insured Coverage Start Date Coverage End Date [facility] Claims Department [address] [place] [address] [phone] [id number] Rose Jara Self - patient is the insured 5 [facility] [address] [place] [address] [phone] [id number] Rose Jara Self - patient is the insured 5 Medical (General) History Medical History History ICD Code anxiety DVT to RUE Opioid use disorder anemia Surgical History Surgery Date(Month/Year) left leg surgery - necrotizing fasciitis 2021 cholecystectomy 2019 Hospitalization History Reason Date(Month/Year) Detox [facility], malnourished, arm wounds Left leg surgery 2021
[2025-04-05 12:20] LABS: Anion Gap 12 mmol/L (4-12); Blood Urea Nitrogen 18 mg/dL (7-17); Calcium 9.5 mg/dL (8.4-10.2); Carbon Dioxide 21 mmol/L (22-30); Chloride 105 mmol/L (98-107); Estimated Glomerular Filt Rate > 60; Glucose 111 mg/dL (65-110); Potassium 4.3 mmol/L (3.4-5.0); Sodium 138 mmol/L (137-145)
== END 2025-04-05 11:34 | disposition home or self-care (01) ==
LOC: ANHLAB 11:37
PROVIDERS: PCP Nurse Practitioner Family; Visit Provider Nurse Practitioner Family
DX: I34.0 Nonrheumatic mitral (valve) insufficiency (principal); E87.70 Fluid overload, unspecified
CPT/HCPCS: 36415; 80048; 99212; G0463

== ENCOUNTER 2025-04-19 07:38 | Outpatient (RCR) | payer OTHER, SELFPAY ==
[2025-01-23 00:03] VITALS: BMI 24.0
== END 2025-04-25 23:59 | disposition home or self-care (01) ==
LOC: ANHWOC 07:38
PROVIDERS: PCP Nurse Practitioner Family; Visit Provider Nurse Practitioner Family
DX: Z48.00 Encounter for change or removal of nonsurgical wound dressing (principal); L98.9 Disorder of the skin and subcutaneous tissue, unspecified
CPT/HCPCS: 99213; 99214; A9270; G0463

== ENCOUNTER 2025-04-19 11:20 | Outpatient (CLI) | payer OTHER, SELFPAY ==
--- OUTSIDE RECORDS SUMMARY | 2025-04-19 11:26 | XMS_ITS | Patient Health Record ---
Author Organization Formerly [facility] Address [address] [place] [address] Care Team Providers Care Apartment Maintenance Technician Name Role Phone Maurisio Tilley Primary Care Provider Edelmira VILLATORO Unavailable Unavailable Dominga Mercedes Unavailable Felicita Jansen Unavailable [phone] Allergies Allergen (clinical drug ingredient) Drug/Non Drug Allergy documented on EMR Reaction Allergy Type Onset Date Status codeine Codeine Unknown Drug Allergy Active Results Component Value Reference Range Notes Fentanyl Confirmation, Ur (N ot yet reviewed by provider) Interpretation: Performing Lab:[facility], [address] [facility], Phone - [phone], Director - Renzo Notes/Report: FENTANYL / ANALOGUES +POSITIVE+ Fentanyl 1 Norfentanyl 5 Testing Threshold: fentanyl, 1.0 ng/mL; others, 5 ng/mL This test was developed and its [...] Urine Reviewed date:11/19/2024 08:15:36 AM Interpretation: Performing Lab:[facility], [address] [facility], Phone - [phone], Director - Renzo Notes/Report: Creatinine 66 REFERENCE RANGE : Ref Range>=20 BUPRENORPHINE ++POSITIVE++ Buprenorphine 159 Norbuprenorphine >1515 N/B Ratio >9.52 >=0.3 OPIATE ANTAGONIST ++POSITIVE++ Naloxone 395 Testing Threshold: buprenorphine, 1.0 ng/mL norbuprenorphine, 5.0 ng/mL naloxone, 10 ng/mL This test was developed and its performance characteristics determined by [facility]. It has not been cleared or approved by the Food and Drug Administration. 14 Panel Urine Drug Screen Reviewed date:04/12/2025 02:20:15 PM Interpretation: Performing Lab: Notes/Report: THC neg AMADOR neg MOP (OPI) neg AMP neg MET neg BAR neg BZO neg MDMA neg MTD neg OXY neg PCP neg BUP POS TCA neg FTY POS 14 Panel Urine Drug Screen Reviewed [...] POS 14 Panel Urine Drug Screen Reviewed date:03/15/2025 01:30:48 PM Interpretation: Performing Lab: Notes/Report: THC neg AMADOR neg MOP (OPI) neg AMP neg MET neg BAR neg BZO neg MDMA neg MTD neg OXY neg PCP neg BUP POS TCA neg FTY neg 12 Panel Urine Drug Screen Reviewed date:01/15/2025 [...] Duration) Notes Start Date End Date Status Pantoprazole Sodium 40 MG 1 tablet 1/2 t o 1 hour before morning meal Orally Once a day Active Buprenorphine HCl-Naloxone HCl 8-2 MG 1 tablet under the tongue and allow to dissolve Sublingual three times day; Duration: 30 days 04/12/2025 Active Eliquis 5 MG as directed Orally T wice a day Active CeleBREX 200 MG 1 capsule with food Orally Once a day Active Iron 325 (65 Fe) MG 1 tablet Orally ever y day Active cloNIDine HCl 0.2 MG 1 tablet Orally thr ee times a day Active Cymbalta 30 MG 1 capsule Orally Onc e a day Active Lasix 20 MG 1 tablet Orally Once a day Active Gabapentin 400 MG as directed Orally t wice a day Active Vitamin B 12 500 MCG 1 tablet Orally twi ce a day; Duration: 30 day(s) Active hydrOXYzine HCl 25 MG 1 tablet as needed Orally four times a day Active busPIRone HCl 10 MG 1 tablet Orally Twic e a day Active Social History Tobacco [...] (E66.3) Active confirmed Problem Opioid use disorder (9096768651) Opioid use disorder (F11.99) Active confirmed Vital Signs Heart Rate 84 /min 04/12/2025 Temperature 98.6 degrees Fahrenheit 12/18/2024 Respiratory Rate 16 /min 04/12/2025 Oximetry 97 % 04/12/2025 Blood pressure diastolic 82 mm Hg 04/12/2025 Height 67 in 04/12/2025 Blood pressure systolic 120 mm Hg 04/12/2025 Weight 210 lbs 04/12/2025 BMI 32.89 kg/m2 04/12/2025 Encounters Encounter Location Date Provider Diagnosis [address] [address] 10/16/2024 Felicita Chepefik Opioid use disorder F11.[address] [address] 10/31/2024 Felicita Szlufik Opioid use disorder F11.[address] [address] 11/14/2024 Felicita Torilufik Opioid use disorder F11.99 and Nutritional counseling Z71.[address] [address] 12/18/2024 Dominga Tanwangco Opioid use disorder F11.[address] [address] 01/15/2025 Felicita Torilufik Over weight E66.3 and Opioid use disorder F11.[address] [address] 02/13/2025 Felicita Szlufik Opioid use disorder F11.99 and Over weight E66.[address] [address] 03/15/2025 Dominga Tanwangco Opioid use disorder F11.99 and Over weight E66.[address] [address] 04/12/2025 Dominga Tanwangco Over weight E66.3 and Opioid use disorder [...] 03/15/2025 Opioid use disorder (ICD-10 - F11.99) 04/12/2025 Over weight (ICD-10 - E66.3) 04/12/2025 Opioid use disorder (ICD-10 - F11.99) 10/16/2024 [...] self-administe r their own oral medications per [place] [facility]. 10/31/2024 Other Patient agrees to take [...] self-administe r their own oral medications per [place] [facility]. 11/14/2024 Other Patient agrees to take [...] self-administe r their own oral medications per [place] [facility]. 12/18/2024 Other Patient agrees to take [...] self-administe r their own oral medications per [place] [facility]. 02/13/2025 Other Patient agrees to take [...] self-administe r their own oral medications per [place] [facility]. 03/15/2025 Other Patient agrees to take medication as prescribed. Discussed medication side effects, adverse effects, risks, benefits, as well as interactions. Encouraged non-use of opioids. Encouraged participation in recovery groups. Patient may contact office with questions or concerns. 04/12/2025 Other Patient agrees to take medication as prescribed. Discussed medication side effects, adverse effects, risks, benefits, as well as interactions. Encouraged non-use of opioids. Encouraged participation in recovery groups. Patient may contact office with questions or concerns. Plan Of Treatment Future Test Test Name Order Date Fentanyl Confirmation, Ur 04/12/2025 Insurance Providers Payer Name Payer Address Payer Phone Subscriber Number Group Number Insured Name Patient Relationship to Insured Coverage Start Date Coverage End Date [facility] Attn Claims Department [address] [place] [address] [phone] [id number] Rose Jara Self - patient is the insured 5 [employer] Claims Department [address] [place] [address] [phone] [id number] Rose Jara Self - patient is the insured 5 Medical (General) History Medical History History ICD Code anxiety DVT to RUE Opioid use disorder anemia Surgical History Surgery Date(Month/Year) left leg surgery - necrotizing fasciitis 2021 cholecystectomy 2019 Hospitalization History Reason Date(Month/Year) Detox [facility]-detox, malnourished, arm wounds Left leg surgery 2021
--- OUTSIDE RECORDS SUMMARY | 2025-04-19 11:26 | XMS_ITS | Clinical Summary ---
Author Organization [facility] Address [address] [place] [address] Care Team Providers Care Assistant News Director Name Role Phone Unavailable Primary Care Provider [...] Documents on File Type Date Recorded Patient Core Oven Tender Expl anation Advance Directives and Living Will 05/22/2018 12:00 AM ADVANCED DIRECTIVES
[2025-04-20 09:08] LABS: FSH 6.0 mIU/mL (.)
== END 2025-04-19 11:21 | disposition home or self-care (01) ==
PROVIDERS: PCP Nurse Practitioner Family
DX: E28.39 Other primary ovarian failure (principal)
CPT/HCPCS: 82166; 83001; 99212; G0463

== ENCOUNTER 2025-04-22 08:13 | Outpatient (CLI) | payer OTHER, SELFPAY ==
--- NOTE | ~2025-04-22 | CT_ITS ---
EXAMINATION: CT abdomen pelvis w con DATE: 04/22/2025 08:49 INDICATION: Diarrhea, unspecified TECHNIQUE: Computed tomography (CT) of the abdomen and pelvis was performed with intravenous contrast. The dose-length product was 1198.86 mGy-cm. COMPARISON: MRI abdomen 02/12/2025; CT abdomen pelvis 03/21/2019 FINDINGS: There are a few small subpleural opacities in the lower visualized lower lungs, greater on the left. Cholecystectomy clips are present. Liver, spleen, adrenal glands and pancreas are unremarkable. Kidneys are unremarkable. Abdominal aorta is not aneurysmal. Bladder is unremarkable. No enlarged lymph nodes identified in the abdomen or pelvis. Moderate amount of stool. CT appearance of the uterus is unremarkable. No dilated bowel loops. Mild multilevel degenerative change in the visualized spine. Concentric thickening of the parmar of the rectum. Differential includes incomplete rectal wall distention, proctitis or mass. IMPRESSION: 1. Concentric thickening of the parmar of the rectum. Differential includes incomplete rectal wall distention, proctitis or mass. Reviewed, dictated and finalized at location Q. IMPRESSION: 1. Concentric thickening of the parmar of the rectum. Differential includes inco mplete rectal wall distention, proctitis or mass.
--- OUTSIDE RECORDS SUMMARY | 2025-04-22 08:22 | XMS_ITS | Clinical Summary ---
Author Organization [facility] Address [address] [place] [address] Care Team Providers Care Piping Engineer Name Role Phone Anand Richard MD Primary Care Prov ider Ravinder Morrow MD Unavailable [phone] Allergies Active Allergy Reactions Criticality Noted Date Comments Codeine Other (See comments) Medium Reaction: EXTREMITY SWELLING Medications cloNIDine (CATAPRES) 0.2 mg tablet Take 1 tablet (0.2 mg total) by mouth 3 (three) times a day 90 tablet 5 Active buprenorphine- naloxone (SUBOXONE) 8-2 mg per SL tablet Place 1 tablet under the tongue 2 (two) times a day 60 tablet [address] (CYMBALTA) 30 mg capsule Take 1 capsule (30 mg total) by mouth daily 30 capsule [address] (PROTONIX) 40 mg EC tabletIndicati ons:Treatment of Non-Bleeding Gastric Disorder Take 1 tablet (40 mg total) by mouth daily 30 tablet 5 Active naloxone (NARCAN) 4 mg/actuation spray,non-aero lolis Administer 1 spray into affected nostril(s) as needed for opioid reversal Call 911. Administer a single spray in one nostril. Repeat every 3 minutes as needed if no or minimal response. 2 each 1 5 10/10/19 26 Active Additional Information Patient not taking.Reported on 10/24/2024 celecoxib (CeleBREX) 200 mg capsule Take 1 capsule (200 mg total) by mouth daily as needed for pain 30 capsule 5 Active apixaban (ELIQUIS) 5 mg tabletIndicati ons:Venous Thrombosis Take 1 tablet (5 mg total) [...] 3 5 Active ramelteon (ROZEREM) 8 mg tabletIndicati ons:Sleep-Onse t Insomnia Take 1 tablet (8 mg total) by mouth nightly 30 tablet 3 5 Active prochlorperazi ne (COMPAZINE) 5 mg tablet Take 1 tablet (5 mg total) by mouth every 8 (eight) hours as needed 5 Active furosemide (LASIX) 20 mg tablet Take 2 tablets (40 mg total) by mouth daily As directed 180 tablet 3 5 Active furosemide (LASIX) 20 mg tablet Take 1 tablet (20 mg total) by mouth daily 90 tablet 3 5 03/29/20 25 Discontin ued(Reord er) Active Problems Problem Noted Date Diagnosed Date Anemia, unspecified type 10/04/2024 Encounters Date Type Department Care Team Description 04/16/2025 Orders Only [facility] Reproductive Endocrinology [address] [address] Giuliana Gutierrez NP Secondary amenorrhea (Primary Dx); Premature ovarian insufficiency 04/12/2025 Telephone [facility] Reproductive Endocrinology [address] [address] Giuliana Gutierrez NP 03/29/2025 Orders Only [facility] CARDIOLOG[facility] Scanning, Provider 03/25/2025 Telephone [facility] Cardiology [facility] [facility] [address] [place] [address] [place] [address] Brenden Sullivan MD 03/05/2025 Orders Only [facility] Reproductive Endocrinology [address] [facility] [address] [place] [phone] Giuliana Gutierrez NP Irregular menstruation (Primary Dx); Secondary amenorrhea 02/26/2025 9:00 AM CDT Telemedicine [facility] Reproductive Endocrinology [address] [facility] [address] [place] [phone] Giuliana Gutierrez NP Secondary amenorrhea (Primary Dx); Irregular menstruation 02/05/2025 Telephone [facility] Cardiology [address] [facility] [address] [place] [address] [place] [address] Brenden Sullivan MD 02/04/2025 Telephone [facility] Cardiology [facility] [place] [address] [place] [address] Brenden Sullivan MD from Last 3 Months Surgical History Surgery Date Site/Laterality Comments CHOLECYSTECTOMY 08/29/2018 - 08/28/2019 DEBRIDEMENT LEG 08/29/2022 - 08/28/2023 left leg; necrotizing fasciitis Medical History Medical History Date Comments Anxiety Necrotizing fasciitis (HCC) L le g DVT (deep venous thrombosis) Arthritis Gallstones Family History Medical History Relation Name Comments neurologic Father Hypertension Maternal Grandfather Cancer Maternal Grandmother Anxiety disorder Mother Early menopause Mother Endometriosis Mother Hypertension Mother Diabetes Other Hepatitis Other Infertile Other Thyroid disease Other Cancer Paternal Grandfather Cancer Paternal Grandmother Anxiety disorder Sister Cancer Sister Endometriosis Sister Relation Name Status Comments Father Maternal Grandfather Maternal Grandmother Mother Other Paternal Grandfather Paternal Grandmother Sister Social History Tobacco Use Types Packs/Day Years Used Date Smoking Tobacco: Every Day Cigarettes 1 15 Smokeless Tobacco: Never AUDIT-C Answer Date Recorded Q1: How often do you have a drink containing alcohol? Never 02/19/2025 Q2: How many drinks containi ng alcohol do you have on a typical day when you are drinking? Patient does not drink Q3: How often do you have si x or more drinks on one occasion? Never 02/19/2025 Personal Safety Answer Date Recorded Have you ever been in or are you currently in a harmful physical or emotional relationship or is someone making you feel afraid or unsafe? 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 Gender Identity Not on file Sexual Orientation Not on file Obstetrics History Para Term AB IAB SAB Ectopic Multiple Livin g Live Births 1 1 Date Outcome GA Total Labor Labor/2nd/3rd Weight Sex Type Anes PTL Ivelisse A1 A5 Name Clin 2007 AB Last Filed Vital Signs Vital Sign Reading Time Taken Comments Blood Pressure 110/75 10/24/2024 12:02 PM PIPE ORGAN TUNER AND REPAIRER Pulse 110 10/24/2024 12:02 PM PIPE ORGAN TUNER AND REPAIRER Temperature 36.8 C (98.2 F) 10/10/2024 7:20 AM PIPE ORGAN TUNER AND REPAIRER Respiratory Rate 18 10/10/2024 7:20 AM PIPE ORGAN TUNER AND REPAIRER Oxygen Saturation 98% 10/24/2024 12:02 PM PIPE ORGAN TUNER AND REPAIRER Inhaled Oxygen Concentration - - Weight 83.9 kg (185 lb) 02/19/2025 8:11 AM CDT Height 167.6 cm (5' 6) 02/19/2025 8:11 AM CDT Body Mass Index 29.86 02/19/2025 8:11 AM CDT Plan of Treatment Health Maintenance Due Date Last Done Comments Breast Cancer Screening-Mammogram 1984 Cervical Cancer Screening 1984 Depression Screening 1984 Varicella Vaccines (1 of 2 - 13+ 2-dose series) 1997 Hepatitis B Screening 2002 Regular Well Visit/Exam 18-64 2002 Pneumococcal vaccine <65 (1 of 2 - PCV) 2003 HPV Vaccines (1 - 3-dose SCD M series) 2011 Influenza Vaccine (#1) 2025 , 05/23/2018, 06/19/2013 DTaP/Tdap/Td Vaccine (2 - Td or Tdap) 04/29/2031 04/29/2021 Hepatitis C Screening Completed 10/04/2024 Covid-19 Vaccine Completed 11/17/2024, , 01/29/2021, Additional history exists Procedures Procedure Name Priority Date/Time Associated Diagnosis Comments SCAN - LABS 03/29/2025 PROGESTERONE Routine 03/08/2025 Irregular menstruation Secondary amenorrhea LUTEINIZING HORMONE (LH) Routine 03/08/2025 Irregular menstruation Secondary amenorrhea ESTRADIOL Routine 03/08/2025 Irregular menstruation Secondary amenorrhea HEPATITIS PANEL, ACUTE Routine 10/04/2024 12:41 AM PIPE ORGAN TUNER AND REPAIRER from Last 3 Months or Most Recently Relevant to Health Maintenance Results * SCAN - LABS (03/29/2025) us Provider Scanning Final Result * Progesterone (03/08/2025) SCRIBED Progesterone 0.1 - - - ng/mL EXTERNAL LAB Blood 03/08/2025 Giuliana Gutierrez NP LAB BLOOD ORDERABLES Fin al Result EXTERNAL LAB * Estradiol (03/08/2025) SCRIBED Estradiol 24.7 pg/mL EXTERNAL LAB Blood 03/08/2025 Giuliana Gutierrez NP LAB BLOOD ORDERABLES Fin al Result EXTERNAL LAB * LH (03/08/2025) SCRIBED LH 6.9 mIU/mL EXTERNAL LAB Blood 03/08/2025 Giuliana Gutierrez NP LAB BLOOD ORDERABLES Fin al Result EXTERNAL LAB * Hepatitis panel, acute Blood (10/04/2024 12:41 AM PIPE ORGAN TUNER AND REPAIRER) Hep A IgM Nonreactive Nonreactive Hep B core IgM Nonreactive Nonreactive [facility] Hep C Ab Nonreactive Nonreactive [facility] Comment:Antibodies to HCV no t detected. Does NOT exclude the possibility of recent exposure to HCV. Current interpretive data was last revised on 22 HepBsAg Nonreactive Nonreactive [facility] Blood 10/04/2024 12:4 1 AM PIPE ORGAN TUNER AND REPAIRER 10/04/2024 1:01 AM PIPE ORGAN TUNER AND REPAIRER Lisette Arevalo MD LAB MICROBIOLOGY - GENE RAL ORDERABLES Final Result [facility] Department [place] [address] from Last 3 Months or Most Recently Relevant to Health Maintenance Insurance [facility] Advance Directives For more information, please contact: [phone] * Full Code (Latest Code Status on File) Date Activated Date Inactivated Comments 10/04/2024 4:01 AM 10/10/2024 6:18 PM Care Teams Piping Engineer Relationship Specialty Start Date End Date Anand Richard MD [address] [place] [address] PCP - General Family Medicine 10/10/24 Ravinder Morrow MD [address] [place] [address] Referring Physician Obstetrics and Gynecology 02/19/25
--- OUTSIDE RECORDS SUMMARY | 2025-04-22 08:22 | XMS_ITS | Clinical Summary ---
Author Organization [facility] Address [address] [place] [address] Care Team Providers Care Care Consultant Name Role Phone Unavailable Primary Care Provider [...] Documents on File Type Date Recorded Patient Ec Teacher Expl anation Advance Directives and Living Will 05/22/2018 12:00 AM ADVANCED DIRECTIVES
== END 2025-04-22 08:14 | disposition home or self-care (01) ==
PROVIDERS: PCP Nurse Practitioner Family; Visit Provider Nurse Practitioner Family
DX: K62.89 Other specified diseases of anus and rectum (principal)
CPT/HCPCS: 74177; Q9967

== ENCOUNTER 2025-05-06 01:17 | Day surgery (SDC) | payer OTHER, SELFPAY ==
--- OUTSIDE RECORDS SUMMARY | 2015-02-03 05:15 | XMS_ITS | Continuity of Care Document ---
Author Organization [facility] Address [address] [facility] [place] [address] Phone Care Team Providers Care Cake Wrapper Name Role Phone Hugo Lucia MD Unavailable Unavailable Allergies, Adverse Reactions, Alerts Substance Reaction Status Criticality codeine Active No Information Medications Medication Instructions Dosage Effective Dates (start - stop) Status Comments [place] 5 mg-325 mg tablet take 1 tablet by oral route 2 times every day as needed for pain 1 tablet - Active avoid driving or operate machines ibuprofen 600 mg tablet take 1 tablet by oral route every 6 hours with food as needed 600 MG - Active PRN for pain Procedures Procedure Date OFFICE/OUTPATIENT VISIT, EST PREV VISIT, NEW, AGE 18-39 Advance Directives Directive Yes / No Effective Date File Name No Information Encounters Encounter Description Practice Location Reason(s) For Visit Diagnoses Date Provider Providers Copied on Encounter OFFICE/OUTPAT IENT VISIT, EST [facility], [address], [place], [id number], tel:[phone] [facility] knee pain (chief complaint) Knee painBlood pressure elevatedDietary surveillance and counselingBMI 34.0 to 34.9 201 5 Khari Arias. [address], [id number] , [place]. tel:[phone] Referring Provider: Hugo Lucia, [address] [facility] [address], [place], [place], [id number]. tel:[phone] PREV VISIT, NEW, AGE 18-39 [facility], [address], [id number], [place] tel:[phone] [facility] Family Medicine Physical (chief complaint) Dietary surveillance and counselingRoutine Medical ExamRoutine Medical Exam 5 Khari Arias. [address], [address], [place], [id number] , [place]. tel:[phone] Family History Family Member Type Diagnosis Age At Onset Mother Problem (finding) Alive and well Father Problem (finding) Alive and well Sister Problem (finding) Alive and well Payers Payer name Insurance type Covered constitution party ID Authoriza tion(s) No Information Social History Type Description Quantity Date Captured Comments Alcohol Use Details Caffeine Use Details Unknown Tobacco Use Status Smoker Smoking Status Current some day smoker Smoking Tobacco Use Details Cigarette: No Details Available Cigarette: No Details Available Sex Female Vital Signs Date / Time: Height Weight BMI Pulse Rate Blood Pressure Temperature Respiratory Rate Body Surface Area Head Circumference BMI percentile Pulse Ox Inhaled Ox 12:47 PM 167.64 cm 215.00 lbs 34.7 0 kg/m eter (2) 75 /min 142/91 mm[Hg] 96.5 F 16 /min Chief Complaint And Reason For Visit From encounter dated '02/03/2015 10:15'. knee pain (chief complaint). Description: Location: knee. Additional information: Pt has chronic bilateral knee pain, Pt has constant pain. Pt has not done MRI or xray yet. Pt notices intermitent swelling both knee. Plan Of Treatment Date Type Action Status Goal Special diet education compl eted Goal Tobacco cessation counseling completed Referral Ordered: Physical Therapy (related to Knee pain) ordered Referral Referred To: Physical Therapy Ordered: Referrals: Physical Therapy ordered Referral Ordered: KNEE XRAY TWO-VIEW Bilateral ordered Referral Ordered: MRI LOWER EXTREMITY W/O DYE Bilateral ordered History Of Present Illness Encounter Date Complaint History Of Prese nt Illness knee pain Location: knee. Additional information: Pt has chronic bilateral knee pain, Pt has constant pain. Pt has not done MRI or xray yet. Pt notices intermitent swelling both knee. Instructions Date Instruction Additional Infor huey Prescribed activity/ exercise education Related to Dietary surveillance and counseling Special diet education Related t o Dietary surveillance and counseling Physical activity counseling Rel ated to Dietary surveillance counseling Decrease caloric intake Related to Dietary surveillance counseling Quit smoking. Related to Mary nuñez Medical Exam Assessments Type Assessment Date assessment Knee pain assessment Blood pressure elevated 015 assessment Dietary surveillance and counseling department chair ing assessment BMI 34.0 to 34.9 Mental Status Date Cognitive Assessment Orientation - [place] ed to time, place, person, situation.
--- OUTSIDE RECORDS SUMMARY | 2015-02-11 19:00 | XMS_ITS | Continuity of Care Document ---
Author Organization [facility] Address [address] [place] [address] Phone Care Team Providers Care Veterinary Milk Specialist Name Role Phone lUi Friend MD Unavailable Unavailable Advance Directives Directive Yes / No Effective Date File Name No Information Encounters Encounter Description Practice Location Reason(s) For Visit Diagnoses Date Provider Providers Copied on Encounter [facility], [address], [place], [place], [id number], tel:[phone] [facility] No Information Phuc Mcnally. [address] [place] [address], [address], [id number], . tel:[phone] Referring Provider: Uli Friend, [address] [place] [address], [address]. tel:[phone] Family History Family Member Type Diagnosis Age At Onset No Information Payers Payer name Insurance type Covered alliance party ID Authoriza tiroberto(s) [employer] CI [id number] Social History Type Description Quantity Date Captured Comments Sex Female Smoking Status No Information Chief Complaint And Reason For Visit No Information Reason For Referral Reason For Referral No Information History Of Present Illness Encounter Date Complaint History Of Prese nt Illness No Information Functional Status Date Functional Assessmen t No Information Instructions Date Instruction Additional Infor mation No Information Assessments Type Assessment Date No Information Patient Care Teams Name Effective Dates (start - stop) Status Members No Information
[2025-04-22 13:16] VITALS: BMI 32.3
--- OUTSIDE RECORDS SUMMARY | 2025-05-06 01:23 | XMS_ITS | Encounter Summary ---
Author Organization [facility] Address [address] [place] [address] Phone Care Team Providers Care Superintendent Plant Protection Name Role Phone Anand Richard MD Primary Care Prov ider Ravinder Morrow MD Unavailable Encounter Details Date Type Department Care Team (Late st Contact Info) Description 04/24/2025 Telephone [facility] Medicine Cardiology [address] [facility] [address] [facility] [address] [place] [address] [place] [address] Brenden Sullivan MD [address] [facility] [address] [place] [address] Social History Tobacco Use Types Packs/Day Years [...] on file Legal Sex 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 Temporary phone # [phone] documented in this encounter Plan of Treatment Not on file documented as of this encounter Visit Diagnoses Not on filedocumented in this encounter Care Teams Superintendent Plant Protection Relationship Specialty Start Date End Date Anand Richard MD PCP - General Family Medicine 10/10/24 Ravinder Morrow MD [facility] [place] [address] Referring Physician Obstetrics and Gynecology 02/19/25 documented as of this encounter
--- OUTSIDE RECORDS SUMMARY | 2025-05-06 01:23 | XMS_ITS | Clinical Summary ---
Author Organization [facility] Address [address] [facility] [place] [address] Care Team Providers Care Cheese Wrapper Name Role Phone Anand Richard MD Primary Care Provider + Source Comments [facility],non-owned Affiliates and Associated Physician Practices is amultiple site organization consisting of ambulatory clinics and hospital sitesin [place], [place], [place] and [place]. This disclosure is being madepursuant to the Care Everywhere program and may not contain all information available regarding this patient. Last updated 18.[facility] Allergies Active Allergy Reactions Criticality Noted Date [...] 1:40 PM CDT Height 167.6 cm (5' 6) 06/10/2021 1:40 PM CDT Body Mass Index 30.67 06/10/2021 1:40 PM CDT Plan of Treatment Health Maintenance Due Date Last Done Comments LIPID TESTING 1984 MAMMOGRAM 1984 HIV SCREENING 1999 HEPATITIS C SCREENING 07/13/2002 HEPATITIS B VACCINE (1 of 3 - 19+ 3-dose series) 2003 PNEUMOCOCCAL VACCINE (1 of 2 - PCV) 2003 HPV VACCINE (1 - 3-dose SCDM series) 2011 COVID-19 VACCINE (1 - 2023-2 5 season) 2024 DEPRESSION SCREENING 08/29/2024 INFLUENZA VACCINE (#1) 2025 DTAP/TDAP/TD VACCINES (2 - T d [...] patient's age to complete this topic Insurance [facility] Advance Directives * Full Code (Latest Code Status on File) Date Activated Date Inactivated Comments 04/29/2021 10:41 PM 05/07/2021 1:00 PM Care Teams Cheese Wrapper Relationship Specialty Start Date End Date Anand Richard MD [address] [facility] [address] [place] [address] PCP - General 04/03/19
--- OUTSIDE RECORDS SUMMARY | 2025-05-06 01:23 | XMS_ITS | Patient Health Record ---
Author Organization [facility] Address [address] [place] [address] Care Team Providers Care Feltmaker And Weigher Name Role Phone Joseluanne Lizaheidi Primary Care Provider [phone] Kay VILLATORO Unavailable Unavailable Dominga Mercedes Unavailable Felicita Jansen Unavailable [phone] Allergies Allergen (clinical drug ingredient) Drug/Non Drug Allergy documented on EMR Reaction Allergy Type Onset Date Status codeine Codeine Unknown Drug Allergy Active Results Component Value Reference Range Notes 12 Panel Urine Drug Screen Reviewed date:11/14/2024 [...] POS TCA neg FTY neg Creatinine NA 14 Panel Urine Drug Screen Reviewed date:04/12/2025 02:20:15 PM Interpretation: Performing Lab: Notes/Report: THC neg AMADOR neg MOP (OPI) neg AMP neg MET neg BAR neg BZO neg MDMA neg MTD neg OXY neg PCP neg BUP POS TCA neg FTY POS Fentanyl Confirmation, Ur (N ot yet reviewed by provider) Interpretation: Performing Lab:[facility], [address] [place] [address], Phone - [phone], Director - [facility] Notes/Report: FENTANYL / ANALOGUES +POSITIVE+ Fentanyl 1 Norfentanyl 5 Testing Threshold: fentanyl, 1.0 ng/mL; others, 5 ng/mL This test was developed and its performance characteristics determined by [facility]. It has not been cleared or approved by the Food and Drug Administration. Medication Assisted Treatmen t (MAT) Buprenorphine, Norbuprenorphine, and Naloxone MS Confirmation, Urine Reviewed date:11/19/2024 08:15:36 AM Interpretation: Performing Lab:[facility], [address] [place] [address], Phone - [phone], [facility] Notes/Report: Creatinine 66 REFERENCE RANGE : Ref [...] Administration. 12 Panel Urine Drug Screen Reviewed date:10/31/2024 [...] neg BUP POS TCA neg FTY neg Reason For Referral No Information Medications Medication [...] Problem Status W/U Status Risk Notes Problem Overweight (324473746) Over weight (E66.3) Active confirmed Problem Opioid use disorder (2678937811) Opioid use disorder (F11.99) Active confirmed Vital Signs Heart Rate 84 /min 04/12/2025 Temperature 98.6 degrees Fahrenheit 12/18/2024 Respiratory Rate 16 /min 04/12/2025 Blood pressure diastolic 82 mm Hg 04/12/2025 Oximetry 97 % 04/12/2025 Height 67 in 04/12/2025 Blood pressure systolic 120 mm Hg 04/12/2025 Weight 210 lbs 04/12/2025 BMI 32.89 kg/m2 04/12/2025 Encounters Encounter Location Date Provider Diagnosis [address] [place] [address] 10/16/2024 Felicita Mofikay Opioid use disorder F11.[address] [place] [address] 10/31/2024 Felicita Torilufik Opioid use disorder F11.[address] [place] [address] 11/14/2024 Felicita Torilufik Opioid use disorder F11.99 and Nutritional counseling Z71.[address] [address] 12/18/2024 Dominga Tanwangco Opioid use disorder F11.[address] [address] 01/15/2025 Felicita Mofik Over weight E66.3 and Opioid use disorder F11.[address] [address] 02/13/2025 Felicita Torilufik Opioid use disorder F11.99 and Over weight E66.[address] [address] 03/15/2025 Dominga Tanwangco Opioid use disorder F11.99 and Over weight E66.[address] [address] 04/12/2025 Dominga Tanwangco Over weight E66.3 and [...] self-administe r their own oral medications per [place] Protocol. 10/31/2024 Other Patient agrees to take [...] self-administe r their own oral medications per [place] Protocol. 11/14/2024 Other Patient agrees to take [...] self-administe r their own oral medications per [place] Protocol. 12/18/2024 Other Patient agrees to take [...] self-administe r their own oral medications per [place] Protocol. 02/13/2025 Other Patient agrees to take [...] self-administe r their own oral medications per [place] Protocol. 03/15/2025 Other Patient agrees to take [...] Insured Coverage Start Date Coverage End Date [facility] Attn Claims Department [address] [place] [address] [phone] [id number] Rose Jara Self - patient is the insured 5 [facility] Attn Claims Department [address] [place] [address] [phone] [id number] Rose Jara Self - patient is the insured 5 Medical (General) History Medical History History ICD Code anxiety DVT to RUE Opioid use disorder anemia Surgical History Surgery Date(Month/Year) left leg surgery - necrotizing fasciitis 2021 cholecystectomy 2019 Hospitalization History Reason Date(Month/Year) Detox [facility]-detox, malnourished, arm wounds Left leg surgery 2021
--- OUTSIDE RECORDS SUMMARY | 2025-05-06 01:23 | XMS_ITS | Clinical Summary ---
Author Organization [facility] Address [address] [place] [address] Care Team Providers Care Sandwich And Drink Cart Operator Name Role Phone Anand Richard MD Primary Care Prov ider Ravinder Morrow MD Unavailable [phone] Allergies Active Allergy Reactions Criticality Noted [...] by mouth daily 30 capsule 5 Active naloxone (NARCAN) 4 mg/actuation spray,non-aero lolis Administer 1 spray into affected nostril(s) as needed for opioid reversal Call 911. Administer a single spray in one nostril. Repeat every 3 minutes as needed if no or minimal response. 2 each 1 5 10/10/19 26 Active celecoxib (CeleBREX) 200 mg capsule Take 1 capsule (200 mg total) by mouth daily as needed for pain 30 capsule 5 Active hydrOXYzine (ATARAX) 25 mg tablet [...] As directed 180 tablet 3 5 Active acetaminophen (TYLENOL) 500 mg tablet TAKE 2 TABLETS BY MOUTH THREE TIMES DAILY NEEDED FOR PAIN OR FEVER 5 Active cholestyramine light 4 gram packet 5 Active cyanocobalamin (Vitamin B-12) 1,000 mcg sublingual tablet DISSOLVE 1 TABLET UNDER THE TONGUE ONCE DAILY Active famotidine (PEPCID) 40 mg tablet Take 1 tablet (40 mg total) by mouth daily 5 Active FeroSuL 325 mg (65 mg iron) tablet Take 1 tablet (325 mg total) by mouth daily [address] (PROTONIX) 40 mg EC tabletIndicati ons:Treatment of Non-Bleeding Gastric Disorder Take 1 tablet (40 mg total) by mouth daily 30 tablet 5 05/01/20 25 Discontinu ed(Alterna te therapy) apixaban (ELIQUIS) 5 mg tabletIndicati ons:Venous Thrombosis Take 1 tablet (5 mg total) by mouth 2 (two) times a day 60 tablet 3 5 05/01/20 25 Discontinu ed(No longer taking - Do not display on AVS) Active Problems Problem Noted Date Diagnosed Date Anemia, unspecified type 10/04/2024 Encounters Date Type Department Care Team Description 05/01/2025 10:45 AM CDT Office Visit [facility] [address] [facility] 8th [place] [address] [place] [address] Brenden Sullivan MD Mitral valve insufficiency, unspecified etiology (Primary Dx); Hypervolemia, unspecified hypervolemia type 04/24/2025 Telephone [facility] Cardiology [facility] [address] [place] [address] Brenden Sullivan MD 04/16/2025 Orders Only [facility] Reproductive Endocrinology [address] [place] [phone] Giuliana Gutierrez NP Secondary amenorrhea (Primary Dx); Premature ovarian insufficiency 04/12/2025 Telephone [facility] Reproductive Endocrinology [address] [place] [address] Giuliana Gutierrez NP 03/29/2025 Orders Only [facility] CARDIOLOGY Scanning, Provider 03/25/2025 Telephone [facility] Cardiology [address] [place] [address] [place] [address] Brenden Sullivan MD 03/05/2025 Orders Only [facility] Reproductive Endocrinology [address] [place] [phone] Giuliana Gutierrez, COLLIN Irregular menstruation (Primary Dx); Secondary amenorrhea 02/26/2025 9:00 AM CDT Telemedicine [facility] Reproductive Endocrinology [address] [place] [phone] Giuliana Gutierrez NP Secondary amenorrhea (Primary Dx); Irregular menstruation 02/05/2025 Telephone [facility] Cardiology [address] [place] [phone] Brenden Sullivan MD 02/04/2025 Telephone [facility] Cardiology [address] [place] [address] [place] [address] Brenden Sullivan MD from Last 3 Months [...] on file Legal Sex Female 8:49 PM DIRECTOR OF MEDICAL SERVICES Gender Identity Not on file Sexual Orientation Not on file Obstetrics History Para Term AB IAB SAB Ectopic Multiple Livin g Live Births 1 1 Date Outcome GA Total Labor Labor/2nd/3rd Weight Sex Type Anes PTL Ivelisse A1 A5 Name Clin 2006 AB Last Filed Vital Signs Vital Sign Reading Time Taken Comments Blood Pressure 113/75 05/01/2025 11:06 AM CDT Pulse 67 05/01/2025 11:06 AM CDT Temperature 36.8 C (98.2 F) 10/10/2024 7:20 AM DIRECTOR OF MEDICAL SERVICES Respiratory Rate 18 10/10/2024 7:20 AM DIRECTOR OF MEDICAL SERVICES Oxygen Saturation 97% 05/01/2025 11:06 AM CDT Inhaled Oxygen Concentration - - Weight 98 kg (216 lb) 05/01/2025 11:06 AM CDT Height 167.6 cm (5' 6) 05/01/2025 11:06 AM CDT Body Mass Index 34.86 05/01/2025 11:06 AM CDT Plan of Treatment Health Maintenance [...] M series) 2011 Influenza Vaccine (#1) 2025 5, 05/23/2018, 06/19/2013 DTaP/Tdap/Td Vaccine (2 - Td [...] HEPATITIS PANEL, ACUTE Routine 10/04/2024 12:41 AM DIRECTOR OF MEDICAL SERVICES from Last 3 Months or Most Recently Relevant to Health Maintenance Results * SCAN - LABS (03/29/2025) us Provider Scanning Final Result * Progesterone (03/08/2025) SCRIBED Progesterone 0.1 - - - ng/mL EXTERNAL LAB Blood 03/08/2025 Giuliana Gutierrez NP LAB BLOOD ORDERABLES Fin al Result EXTERNAL LAB * Estradiol (03/08/2025) SCRIBED Estradiol 24.7 pg/mL EXTERNAL LAB Blood 03/08/2025 us Giuliana Gutierrez CHEMICAL ENGINEERING TECHNICIAN LAB BLOOD ORDERABLES Fin al Result EXTERNAL LAB * LH (03/08/2025) SCRIBED LH 6.9 mIU/mL EXTERNAL LAB Blood 03/08/2025 us Giuliana Gutierrez CHEMICAL ENGINEERING TECHNICIAN LAB BLOOD ORDERABLES Fin al Result Performing Organization Address City/[facility]/ZIP Co de Phone Number EXTERNAL LAB * Hepatitis panel, acute Blood (10/04/2024 12:41 AM DIRECTOR OF MEDICAL SERVICES) Hep A IgM Nonreactive Nonreactive Hep B core IgM Nonreactive Nonreactive [facility] Hep C Ab Nonreactive Nonreactive [facility] Comment:Antibodies to HCV no t detected. Does NOT exclude the possibility of recent exposure to HCV. Current interpretive data was last revised on 22 HepBsAg Nonreactive Nonreactive [facility] Blood 10/04/2024 12:4 1 AM DIRECTOR OF MEDICAL SERVICES 10/04/2024 1:01 AM DIRECTOR OF MEDICAL SERVICES us Lisette Arevalo MD LAB MICROBIOLOGY - GENE RAL ORDERABLES Final Result Performing Organization Address City/[facility]/ZIP Co de Phone Number [facility] Department [place] [address] from Last 3 Months or Most Recently Relevant to Health Maintenance Insurance [facility] Advance Directives For more information, please contact: [phone] * Full Code (Latest Code Status on File) Date Activated Date Inactivated Comments 10/04/2024 4:01 AM 10/10/2024 6:18 PM Care Teams Sandwich And Drink Cart Operator Relationship Specialty Start Date End Date Anand Richard MD PCP - General Family Medicine 10/10/24 Ravinder Morrow MD [address] [place] [address] Referring Physician Obstetrics and Gynecology 02/19/25
[2025-05-06 12:24] VITALS: BP 124/96; PULSE 98; RESP 18; TEMP 36.5; O2SAT 100
[2025-05-06 12:30] LABS: BEDSIDEPREGUCG Negative (Negative)
--- NOTE | 2025-05-06 12:34 | WPDANESEPPF ---
Anes - Initial Pre Proc Eval Procedure: Operation Date: 05/06/25 13:30 Proposed Procedures p Diagnostic Colonoscopy - Fermin Kee MD Date/Time: 05/06/25 12:34 Surgeon: Fermin Kee MD Pre Op Diagnosis: Diarrhea, unspecified Patient Data Age: 39 Gender: F Height: 1.68 m Weight: 97.3 kg Last Vital Signs Temp 36.5 C 05/06/25 12:24 Pulse 98 05/06/25 12:24 Resp 18 05/06/25 12:24 BP 124/96 H 05/06/25 12:24 Pulse Ox 100 05/06/25 12:24 O2 Del Method Room Air 05/06/25 12:24 Allergies Allergy/AdvReac Type Severity Reaction Status Date / Time codeine Allergy Unknown Hives Verified 05/06/25 12:22 Home Medications ?Medication ?Instructions ?Recorded ?Confirmed ?Type buprenorphine 8 mg-naloxone 2 mg 1 tablet sublingual BID 10/18/24 05/06/25 History sublingual tablet furosemide 20 mg tablet 20 mg PO QAM 10/18/24 04/22/25 History naloxone 4 mg/actuation nasal 4 mg intranasal Q2M PRN opioid 10/18/24 04/22/25 History spray (Narcan) overdose hwyuodgblzqq-Am-gxal-minerals 27 1 tablet PO DAILY #90 tabs 01/17/25 04/22/25 Rx mg-0.4 mg tablet (Women's Daily Formula) celecoxib 200 mg capsule 200 mg PO DAILY #90 caps 02/04/25 04/22/25 Rx clonidine HCl 0.2 mg tablet 0.2 mg PO TID #270 tabs 02/04/25 05/06/25 Rx duloxetine 30 mg capsule,delayed 30 mg PO DAILY #90 caps 02/04/25 04/22/25 Rx release hydroxyzine HCl 25 mg tablet 25 mg PO QID #120 tabs 02/04/25 05/06/25 Rx gabapentin 400 mg capsule 400 mg PO BID #60 caps 02/07/25 04/22/25 Rx mecobalamin (vitamin B12) 1,000 1,000 mcg PO DAILY #60 ea 03/04/25 04/22/25 Rx mcg lozenges acetaminophen 500 mg tablet 1,000 mg (2 x 500 mg) PO TID PRN 03/19/25 04/22/25 Rx fever or pain #180 tabs buspirone 10 mg tablet 10 mg PO BID #60 tabs 03/19/25 05/06/25 Rx cholestyramine 4 gram oral powder 4 g PO DAILY #30 ea 03/26/25 04/22/25 Rx for suspension in a packet (Cholestyramine Light) famotidine 40 mg tablet 40 mg PO DAILY #90 tabs 04/04/25 04/22/25 Rx ramelteon 8 mg tablet See Rx Instructions .Route 04/24/25 Rx .COMPLEX #30 tabs ferrous sulfate 325 mg (65 mg 325 mg PO DAILY #90 tabs 04/26/25 Rx iron) tablet (FeroSul) Laboratory Tests 05/06/25 12:29 POC Urine HCG, Qual Negative (Negative) Patient hx anesthesia problems: none Family hx anesthesia problems: none Results Review: All pre-operative results and documents have been reviewed as part of the pre-operative evaluation. [facility] Past Medical History Medical History (Updated 02/26/25 @ 16:07 by Krystle Gomez, ESPERANZA-C) DENNY (iron deficiency anemia) Nausea and vomiting BMI 26.0-26.9,adult Hx of drug overdose Ativan, Gabepentin, Fentanyl, Heroin Necrotizing fasciitis (04/2021) Heroin abuse GERD (gastroesophageal reflux disease) Pancreatitis Surgical History Surgical History History of cholecystectomy (2019) Hx of tonsillectomy History of oral surgery Family History Family History Father Cerebrovascular accident Mother Hypertension Sibling Malnourished Other Diabetes mellitus Family history of lung cancer Family history of malignant neoplasm of cervix Social History Social History Smoking packs per day: 0.75 Smoking cigarettes per day: 15.0 Years smoked: 15 Smoking pack-years: 11.25 Smoking status: Current every day smoker Tobacco type: cigarettes Second hand tobacco smoke exposure: Yes Alcohol intake: current Substance use: current Substance use type: heroin and painkillers Other substance usage details: former heroin user, current non-prescription fentanyl user Last use: 4 months Do You Feel Safe in your Home?: Yes Lack of Transportation: No Lack of Food: Never True Current Housing: I Have Housing Concerned About Future Housing: No Difficulty Paying Gas/Electric Bills: No Difficulty Paying for Meds: No Currently Unemployed: No Education: High School Diploma/GED Difficulty w/ Childcare or Family Care: No Living arrangements: with family Occupation/Education: unemployed Gender identity (if verbalized by the patient): Female Spiritual care concerns: No Agree to blood products: Yes Anes - Eval Final PreProcedure Day of Procedure 05/06/25 12:34 Patient weight: obese Heart: regular rate and rhythm Lungs: clear to auscultation Airway: Mallampati scale class II Neurological: alert and oriented Last oral intake: >/= 8 hours ASA classification: III Emergent: no Anesthetic plan: proceed Anesthesia type and monitoring: general GIVS and standard monitoring Results Review: All pre-operative results and documents have been reviewed as part of the pre-operative evaluation. Informed Consent: The patient's anesthetic plan and its attendant risks and benefits were discussed with the patient/family/POA. Questions were solicited and answers provided to the satisfaction of the patient/family/POA.
[2025-05-06] MEDS: LACTATED RINGERS 1,000 ML 150 ML IV CONT (13:08)
--- NOTE | 2025-05-06 13:47 | PM.HPGS ---
History of Present Illness History of Present Illness Consent: Risks, benefits, and alternatives have been discussed and questions answered. Patient agrees to proceed with procedure. Chief complaint: Diarrhea, unspecified Narrative: Rose Jara is a 39 year old female here for first colonoscopy, h/o diarrhea Review of Systems Review of Systems: All systems reviewed & are unremarkable except as noted in HPI and below PMFSH Past Medical History Medical History (Updated 02/26/25 @ 16:07 by RACHEL Solares) DENNY (iron deficiency anemia) Nausea and vomiting BMI 26.0-26.9,adult Hx of drug overdose Ativan, Gabepentin, Fentanyl, Heroin Necrotizing fasciitis (04/2021) Heroin abuse GERD (gastroesophageal reflux disease) Pancreatitis Surgical History Surgical History (Reviewed 02/26/25 @ 13:53 by Dominga Suárez [facility]) History of cholecystectomy (2019) Hx of tonsillectomy History of oral surgery Family History Family History Father Cerebrovascular accident Mother Hypertension Sibling Malnourished Other Diabetes mellitus Family history of lung cancer Family history of malignant neoplasm of cervix Social History Social History Smoking packs per day: 0.75 Smoking cigarettes per day: 15.0 Years smoked: 15 Smoking pack-years: 11.25 Smoking status: Current every day smoker Tobacco type: cigarettes Second hand tobacco smoke exposure: Yes Alcohol intake: current Substance use: current Substance use type: heroin and painkillers Other substance usage details: former heroin user, current non-prescription fentanyl user Last use: 4 months Do You Feel Safe in your Home?: Yes Lack of Transportation: No Lack of Food: Never True Current Housing: I Have Housing Concerned About Future Housing: No Difficulty Paying Gas/Electric Bills: No Difficulty Paying for Meds: No Currently Unemployed: No Education: High School Diploma/GED Difficulty w/ Childcare or Family Care: No Living arrangements: with family Occupation/Education: unemployed Gender identity (if verbalized by the patient): Female Spiritual care concerns: No Agree to blood products: Yes Meds Home Medications and Allergies Home Medications ?Medication ?Instructions ?Recorded ?Confirmed ?Type buprenorphine 8 mg-naloxone 2 mg 1 tablet sublingual BID 10/18/24 05/06/25 History sublingual tablet furosemide 20 mg tablet 20 mg PO QAM 10/18/24 04/22/25 History naloxone 4 mg/actuation nasal 4 mg intranasal Q2M PRN opioid 10/18/24 04/22/25 History spray (Narcan) overdose xspriapoisbz-Mm-klig-minerals 27 1 tablet PO DAILY #90 tabs 01/17/25 04/22/25 Rx mg-0.4 mg tablet (Women's Daily Formula) celecoxib 200 mg capsule 200 mg PO DAILY #90 caps 02/04/25 04/22/25 Rx clonidine HCl 0.2 mg tablet 0.2 mg PO TID #270 tabs 02/04/25 05/06/25 Rx duloxetine 30 mg capsule,delayed 30 mg PO DAILY #90 caps 02/04/25 04/22/25 Rx release hydroxyzine HCl 25 mg tablet 25 mg PO QID #120 tabs 02/04/25 05/06/25 Rx gabapentin 400 mg capsule 400 mg PO BID #60 caps 02/07/25 04/22/25 Rx mecobalamin (vitamin B12) 1,000 1,000 mcg PO DAILY #60 ea 03/04/25 04/22/25 Rx mcg lozenges acetaminophen 500 mg tablet 1,000 mg (2 x 500 mg) PO TID PRN 03/19/25 04/22/25 Rx fever or pain #180 tabs buspirone 10 mg tablet 10 mg PO BID #60 tabs 03/19/25 05/06/25 Rx cholestyramine 4 gram oral powder 4 g PO DAILY #30 ea 03/26/25 04/22/25 Rx for suspension in a packet (Cholestyramine Light) famotidine 40 mg tablet 40 mg PO DAILY #90 tabs 04/04/25 04/22/25 Rx ramelteon 8 mg tablet See Rx Instructions .Route 04/24/25 Rx .COMPLEX #30 tabs ferrous sulfate 325 mg (65 mg 325 mg PO DAILY #90 tabs 04/26/25 Rx iron) tablet (FeroSul) Allergies Allergy/AdvReac Type Severity Reaction Status Date / Time codeine Allergy Unknown Hives Verified 05/06/25 12:22 Vital Signs Vital Signs - 24 hr 05/06/25 12:24 Temperature 97.7 F Pulse Rate 98 Respiratory Rate 18 Blood Pressure 124/96 H Pulse Oximetry 100 Oxygen Delivery Room Air Exam Const: General: comfortable and no acute distress HENMT: Face/Nose/Sinus: Normal nares present Eyes: General: appearance normal, both eyes and all related structures Neck: Neck: no JVD Resp: Auscultation: clear to auscultation bilaterally Cardio: Rate: regular rate Rhythm: regular rhythm GI: Inspection: non-distended GI Palp: Yes Soft to palpation Skin: General skin exam: normal color Neuro: Speech: normal speech Extrem: General: normal to inspection Psych: Mental Status: mental status grossly normal Assessment and Plan Assessment and plan (1) Diarrhea: Code(s): R19.7 - Diarrhea, unspecified Status: Acute Assessment and Plan: colonoscopy
--- NOTE | 2025-05-06 14:01 | S_PTH ---
PATIENT: Rose Jara LOC: LIANA Mendoza#:[id number] AGE/SX: 39/F ROOM: RE05/06/[address]: Fermin Kee MD : 1985 BED: DIS: 05/06/2025 SPEC #: [id number] RECD: 05/06/25 14:03 STATUS: SANTOS REDalia #: [id number] NILAY: 05/06/25 14:[address]: Fermin Kee DEPT: [facility] Surgical RECD BY: Eric Recinos ENTERED: 05/06/25 14:04 SP TYPE: Surgical OTHR DR: Cindy Munoz, ROCKY Tissues: A - Colon Biopsy Procedures: Hematoxylin and Eosin Stain Gross and Microscopic Level 4
[2025-05-06 14:03] VITALS: BP 81/45; PULSE 60; RESP 18; O2SAT 96
[2025-05-06 14:12] VITALS: BP 85/43; PULSE 58; RESP 16; O2SAT 99
[2025-05-06 14:22] VITALS: BP 97/63; PULSE 62; RESP 19; O2SAT 100
== END 2025-05-06 14:30 | disposition home or self-care (01) ==
PROVIDERS: Anesthesiology; PCP Nurse Practitioner Family; Referring Provider Nurse Practitioner Family; Visit Provider Internal Medicine Gastroenterology
PROC: 0DJD8ZZ Inspection of Lower Intestinal Tract, Via Natural or Artificial Opening Endoscopic (ICD-10-PCS; CPT 45378; principal; 2025-05-06 13:30)
DX: R19.7 Diarrhea, unspecified (principal); F17.210 Nicotine dependence, cigarettes, uncomplicated; E66.9 Obesity, unspecified; Z68.34 Body mass index [BMI] 34.0-34.9, adult
CPT/HCPCS: 45380; 88305; J2003; J2704; J7120

== ENCOUNTER 2025-05-21 11:09 | Outpatient (CLI) | payer OTHER, SELFPAY ==
[2025-05-21 12:00] LABS: Hematocrit 38.6 % (37.0-47.0); Hemoglobin 12.9 g/dL (12.0-15.0); Immature Granulocyte Percent A 0.3 % (0-0.5); Lymphocytes Absolute Auto 1.98 K/mm3 (0.9-3.2); Mean Corpuscular HGB Conc 33.4 g/dl (32-36); Mean Corpuscular Hemoglobin 28.6 pg (26-34); Mean Corpuscular Volume 85.6 fl (80-100); Nucleated Red Blood Cells Absolute Auto 0.000 K/mm3 (0.0-0.012); Nucleated Red Blood Cells Perc 0.0 % (0.0-0.2); Platelet Count Result 249 k/mm3 (150-375); Red Blood Count 4.51 M/mm3 (4.2-5.4); White Blood Count 5.9 K/mm3 (4.5-10.0)
--- OUTSIDE RECORDS SUMMARY | 2025-05-21 12:05 | XMS_ITS | Clinical Summary ---
Author Organization [facility] Address [address] [place] [address] Care Team Providers Care Networking Technician Name Role Phone Anand Richard MD Primary Care Provider + Source Comments [facility],non-owned Affiliates and Associated Physician Practices is amultiple site organization consisting of ambulatory clinics and hospital sitesin [place], [place], [place] and [place]. This disclosure is being madepursuant to the Care Everywhere program and may not contain all information available regarding this patient. Last updated 18.[facility] Allergies Active Allergy Reactions Criticality Noted Date [...] VACCINE (1 - 3-dose SCDM series) 2011 DEPRESSION SCREENING 08/29/2024 COVID-19 VACCINE (1 - 2023-2 5 season) 2025 INFLUENZA VACCINE (#1) 2025 DTAP/TDAP/TD VACCINES (2 [...] patient's age to complete this topic Insurance Member Subscriber Plan / Payer (Ef fective for All Dates) Name:Madonna Jara Relation to Subscriber:Self Name:Madonna Jara Payer ID:[id number] (NAIC) Group ID:Not on file Type:Medicaid Managed Care Address: [place] [id number] Member Subscriber Plan / Payer (Ef fective for All Dates) Name:Madonna Jara Relation to Subscriber:Self Name:Madonna Jara Payer ID:[id number] (NAIC) Group ID:Not on file Type:Medicaid Managed Care Address: [place] [id number] SELF PAY NO INSURANCE Member Subscriber Plan / Payer (Ef fective for All Dates) Name:Madonna Jara Member ID:Not on file Relation to Subscriber:Not on file Name:MADONNA JARA Subscriber ID:Not on file (Home) Address: [address] [place] [address] Payer ID:Not on file Group ID:Not on file Type:Self Pay Address: [place], [place] Advance Directives * Full Code (Latest Code Status on File) Date Activated Date Inactivated Comments 04/29/2021 10:41 PM 05/07/2021 1:00 PM Care Teams Networking Technician Relationship Specialty Start Date End Date Anand Richard MD [address] [place] [address] [facility] - General 04/03/19
--- OUTSIDE RECORDS SUMMARY | 2025-05-21 12:05 | XMS_ITS | Patient Health Record ---
Author Organization [facility] Address [address] [place] [address] Care Team Providers Care Director Custom Name Role Phone Jarek Lizaheidi Primary Care Provider Edelmira VILLATORO Unavailable Unavailable Dominga Mercedes Unavailable Felicita Jansen Unavailable [phone] Morena Hilario Unavailable [phone] Allergies Allergen (clinical drug ingredient) Drug/Non Drug [...] NA 14 Panel Urine Drug Screen Reviewed date:05/13/2025 01:53:28 PM Interpretation: Performing Lab: Notes/Report: THC neg AMADOR neg MOP (OPI) neg AMP neg MET neg BAR neg BZO neg MDMA neg MTD neg OXY neg PCP neg BUP POS TCA neg FTY neg Buprenorphine and Metabolite (Urine test) Reviewed date:05/16/2025 03:46:15 PM Interpretation: Performing Lab:[facility], [address] [facility], [place], Phone - [phone], Director - PhDAbudu Notes/Report: Clinical Information:CCU:[id number] LM Buprenorphine Positive Confirmation p erformed by Mass Spectrometry Buprenorphine Positive Buprenorphine Conf, MS, UR 106 Cutoff=10 ng/m L Norbuprenorphine Positive Norbuprenorphine Conf, MS, UR 1198 Cutoff=10 ng/mL 14 Panel Urine Drug Screen Reviewed date:03/15/2025 01:30:48 PM Interpretation: Performing Lab: Notes/Report: THC neg AMADOR neg MOP (OPI) neg AMP neg MET neg BAR neg BZO neg MDMA neg MTD neg OXY neg PCP neg BUP POS TCA neg FTY neg 12 Panel Urine Drug Screen Reviewed date:10/31/2024 02:51:48 PM Interpretation: Performing Lab: Notes/Report: THC neg AMADOR neg MOP (OPI) neg AMP neg MET neg BAR neg BZO neg MDMA neg MTD neg OXY neg PCP neg BUP POS 14 Panel Urine Drug Screen Reviewed date:04/12/2025 02:20:15 PM Interpretation: Performing Lab: Notes/Report: THC neg AMADOR neg MOP (OPI) neg AMP neg MET neg BAR neg BZO neg MDMA neg MTD neg OXY neg PCP neg BUP POS TCA neg FTY POS Fentanyl Confirmation, Ur (N ot yet reviewed by provider) Interpretation: Performing Lab:[facility], [address] [place] [address], Phone - [phone], Director - Renzo Notes/Report: FENTANYL / ANALOGUES +POSITIVE+ Fentanyl 1 Norfentanyl 5 Testing Threshold: fentanyl, 1.0 ng/mL; others, 5 ng/mL This test was developed and its performance characteristics determined by [facility]. It has not been cleared or approved by the Food and Drug Administration. Medication Assisted Treatmen t (MAT) Buprenorphine, Norbuprenorphine, and Naloxone MS Confirmation, Urine Reviewed date:11/19/2024 08:15:36 AM Interpretation: Performing Lab:[facility], [address] [place] [address], Phone - [phone], Director - Renzo Notes/Report: Creatinine 66 REFERENCE [...] Administration. 12 Panel Urine Drug Screen Reviewed date:11/14/2024 [...] 1 tablet Orally ever y day Active Lasix 20 MG 1 tablet Orally Once a day Active Cymbalta 30 MG 1 capsule Orally Onc e a day Active CeleBREX 200 MG 1 capsule with food Orally Once a day Active Gabapentin 400 MG as directed Orally t wice a day Active busPIRone HCl 10 MG 1 tablet Orally Twic e a day Active hydrOXYzine HCl 25 MG 1 tablet as needed Orally four times a day Active cloNIDine HCl 0.2 MG 1 tablet Orally thr ee times a day Active Eliquis 5 MG as directed Orally T wice a day Active Pantoprazole Sodium 40 MG 1 tablet 1/2 t o 1 hour before morning meal Orally Once a day Active Vitamin B 12 500 MCG 1 tablet Orally twi ce a day; Duration: 30 day(s) Active Buprenorphine HCl-Naloxone HCl 8-2 MG 1 tablet under the tongue and allow to dissolve Sublingual three times day; Duration: 30 days 05/13/2025 Active Social History Tobacco Use: Social History Observation Description Date Details (start date - stop date) Never Smoker NA - NA Sex Assigned At : Social History Observation Description Sex Assigned At Female Tobacco Control (Standard) Question Answer Notes Tobacco use: Nonsmoker Problems Problem Type SNOMED Code ICD Code Onset Dates Problem Status W/U Status Risk Notes Problem Overweight (286999788) Over weight (E66.3) Active confirmed Problem Opioid use disorder (4283434087) Opioid use disorder (F11.99) Active confirmed Vital Signs Heart Rate 77 /min 05/13/2025 Temperature 98 degrees Fahrenheit 05/13/2025 Respiratory Rate 16 /min 05/13/2025 Blood pressure diastolic 68 mm Hg 05/13/2025 Oximetry 98 % 05/13/2025 Height 67in in 05/13/2025 Blood pressure systolic 110 mm Hg 05/13/2025 Weight 221 lb 8 oz lbs 05/13/2025 BMI 34.69 kg/m2 05/13/2025 Encounters Encounter Location Date Provider Diagnosis [address] [place] [address] 10/16/2024 Felicita Jansen Opioid use disorder F11.[address] [place] [address] 10/31/2024 Felicita Jansen Opioid use disorder F11.[address] [place] [address] 11/14/2024 Felicita Jansen Opioid use disorder F11.99 and Nutritional counseling Z71.[address] [address] 12/18/2024 Dominga Mercedes Opioid use disorder F11.[address] [place] [address] 01/15/2025 Felicita Jansen Over weight E66.3 and Opioid use disorder F11.[address] [place] [address] 02/13/2025 Felicita Jansen Opioid use disorder F11.99 and Over weight E66.[address] [place] [address] 03/15/2025 Dominga Mercedes Opioid use disorder F11.99 and Over weight E66.3 [address], [place] [address] 04/12/2025 Dominga Mercedes Over weight E66.3 and Opioid use disorder F11.99 [address] [place] [address] 05/13/2025 Morena Hilario Opioid use disorder F11.99 Assessments Encounter Date [...] 04/12/2025 Opioid use disorder (ICD-10 - F11.99) 05/13/2025 Opioid use disorder (ICD-10 - F11.99) 10/16/2024 [...] self-administe r their own oral medications per [facility] Protocol. 10/31/2024 Other Patient agrees to take [...] self-administe r their own oral medications per [facility] Protocol. 11/14/2024 Other Patient agrees to take [...] self-administe r their own oral medications per [facility] Protocol. 12/18/2024 Other Patient agrees to take [...] self-administe r their own oral medications per [facility] Protocol. 02/13/2025 Other Patient agrees to take [...] self-administe r their own oral medications per [facility] Protocol. 03/15/2025 Other Patient agrees to take [...] may contact office with questions or concerns. 05/13/2025 Other Patient agrees to take medication as [...] office with questions or concerns. Patient may self-administer their own medications or may self-administer their own oral medications per [facility] Protocol. Plan Of Treatment Future Test Test Name Order Date Fentanyl Confirmation, Ur 04/12/2025 Insurance Providers Payer Name Payer Address Payer Phone Subscriber Number Group Number Insured Name Patient Relationship to Insured Coverage Start Date Coverage End Date [place] [employer] [facility] Attn Claims Department [address] [place] [address] [phone] [id number] Rose Jara Self - patient is the insured 5 [facility] Attn Claims Department [address] [place] [address] [phone] [id number] Rose Jara Self - patient is the insured 5 Medical (General) History Medical History History ICD Code anxiety 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
--- OUTSIDE RECORDS SUMMARY | 2025-05-21 12:05 | XMS_ITS | Encounter Summary ---
Author Organization [facility] Address [address] [place] [address] Phone Care Team Providers Care Environmental Adviser Name Role Phone Anand Richard MD Primary Care Prov ider Ravinder Morrow MD Unavailable [phone] Encounter Details Date Type Department Care Team (Late st Contact Info) Description 04/24/2025 Telephone [facility] Medicine Cardiology [address] [facility] 8th [place] [address] [place] [address] Brenden Sullivan MD [address] [facility] [address] [place] [address] Social History Tobacco Use Types Packs/Day Years [...] on file 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 Temporary phone # [phone] documented in this encounter Plan of Treatment Not on file documented as of this encounter Visit Diagnoses Not on filedocumented in this encounter Care Teams Environmental Adviser Relationship Specialty Start Date End Date Anand Richard MD PCP - General Family Medicine 10/10/24 Ravinder Morrow MD [facility] [place] [address] Referring Physician Obstetrics and Gynecology 02/19/25 documented as of this encounter
--- OUTSIDE RECORDS SUMMARY | 2025-05-21 12:05 | XMS_ITS | Encounter Summary ---
Author Organization [facility] Address [address] [place] [address] Phone Care Team Providers Care Cooling Machine Operator Name Role Phone Anand Richard MD Primary Care Prov ider Ravinder Morrow MD Unavailable [phone] Encounter Details Date Type Department Care Team (Latest Contact Info) Description 05/17/2025 Results Follow-Up 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
--- OUTSIDE RECORDS SUMMARY | 2025-05-21 12:05 | XMS_ITS | Clinical Summary ---
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
--- OUTSIDE RECORDS SUMMARY | 2025-05-21 12:05 | XMS_ITS | Clinical Summary ---
Author Organization [facility] Address [address] [place] [address] Care Team Providers Care Supply Coordinator Name Role Phone Anand Richard MD Primary Care Prov ider Ravinder Morrow MD Unavailable Allergies Active Allergy Reactions Criticality Noted Date [...] Encounters Date Type Department Care Team Description 05/17/2025 Results Follow-Up [facility] Medicine Reproductive Endocrinology [address] [address] Giuliana Gutierrez NP Antimullerian hormone (AMH), Estradiol, Follicle stimulating hormone, Additional followed-up results: 2 05/01/2025 10:45 AM CDT Office Visit [facility] 8th [place] [address] [place] [address] Brenden Sullivan MD Mitral valve insufficiency, unspecified etiology (Primary Dx); Hypervolemia, unspecified hypervolemia type 04/24/2025 Telephone [facility] [address] [place] [address] [place] [address] Brenden Sullivan MD 04/16/2025 Orders Only [facility] [address] [place] [address] Giuliana Gutierrez NP Secondary amenorrhea (Primary Dx); Premature ovarian insufficiency 04/12/2025 Telephone [facility] [address] [place] [address] Giuliana Gutierrez NP 03/29/2025 Orders Only [facility] Scanning, Provider 03/25/2025 Telephone [facility] [address] [place] [address] [place] [address] [place] [address] Brenden Sullivan MD 03/05/2025 Orders Only [facility] [address] [place] [address] Giuliana Gutierrez NP Irregular menstruation (Primary Dx); Secondary amenorrhea 02/26/2025 9:00 AM CDT Telemedicine [facility] [address] [place] [address] Giuliana Gutierrez NP Secondary amenorrhea (Primary Dx); Irregular menstruation from Last 3 Months Surgical History Surgery [...] on file 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 Gender Identity Not on file Sexual Orientation [...] 36.8 C (98.2 F) 10/10/2024 7:20 AM TURNER MACHINE Respiratory Rate 18 10/10/2024 7:20 AM TURNER MACHINE Oxygen Saturation 97% 05/01/2025 11:06 AM CDT [...] Procedure Name Priority Date/Time Associated Diagnosis Comments FOLLICLE STIMULATING HORMONE Routine 04/19/2025 Irregular menstruation Secondary amenorrhea ANTIMULLERIAN HORMONE (AMH) Routine 04/19/2025 Irregular menstruation Secondary amenorrhea SCAN - LABS 03/29/2025 PROGESTERONE Routine 03/08/2025 Irregular menstruation Secondary amenorrhea LUTEINIZING HORMONE (LH) Routine 03/08/2025 Irregular menstruation Secondary amenorrhea ESTRADIOL Routine 03/08/2025 Irregular menstruation Secondary amenorrhea HEPATITIS PANEL, ACUTE Routine 12:41 AM TURNER MACHINE from Last 3 Months or Most Recently Relevant to Health Maintenance Results * Antimullerian hormone (AMH) (04/19/2025) SCRIBED AMH, ab 0.943 EXTERNAL LAB Blood 04/19/2025 us Giuliana Gutierrez NP LAB BLOOD ORDERABLES Fin al Result EXTERNAL LAB * Follicle stimulating hormone (04/19/2025) SCRIBED FSH 6.0 mIU/mL EXTERNAL LAB Blood 04/19/2025 Giuliana Gutierrez NP LAB BLOOD ORDERABLES Fin al Result Performing Organization Address [facility] de Phone Number EXTERNAL LAB * SCAN - LABS (03/29/2025) Provider Scanning Final Result * Progesterone (03/08/2025) SCRIBED Progesterone 0.1 - - - ng/mL EXTERNAL LAB Blood 03/08/2025 Giuliana Gutierrez NP LAB BLOOD ORDERABLES Fin al Result Performing Organization Address [facility] de Phone Number EXTERNAL LAB * Estradiol (03/08/2025) SCRIBED Estradiol 24.7 pg/mL EXTERNAL LAB Blood 03/08/2025 Giuliana Gutierrez NP LAB BLOOD ORDERABLES Fin al Result Performing Organization Address [facility] de Phone Number EXTERNAL LAB * LH (03/08/2025) Pathologist [facility] SCRIBED LH 6.9 mIU/mL EXTERNAL LAB Blood 03/08/2025 Giuliana Gutierrez NP LAB BLOOD ORDERABLES Fin al Result Performing Organization Address [facility] de Phone Number EXTERNAL LAB * Hepatitis panel, acute Blood (10/04/2024 12:41 AM TURNER MACHINE) Hep A IgM Nonreactive Nonreactive Hep B core IgM Nonreactive Nonreactive [facility] Hep C Ab Nonreactive Nonreactive [facility] Comment:Antibodies to HCV no t detected. Does NOT exclude the possibility of recent exposure to HCV. Current interpretive data was last revised on 22 HepBsAg Nonreactive Nonreactive [facility] Blood 10/04/2024 12:4 1 AM TURNER MACHINE 10/04/2024 1:01 AM TURNER MACHINE Lisette Arevalo MD LAB MICROBIOLOGY - GENE RAL ORDERABLES Final Result [facility] [place] [address] from Last 3 Months or Most Recently Relevant to Health Maintenance Insurance [facility] Advance Directives For more information, please contact: [phone] * Full Code (Latest Code Status on File) Date Activated Date Inactivated Comments 10/04/2024 4:01 AM 10/10/2024 6:18 PM Care Teams Supply Coordinator Relationship Specialty Start Date End Date Anand Richard MD PCP - General Family Medicine 10/10/24 Ravinder Morrow MD [address] [place] [address] Referring Physician Obstetrics and Gynecology 02/19/25
[2025-05-21 12:19] LABS: Iron 111 ug/dL (37-170)
[2025-05-21 12:24] LABS: Alanine Aminotransferase 34 U/L (6-35); Albumin Level 4.7 g/dL (3.5-5.1); Alkaline Phosphatase 63 U/L (38-126); Anion Gap 10 mmol/L (4-12); Aspartate Amino Transferase 35 U/L (14-36); Bilirubin,Total 0.2 mg/dL (0.2-1.3); Blood Urea Nitrogen 18 mg/dL (7-17); Calcium 8.9 mg/dL (8.4-10.2); Carbon Dioxide 24 mmol/L (22-30); Chloride 104 mmol/L (98-107); Estimated Glomerular Filt Rate > 60; Glucose 104 mg/dL (65-110); Potassium 4.5 mmol/L (3.4-5.0); Sodium 138 mmol/L (137-145); Total Protein 8.7 g/dL (6.3-8.2)
[2025-05-21 12:28] LABS: Percent Iron Saturation 34 % (20-50)
[2025-05-21 12:29] LABS: NT Pro B Type Natriuretic Pept 138 pg/mL (19.9-100)
[2025-05-21 13:09] LABS: Vitamin B12 950.0 pg/mL (239-931)
== END 2025-05-21 11:10 | disposition home or self-care (01) ==
PROVIDERS: PCP Nurse Practitioner Family
DX: I34.0 Nonrheumatic mitral (valve) insufficiency (principal); E87.70 Fluid overload, unspecified
CPT/HCPCS: 36415; 80053; 82607; 83540; 83550; 83880; 85025; 99212; G0463

== ENCOUNTER 2025-06-06 15:37 | Outpatient (CLI) | payer OTHER, SELFPAY ==
--- NOTE | ~2025-06-06 | MM_ITS ---
EXAMINATION: screening [facility] BI w stella INDICATION: Asymptomatic, referred for screening mammogram COMPARISON: Baseline TECHNIQUE: Digital Breast Tomosynthesis CC, MLO views of Both breasts were obtained with computer-aided detection to assist in interpretation of the study. FINDINGS: The breasts are almost entirely fatty. There is a circumscribed mass in the superior lateral left breast at posterior third. Elsewhere, there are no mammographic features of malignancy. IMPRESSION: 1. Left breast Mass. 2. No evidence of malignancy in the Right breast. RECOMMENDATION: Left breast ultrasound BI-RADS Category 0: Incomplete: Needs additional imaging evaluation. Reviewed, dictated and finalized at location B.
--- OUTSIDE RECORDS SUMMARY | 2025-06-06 15:41 | XMS_ITS | Clinical Summary ---
Author Organization [facility] Address [address] [place] [address] Care Team Providers Care Test Lab Technician Name Role Phone Aannd Richard MD Primary Care Prov ider Ravinder Morrow MD Unavailable [phone] Allergies Active Allergy Reactions Criticality Noted [...] capsule 5 Active naloxone (NARCAN) 4 mg/actuation spray,non-aeros [...] mg total) by mouth daily 5 Active Active Problems Problem Noted Date Diagnosed Date Anemia, unspecified type 10/04/2024 Encounters Date Type Department Care Team Description 05/22/2025 Orders Only [facility] Scanning, Provider 05/17/2025 Results Follow-Up [facility] Medicine Reproductive Endocrinology [address] [facility] [address] [place] [address] Giuliana Gutierrez, COLLIN Antimullerian hormone (AMH), Estradiol, Follicle stimulating hormone, Additional followed-up results: 2 05/01/2025 10:45 AM CDT Office Visit [facility] Medicine Cardiology [address] [facility] 8th [place] [address] [place] [address] Brenden Sullivan MD Mitral valve insufficiency, unspecified etiology (Primary Dx); Hypervolemia, unspecified hypervolemia type 04/24/2025 Telephone [facility] Cardiology [address] [facility] 8th [place] [address] [place] [address] Brenden Sullivan MD 04/16/2025 Orders Only [facility] Reproductive Endocrinology [address] [facility] [address] [place] [address] Giuliana Gutierrez NP Secondary amenorrhea (Primary Dx); Premature ovarian insufficiency 04/12/2025 Telephone [facility] Reproductive Endocrinology [address] [facility] [address] [place] [address] Giuliana Gutierrez NP 03/29/2025 Orders Only [facility] CARDIOLOGY Scanning, Provider 03/25/2025 Telephone [facility] Cardiology [address] 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 Gender Identity Not on file Sexual Orientation [...] 36.8 C (98.2 F) 10/10/2024 7:20 AM SEALER AIRCRAFT Respiratory Rate 18 10/10/2024 7:20 AM SEALER AIRCRAFT Oxygen Saturation 97% 05/01/2025 11:06 AM CDT [...] Date/Time Associated Diagnosis Comments SCAN - LABS 05/22/2025 FOLLICLE STIMULATING HORMONE Routine 04/19/2025 Irregular menstruation Secondary amenorrhea ANTIMULLERIAN HORMONE (AMH) Routine 04/19/2025 Irregular menstruation Secondary amenorrhea SCAN - LABS 03/29/2025 PROGESTERONE Routine 03/08/2025 Irregular menstruation Secondary amenorrhea LUTEINIZING HORMONE (LH) Routine 03/08/2025 Irregular menstruation Secondary amenorrhea ESTRADIOL Routine 03/08/2025 Irregular menstruation Secondary amenorrhea HEPATITIS PANEL, ACUTE Routine 12:41 AM SEALER AIRCRAFT from Last 3 Months or Most Recently Relevant to Health Maintenance Results * SCAN - LABS (05/22/2025) Provider Scanning Edited Result - Final * Antimullerian hormone (AMH) (04/19/2025) SCRIBED AMH, ab 0.943 EXTERNAL LAB Blood 04/19/2025 Giuliana Gutierrez NP LAB BLOOD ORDERABLES Fin al Result Performing Organization Address [facility]/ZIP Co de Phone Number EXTERNAL LAB * Follicle stimulating hormone (04/19/2025) SCRIBED FSH 6.0 mIU/mL EXTERNAL LAB Blood 04/19/2025 Giuliana Gutierrez NP LAB BLOOD ORDERABLES Fin al Result EXTERNAL LAB * SCAN - LABS (03/29/2025) us Provider Scanning Final Result * Progesterone (03/08/2025) SCRIBED Progesterone 0.1 - - - ng/mL EXTERNAL LAB Blood 03/08/2025 us Giuliana Gutierrez ADMINISTRATIVE SUPPORT CLERK LAB BLOOD ORDERABLES Fin al Result EXTERNAL LAB * Estradiol (03/08/2025) SCRIBED Estradiol 24.7 pg/mL EXTERNAL LAB Blood 03/08/2025 us Giuliana Gutierrez ADMINISTRATIVE SUPPORT CLERK LAB BLOOD ORDERABLES Fin al Result EXTERNAL LAB * LH (03/08/2025) SCRIBED LH 6.9 mIU/mL EXTERNAL LAB Blood 03/08/2025 Giuliana Gutierrez NP LAB BLOOD ORDERABLES Fin al Result Performing Organization Address [facility] Co de Phone Number EXTERNAL LAB * Hepatitis panel, acute Blood (10/04/2024 12:41 AM SEALER AIRCRAFT) Hep A IgM Nonreactive Nonreactive Hep B core IgM Nonreactive Nonreactive [facility] Hep C Ab Nonreactive Nonreactive [facility] Comment:Antibodies to HCV no t detected. Does NOT exclude the possibility of recent exposure to HCV. Current interpretive data was last revised on 22 HepBsAg Nonreactive Nonreactive [facility] Blood 10/04/2024 12:4 1 AM SEALER AIRCRAFT 10/04/2024 1:01 AM SEALER AIRCRAFT Lisette Arevalo MD LAB MICROBIOLOGY - GENE RAL ORDERABLES Final Result Performing Organization Address [facility] Co de Phone Number [facility] Department [place] [address] from Last 3 Months or Most Recently Relevant to Health Maintenance Insurance [facility] Advance Directives For more information, please contact: [phone] * Full Code (Latest Code Status on File) Date Activated Date Inactivated Comments 10/04/2024 4:01 AM 10/10/2024 6:18 PM Care Teams Test Lab Technician Relationship Specialty Start Date End Date Anand Richard MD PCP - General Family Medicine 10/10/24 Ravinder Morrow MD [address] [place] [address] Referring Physician Obstetrics and Gynecology 02/19/25
--- OUTSIDE RECORDS SUMMARY | 2025-06-06 15:41 | XMS_ITS | Patient Health Record ---
Author Organization [facility] Address [address] [place] [address] Care Team Providers Care Sales And Business Development Manager Name Role Phone Jarek Lizaheidi Primary Care Provider [phone] Edelmira VILLATORO Unavailable Unavailable Dominga Mercedes Unavailable [phone] Felicita Jansen Unavailable [phone] Morena Hilario Unavailable [phone] Allergies Allergen (clinical drug ingredient) Drug/Non Drug [...] neg BUP POS TCA neg FTY neg Medication Assisted Treatmen t (MAT) Buprenorphine, Norbuprenorphine, and Naloxone MS Confirmation, Urine Reviewed date:11/19/2024 08:15:36 AM Interpretation: Performing Lab:[facility], [address] [facility], Phone - [phone], Director - Renzo Notes/Report: Creatinine 66 REFERENCE [...] Administration. 14 Panel Urine Drug Screen Reviewed date:02/13/2025 01:46:03 PM Interpretation: Performing Lab: Notes/Report: THC neg AMADOR neg MOP (OPI) neg AMP neg MET neg BAR neg BZO neg MDMA neg MTD neg OXY neg PCP neg BUP POS TCA neg FTY neg Creatinine NA 12 Panel Urine Drug Screen Reviewed date:12/18/2024 [...] neg BUP POS TCA neg FTY POS Buprenorphine and Metabolite (Urine test) Reviewed date:05/16/2025 03:46:15 PM Interpretation: Performing Lab:[facility], [address] [facility], [facility], Phone - [phone], Director - PhDAbudu Notes/Report: Clinical Information:[id number] LM Buprenorphine Positive Confirmation p erformed by Mass Spectrometry Buprenorphine Positive Buprenorphine Conf, MS, UR 106 Cutoff=10 ng/m L Norbuprenorphine Positive Norbuprenorphine Conf, MS, UR 1198 Cutoff=10 ng/mL 14 Panel Urine Drug Screen Reviewed date:05/13/2025 01:53:28 PM Interpretation: Performing Lab: Notes/Report: THC neg AMADOR neg MOP (OPI) neg AMP neg MET neg BAR neg BZO neg MDMA neg MTD neg OXY neg PCP neg BUP POS TCA neg FTY neg Fentanyl Confirmation, Ur (N ot yet reviewed by provider) Interpretation: Performing Lab:[facility], [address] [place] [address], Phone - [phone], Director - Renzo Notes/Report: FENTANYL / ANALOGUES [...] Status W/U Status Risk Notes Problem Overweight (212132194) Over weight (E66.3) Active confirmed Problem Opioid use disorder (5634314658) Opioid use disorder (F11.99) Active confirmed Vital Signs Heart Rate 77 /min 05/13/2025 Temperature 98 degrees Fahrenheit 05/13/2025 Respiratory Rate 16 /min 05/13/2025 Blood pressure diastolic 68 mm Hg 05/13/2025 Oximetry 98 % 05/13/2025 Height 67in in 05/13/2025 Blood pressure systolic 110 mm Hg 05/13/2025 Weight 221 lb 8 oz lbs 05/13/2025 BMI 34.69 kg/m2 05/13/2025 Encounters Encounter Location Date Provider Diagnosis [address] [place] [address] 10/16/2024 Felicita Jansen Opioid use disorder F11.[address] [place] [address] 10/31/2024 Felicita Jansen Opioid use disorder F11.[address] [place] [address] 11/14/2024 Felicita Jansen Opioid use disorder F11.99 and Nutritional counseling Z71.[address] [address] 12/18/2024 Dominga Mercedes Opioid use disorder F11.[address] [place] [address] 01/15/2025 Felicita Jansen Over weight E66.3 and Opioid use disorder F11.[address] [place] [address] 02/13/2025 Felicita Jansen Opioid use disorder F11.99 and Over weight E66.[address] [place] [address] 03/15/2025 Dominga Mercedes Opioid use disorder F11.99 and Over weight E66.3 [address], [place] [address] 04/12/2025 Dominga Mercedes Over weight E66.3 and Opioid use disorder F11.99 [address] [place] [address] [place] [address] 05/13/2025 Morena Hilario Opioid use disorder F11.99 [...] self-administe r their own oral medications per [place] Protocol. 10/31/2024 Other Patient agrees to take [...] self-administe r their own oral medications per [place] Protocol. 11/14/2024 Other Patient agrees to take [...] self-administe r their own oral medications per [place] Protocol. 12/18/2024 Other Patient agrees to take [...] self-administe r their own oral medications per [place] Protocol. 02/13/2025 Other Patient agrees to take [...] self-administe r their own oral medications per [facility] Protocol. 03/15/2025 Other Patient agrees to take [...] may self-administer their own oral medications per [place] Protocol. Plan Of Treatment Future Test Test Name Order Date Fentanyl Confirmation, Ur 04/12/2025 Insurance Providers Payer Name Payer Address Payer Phone Subscriber Number Group Number Insured Name Patient Relationship to Insured Coverage Start Date Coverage End Date [employer] [facility] Attn Claims Department [address] [place] [address] [phone] [id number] Rose Jara Self - patient is the insured 5 [facility] Attn Claims Department [address] [place] [address] [phone] [id number] Rose Jara Self - patient is the insured 5 Medical (General) History Medical History History ICD Code anxiety 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
--- OUTSIDE RECORDS SUMMARY | 2025-06-06 15:41 | XMS_ITS | Clinical Summary ---
Author Organization [facility] Address [address] [facility] [place] [address] Care Team Providers Care Molder Trimmer Name Role Phone Anand Richard MD Primary Care Provider + Source Comments [facility],non-owned Affiliates and Associated Physician Practices is amultiple site organization consisting of ambulatory clinics and hospital sitesin [place], [place], [place] and [place]. This disclosure is being madepursuant to the Care Everywhere program and may not contain all information available regarding this patient. Last updated 18.[facility] Allergies Active Allergy Reactions Criticality Noted Date [...] VACCINE (1 of 2 - PCV) 2003 PAP SMEAR 2005 HPV VACCINE (1 - 3-dose SCDM series) [...] ID:Not on file Type:Medicaid Managed Care Address: [place] [id number] SELF PAY NO INSURANCE Member Subscriber Plan / Payer (Ef fective for All Dates) Name:Madonna Jara Member ID:Not on file Relation to Subscriber:Not on file Name:MADONNA JARA Subscriber ID:Not on file (Home) Address: [address] [place] [address] Payer ID:Not on file Group ID:Not on file Type:Self Pay Address: [place], [place] Advance Directives * Full Code (Latest Code Status on File) Date Activated Date Inactivated Comments 04/29/2021 10:41 PM 05/07/2021 1:00 PM Care Teams Molder Trimmer Relationship Specialty Start Date End Date Anand Richard MD [address] [place] [phone] (Work) PCP - General 04/03/19
--- OUTSIDE RECORDS SUMMARY | 2025-06-06 15:41 | XMS_ITS | Encounter Summary ---
Author Organization [facility] Address [address] [place] [address] Phone Care Team Providers Care Anesthesiology Technologist Name Role Phone Anand Richard MD Primary Care Prov ider Ravinder Morrow MD Unavailable [phone] Encounter Details Date Type Department Care Team (Latest Contact Info) Description 05/17/2025 Results Follow-Up [facility] Medicine Reproductive Endocrinology [address] [address] Giuliana Gutierrez, [place] [address] [place] [address] Antimullerian hormone (AMH), Estradiol, Follicle [...] on file Legal Sex Female 8:49 PM PROGRAM SERVICES PLANNER Gender Identity Not on file Sexual Orientation Not on file documented as of this encounter Plan of Treatment Not on file documented as of this encounter Visit Diagnoses Not on filedocumented in this encounter Care Teams Anesthesiology Technologist Relationship Specialty Start Date End Date Anand Richard MD PCP - General Family Medicine 10/10/24 Ravinder Morrow MD [address] [place] [address] Referring Physician Obstetrics and Gynecology 02/19/25 documented as of this encounter
== END 2025-06-06 15:38 | disposition home or self-care (01) ==
LOC: ANHFOHIMG 15:38
PROVIDERS: PCP Nurse Practitioner Family; Visit Provider Nurse Practitioner
DX: Z12.31 Encounter for screening mammogram for malignant neoplasm of breast (principal); R92.8 Other abnormal and inconclusive findings on diagnostic imaging of breast
CPT/HCPCS: 77063; 77067

== ENCOUNTER 2025-06-20 11:24 | Outpatient (CLI) | payer OTHER, SELFPAY ==
--- NOTE | ~2025-06-20 | MMUS_ITS ---
EXAMINATION: MM diagnostic anabel LT w stella, US breast LT limited INDICATION: 39-year old female; BI-RADS 0, callback from screening to evaluate LEFT breast mass. COMPARISON: 06/06/2025 TECHNIQUE: Digital breast tomosynthesis True lateral and spot compression CC and MLO views of the BILATERAL breast were obtained with computer-aided detection to assist in interpretation of the study. MAMMOGRAM FINDINGS: There are scattered areas of fibroglandular density. A circumscribed mass persists in the area of concern in the superior lateral at posterior third. LEFT BREAST ULTRASOUND FINDINGS: Targeted evaluation of the area of concern was completed. There is a 0.9 cm Hypoechoic mass with mildly thickened cortex and with echogenic center at 2:00 location 10 cm from the nipple compatible with an intramammary lymph node that correlates to the area of Mammographic finding. IMPRESSION: Findings compatible with probable benign intramammary lymph node which may be reactive in etiology correlates to the mammographic finding in the LEFT breast at upper outer location. Short-term follow-up is advised. RECOMMENDATION: 6 month follow-up ultrasound left breast. BI-RADS 3, PROBABLY BENIGN Reviewed, dictated and finalized at location B. IMPRESSION: Findings compatible with probable benign intramammary lymph node which may be r eactive in etiology correlates to the mammographic finding in the LEFT breast a t upper outer location. Short-term follow-up is advised. RECOMMENDATION: 6 month follow-up ultrasound left breast. BI-RADS 3, PROBABLY BENIGN
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
== END 2025-06-20 11:25 | disposition home or self-care (01) ==
LOC: ANHFOHIMG 11:26
PROVIDERS: PCP Nurse Practitioner Family; Visit Provider Nurse Practitioner
DX: N63.20 Unspecified lump in the left breast, unspecified quadrant (principal); R92.8 Other abnormal and inconclusive findings on diagnostic imaging of breast
CPT/HCPCS: 76642; 77061; 77065; G0279

== ENCOUNTER 2025-07-12 10:17 | Emergency (ER) | payer OTHER, SELFPAY ==
--- NOTE | ~2025-07-12 | CT_ITS ---
EXAM/PROCEDURE: CT UE LT wo con HISTORY: HAND SWELLING, UNABLE TO GAIN IV ACCESS COMPARISON: None available. TECHNIQUE: Noncontrast CT through the left M reperformed. FINDINGS: Extensive edema present in the subcutaneous soft tissues of the distal left forearm, wrist and hand especially along the dorsal aspect in the metacarpal phalangeal region of the hand. No discretely defined or drainable fluid collection. The deeper compartments within the visualized portions of the arm, forearm, wrist and hand appear relatively preserved with no gross infiltrative changes or architectural distortion compelling for compartment syndrome. The bones appear intact. IMPRESSION: Directed noncontrast exam with no evidence of osteomyelitis or definite abscess. There is severe edematous changes particularly in the wrist and hand region. If developing abscess is a clinical concern repeat CT examination with contrast or MRI may provide additional beneficial information. Reviewed, dictated and finalized at location [facility] IMPRESSION: Directed noncontrast exam with no evidence of osteomyelitis or definite abscess . There is severe edematous changes particularly in the wrist and hand region. If developing abscess is a clinical concern repeat CT examination with contrast or MRI may provide additional beneficial information.
--- NOTE | ~2025-07-12 | US_ITS ---
Ultrasound venous duplex upper extremity, left arm CLINICAL HISTORY: arm SWELLING . Comparison: None. TECHNIQUE: Grayscale, color, duplex/spectral Doppler sonography. FINDINGS: Left upper extremity internal jugular, subclavian, axillary, brachial, basilic, cephalic veins compressible (where possible) and color Doppler patent with normal phasic flow. No internal echoes. IMPRESSION: No left upper extremity DVT. Reviewed, dictated and finalized at location R. [employer]
[2025-07-12 10:19] VITALS: BP 141/88; PULSE 84; RESP 20; TEMP 36.4; O2SAT 100
[2025-07-12 11:25] VITALS: BP 153/83; PULSE 69; RESP 16; O2SAT 100
[2025-07-12 11:27] VITALS: TEMP 36.6
[2025-07-12 11:44] VITALS: BP 141/91; PULSE 63; RESP 16; O2SAT 99
[2025-07-12 13:09] LABS: Hematocrit 32.6 % (37.0-47.0); Hemoglobin 10.7 g/dL (12.0-15.0); Immature Granulocyte Percent A 0.3 % (0-0.5); Lymphocytes Absolute Auto 2.02 K/mm3 (0.9-3.2); Mean Corpuscular HGB Conc 32.8 g/dl (32-36); Mean Corpuscular Hemoglobin 28.5 pg (26-34); Mean Corpuscular Volume 86.7 fl (80-100); Nucleated Red Blood Cells Absolute Auto 0.000 K/mm3 (0.0-0.012); Nucleated Red Blood Cells Perc 0.0 % (0.0-0.2); Platelet Count Result 180 k/mm3 (150-375); Red Blood Count 3.76 M/mm3 (4.2-5.4); White Blood Count 5.7 K/mm3 (4.5-10.0)
[2025-07-12 13:19] LABS: INR 1.0; Prothrombin Time 13.4 Seconds (11.1-14.7)
[2025-07-12 13:21] LABS: Alanine Aminotransferase 21 U/L (6-35); Albumin Level 4.4 g/dL (3.5-5.1); Alkaline Phosphatase 50 U/L (38-126); Anion Gap 11 mmol/L (4-12); Aspartate Amino Transferase 25 U/L (14-36); Bilirubin,Total 0.4 mg/dL (0.2-1.3); Blood Urea Nitrogen 15 mg/dL (7-17); Calcium 8.9 mg/dL (8.4-10.2); Carbon Dioxide 23 mmol/L (22-30); Chloride 103 mmol/L (98-107); Estimated CRCL calculation 112 ml/min; Estimated Glomerular Filt Rate > 60; Glucose 85 mg/dL (65-110); Potassium 4.5 mmol/L (3.4-5.0); Sodium 137 mmol/L (137-145); Total Protein 8.6 g/dL (6.3-8.2)
--- NOTE | 2025-07-12 15:10 | ED.EXTPRO ---
HPI - Extremity Problem General Chief complaint: Extremity Problem,Nontraumatic Stated complaint: swelling of hands Time Seen by Provider: 07/12/25 12:08 Source: patient Mode of arrival: ambulatory Limitations: no limitations History of Present Illness HPI Narrative: 39-year-old with a history of chronic wounds to her left and right upper extremities here with a complains of swelling to her hand since yesterday. She states that she was bitten by her kitten on the tip of the left 4 th finger yesterday , was at Wound care this morning and was advised to ER for evaliation , she also mentioned she had DVT in her legs and was on Xarelto few months . She denies any chest pain or shortness of breath at this time. No fever or chills. MD Complaint: extremity swelling Location: left and upper extremity Radiation: distal Relieving factors: nothing Exacerbating factors: nothing Associated symptoms: denies other symptoms Context: history of DVT Related Data Home Medications ?Medication ?Instructions ?Recorded ?Confirmed ?Last Taken ?Type buprenorphine 8 mg-naloxone 2 mg 1 tablet sublingual BID 10/18/24 06/04/25 05/06/25 History sublingual tablet furosemide 20 mg tablet 20 mg PO QAM 10/18/24 06/04/25 Unknown History naloxone 4 mg/actuation nasal 4 mg intranasal Q2M PRN opioid 10/18/24 06/04/25 Unknown History spray (Narcan) overdose Allergies Allergy/AdvReac Type Severity Reaction Status Date / Time codeine Allergy Unknown Hives Verified 07/12/25 11:42 Review of Systems Review of Systems: All systems reviewed & are unremarkable except as noted in HPI and below Constitutional: Constitutional: Reports no additional constitutional complaints Eyes: Eyes: Reports no additional eye complaints ENT: Reports system reviewed and no additional complaints, except as documented Cardiovascular: Cardiovascular: Reports no additional cardiovascular complaints Respiratory: Respiratory: Reports no additional respiratory complaints Gastrointestinal: Gastrointestinal: Reports no additional gastrointestinal complaints Musculoskeletal: Musculoskeletal: Reports as per HPI Integumentary/Breasts: Skin/Breast: Reports as per HPI Neurologic: Reports system reviewed and no additional complaints, except as documented Psychiatric: Psychiatric: Reports no additional psychiatric complaints PMFSH Past Medical History Medical History (Updated 07/12/25 @ 15:13 by Ryan Delaney MD) DENNY (iron deficiency anemia) Nausea and vomiting BMI 26.0-26.9,adult Hx of drug overdose Ativan, Gabepentin, Fentanyl, Heroin Necrotizing fasciitis (04/2021) Heroin abuse GERD (gastroesophageal reflux disease) Pancreatitis Surgical History Surgical History History of cholecystectomy (2019) Hx of tonsillectomy History of oral surgery Family History Family History Father Cerebrovascular accident Mother Hypertension Sibling Malnourished Other Diabetes mellitus Family history of lung cancer Family history of malignant neoplasm of cervix Social History Social History Smoking packs per day: 1 Smoking cigarettes per day: 20.0 Years smoked: 15 Smoking pack-years: 15.00 Smoking status: Current every day smoker Tobacco type: cigarettes and e-cigarettes/vaping Second hand tobacco smoke exposure: Yes Alcohol intake: never Substance use: former Substance use type: former substance user and IV drugs Other substance usage details: former heroin user, current non-prescription fentanyl user Last use: 4 months Do You Feel Safe in your Home?: Yes Lack of Transportation: No Lack of Food: Never True Current Housing: I Have Housing Concerned About Future Housing: No Difficulty Paying Gas/Electric Bills: No Difficulty Paying for Meds: No Currently Unemployed: No Education: High School Diploma/GED Difficulty w/ Childcare or Family Care: No Living arrangements: with family Occupation/Education: unemployed Gender identity (if verbalized by the patient): Female Spiritual care concerns: No Agree to blood products: Yes Exam Narrative: GENERAL: Well-appearing, well-nourished, and in no acute distress. HEAD: Normocephalic, atraumatic. EYES: PERRLA and EOMI. ENT: Nares clear, no rhinorrhea or epistaxis. Mucous membranes moist. NECK: Supple. CHEST: Clear to auscultation. No respiratory distress. HEART: Regular rate and rhythm. No murmur heard. Normal peripheral pulses. ABDOMEN: Soft, nontender, nondistended, normal active bowel sounds. EXTREMITIES: Normal range of motion. has chronic wounds on both fore arms ,has STS of the left hand , good radial pulse , non tender on palpation , wound on the forearm is dry , no drainage or redness. SKIN: Warm, dry, no rash. NEURO: No focal deficits. Alert and oriented x3. PSYCH: Normal mood and affect. Course Course Emergency Course: with a H/o of chronic wound and DVT's did lab and US of the upper ext. which showed no DVT , did CT of th left upper ext to see any deep abscess or gas , CT with non contrast had no gas or abscess . we were unable to get IV line as both ext have chroinic wound. Vital Signs Vital signs: Vital Signs Temperature 36.4 C 07/12/25 10:19 Pulse Rate 84 07/12/25 10:19 Respiratory Rate 20 07/12/25 10:19 Blood Pressure 141/88 H 07/12/25 10:19 Pulse Oximetry 100 07/12/25 10:19 Oxygen Delivery Room Air 07/12/25 10:19 Temperature 36.6 C 07/12/25 11:27 Pulse Rate 74 07/12/25 15:32 Respiratory Rate 18 07/12/25 15:32 Blood Pressure 139/99 H 07/12/25 15:32 Pulse Oximetry 100 07/12/25 15:32 Oxygen Delivery Room Air 07/12/25 11:44 MDM - Extremity (Nontraumatic) Differential Diagnosis Differential diagnosis: Likely cellulitis, superficial thrombophlebitis, deep venous thrombosis of upper extremity and other (DVT , Nec fasc) Lab Data Attestation: I reviewed the patient's lab results. 07/12/25 12:58 07/12/25 12:58 Labs: Lab Results 07/12/25 Range/Units 12:58 WBC 5.7 (4.5-10.0) K/mm3 RBC 3.76 L (4.2-5.4) M/mm3 Hgb 10.7 L (12.0-15.0) g/dL Hct 32.6 L (37.0-47.0) % MCV 86.7 (80-100) fl MCH 28.5 (26-34) pg MCHC 32.8 (32-36) g/dl RDW 13.5 (11.5-14.5) % Plt Count 180 (150-375) k/mm3 MPV 10.1 (7.4-10.4) fl Immature Gran % (Auto) 0.3 (0-0.5) % Neut % (Auto) 54.7 (45.5-73.1) % Lymph % (Auto) 35.3 (18.3-44.2) % [place] % (Auto) 7.3 (2.6-8.5) % Eos % (Auto) 1.7 (0-4.4) % Baso % (Auto) 0.7 (0.2-1.2) % Lymph # (Auto) 2.02 (0.9-3.2) K/mm3 [place] # (Auto) 0.4 (0.1-0.6) K/mm3 Eos # (Auto) 0.1 (0-0.3) K/mm3 Baso # (Auto) 0.0 (0.0-0.1) K/mm3 Abs Immat Gran (auto) 0.02 (0.00-0.031) K/mm3 Absolute Neuts (auto) 3.1 (1.3-6.7) K/mm3 Absolute Nucleated RBC 0.000 (0.0-0.012) K/mm3 Nucleated RBC % 0.0 (0.0-0.2) % PT 13.4 (11.1-14.7) Seconds INR 1.0 Sodium 137 (137-145) mmol/L Potassium 4.5 (3.4-5.0) mmol/L Chloride 103 (98-107) mmol/L Carbon Dioxide 23 (22-30) mmol/L Anion Gap 11 (4-12) mmol/L BUN 15 (7-17) mg/dL Creatinine 0.70 (0.7-1.0) mg/dL Estim Creat Clear Calc 112 ml/min Estimated GFR > 60 (59 - ) Glucose 85 (65-110) mg/dL Lactic Acid 0.9 (0.7-2.0) mmol/L Calcium 8.9 (8.4-10.2) mg/dL Total Bilirubin 0.4 (0.2-1.3) mg/dL AST 25 (14-36) U/L ALT 21 (6-35) U/L Alkaline Phosphatase 50 (38-126) U/L Total Protein 8.6 H (6.3-8.2) g/dL Albumin 4.4 (3.5-5.1) g/dL Imaging Data Radiologist's impression: ITS Impressions Venous Doppler Study 07/12/25 13:30 IMPRESSION: No left upper extremity DVT. Upper Extremity CT 07/12/25 14:24 IMPRESSION: Directed noncontrast exam with no evidence of osteomyelitis or definite abscess. There is severe edematous changes particularly in the wrist and hand region. If developing abscess is a clinical concern repeat CT examination with contrast or MRI may provide additional beneficial information. Discharge Plan Discharge Clinical Impression: Chronic wound of extremity Patient Disposition: Home Condition: Stable Instructions: Chronic Wounds (ED) Additional Instructions: continue home meds follow with your PMD or wound care Patient Language: Turkmen Prescriptions: New amoxicillin-pot clavulanate 875-125 mg tablet 1 tablet PO Q12H Qty: 14 0RF No Action furosemide 20 mg tablet 20 mg PO QAM naloxone [Narcan] 4 mg/actuation spray,non-aerosol 4 mg intranasal Q2M PRN (Reason: opioid overdose) Rx Instructions: spray 1 dose into ONE nostril; alternate nostrils w each dose until help arrives buprenorphine-naloxone 8-2 mg tablet, sublingual 1 tablet sublingual BID Women's Daily Formula 27-0.4 mg tablet 1 tablet PO DAILY Qty: 90 3RF mecobalamin (vitamin B12) 1,000 mcg lozenge 1,000 mcg PO DAILY Qty: 60 5RF Rx Instructions: allow to dissolve in mouth OR may chew lightly before swallowing buspirone 10 mg tablet 10 mg PO BID Qty: 60 5RF ferrous sulfate [FeroSul] 325 mg (65 mg iron) tablet 325 mg PO DAILY Qty: 90 0RF celecoxib 200 mg capsule 200 mg PO DAILY Qty: 90 0RF clonidine HCl 0.2 mg tablet 0.2 mg PO TID Qty: 270 0RF duloxetine 30 mg capsule,delayed release(DR/EC) 30 mg PO DAILY Qty: 90 0RF hydroxyzine HCl 25 mg tablet 25 mg PO QID Qty: 120 2RF ramelteon 8 mg tablet See Rx Instructions .ROUTE .COMPLEX Qty: 30 5RF Dose Instruction: TAKE 1 TABLET BY MOUTH EVERY DAY AT BEDTIME NEEDED FOR SLEEP Rx Instructions: TAKE 1 TABLET BY MOUTH EVERY DAY AT BEDTIME NEEDED FOR SLEEP gabapentin 400 mg capsule 400 mg PO BID Qty: 60 3RF Cholestyramine Light 4 gram powder in packet 4 g PO DAILY Qty: 30 6RF Rx Instructions: administer w/meal; avoid other meds within 1hr before or 4-6hr after dose famotidine 40 mg tablet 40 mg PO DAILY Qty: 90 2RF acetaminophen 500 mg tablet 1,000 mg PO TID PRN (Reason: fever or pain) Qty: 180 2RF prochlorperazine maleate [Compazine] 5 mg tablet 5 mg PO Q8H PRN (Reason: nausea and vomiting) Qty: 30 0RF loperamide [Imodium A-D] 2 mg tablet 2 mg PO Q4H PRN (Reason: loose stool) Qty: 60 0RF Rx Instructions: administer after each loose stool until symptoms controlled; do not exceed 8 mg per 24 hrs Follow-up/Referrals: Cindy Munoz APRN [Primary Care Provider, [facility]] Time of Disposition: 15:13
[2025-07-12 15:32] VITALS: BP 139/99; PULSE 74; RESP 18; O2SAT 100
== END 2025-07-12 15:35 | disposition home or self-care (01) ==
PROVIDERS: Emergency Provider Family Medicine; PCP Nurse Practitioner Family
DX: S61.402A Unspecified open wound of left hand, initial encounter (principal); W55.01XA Bitten by cat, initial encounter; Z86.718 Personal history of other venous thrombosis and embolism; K21.9 Gastro-esophageal reflux disease without esophagitis; F17.210 Nicotine dependence, cigarettes, uncomplicated; F17.290 Nicotine dependence, other tobacco product, uncomplicated; F11.11 Opioid abuse, in remission
CPT/HCPCS: 36415; 73200; 80053; 83605; 85025; 85610; 93971; 99284

== ENCOUNTER 2025-07-24 07:46 | Outpatient (RCR) | payer OTHER, SELFPAY ==
[2025-04-26 00:04] VITALS: BMI 24.0
== END 2025-08-01 23:59 | disposition home or self-care (01) ==
LOC: ANHWOC 07:46
PROVIDERS: PCP Nurse Practitioner Family; Visit Provider Nurse Practitioner Family
DX: L98.9 Disorder of the skin and subcutaneous tissue, unspecified (principal); Z48.00 Encounter for change or removal of nonsurgical wound dressing
CPT/HCPCS: 99213; A9270; G0463